=== PATIENT | male | born 1945 | race Caucasian/White ===

== ENCOUNTER 2018-01-20 10:35 | Inpatient (IN) | payer MEDICARE, MEDICAID ==
[2018-01-20] MEDS ORDERED: Sodium Chloride 0.9% 10 ML Syringe FLUSH PRN (11:59)
[2018-01-20] MEDS ORDERED: Pantoprazole 40 MG Vial IVPUSH ONE (12:05)
--- NOTE | 2018-01-20 12:10 | EDM.PDOC ---
ED HPI GENERAL MEDICAL PROBLEM - General Chief Complaint: Gastrointestinal Problem Stated Complaint: [facility] Time Seen by Provider: 01/20/18 11:49 Source of Information: Reports: Patient, EMS, Skilled Nursing Records - History of Present Illness INITIAL COMMENTS - FREE TEXT/NARRATIVE: 72-year-old male presents via [facility] for evaluation and treatment of one episode of coffee-ground emesis. Reportedly the patient is a resident of [facility] and had episodes of hematemesis Earlier This Morning. Per EMS He Did Not Have Any Emesis En Route. Patient is a poor historian and is unable to provide much history. He is currently denying any pain. Denies abdominal pain or chest pain. Alert and orientates to person, and place. - Related Data Allergies Allergy/AdvReac Type Severity Reaction Status Date / Time No Known Allergies Allergy Verified 01/20/18 10:57 Home Meds: Home Meds Folic Acid 1 mg PO BEDTIME #30 tablet 03/11/17 [Rx] Thiamine [Vitamin B-1] 100 mg PO BEDTIME #30 tablet 03/11/17 [Rx] Levothyroxine 88 mcg PO DAILY 04/26/17 [History] Acetaminophen [Tylenol] 650 mg PO Q4H PRN tablet 05/09/17 [Rx] Aspirin 81 mg PO DAILY #30 tab.chew 05/09/17 [Rx] Multivitamins [Tab-A-Emily] 1 tab PO BEDTIME tablet 05/09/17 [Rx] Nicotine [Habitrol] 21 mg TRDERM DAILY #30 patch 05/09/17 [Rx] atorvaSTATin [Lipitor] 20 mg PO BEDTIME #30 tablet 05/09/17 [Rx] metFORMIN [Glucophage] 500 mg PO BIDMEALS #60 tablet 05/09/17 [Rx] Calcium Carbonate [Tums] 500 mg PO BID 01/20/18 [History] Lisinopril [Prinivil] 20 mg PO DAILY 01/20/18 [History] Petrolatum,White [Vaseline] 453.6 gm TOP DAILY 01/20/18 [History] Sertraline [Zoloft] 50 mg PO DAILY 01/20/18 [History] risperiDONE [Risperdal] 0.5 mg PO DAILY 01/20/18 [History] risperiDONE [Risperdal] 1 mg PO DAILY 01/20/18 [History] Past Medical History HEENT History: Reports: None Cardiovascular History: Reports: Hypertension, Pacemaker Other Cardiovascular History: bradycardia Respiratory History: Reports: Other (See Below) Other Respiratory History: smoker Gastrointestinal History: Reports: GERD Genitourinary History: Reports: None Musculoskeletal History: Reports: None Neurological History: Reports: Other (See Below) (Alcohol-related dementia) Psychiatric History: Reports: None Endocrine/Metabolic History: Reports: Diabetes, Type II Hematologic History: Reports: None Oncologic (Cancer) History: Reports: None Dermatologic History: Reports: None - Infectious Disease History Infectious Disease History: Reports: None - Past Surgical History Male Surgical History: Reports: None Social & Family History - Family History Family Medical History: Noncontributory - Caffeine Use Caffeine Use: Reports: Coffee ED ROS GENERAL - Review of Systems Review Of Systems: See Below Cardiovascular: Denies: Chest Pain GI/Abdominal: Reports: Hematemesis. Denies: Abdominal Pain ED EXAM, GI/ABD - Physical Exam Exam: See Below Exam Limited By: No Limitations General Appearance: Alert, Lethargic, Thin, Cachetic Throat/Mouth: Normal Voice, No Airway Compromise, Other (dry mucus membranes) Respiratory/Chest: No Respiratory Distress, Lungs Clear, Normal Breath Sounds Cardiovascular: Normal Peripheral Pulses, Regular Rate, Rhythm, No Murmur GI/Abdominal Exam: Normal Bowel Sounds, Soft, Non-Tender Neurological: Oriented (to person and place), Slow to Respond Psychiatric: Normal Affect, Normal Mood Skin Exam: Warm, Dry, Normal Color EKG INTERPRETATION EKG Date: 01/20/18 Time: 13:50 Rhythm: NSR Rate (Beats/Min): 78 [place]: Normal P-Wave: Present QRS: Normal ST-T: Normal QT: Normal EKG Interpretation Comments: NSR at [address] segment changes. Reviewed by myself and Dr. Martines. Course - Vital Signs Last Recorded V/S: Last Vital Signs Temp 97.9 F 01/20/18 20:31 Pulse 126 H 01/20/18 20:31 Resp 24 H 01/20/18 20:31 BP 124/68 01/20/18 21:43 Pulse Ox 99 01/20/18 20:31 - Orders/Labs/Meds Orders: Active Orders 24 hr Category Date Time Status Ambulate [RC] ASDIRECTED Care 01/20/18 17:30 Inactive Bedrest Bathroom Privileges [RC] ASDIRECTED Care 01/20/18 17:30 Active Blood Glucose Check, Bedside [RC] WITHMEALSANDBED Care 01/20/18 17:30 Active Cardiac Monitoring [RC] . DIRECTED Care 01/20/18 11:59 Active Height and Weight [RC] 04 Care 01/20/18 17:30 Active May Shower [RC] ASDIRECTED Care 01/20/18 17:30 Active Oxygen Therapy [RC] PRN Care 01/20/18 17:30 Active Pulse Oximetry [RC] PRN Care 01/20/18 17:32 Active Up With Assistance [RC] ASDIRECTED Care 01/20/18 17:30 Inactive VTE/DVT Education [RC] 09,21 Care 01/20/18 17:30 Active Vital Signs [RC] Q4HR Care 01/20/18 17:30 Active Consult to Case Management [CONS] Routine Cons 01/20/18 17:30 Active Consult to Dividend Deposit Voucher Clerk [CONS] Routine Cons 01/20/18 17:30 Active OT Evaluation and Treatment [CONS] Routine Cons 01/20/18 17:30 Active PT Evaluation and Treatment [CONS] Routine Cons 01/20/18 17:30 Active Clear Liquid Diet [DIET] Diet 01/20/18 Breakfast Active Chest 1V Frontal [CR] Stat Exams 01/20/18 13:41 Taken BASIC METABOLIC PANEL,BMP [CHEM] AM Lab 01/21/18 05:11 Ordered BASIC METABOLIC PANEL,BMP [CHEM] AM Lab 01/22/18 05:11 Ordered BASIC METABOLIC PANEL,BMP [CHEM] AM Lab 01/23/18 05:11 Ordered BASIC METABOLIC PANEL,BMP [CHEM] AM Lab 01/24/18 05:11 Ordered BASIC METABOLIC PANEL,BMP [CHEM] AM Lab 01/25/18 05:11 Ordered CBC WITH AUTO DIFF [HEME] AM Lab 01/21/18 05:11 Ordered CBC WITH AUTO DIFF [HEME] AM Lab 01/22/18 05:11 Ordered CBC WITH AUTO DIFF [HEME] AM Lab 01/23/18 05:11 Ordered CBC WITH AUTO DIFF [HEME] AM Lab 01/24/18 05:11 Ordered CBC WITH AUTO DIFF [HEME] AM Lab 01/25/18 05:11 Ordered UA W/MICROSCOPIC [URIN] Stat Lab 01/20/18 14:10 Ordered Acetaminophen [Tylenol] Med 01/20/18 17:30 Active 650 mg PO Q4H PRN Acetaminophen/HYDROcodone [[place] 325-5 MG] Med 01/20/18 17:30 Active 1 tab PO Q4H PRN Bisacodyl [Dulcolax] Med 01/20/18 17:30 Active 5 mg PO DAILY PRN Docusate Sodium [Colace] Med 01/20/18 17:30 Active 100 mg PO BID PRN Docusate Sodium/Sennosides [Senna Plus] Med 01/20/18 17:30 Active 1 tab PO BID PRN HYDROmorphone [Dilaudid] Med 01/20/18 17:30 Active 0.25 mg IVPUSH Q2H PRN Magnesium Hydroxide [Milk of Magnesia] Med 01/20/18 17:30 Active 30 ml PO Q12H PRN Nicotine [Habitrol] Med 01/21/18 09:00 Active 21 mg TRDERM DAILY Pantoprazole [ProTONIX IV] Med 01/20/18 21:00 Active 40 mg IV Q12HR Polyethylene Glycol 3350 [MiraLAX] Med 01/20/18 17:30 Active 17 gm PO DAILY PRN Promethazine [Phenergan] Med 01/20/18 17:30 Active 25 mg PO Q6H PRN Promethazine [Phenergan] 6.25 mg Med 01/20/18 17:30 Active Sodium Chloride 0.9% [Normal Saline] 50 ml IV Q6H Sodium Chloride 0.9% [Normal Saline] 1,000 ml Med 01/20/18 12:15 Active IV ASDIRECTED Sodium Chloride 0.9% [Saline Flush] Med 01/20/18 11:59 Active 10 ml FLUSH ASDIRECTED PRN Temazepam [Restoril] Med 01/20/18 17:30 Active 7.5 mg PO BEDTIME PRN Peripheral IV Insertion Adult [OM.PC] Routine Oth 01/20/18 11:59 Ordered Sequential Compression Device [OM.PC] Per Unit Routine Oth 01/20/18 17:34 Ordered Resuscitation Status Routine Resus Stat 01/20/18 17:30 Ordered EKG 12 Lead [EK] Stat Ther 01/20/18 13:41 Ordered Medication Orders Acetaminophen (Tylenol) 650 mg PO Q4H PRN PRN Reason: Pain (Mild 1-3)/fever Hydrocodone Bitart/Acetaminophen ([place] 325-5 Mg) 1 tab PO Q4H PRN PRN Reason: Pain (moderate 4-6) Aspirin (Aspirin) 81 mg PO DAILY [facility] Bisacodyl (Dulcolax) 5 mg PO DAILY PRN PRN Reason: Constipation Calcium Carbonate/Glycine (Tums) 500 mg PO BID [facility] Docusate Sodium (Colace) 100 mg PO BID PRN PRN Reason: Constipation Folic Acid (Folic Acid) 1 mg PO BEDTIME [facility] Last Admin: 01/20/18 20:21 Dose: 1 mg Hydralazine HCl (Apresoline) 20 mg IVPUSH Q4H PRN PRN Reason: Hypertension Last Admin: 01/20/18 21:35 Dose: 20 mg Hydromorphone HCl (Dilaudid) 0.25 mg IVPUSH Q2H PRN PRN Reason: Pain (severe 7-10) Sodium Chloride (Normal Saline) 1,000 mls @ 125 mls/hr IV ASDIRECTED [facility] Last Admin: 01/20/18 20:19 Dose: 125 mls/hr Infusion: 01/20/18 20:12 Dose: 125 mls/hr Admin: 01/20/18 12:12 Dose: 125 mls/hr Promethazine HCl 6.25 mg/ (Sodium Chloride) 50.25 mls @ 100 mls/hr IV Q6H PRN PRN Reason: Nausea/Vomiting Levothyroxine Sodium (Synthroid) 88 mcg PO ACBREAKFAST [facility] Lisinopril (Prinivil) 20 mg PO DAILY [facility] Lorazepam (Ativan) 2 mg IVPUSH Q4H PRN PRN Reason: Seizures Magnesium Hydroxide (Milk Of Magnesia) 30 ml PO Q12H PRN PRN Reason: Constipation Magnesium Sulfate (Pharmacy To Dose - Magnesium Replacement) 1 dose .XX ASDIRECTED [facility] Metformin HCl (Glucophage) 500 mg PO BIDMEALS [facility] Metoprolol Tartrate (Lopressor) 5 mg IVPUSH Q4H PRN PRN Reason: Tachycardia Miscellaneous Information (Remove Patch) 1 ea TRDERM DAILY [facility] Multivitamins (Thera) 1 each PO BEDTIME [facility] Last Admin: 01/20/18 20:21 Dose: 1 each Nicotine (Habitrol) 21 mg TRDERM DAILY [facility] Non-Formulary Medication (Petrolatum,White [Vaseline]) 453.6 gm TOP DAILY [facility] Pantoprazole Sodium (Protonix Iv) 40 mg IV Q12HR [facility] Last Admin: 01/20/18 20:21 Dose: 40 mg Polyethylene Glycol (Miralax) 17 gm PO DAILY PRN PRN Reason: Constipation Potassium Chloride (Pharmacy To Dose - Potassium Replacement) 1 dose .XX ASDIRECTED JAMES Promethazine HCl (Phenergan) 25 mg PO Q6H PRN PRN Reason: Nausea/Vomiting Risperidone (Risperidal) 0.5 mg PO DAILY [facility] Risperidone (Risperidal) 1 mg PO BEDTIME [facility] Last Admin: 01/20/18 20:21 Dose: 1 mg Senna/Docusate Sodium (Senna Plus) 1 tab PO BID PRN PRN Reason: Constipation Sertraline HCl (Zoloft) 50 mg PO DAILY [facility] Simvastatin (Zocor) 20 mg PO BEDTIME [facility] Last Admin: 01/20/18 20:21 Dose: 20 mg Sodium Chloride (Saline Flush) 10 ml FLUSH ASDIRECTED PRN PRN Reason: Keep Vein Open Last Admin: 01/20/18 12:04 Dose: 10 ml Temazepam (Restoril) 7.5 mg PO BEDTIME PRN PRN Reason: Sleep Thiamine HCl (Vitamin B-1) 100 mg PO BEDTIME JAMES Last Admin: 01/20/18 20:21 Dose: 100 mg Labs: Laboratory Tests 01/20/18 01/20/18 01/20/18 Range/Units 12:06 12:25 12:25 WBC 8.72 (4.23-9.07) K/mm3 RBC 5.46 (4.63-6.08) M/mm3 Hgb 14.8 (13.7-17.5) gm/L Hct 44.2 (40.1-51.0) % MCV 81.0 (79.0-92.2) fl MCH 27.1 (25.7-32.2) pg MCHC 33.5 (32.2-35.5) g/dl RDW Std Deviation 38.7 (35.1-43.9) fL Plt Count 267 (163-337) K/mm3 MPV 8.9 L (9.4-12.3) fl Neutrophils % (Manual) 83 H (40-60) % Band Neutrophils % 6 (0-10) % Lymphocytes % (Manual) 7 L (20-40) % Atypical Lymphs % 0 % Monocytes % (Manual) 4 (2-10) % Eosinophils % (Manual) 0 L (0.8-7.0) % Basophils % (Manual) 0 L (0.2-1.2) Platelet Estimate Adequate Plt Morphology Comment Normal Microcytosis 1+ slight Tear Drop Cells 1+ slight RBC Morph Comment Not Reportable PT 12.2 H (9.5-12.1) SECONDS INR 1.12 APTT 35 H (24-31) SECONDS Sodium (136-145) mEq/L Potassium (3.5-5.1) mEq/L Chloride (98-107) mEq/L Carbon Dioxide (21-32) mEq/L Anion Gap (5-15) BUN (7-18) mg/dL Creatinine (0.7-1.3) mg/dL Est Cr Clr Drug Dosing mL/min Estimated GFR (MDRD) (>60) mL/min BUN/Creatinine Ratio (14-18) Glucose (80-115) mg/dL POC Glucose 167 H (80-115) mg/dL Calcium (8.5-10.1) mg/dL Total Bilirubin (0.2-1.0) mg/dL AST (15-37) U/L ALT (16-63) U/L Alkaline Phosphatase (46-116) U/L Ammonia (11-32) umol/L Troponin I (0.00-0.056) ng/mL Total Protein (6.4-8.2) g/dl Albumin (3.4-5.0) g/dl Globulin gm/dL Albumin/Globulin Ratio (1-2) Lipase (73-393) U/L Urine Color (Yellow) Urine Appearance (Clear) Urine pH (5.0-8.0) Ur Specific [place] (1.005-1.030) Urine Protein (Negative) Urine Glucose (UA) (Negative) Urine Ketones (Negative) Urine Occult Blood (Negative) Urine Nitrite (Negative) Urine Bilirubin (Negative) Urine Urobilinogen (0.2-1.0) Ur Leukocyte Esterase (Negative) Urine RBC (0-5) /hpf Urine WBC (0-5) /hpf Ur Epithelial Cells (0-5) /hpf Urine Bacteria (FEW) /hpf Urine Mucus (FEW) /hpf Ethyl Alcohol (0.00) gm% 01/20/18 01/20/18 01/20/18 Range/Units 12:25 12:25 12:25 WBC (4.23-9.07) K/mm3 RBC (4.63-6.08) M/mm3 Hgb (13.7-17.5) gm/L Hct (40.1-51.0) % MCV (79.0-92.2) fl MCH (25.7-32.2) pg MCHC (32.2-35.5) g/dl RDW Std Deviation (35.1-43.9) fL Plt Count (163-337) K/mm3 MPV (9.4-12.3) fl Neutrophils % (Manual) (40-60) % Band Neutrophils % (0-10) % Lymphocytes % (Manual) (20-40) % Atypical Lymphs % % Monocytes % (Manual) (2-10) % Eosinophils % (Manual) (0.8-7.0) % Basophils % (Manual) (0.2-1.2) Platelet Estimate Plt Morphology Comment Microcytosis Tear Drop Cells RBC Morph Comment PT (9.5-12.1) SECONDS INR APTT (24-31) SECONDS Sodium 136 (136-145) mEq/L Potassium 4.3 (3.5-5.1) mEq/L Chloride 100 (98-107) mEq/L Carbon Dioxide 25 (21-32) mEq/L Anion Gap 15.3 H (5-15) BUN 43 H (7-18) mg/dL Creatinine 1.0 (0.7-1.3) mg/dL Est Cr Clr Drug Dosing 70.12 mL/min Estimated GFR (MDRD) > 60 (>60) mL/min BUN/Creatinine Ratio 43.0 H (14-18) Glucose 157 H (80-115) mg/dL POC Glucose (80-115) mg/dL Calcium 9.8 (8.5-10.1) mg/dL Total Bilirubin 0.8 (0.2-1.0) mg/dL AST 13 L (15-37) U/L ALT 21 (16-63) U/L Alkaline Phosphatase 84 (46-116) U/L Ammonia < 10 L (11-32) umol/L Troponin I < 0.017 (0.00-0.056) ng/mL Total Protein 7.8 (6.4-8.2) g/dl Albumin 3.8 (3.4-5.0) g/dl Globulin 4.0 gm/dL Albumin/Globulin Ratio 1.0 (1-2) Lipase 164 (73-393) U/L Urine Color (Yellow) Urine Appearance (Clear) Urine pH (5.0-8.0) Ur Specific [place] (1.005-1.030) Urine Protein (Negative) Urine Glucose (UA) (Negative) Urine Ketones (Negative) Urine Occult Blood (Negative) Urine Nitrite (Negative) Urine Bilirubin (Negative) Urine Urobilinogen (0.2-1.0) Ur Leukocyte Esterase (Negative) Urine RBC (0-5) /hpf Urine WBC (0-5) /hpf Ur Epithelial Cells (0-5) /hpf Urine Bacteria (FEW) /hpf Urine Mucus (FEW) /hpf Ethyl Alcohol 0.00 (0.00) gm% // Range/Units 14:10 WBC (4.23-9.07) K/mm3 RBC (4.63-6.08) M/mm3 Hgb (13.7-17.5) gm/L Hct (40.1-51.0) % MCV (79.0-92.2) fl MCH (25.7-32.2) pg MCHC (32.2-35.5) g/dl RDW Std Deviation (35.1-43.9) fL Plt Count (163-337) K/mm3 MPV (9.4-12.3) fl Neutrophils % (Manual) (40-60) % Band Neutrophils % (0-10) % Lymphocytes % (Manual) (20-40) % Atypical Lymphs % % Monocytes % (Manual) (2-10) % Eosinophils % (Manual) (0.8-7.0) % Basophils % (Manual) (0.2-1.2) Platelet Estimate Plt Morphology Comment Microcytosis Tear Drop Cells RBC Morph Comment PT (9.5-12.1) SECONDS INR APTT (24-31) SECONDS Sodium (136-145) mEq/L Potassium (3.5-5.1) mEq/L Chloride (98-107) mEq/L Carbon Dioxide (21-32) mEq/L Anion Gap (5-15) BUN (7-18) mg/dL Creatinine (0.7-1.3) mg/dL Est Cr Clr Drug Dosing mL/min Estimated GFR (MDRD) (>60) mL/min BUN/Creatinine Ratio (14-18) Glucose (80-115) mg/dL POC Glucose (80-115) mg/dL Calcium (8.5-10.1) mg/dL Total Bilirubin (0.2-1.0) mg/dL AST (15-37) U/L ALT (16-63) U/L Alkaline Phosphatase (46-116) U/L Ammonia (11-32) umol/L Troponin I (0.00-0.056) ng/mL Total Protein (6.4-8.2) g/dl Albumin (3.4-5.0) g/dl Globulin gm/dL Albumin/Globulin Ratio (1-2) Lipase (73-393) U/L Urine Color Yellow (Yellow) Urine Appearance Clear (Clear) Urine pH 5.5 (5.0-8.0) Ur Specific [place] > or = 1.030 (1.005-1.030) Urine Protein 1+ H (Negative) Urine Glucose (UA) Negative (Negative) Urine Ketones 1+ H (Negative) Urine Occult Blood Negative (Negative) Urine Nitrite Negative (Negative) Urine Bilirubin 1+ H (Negative) Urine Urobilinogen 1.0 (0.2-1.0) Ur Leukocyte Esterase Negative (Negative) Urine RBC 0-5 (0-5) /hpf Urine WBC 0-5 (0-5) /hpf Ur Epithelial Cells 0-5 (0-5) /hpf Urine Bacteria Few (FEW) /hpf Urine Mucus Not seen (FEW) /hpf Ethyl Alcohol (0.00) gm% Meds: Medications Generic Name Dose Route Start Last Admin Trade Name Freq PRN Reason Stop Dose Admin Acetaminophen 650 mg 01/20/18 17:30 Tylenol PO Q4H PRN Pain (Mild 1-3)/fever Hydrocodone Bitart/Acetaminophen 1 tab 01/20/18 17:30 [place] 325-5 Mg PO Q4H PRN Pain (moderate 4-6) Aspirin 81 mg 01/21/18 09:00 Aspirin PO DAILY [facility] Bisacodyl 5 mg 01/20/18 17:30 Dulcolax PO DAILY PRN Constipation Calcium Carbonate/Glycine 500 mg 01/21/18 09:00 Tums PO BID [facility] Docusate Sodium 100 mg 01/20/18 17:30 Colace PO BID PRN Constipation Folic Acid 1 mg 01/20/18 21:00 01/20/18 20:21 Folic Acid PO 1 mg BEDTIME JAMES Administration Hydralazine HCl 20 mg 01/20/18 20:41 01/20/18 21:35 Apresoline IVPUSH 20 mg Q4H PRN Administration Hypertension Hydromorphone HCl 0.25 mg 01/20/18 17:30 Dilaudid IVPUSH Q2H PRN Pain (severe 7-10) Sodium Chloride 1,000 mls @ 125 mls/hr 01/20/18 12:15 01/20/18 20:19 Normal Saline IV 125 mls/hr ASDIRECTED [facility] Administration Promethazine HCl 6.25 mg/ 50.25 mls @ 100 mls/hr 01/20/18 17:30 Sodium Chloride IV Q6H PRN Nausea/Vomiting Levothyroxine Sodium 88 mcg 01/21/18 06:00 Synthroid PO ACBREAKFAST [facility] Lisinopril 20 mg 01/21/18 09:00 Prinivil PO DAILY [facility] Lorazepam 2 mg 01/20/18 20:41 Ativan IVPUSH Q4H PRN Seizures Magnesium Hydroxide 30 ml 01/20/18 17:30 Milk Of Magnesia PO Q12H PRN Constipation Magnesium Sulfate 1 dose 01/20/18 20:45 Pharmacy To Dose - Magnesium Replacement .XX ASDIRECTED [facility] Metformin HCl 500 mg 01/21/18 07:00 Glucophage PO BIDMEALS [facility] Metoprolol Tartrate 5 mg 01/20/18 20:41 Lopressor IVPUSH Q4H PRN Tachycardia Miscellaneous Information 1 ea 01/21/18 09:00 Remove Patch TRDERM DAILY [facility] Multivitamins 1 each 01/20/18 21:00 01/20/18 20:21 Thera PO 1 each BEDTIME [facility] Administration Nicotine 21 mg 01/21/18 09:00 Habitrol TRDERM DAILY [facility] Non-Formulary Medication 453.6 gm 01/21/18 09:00 Petrolatum,White [Vaseline] TOP DAILY [facility] Pantoprazole Sodium 40 mg 01/20/18 21:00 01/20/18 20:21 Protonix Iv IV 40 mg Q12HR JAMES Administration Polyethylene Glycol 17 gm 01/20/18 17:30 Miralax PO DAILY PRN Constipation Potassium Chloride 1 dose 01/20/18 20:45 Pharmacy To Dose - Potassium Replacement .XX ASDIRECTED [facility] Promethazine HCl 25 mg 01/20/18 17:30 Phenergan PO Q6H PRN Nausea/Vomiting Risperidone 0.5 mg 01/21/18 09:00 Risperidal PO DAILY [facility] Risperidone 1 mg 01/20/18 21:00 01/20/18 20:21 Risperidal PO 1 mg BEDTIME [facility] Administration Senna/Docusate Sodium 1 tab 01/20/18 17:30 Senna Plus PO BID PRN Constipation Sertraline HCl 50 mg 01/21/18 09:00 Zoloft PO DAILY [facility] Simvastatin 20 mg 01/20/18 21:00 01/20/18 20:21 Zocor PO 20 mg BEDTIME [facility] Administration Sodium Chloride 10 ml 01/20/18 11:59 01/20/18 12:04 Saline Flush FLUSH 10 ml ASDIRECTED PRN Administration Keep Vein Open Temazepam 7.5 mg 01/20/18 17:30 Restoril PO BEDTIME PRN Sleep Thiamine HCl 100 mg 01/20/18 21:00 01/20/18 20:21 Vitamin B-1 PO 100 mg BEDTIME JAMES Administration Discontinued Medications Generic Name Dose Route Start Last Admin Trade Name Freq PRN Reason Stop Dose Admin Nicotine 21 mg 01/21/18 09:00 Habitrol TRDERM DAILY [facility] Pantoprazole Sodium 40 mg 01/20/18 12:05 01/20/18 12:13 Protonix Iv IVPUSH 01/20/18 12:06 40 mg ONETIME ONE Administration Risperidone 1 mg 01/20/18 20:00 Risperidal PO DAILY [facility] - Radiology Interpretation Free Text/Narrative:: Head CT Technique: Multiple axial sections through the brain were obtained. Intravenous contrast was not utilized. Comparison: No prior head CT exam is available. Findings: Ventricles along the basal cisterns and sulci with convexities are moderately prominent. Slightly prominent subdural space is noted on the left side as compared to the right side most likely representing minimal chronic subdural effusion. 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 No other abnormal parenchymal densities are seen. No evidence of intracranial hemorrhage. No midline shift or mass effect is seen. On window settings were reviewed which shows atherosclerotic calcification within the carotid siphon. Minimal soft tissue density seen within the mastoid sinuses which is felt to represent mucosal thickening and is incidental. Impression: 1. Senescent change as noted above. No definite acute intracranial abnormality is identified. Chest xray shows a questionable area to the right lower lobe - Re-Assessments/Exams Free Text/Narrative Re-Assessment/Exam: 01/20/18 17:39 Patient is ever been seen in our ER. Review of records show he is on a Mario several times. Recent indicated that he was previously alcohol. Per nursing staff when [place] called with report, only reported hematemesis. When I reviewed the records from the long-term they state that he was having slurred speech, chest pain and abdominal pain. Records indicate that he had about 4 cups of coffee ground emesis earlier today. When I asked the patient about chest pain and abdominal pain he declined having any. However, he is a poor historian. He did not appear to have any slurred speech to myself. I did do a CT of the head to ensure he has not had a stroke and no abnormalities were found. spoke with daughter shanti, made aware of admission. Possibly EGD pending surgeon recommendation and patient's course. Patient is a full code . Daughter states her and her sister Berna would like everything done including upper endoscopy if that is indicated. Shanti states far she is aware he's never had any GI bleeds or esophageal varices. Shanti made aware of observation status admission. Patient has been in the ER proximally 6 hours down he has not had any hematemesis. I spoke with Dr. Pabon, hospialist on-call. agrees to the admission. Patient meets for observation. PA student, Hodan , came to the ER to admit the patient nursing staff informed me that he has been coughing and they did have to suction out some thick white sputum. .Chest x-ray reviewed by myself and Dr. Martines Questionable hazy infiltrate in the right lung. White blood cell count is within normal limits. I accompanied was sent to the patient's room to inform him he would be seen with us here in the hospital. He did cough while we were talking with him. Departure - Departure Time of Disposition: 17:30 Disposition: Refer to Observation Condition: Fair Clinical Impression: Cough, Coffee ground emesis, Lethargic - Discharge Information - My Orders Last 24 Hours: My Active Orders 01/20/18 11:59 Cardiac Monitoring [RC] . DIRECTED Sodium Chloride 0.9% [Saline Flush] 10 ml FLUSH ASDIRECTED PRN Peripheral IV Insertion Adult [OM.PC] Routine 01/20/18 12:15 Sodium Chloride 0.9% [Normal Saline] 1,000 ml IV ASDIRECTED 01/20/18 13:41 Chest 1V Frontal [CR] Stat EKG 12 Lead [EK] Stat 01/20/18 14:10 UA W/MICROSCOPIC [URIN] Stat - Assessment/Plan Last 24 Hours: My Active Orders 01/20/18 11:59 Cardiac Monitoring [RC] . DIRECTED Sodium Chloride 0.9% [Saline Flush] 10 ml FLUSH ASDIRECTED PRN Peripheral IV Insertion Adult [OM.PC] Routine 01/20/18 12:15 Sodium Chloride 0.9% [Normal Saline] 1,000 ml IV ASDIRECTED 01/20/18 13:41 Chest 1V Frontal [CR] Stat EKG 12 Lead [EK] Stat 01/20/18 14:10 UA W/MICROSCOPIC [URIN] Stat
[2018-01-20] MEDS: Sodium Chloride 0.9% 1,000 ML IV SCH ×2 (12:12→20:19)
--- NOTE | 2018-01-20 14:21 | CT ---
Head CT Technique: Multiple axial sections through the brain were obtained. Intravenous contrast was not utilized. Comparison: No prior head CT exam is available. Findings: Ventricles along the basal cisterns and sulci with convexities are moderately prominent. Slightly prominent subdural space is noted on the left side as compared to the right side most likely representing minimal chronic subdural effusion. 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 No other abnormal parenchymal densities are seen. No evidence of intracranial hemorrhage. No midline shift or mass effect is seen. On window settings were reviewed which shows atherosclerotic calcification within the carotid siphon. Minimal soft tissue density seen within the mastoid sinuses which is felt to represent mucosal thickening and is incidental. Impression: 1. Senescent change as noted above. No definite acute intracranial abnormality is identified. Diagnostic code #2
--- NOTE | 2018-01-20 17:29 | PCM.HP ---
<Hodan Palencia - Last Filed: 01/20/18 17:54> H&P History of Present Illness - General Date of Service: 01/20/18 Admit Problem/Dx: Hematemesis Source of Information: Old Records, Provider History Limitations: Reports: Other (Poor historian ) - History of Present Illness Initial Comments - Free Text/Narative: This is a 72 y/o male with PMHx significant for alcohol use disorder, schizophrenia, dementia, MDD, GERD, cachexia, presence of cardiac pacemaker, weakness, HTN, type 2 DM, HLD, and hypothyroisim who comes in with one episode of coffee ground hematemesis earlier this morning per staff at [facility] where he is a resident. Per EMS, patient did not have any emesis en route to ED but RN at [facility] reported to EMS that he vomited approximately 4 cups this morning. Patient is a poor historian and is unable to provide much history. He is currently denying any pain. Denies abdominal pain or chest pain. He is unable to answer if he has experienced hematemesis prior to today. jail records also indicate that patient was having slurred speech and was more lethargic as well as chest pain and abdominal pain. Patient was noted to have a wet cough with sputum production in ED. ED work-up included CBC that was unremarkable with WBC 8.72 and Hgb 14.8. CMP remarkable for anion gap 15.3, glucose 157, BUN 43, AST 13. Ammonia was <10 and troponin was <0.017. UA was significant for specific gravity >= 1.030, 1+ protein, 1+ ketones, 1+ bilirubin. No evidence of UTI. Head CT was ordered and was read as senescent changes but no acute abnormality. EKG was read as NSR with no acute changes. Chest xray read is pending but initial impression is negative. He was placed on IVF of NS at 125 ml/hr in ED and he also received protonix 40 mg IV there. ED provider reported negative FOBT. ED provider spoke to daughter and she reported that patient's psych medications were adjusted recently. He is subsequently admitted to the med/surg floor for observation and supportive care. He has history of tobacco abuse and is currently on a nicotine patch. He is a full code. PCP is Dr. Ace Suazo - Related Data Allergies/Adverse Reactions: Allergies Allergy/AdvReac Type Severity Reaction Status Date / Time No Known Allergies Allergy Verified 01/20/18 10:57 Home Medications: Home Meds Folic Acid 1 mg PO BEDTIME #30 tablet 03/11/17 [Rx] Thiamine [Vitamin B-1] 100 mg PO BEDTIME #30 tablet 03/11/17 [Rx] Levothyroxine 88 mcg PO DAILY 04/26/17 [History] Acetaminophen [Tylenol] 650 mg PO Q4H PRN tablet 05/09/17 [Rx] Aspirin 81 mg PO DAILY #30 tab.chew 05/09/17 [Rx] Multivitamins [Tab-A-Emily] 1 tab PO BEDTIME tablet 05/09/17 [Rx] Nicotine [Habitrol] 21 mg TRDERM DAILY #30 patch 05/09/17 [Rx] atorvaSTATin [Lipitor] 20 mg PO BEDTIME #30 tablet 05/09/17 [Rx] metFORMIN [Glucophage] 500 mg PO BIDMEALS #60 tablet 05/09/17 [Rx] Calcium Carbonate [Tums] 500 mg PO BID 01/20/18 [History] Lisinopril [Prinivil] 20 mg PO DAILY 01/20/18 [History] Petrolatum,White [Vaseline] 453.6 gm TOP DAILY 01/20/18 [History] Sertraline [Zoloft] 50 mg PO DAILY 01/20/18 [History] risperiDONE [Risperdal] 0.5 mg PO DAILY 01/20/18 [History] risperiDONE [Risperdal] 1 mg PO DAILY 01/20/18 [History] Past Medical History HEENT History: Reports: None Cardiovascular History: Reports: Hypertension, Pacemaker Other Cardiovascular History: bradycardia Respiratory History: Reports: Other (See Below) Other Respiratory History: smoker Gastrointestinal History: Reports: GERD Genitourinary History: Reports: None Musculoskeletal History: Reports: None Neurological History: Reports: Other (See Below) (Alcohol-related dementia) Other Neuro History: dementia Psychiatric History: Reports: None Endocrine/Metabolic History: Reports: Diabetes, Type II Hematologic History: Reports: None Oncologic (Cancer) History: Reports: None Dermatologic History: Reports: None - Infectious Disease History Infectious Disease History: Reports: None - Past Surgical History Male Surgical History: Reports: None Social & Family History - Family History Family Medical History: Noncontributory - Tobacco Use Smoking Status *Q: Former Smoker Used Tobacco, but Quit: No - Caffeine Use Caffeine Use: Reports: Coffee - Recreational Drug Use Recreational Drug Use: No H&P Review of Systems - Review of Systems: Review Of Systems: Unable To Obtain (patient is a poor historian and would not open eyes during exam) Exam - Exam Exam: See Below - Vital Signs Vital Signs: Last Vital Signs Temp 98.6 F 01/20/18 10:56 Pulse 16 L 01/20/18 10:56 Resp 16 01/20/18 10:56 BP 160/98 H 01/20/18 10:56 Pulse Ox 91 L 01/20/18 10:56 Weight: 72.121 kg - Exam Quality Assessment: Other (Exam limited with patient's refusal to open eyes and answer questions; he is able to follow commands ) General: Alert, Lethargic, Other (Thin, no acute distress ). No: Oriented HEENT: Other (Patient would not open his eyes during exam. Tearing noted to eyes b/l. Pupils appeared reactive. Tongue appears dry ) Neck: Supple. No: Lymphadenopathy, Carotid Bruit Lungs: Clear to Auscultation, Normal Respiratory Effort Cardiovascular: Regular Rate, Regular Rhythm, Other (No murmur ) GI/Abdominal Exam: Normal Bowel Sounds, Soft, Non-Tender, No Distention (thin ) (Male) Exam: Deferred Rectal (Males) Exam: Deferred Back Exam: Normal Inspection, Decreased Range of Motion Extremities: Normal Inspection, Limited Range of Motion. No: Pedal Edema, Increased Warmth Peripheral Pulses: 1+: Radial (L), Radial (R), Posterior Tibial (L), Posterior Tibial (R), Dorsalis Pedis (L), Dorsalis Pedis (R) Skin: Warm, Dry, Intact Neurological: Cranial Nerves Intact (grossly ), Strength Equal Bilateral Neuro Extensive - Mental Status: Slow Response to Commands. No: Opens Eyes to Commands Neuro Extensive - Motor, Sensory, Reflexes: CN II-XII Intact (grossly ) Psychiatric: Other (Unable to assess ) - Patient Data Lab Results Last 24 hrs: Laboratory Results - last 24 hr 01/20/18 01/20/18 01/20/18 Range/Units 12:06 12:25 12:25 WBC 8.72 (4.23-9.07) K/mm3 RBC 5.46 (4.63-6.08) M/mm3 Hgb 14.8 (13.7-17.5) gm/L Hct 44.2 (40.1-51.0) % MCV 81.0 (79.0-92.2) fl MCH 27.1 (25.7-32.2) pg MCHC 33.5 (32.2-35.5) g/dl RDW Std Deviation 38.7 (35.1-43.9) fL Plt Count 267 (163-337) K/mm3 MPV 8.9 L (9.4-12.3) fl Neutrophils % (Manual) 83 H (40-60) % Band Neutrophils % 6 (0-10) % Lymphocytes % (Manual) 7 L (20-40) % Atypical Lymphs % 0 % Monocytes % (Manual) 4 (2-10) % Eosinophils % (Manual) 0 L (0.8-7.0) % Basophils % (Manual) 0 L (0.2-1.2) Platelet Estimate Adequate Plt Morphology Comment Normal Microcytosis 1+ slight Tear Drop Cells 1+ slight RBC Morph Comment Not Reportable PT 12.2 H (9.5-12.1) SECONDS INR 1.12 APTT 35 H (24-31) SECONDS Sodium (136-145) mEq/L Potassium (3.5-5.1) mEq/L Chloride (98-107) mEq/L Carbon Dioxide (21-32) mEq/L Anion Gap (5-15) BUN (7-18) mg/dL Creatinine (0.7-1.3) mg/dL Est Cr Clr Drug Dosing mL/min Estimated GFR (MDRD) (>60) mL/min BUN/Creatinine Ratio (14-18) Glucose (80-115) mg/dL POC Glucose 167 H (80-115) mg/dL Calcium (8.5-10.1) mg/dL Total Bilirubin (0.2-1.0) mg/dL AST (15-37) U/L ALT (16-63) U/L Alkaline Phosphatase (46-116) U/L Ammonia (11-32) umol/L Troponin I (0.00-0.056) ng/mL Total Protein (6.4-8.2) g/dl Albumin (3.4-5.0) g/dl Globulin gm/dL Albumin/Globulin Ratio (1-2) Lipase (73-393) U/L Urine Color (Yellow) Urine Appearance (Clear) Urine pH (5.0-8.0) Ur Specific [place] (1.005-1.030) Urine Protein (Negative) Urine Glucose (UA) (Negative) Urine Ketones (Negative) Urine Occult Blood (Negative) Urine Nitrite (Negative) Urine Bilirubin (Negative) Urine Urobilinogen (0.2-1.0) Ur Leukocyte Esterase (Negative) Urine RBC (0-5) /hpf Urine WBC (0-5) /hpf Ur Epithelial Cells (0-5) /hpf Urine Bacteria (FEW) /hpf Urine Mucus (FEW) /hpf Ethyl Alcohol (0.00) gm% 01/20/18 01/20/18 01/20/18 Range/Units 12:25 12:25 12:25 WBC (4.23-9.07) K/mm3 RBC (4.63-6.08) M/mm3 Hgb (13.7-17.5) gm/L Hct (40.1-51.0) % MCV (79.0-92.2) fl MCH (25.7-32.2) pg MCHC (32.2-35.5) g/dl RDW Std Deviation (35.1-43.9) fL Plt Count (163-337) K/mm3 MPV (9.4-12.3) fl Neutrophils % (Manual) (40-60) % Band Neutrophils % (0-10) % Lymphocytes % (Manual) (20-40) % Atypical Lymphs % % Monocytes % (Manual) (2-10) % Eosinophils % (Manual) (0.8-7.0) % Basophils % (Manual) (0.2-1.2) Platelet Estimate Plt Morphology Comment Microcytosis Tear Drop Cells RBC Morph Comment PT (9.5-12.1) SECONDS INR APTT (24-31) SECONDS Sodium 136 (136-145) mEq/L Potassium 4.3 (3.5-5.1) mEq/L Chloride 100 (98-107) mEq/L Carbon Dioxide 25 (21-32) mEq/L Anion Gap 15.3 H (5-15) BUN 43 H (7-18) mg/dL Creatinine 1.0 (0.7-1.3) mg/dL Est Cr Clr Drug Dosing 70.12 mL/min Estimated GFR (MDRD) > 60 (>60) mL/min BUN/Creatinine Ratio 43.0 H (14-18) Glucose 157 H (80-115) mg/dL POC Glucose (80-115) mg/dL Calcium 9.8 (8.5-10.1) mg/dL Total Bilirubin 0.8 (0.2-1.0) mg/dL AST 13 L (15-37) U/L ALT 21 (16-63) U/L Alkaline Phosphatase 84 (46-116) U/L Ammonia < 10 L (11-32) umol/L Troponin I < 0.017 (0.00-0.056) ng/mL Total Protein 7.8 (6.4-8.2) g/dl Albumin 3.8 (3.4-5.0) g/dl Globulin 4.0 gm/dL Albumin/Globulin Ratio 1.0 (1-2) Lipase 164 (73-393) U/L Urine Color (Yellow) Urine Appearance (Clear) Urine pH (5.0-8.0) Ur Specific [place] (1.005-1.030) Urine Protein (Negative) Urine Glucose (UA) (Negative) Urine Ketones (Negative) Urine Occult Blood (Negative) Urine Nitrite (Negative) Urine Bilirubin (Negative) Urine Urobilinogen (0.2-1.0) Ur Leukocyte Esterase (Negative) Urine RBC (0-5) /hpf Urine WBC (0-5) /hpf Ur Epithelial Cells (0-5) /hpf Urine Bacteria (FEW) /hpf Urine Mucus (FEW) /hpf Ethyl Alcohol 0.00 (0.00) gm% /04/01 Range/Units 14:10 WBC (4.23-9.07) K/mm3 RBC (4.63-6.08) M/mm3 Hgb (13.7-17.5) gm/L Hct (40.1-51.0) % MCV (79.0-92.2) fl MCH (25.7-32.2) pg MCHC (32.2-35.5) g/dl RDW Std Deviation (35.1-43.9) fL Plt Count (163-337) K/mm3 MPV (9.4-12.3) fl Neutrophils % (Manual) (40-60) % Band Neutrophils % (0-10) % Lymphocytes % (Manual) (20-40) % Atypical Lymphs % % Monocytes % (Manual) (2-10) % Eosinophils % (Manual) (0.8-7.0) % Basophils % (Manual) (0.2-1.2) Platelet Estimate Plt Morphology Comment Microcytosis Tear Drop Cells RBC Morph Comment PT (9.5-12.1) SECONDS INR APTT (24-31) SECONDS Sodium (136-145) mEq/L Potassium (3.5-5.1) mEq/L Chloride (98-107) mEq/L Carbon Dioxide (21-32) mEq/L Anion Gap (5-15) BUN (7-18) mg/dL Creatinine (0.7-1.3) mg/dL Est Cr Clr Drug Dosing mL/min Estimated GFR (MDRD) (>60) mL/min BUN/Creatinine Ratio (14-18) Glucose (80-115) mg/dL POC Glucose (80-115) mg/dL Calcium (8.5-10.1) mg/dL Total Bilirubin (0.2-1.0) mg/dL AST (15-37) U/L ALT (16-63) U/L Alkaline Phosphatase (46-116) U/L Ammonia (11-32) umol/L Troponin I (0.00-0.056) ng/mL Total Protein (6.4-8.2) g/dl Albumin (3.4-5.0) g/dl Globulin gm/dL Albumin/Globulin Ratio (1-2) Lipase (73-393) U/L Urine Color Yellow (Yellow) Urine Appearance Clear (Clear) Urine pH 5.5 (5.0-8.0) Ur Specific [place] > or = 1.030 (1.005-1.030) Urine Protein 1+ H (Negative) Urine Glucose (UA) Negative (Negative) Urine Ketones 1+ H (Negative) Urine Occult Blood Negative (Negative) Urine Nitrite Negative (Negative) Urine Bilirubin 1+ H (Negative) Urine Urobilinogen 1.0 (0.2-1.0) Ur Leukocyte Esterase Negative (Negative) Urine RBC 0-5 (0-5) /hpf Urine WBC 0-5 (0-5) /hpf Ur Epithelial Cells 0-5 (0-5) /hpf Urine Bacteria Few (FEW) /hpf Urine Mucus Not seen (FEW) /hpf Ethyl Alcohol (0.00) gm% Result Diagrams: 01/20/18 12:25 01/20/18 12:25 Problem List Initiated/Reviewed/Updated: Yes Orders Last 24hrs: Active Orders 24 hr Category Date Time Status Blood Glucose Check, Bedside [RC] ONETIME Care 01/20/18 12:00 Active Cardiac Monitoring [RC] . DIRECTED Care 01/20/18 11:59 Active EKG Documentation Completion [RC] ASDIRECTED Care 01/20/18 13:42 Active Peripheral IV Care [RC] . DIRECTED Care 01/20/18 11:59 Active Chest 1V Frontal [CR] Stat Exams 01/20/18 13:41 Taken UA W/MICROSCOPIC [URIN] Stat Lab 01/20/18 14:10 Ordered Sodium Chloride 0.9% [Normal Saline] 1,000 ml Med 01/20/18 12:15 Active IV ASDIRECTED Sodium Chloride 0.9% [Saline Flush] Med 01/20/18 11:59 Active 10 ml FLUSH ASDIRECTED PRN Peripheral IV Insertion Adult [OM.PC] Routine Oth 01/20/18 11:59 Ordered EKG 12 Lead [EK] Stat Ther 01/20/18 13:41 Ordered Medication Orders Sodium Chloride (Normal Saline) 1,000 mls @ 125 mls/hr IV ASDIRECTED JAMES Last Admin: 01/20/18 12:12 Dose: 125 mls/hr Sodium Chloride (Saline Flush) 10 ml FLUSH ASDIRECTED PRN PRN Reason: Keep Vein Open Last Admin: 01/20/18 12:04 Dose: 10 ml Assessment/Plan Comment:: Acute: Acute hematemesis - risk factors: history of alcohol abuse and GERD - reported by [facility] to be coffee ground emesis - no further episodes with EMS or in ED - ED provider reports negative FOBT - supportive care: monitor vitals, Hgb --> if indicated, will consult General Surgery for possible EGD - BP 160/98 in ED, improved at admit; continue IVF NS 125 ml/hr and will re- assess tomorrow if IVF fluid should be continued - ordered Protonix 40 mg BID IV - clear liquid diet order Mental status changes - [facility] reported slurred speech and lethargy - Head CT in ED read as senescent changes with no acute abnormality - daughter reported to ED provider that psych medications were recently changed - monitor Type 2 Diabetes - Glucose 157 and 167 in ED - on Metformin at [facility] --> continue home meds - accuchecks with meals and bedtime Phlegm production - ED suctioned clear to yellow sputum - lungs CTA - afebrile - initial CXR impression is negative - consider RT consult if sputum production worsens Chronic: Alcohol use disorder Schizophrenia Dementia MDD GERD Cachexia Presence of cardiac pacemaker Weakness HTN Type 2 DM HLD Hypothyroisim Plan: Admitted from ED to inpatient observation status Other orders as indicated above CM/SW for discharge planning Routine AM labs Clear liquid diet Consult PT/OT DVT Prophylaxis: SCDs Ambulate as tolerated Code Status: Full code PCP: Dr. Ace Suazo <Shruthi Laws T - Last Filed: 01/20/18 19:10> H&P History of Present Illness - General Admit Problem/Dx: Admission Diagnosis/Problem Admission Diagnosis/Problem Coffee ground emesis Exam - Vital Signs Vital Signs: Last Vital Signs Temp 36.8 C 01/20/18 17:45 Pulse 71 01/20/18 17:45 Resp 19 01/20/18 17:45 BP 96/71 01/20/18 17:45 Pulse Ox 94 L 01/20/18 17:45 - Patient Data Lab Results Last 24 hrs: Laboratory Results - last 24 hr 01/20/18 01/20/18 01/20/18 Range/Units 12:06 12:25 12:25 WBC 8.72 (4.23-9.07) K/mm3 RBC 5.46 (4.63-6.08) M/mm3 Hgb 14.8 (13.7-17.5) gm/L Hct 44.2 (40.1-51.0) % MCV 81.0 (79.0-92.2) fl MCH 27.1 (25.7-32.2) pg MCHC 33.5 (32.2-35.5) g/dl RDW Std Deviation 38.7 (35.1-43.9) fL Plt Count 267 (163-337) K/mm3 MPV 8.9 L (9.4-12.3) fl Neutrophils % (Manual) 83 H (40-60) % Band Neutrophils % 6 (0-10) % Lymphocytes % (Manual) 7 L (20-40) % Atypical Lymphs % 0 % Monocytes % (Manual) 4 (2-10) % Eosinophils % (Manual) 0 L (0.8-7.0) % Basophils % (Manual) 0 L (0.2-1.2) Platelet Estimate Adequate Plt Morphology Comment Normal Microcytosis 1+ slight Tear Drop Cells 1+ slight RBC Morph Comment Not Reportable PT 12.2 H (9.5-12.1) SECONDS INR 1.12 APTT 35 H (24-31) SECONDS Sodium (136-145) mEq/L Potassium (3.5-5.1) mEq/L Chloride (98-107) mEq/L Carbon Dioxide (21-32) mEq/L Anion Gap (5-15) BUN (7-18) mg/dL Creatinine (0.7-1.3) mg/dL Est Cr Clr Drug Dosing mL/min Estimated GFR (MDRD) (>60) mL/min BUN/Creatinine Ratio (14-18) Glucose (80-115) mg/dL POC Glucose 167 H (80-115) mg/dL Calcium (8.5-10.1) mg/dL Total Bilirubin (0.2-1.0) mg/dL AST (15-37) U/L ALT (16-63) U/L Alkaline Phosphatase (46-116) U/L Ammonia (11-32) umol/L Troponin I (0.00-0.056) ng/mL Total Protein (6.4-8.2) g/dl Albumin (3.4-5.0) g/dl Globulin gm/dL Albumin/Globulin Ratio (1-2) Lipase (73-393) U/L Urine Color (Yellow) Urine Appearance (Clear) Urine pH (5.0-8.0) Ur Specific [place] (1.005-1.030) Urine Protein (Negative) Urine Glucose (UA) (Negative) Urine Ketones (Negative) Urine Occult Blood (Negative) Urine Nitrite (Negative) Urine Bilirubin (Negative) Urine Urobilinogen (0.2-1.0) Ur Leukocyte Esterase (Negative) Urine RBC (0-5) /hpf Urine WBC (0-5) /hpf Ur Epithelial Cells (0-5) /hpf Urine Bacteria (FEW) /hpf Urine Mucus (FEW) /hpf Ethyl Alcohol (0.00) gm% 01/20/18 01/20/18 01/20/18 Range/Units 12:25 12:25 12:25 WBC (4.23-9.07) K/mm3 RBC (4.63-6.08) M/mm3 Hgb (13.7-17.5) gm/L Hct (40.1-51.0) % MCV (79.0-92.2) fl MCH (25.7-32.2) pg MCHC (32.2-35.5) g/dl RDW Std Deviation (35.1-43.9) fL Plt Count (163-337) K/mm3 MPV (9.4-12.3) fl Neutrophils % (Manual) (40-60) % Band Neutrophils % (0-10) % Lymphocytes % (Manual) (20-40) % Atypical Lymphs % % Monocytes % (Manual) (2-10) % Eosinophils % (Manual) (0.8-7.0) % Basophils % (Manual) (0.2-1.2) Platelet Estimate Plt Morphology Comment Microcytosis Tear Drop Cells RBC Morph Comment PT (9.5-12.1) SECONDS INR APTT (24-31) SECONDS Sodium 136 (136-145) mEq/L Potassium 4.3 (3.5-5.1) mEq/L Chloride 100 (98-107) mEq/L Carbon Dioxide 25 (21-32) mEq/L Anion Gap 15.3 H (5-15) BUN 43 H (7-18) mg/dL Creatinine 1.0 (0.7-1.3) mg/dL Est Cr Clr Drug Dosing 70.12 mL/min Estimated GFR (MDRD) > 60 (>60) mL/min BUN/Creatinine Ratio 43.0 H (14-18) Glucose 157 H (80-115) mg/dL POC Glucose (80-115) mg/dL Calcium 9.8 (8.5-10.1) mg/dL Total Bilirubin 0.8 (0.2-1.0) mg/dL AST 13 L (15-37) U/L ALT 21 (16-63) U/L Alkaline Phosphatase 84 (46-116) U/L Ammonia < 10 L (11-32) umol/L Troponin I < 0.017 (0.00-0.056) ng/mL Total Protein 7.8 (6.4-8.2) g/dl Albumin 3.8 (3.4-5.0) g/dl Globulin 4.0 gm/dL Albumin/Globulin Ratio 1.0 (1-2) Lipase 164 (73-393) U/L Urine Color (Yellow) Urine Appearance (Clear) Urine pH (5.0-8.0) Ur Specific [place] (1.005-1.030) Urine Protein (Negative) Urine Glucose (UA) (Negative) Urine Ketones (Negative) Urine Occult Blood (Negative) Urine Nitrite (Negative) Urine Bilirubin (Negative) Urine Urobilinogen (0.2-1.0) Ur Leukocyte Esterase (Negative) Urine RBC (0-5) /hpf Urine WBC (0-5) /hpf Ur Epithelial Cells (0-5) /hpf Urine Bacteria (FEW) /hpf Urine Mucus (FEW) /hpf Ethyl Alcohol 0.00 (0.00) gm% 01/20/18 Range/Units 14:10 WBC (4.23-9.07) K/mm3 RBC (4.63-6.08) M/mm3 Hgb (13.7-17.5) gm/L Hct (40.1-51.0) % MCV (79.0-92.2) fl MCH (25.7-32.2) pg MCHC (32.2-35.5) g/dl RDW Std Deviation (35.1-43.9) fL Plt Count (163-337) K/mm3 MPV (9.4-12.3) fl Neutrophils % (Manual) (40-60) % Band Neutrophils % (0-10) % Lymphocytes % (Manual) (20-40) % Atypical Lymphs % % Monocytes % (Manual) (2-10) % Eosinophils % (Manual) (0.8-7.0) % Basophils % (Manual) (0.2-1.2) Platelet Estimate Plt Morphology Comment Microcytosis Tear Drop Cells RBC Morph Comment PT (9.5-12.1) SECONDS INR APTT (24-31) SECONDS Sodium (136-145) mEq/L Potassium (3.5-5.1) mEq/L Chloride (98-107) mEq/L Carbon Dioxide (21-32) mEq/L Anion Gap (5-15) BUN (7-18) mg/dL Creatinine (0.7-1.3) mg/dL Est Cr Clr Drug Dosing mL/min Estimated GFR (MDRD) (>60) mL/min BUN/Creatinine Ratio (14-18) Glucose (80-115) mg/dL POC Glucose (80-115) mg/dL Calcium (8.5-10.1) mg/dL Total Bilirubin (0.2-1.0) mg/dL AST (15-37) U/L ALT (16-63) U/L Alkaline Phosphatase (46-116) U/L Ammonia (11-32) umol/L Troponin I (0.00-0.056) ng/mL Total Protein (6.4-8.2) g/dl Albumin (3.4-5.0) g/dl Globulin gm/dL Albumin/Globulin Ratio (1-2) Lipase (73-393) U/L Urine Color Yellow (Yellow) Urine Appearance Clear (Clear) Urine pH 5.5 (5.0-8.0) Ur Specific [place] > or = 1.030 (1.005-1.030) Urine Protein 1+ H (Negative) Urine Glucose (UA) Negative (Negative) Urine Ketones 1+ H (Negative) Urine Occult Blood Negative (Negative) Urine Nitrite Negative (Negative) Urine Bilirubin 1+ H (Negative) Urine Urobilinogen 1.0 (0.2-1.0) Ur Leukocyte Esterase Negative (Negative) Urine RBC 0-5 (0-5) /hpf Urine WBC 0-5 (0-5) /hpf Ur Epithelial Cells 0-5 (0-5) /hpf Urine Bacteria Few (FEW) /hpf Urine Mucus Not seen (FEW) /hpf Ethyl Alcohol (0.00) gm% Result Diagrams: 01/20/18 12:25 01/20/18 12:25 Orders Last 24hrs: Active Orders 24 hr Category Date Time Status Patient Status [ADT] Routine ADT 01/20/18 17:36 Active Ambulate [RC] ASDIRECTED Care 01/20/18 17:30 Inactive Bedrest Bathroom Privileges [RC] ASDIRECTED Care 01/20/18 17:30 Active Blood Glucose Check, Bedside [RC] ONETIME Care 01/20/18 12:00 Active Blood Glucose Check, Bedside [RC] WITHMEALSANDBED Care 01/20/18 17:30 Active Cardiac Monitoring [RC] . DIRECTED Care 01/20/18 11:59 Active Height and Weight [RC] 04 Care 01/20/18 17:30 Active Insert Daivla Catheter [Insert Urinary Catheter] [OM.PC] Care 01/20/18 14:00 Ordered Stat May Shower [RC] ASDIRECTED Care 01/20/18 17:30 Active Oxygen Therapy [RC] PRN Care 01/20/18 17:30 Active Pulse Oximetry [RC] PRN Care 01/20/18 17:32 Active Up With Assistance [RC] ASDIRECTED Care 01/20/18 17:30 Inactive Urinary Catheter Assessment [RC] ASDIRECTED Care 01/20/18 14:00 Active VTE/DVT Education [RC] QSHIFT Care 01/20/18 17:30 Active Vital Signs [RC] Q4H Care 01/20/18 17:30 Active Consult to Case Management [CONS] Routine Cons 01/20/18 17:30 Active Consult to Grounds Cleaner [CONS] Routine Cons 01/20/18 17:30 Active OT Evaluation and Treatment [CONS] Routine Cons 01/20/18 17:30 Active PT Evaluation and Treatment [CONS] Routine Cons 01/20/18 17:30 Active Clear Liquid Diet [DIET] Diet 01/20/18 Breakfast Active Chest 1V Frontal [CR] Stat Exams 01/20/18 13:41 Taken BASIC METABOLIC PANEL,BMP [CHEM] AM Lab 01/21/18 05:11 Ordered BASIC METABOLIC PANEL,BMP [CHEM] AM Lab 01/22/18 05:11 Ordered BASIC METABOLIC PANEL,BMP [CHEM] AM Lab 01/23/18 05:11 Ordered BASIC METABOLIC PANEL,BMP [CHEM] AM Lab 01/24/18 05:11 Ordered BASIC METABOLIC PANEL,BMP [CHEM] AM Lab 01/25/18 05:11 Ordered CBC WITH AUTO DIFF [HEME] AM Lab 01/21/18 05:11 Ordered CBC WITH AUTO DIFF [HEME] AM Lab 01/22/18 05:11 Ordered CBC WITH AUTO DIFF [HEME] AM Lab 01/23/18 05:11 Ordered CBC WITH AUTO DIFF [HEME] AM Lab 01/24/18 05:11 Ordered CBC WITH AUTO DIFF [HEME] AM Lab 01/25/18 05:11 Ordered METH-RESIST S.AUR,MRSA BY PCR [MOLEC] Routine Lab 01/20/18 18:45 Ordered UA W/MICROSCOPIC [URIN] Stat Lab 01/20/18 14:10 Ordered Acetaminophen [Tylenol] Med 01/20/18 17:30 Active 650 mg PO Q4H PRN Acetaminophen/HYDROcodone [[place] 325-5 MG] Med 01/20/18 17:30 Active 1 tab PO Q4H PRN Aspirin Med 01/21/18 09:00 Active 81 mg PO DAILY Bisacodyl [Dulcolax] Med 01/20/18 17:30 Active 5 mg PO DAILY PRN Calcium Carbonate [Tums] Med 01/21/18 09:00 Active 500 mg PO BID Docusate Sodium [Colace] Med 01/20/18 17:30 Active 100 mg PO BID PRN Docusate Sodium/Sennosides [Senna Plus] Med 01/20/18 17:30 Active 1 tab PO BID PRN Folic Acid Med 01/20/18 21:00 Active 1 mg PO BEDTIME HYDROmorphone [Dilaudid] Med 01/20/18 17:30 Active 0.25 mg IVPUSH Q2H PRN Levothyroxine Med 01/21/18 09:00 Pending 88 mcg PO DAILY Lisinopril [Prinivil] Med 01/21/18 09:00 Active 20 mg PO DAILY Magnesium Hydroxide [Milk of Magnesia] Med 01/20/18 17:30 Active 30 ml PO Q12H PRN Multivitamins,Therapeutic [Thera] Med 01/20/18 21:00 Active 1 each PO BEDTIME Nicotine [Habitrol] Med 01/21/18 09:00 Active 21 mg TRDERM DAILY Pantoprazole [ProTONIX IV] Med 01/20/18 21:00 Active 40 mg IV Q12HR Polyethylene Glycol 3350 [MiraLAX] Med 01/20/18 17:30 Active 17 gm PO DAILY PRN Promethazine [Phenergan] Med 01/20/18 17:30 Active 25 mg PO Q6H PRN Promethazine [Phenergan] 6.25 mg Med 01/20/18 17:30 Active Sodium Chloride 0.9% [Normal Saline] 50 ml IV Q6H Remove Patch Med 01/21/18 09:00 Active 1 ea TRDERM DAILY Sertraline [Zoloft] Med 01/21/18 09:00 Active 50 mg PO DAILY Simvastatin [Zocor] Med 01/20/18 21:00 Active 20 mg PO BEDTIME Sodium Chloride 0.9% [Normal Saline] 1,000 ml Med 01/20/18 12:15 Active IV ASDIRECTED Sodium Chloride 0.9% [Saline Flush] Med 01/20/18 11:59 Active 10 ml FLUSH ASDIRECTED PRN Temazepam [Restoril] Med 01/20/18 17:30 Active 7.5 mg PO BEDTIME PRN Thiamine [Vitamin B-1] Med 01/20/18 21:00 Active 100 mg PO BEDTIME metFORMIN [Glucophage] Med 01/21/18 07:00 Active 500 mg PO BIDMEALS risperiDONE [RisperiDAL] Med 01/21/18 09:00 Active 0.5 mg PO DAILY risperiDONE [RisperiDAL] Med 01/20/18 21:00 Active 1 mg PO BEDTIME Peripheral IV Insertion Adult [OM.PC] Routine Oth 01/20/18 11:59 Ordered Sequential Compression Device [OM.PC] Per Unit Routine Oth 01/20/18 17:34 Ordered Resuscitation Status Routine Resus Stat 01/20/18 17:30 Ordered EKG 12 Lead [EK] Stat Ther 01/20/18 13:41 Ordered Medication Orders Acetaminophen (Tylenol) 650 mg PO Q4H PRN PRN Reason: Pain (Mild 1-3)/fever Hydrocodone Bitart/Acetaminophen ([place] 325-5 Mg) 1 tab PO Q4H PRN PRN Reason: Pain (moderate 4-6) Aspirin (Aspirin) 81 mg PO DAILY JAMES Bisacodyl (Dulcolax) 5 mg PO DAILY PRN PRN Reason: Constipation Calcium Carbonate/Glycine (Tums) 500 mg PO BID JAMES Docusate Sodium (Colace) 100 mg PO BID PRN PRN Reason: Constipation Folic Acid (Folic Acid) 1 mg PO BEDTIME JAMES Hydromorphone HCl (Dilaudid) 0.25 mg IVPUSH Q2H PRN PRN Reason: Pain (severe 7-10) Sodium Chloride (Normal Saline) 1,000 mls @ 125 mls/hr IV ASDIRECTED JAMES Last Admin: 01/20/18 12:12 Dose: 125 mls/hr Promethazine HCl 6.25 mg/ (Sodium Chloride) 50.25 mls @ 100 mls/hr IV Q6H PRN PRN Reason: Nausea/Vomiting Levothyroxine Sodium (Levothyroxine) 88 mcg PO DAILY JAMES Lisinopril (Prinivil) 20 mg PO DAILY JAMES Magnesium Hydroxide (Milk Of Magnesia) 30 ml PO Q12H PRN PRN Reason: Constipation Metformin HCl (Glucophage) 500 mg PO BIDMEALS [facility] Miscellaneous Information (Remove Patch) 1 ea TRDERM DAILY [facility] Multivitamins (Thera) 1 each PO BEDTIME [facility] Nicotine (Habitrol) 21 mg TRDERM DAILY [facility] Pantoprazole Sodium (Protonix Iv) 40 mg IV Q12HR JAMES Polyethylene Glycol (Miralax) 17 gm PO DAILY PRN PRN Reason: Constipation Promethazine HCl (Phenergan) 25 mg PO Q6H PRN PRN Reason: Nausea/Vomiting Risperidone (Risperidal) 0.5 mg PO DAILY [facility] Risperidone (Risperidal) 1 mg PO BEDTIME JAMES Senna/Docusate Sodium (Senna Plus) 1 tab PO BID PRN PRN Reason: Constipation Sertraline HCl (Zoloft) 50 mg PO DAILY JAMES Simvastatin (Zocor) 20 mg PO BEDTIME [facility] Sodium Chloride (Saline Flush) 10 ml FLUSH ASDIRECTED PRN PRN Reason: Keep Vein Open Last Admin: 01/20/18 12:04 Dose: 10 ml Temazepam (Restoril) 7.5 mg PO BEDTIME PRN PRN Reason: Sleep Thiamine HCl (Vitamin B-1) 100 mg PO BEDTIME JAMES Assessment/Plan Comment:: Patient seen and examined at bedside in concert with the PA student. The assessment and plans were discussed and agreed upon with me.
[2018-01-20] MEDS ORDERED: Acetaminophen 325 MG Tab PO PRN (17:30)
[2018-01-20] MEDS ORDERED: HYDROmorphone 0.5 MG/0.5 ML SYRINGE IVPUSH PRN (17:30)
[2018-01-20] MEDS ORDERED: Docusate Sodium 100 MG Cap PO PRN (17:30)
[2018-01-20] MEDS ORDERED: Polyethylene Glycol 3350 Powder 17 GM Packet PO PRN (17:30)
[2018-01-20] MEDS ORDERED: Promethazine 25 MG Tab PO PRN (17:30)
[2018-01-20] MEDS ORDERED: Bisacodyl 5 MG Tab PO PRN (17:30)
[2018-01-20] MEDS ORDERED: Magnesium Hydroxide 400 MG/5 ML Susp 30 ML Cup PO PRN (17:30)
[2018-01-20] MEDS ORDERED: Promethazine 6.25 MG in Sodium Chloride 0.9% 50 ML IV PRN (17:30)
[2018-01-20] MEDS ORDERED: Temazepam 7.5 MG Cap PO PRN (17:30)
[2018-01-20] MEDS ORDERED: Acetaminophen/HYDROcodone 325-5 MG Tab PO PRN (17:30)
[2018-01-20] MEDS ORDERED: risperiDONE 1 MG Tab PO SCH (20:00)
[2018-01-20] MEDS: Multivitamins,Therapeutic Tab PO SCH (20:21)
[2018-01-20] MEDS: Simvastatin 20 MG Tab PO SCH (20:21)
[2018-01-20] MEDS: Folic Acid 1 MG Tab PO SCH (20:21)
[2018-01-20] MEDS: Thiamine 100 MG Tab PO SCH (20:21)
[2018-01-20] MEDS: risperiDONE 1 MG Tab PO SCH (20:21)
[2018-01-20] MEDS: Pantoprazole 40 MG Vial IV SCH (20:21)
[2018-01-20] MEDS ORDERED: Metoprolol Tartrate 5 MG/5 ML SDV IVPUSH PRN (20:41)
[2018-01-20] MEDS ORDERED: LORazepam 2 MG/ML SDV IVPUSH PRN (20:41)
[2018-01-20] MEDS: hydrALAZINE 20 MG/ML SDV IVPUSH PRN (21:35)
[2018-01-21] MEDS: Levothyroxine 88 MCG Tab PO SCH (05:05)
[2018-01-21] MEDS: Sodium Chloride 0.9% 1,000 ML IV SCH ×3 (05:06→21:01)
--- NOTE | 2018-01-21 07:28 | PCM.PN ---
- General Info Date of Service: 01/21/18 Admission Dx/Problem (Free Text): Admission Diagnosis/Problem Admission Diagnosis/Problem Coffee ground emesis Subjective Update: Follow Up Functional Status: Reports: Pain Controlled, Tolerating Diet, Urinating. Denies : New Symptoms - Review of Systems General: Denies: Fever, Weakness, Fatigue, Malaise, Chills HEENT: Reports: No Symptoms Pulmonary: Denies: Shortness of Breath Cardiovascular: Denies: Chest Pain, Dyspnea on Exertion, Lightheadedness Gastrointestinal: Denies: Abdominal Pain, Decreased Appetite, Difficulty Swallowing, Nausea, Vomiting Genitourinary: Reports: No Symptoms Musculoskeletal: Reports: No Symptoms Skin: Denies: Cyanosis, Mottled, Pallor, Diaphoresis Neurological: Reports: Confusion (baseline dementia), Pre-Existing Deficit, Difficulty Walking, Gait Disturbance. Denies: Weakness Psychiatric: Denies: Depression, Anxiety, Agitation, Hallucinations Systems Review Comment:: No overnight or acute issues. He slept okay last night. He has no complaints. No reports of vomiting or hematemesis. However he has been refusing to eat and take his home pills. His Hgb this AM is stable at 12.9. His glucose is fairly controlled. - Patient Data Vitals - Most Recent: Last Vital Signs Temp 36.3 C 01/20/18 23:24 Pulse 107 H 01/20/18 23:24 Resp 22 H 01/20/18 23:24 BP 100/58 L 01/20/18 23:24 Pulse Ox 76 L 01/20/18 23:24 Weight - Most Recent: 67.387 kg Lab Results Last 24 Hours: Laboratory Results - last 24 hr 01/20/18 01/20/18 01/20/18 Range/Units 12:06 12:25 12:25 WBC 8.72 (4.23-9.07) K/mm3 RBC 5.46 (4.63-6.08) M/mm3 Hgb 14.8 (13.7-17.5) gm/L Hct 44.2 (40.1-51.0) % MCV 81.0 (79.0-92.2) fl MCH 27.1 (25.7-32.2) pg MCHC 33.5 (32.2-35.5) g/dl RDW Std Deviation 38.7 (35.1-43.9) fL Plt Count 267 (163-337) K/mm3 MPV 8.9 L (9.4-12.3) fl Neut % (Auto) (34.0-67.9) % Lymph % (Auto) (21.8-53.1) % Craig % (Auto) (5.3-12.2) % Eos % (Auto) (0.8-7.0) Baso % (Auto) (0.1-1.2) % Neut # (Auto) (1.78-5.38) K/mm3 Lymph # (Auto) (1.32-3.57) K/mm3 [place] # (Auto) (0.30-0.82) K/mm3 Eos # (Auto) (0.04-0.54) K/mm3 Baso # (Auto) (0.01-0.08) K/mm3 Neutrophils % (Manual) 83 H (40-60) % Band Neutrophils % 6 (0-10) % Lymphocytes % (Manual) 7 L (20-40) % Atypical Lymphs % 0 % Monocytes % (Manual) 4 (2-10) % Eosinophils % (Manual) 0 L (0.8-7.0) % Basophils % (Manual) 0 L (0.2-1.2) Manual Slide Review Platelet Estimate Adequate Plt Morphology Comment Normal Microcytosis 1+ slight Tear Drop Cells 1+ slight RBC Morph Comment Not Reportable PT 12.2 H (9.5-12.1) SECONDS INR 1.12 APTT 35 H (24-31) SECONDS Sodium (136-145) mEq/L Potassium (3.5-5.1) mEq/L Chloride (98-107) mEq/L Carbon Dioxide (21-32) mEq/L Anion Gap (5-15) BUN (7-18) mg/dL Creatinine (0.7-1.3) mg/dL Est Cr Clr Drug Dosing mL/min Estimated GFR (MDRD) (>60) mL/min BUN/Creatinine Ratio (14-18) Glucose (80-115) mg/dL POC Glucose 167 H (80-115) mg/dL Calcium (8.5-10.1) mg/dL Total Bilirubin (0.2-1.0) mg/dL AST (15-37) U/L ALT (16-63) U/L Alkaline Phosphatase (46-116) U/L Ammonia (11-32) umol/L Troponin I (0.00-0.056) ng/mL Total Protein (6.4-8.2) g/dl Albumin (3.4-5.0) g/dl Globulin gm/dL Albumin/Globulin Ratio (1-2) Lipase (73-393) U/L Urine Color (Yellow) Urine Appearance (Clear) Urine pH (5.0-8.0) Ur Specific [place] (1.005-1.030) Urine Protein (Negative) Urine Glucose (UA) (Negative) Urine Ketones (Negative) Urine Occult Blood (Negative) Urine Nitrite (Negative) Urine Bilirubin (Negative) Urine Urobilinogen (0.2-1.0) Ur Leukocyte Esterase (Negative) Urine RBC (0-5) /hpf Urine WBC (0-5) /hpf Ur Epithelial Cells (0-5) /hpf Urine Bacteria (FEW) /hpf Urine Mucus (FEW) /hpf Ethyl Alcohol (0.00) gm% MRSA (PCR) 01/20/18 01/20/18 01/20/18 Range/Units 12:25 12:25 12:25 WBC (4.23-9.07) K/mm3 RBC (4.63-6.08) M/mm3 Hgb (13.7-17.5) gm/L Hct (40.1-51.0) % MCV (79.0-92.2) fl MCH (25.7-32.2) pg MCHC (32.2-35.5) g/dl RDW Std Deviation (35.1-43.9) fL Plt Count (163-337) K/mm3 MPV (9.4-12.3) fl Neut % (Auto) (34.0-67.9) % Lymph % (Auto) (21.8-53.1) % Craig % (Auto) (5.3-12.2) % Eos % (Auto) (0.8-7.0) Baso % (Auto) (0.1-1.2) % Neut # (Auto) (1.78-5.38) K/mm3 Lymph # (Auto) (1.32-3.57) K/mm3 [place] # (Auto) (0.30-0.82) K/mm3 Eos # (Auto) (0.04-0.54) K/mm3 Baso # (Auto) (0.01-0.08) K/mm3 Neutrophils % (Manual) (40-60) % Band Neutrophils % (0-10) % Lymphocytes % (Manual) (20-40) % Atypical Lymphs % % Monocytes % (Manual) (2-10) % Eosinophils % (Manual) (0.8-7.0) % Basophils % (Manual) (0.2-1.2) Manual Slide Review Platelet Estimate Plt Morphology Comment Microcytosis Tear Drop Cells RBC Morph Comment PT (9.5-12.1) SECONDS INR APTT (24-31) SECONDS Sodium 136 (136-145) mEq/L Potassium 4.3 (3.5-5.1) mEq/L Chloride 100 (98-107) mEq/L Carbon Dioxide 25 (21-32) mEq/L Anion Gap 15.3 H (5-15) BUN 43 H (7-18) mg/dL Creatinine 1.0 (0.7-1.3) mg/dL Est Cr Clr Drug Dosing 70.12 mL/min Estimated GFR (MDRD) > 60 (>60) mL/min BUN/Creatinine Ratio 43.0 H (14-18) Glucose 157 H (80-115) mg/dL POC Glucose (80-115) mg/dL Calcium 9.8 (8.5-10.1) mg/dL Total Bilirubin 0.8 (0.2-1.0) mg/dL AST 13 L (15-37) U/L ALT 21 (16-63) U/L Alkaline Phosphatase 84 (46-116) U/L Ammonia < 10 L (11-32) umol/L Troponin I < 0.017 (0.00-0.056) ng/mL Total Protein 7.8 (6.4-8.2) g/dl Albumin 3.8 (3.4-5.0) g/dl Globulin 4.0 gm/dL Albumin/Globulin Ratio 1.0 (1-2) Lipase 164 (73-393) U/L Urine Color (Yellow) Urine Appearance (Clear) Urine pH (5.0-8.0) Ur Specific [place] (1.005-1.030) Urine Protein (Negative) Urine Glucose (UA) (Negative) Urine Ketones (Negative) Urine Occult Blood (Negative) Urine Nitrite (Negative) Urine Bilirubin (Negative) Urine Urobilinogen (0.2-1.0) Ur Leukocyte Esterase (Negative) Urine RBC (0-5) /hpf Urine WBC (0-5) /hpf Ur Epithelial Cells (0-5) /hpf Urine Bacteria (FEW) /hpf Urine Mucus (FEW) /hpf Ethyl Alcohol 0.00 (0.00) gm% MRSA (PCR) 01/20/18 01/20/18 01/20/18 Range/Units 14:10 18:45 23:11 WBC (4.23-9.07) K/mm3 RBC (4.63-6.08) M/mm3 Hgb (13.7-17.5) gm/L Hct (40.1-51.0) % MCV (79.0-92.2) fl MCH (25.7-32.2) pg MCHC (32.2-35.5) g/dl RDW Std Deviation (35.1-43.9) fL Plt Count (163-337) K/mm3 MPV (9.4-12.3) fl Neut % (Auto) (34.0-67.9) % Lymph % (Auto) (21.8-53.1) % Craig % (Auto) (5.3-12.2) % Eos % (Auto) (0.8-7.0) Baso % (Auto) (0.1-1.2) % Neut # (Auto) (1.78-5.38) K/mm3 Lymph # (Auto) (1.32-3.57) K/mm3 [place] # (Auto) (0.30-0.82) K/mm3 Eos # (Auto) (0.04-0.54) K/mm3 Baso # (Auto) (0.01-0.08) K/mm3 Neutrophils % (Manual) (40-60) % Band Neutrophils % (0-10) % Lymphocytes % (Manual) (20-40) % Atypical Lymphs % % Monocytes % (Manual) (2-10) % Eosinophils % (Manual) (0.8-7.0) % Basophils % (Manual) (0.2-1.2) Manual Slide Review Platelet Estimate Plt Morphology Comment Microcytosis Tear Drop Cells RBC Morph Comment PT (9.5-12.1) SECONDS INR APTT (24-31) SECONDS Sodium (136-145) mEq/L Potassium (3.5-5.1) mEq/L Chloride (98-107) mEq/L Carbon Dioxide (21-32) mEq/L Anion Gap (5-15) BUN (7-18) mg/dL Creatinine (0.7-1.3) mg/dL Est Cr Clr Drug Dosing mL/min Estimated GFR (MDRD) (>60) mL/min BUN/Creatinine Ratio (14-18) Glucose (80-115) mg/dL POC Glucose 150 H (80-115) mg/dL Calcium (8.5-10.1) mg/dL Total Bilirubin (0.2-1.0) mg/dL AST (15-37) U/L ALT (16-63) U/L Alkaline Phosphatase (46-116) U/L Ammonia (11-32) umol/L Troponin I (0.00-0.056) ng/mL Total Protein (6.4-8.2) g/dl Albumin (3.4-5.0) g/dl Globulin gm/dL Albumin/Globulin Ratio (1-2) Lipase (73-393) U/L Urine Color Yellow (Yellow) Urine Appearance Clear (Clear) Urine pH 5.5 (5.0-8.0) Ur Specific [place] > or = 1.030 (1.005-1.030) Urine Protein 1+ H (Negative) Urine Glucose (UA) Negative (Negative) Urine Ketones 1+ H (Negative) Urine Occult Blood Negative (Negative) Urine Nitrite Negative (Negative) Urine Bilirubin 1+ H (Negative) Urine Urobilinogen 1.0 (0.2-1.0) Ur Leukocyte Esterase Negative (Negative) Urine RBC 0-5 (0-5) /hpf Urine WBC 0-5 (0-5) /hpf Ur Epithelial Cells 0-5 (0-5) /hpf Urine Bacteria Few (FEW) /hpf Urine Mucus Not seen (FEW) /hpf Ethyl Alcohol (0.00) gm% MRSA (PCR) Negative 01/21/18 01/21/18 Range/Units 06:09 06:23 WBC 4.64 (4.23-9.07) K/mm3 RBC 4.69 (4.63-6.08) M/mm3 Hgb 12.9 L (13.7-17.5) gm/L Hct 38.7 L (40.1-51.0) % MCV 82.5 (79.0-92.2) fl MCH 27.5 (25.7-32.2) pg MCHC 33.3 (32.2-35.5) g/dl RDW Std Deviation 39.1 (35.1-43.9) fL Plt Count 245 (163-337) K/mm3 MPV 8.9 L (9.4-12.3) fl Neut % (Auto) 60.8 (34.0-67.9) % Lymph % (Auto) 25.6 (21.8-53.1) % [place] % (Auto) 10.8 (5.3-12.2) % Eos % (Auto) 2.2 (0.8-7.0) Baso % (Auto) 0.4 (0.1-1.2) % Neut # (Auto) 2.82 (1.78-5.38) K/mm3 Lymph # (Auto) 1.19 L (1.32-3.57) K/mm3 [place] # (Auto) 0.50 (0.30-0.82) K/mm3 Eos # (Auto) 0.10 (0.04-0.54) K/mm3 Baso # (Auto) 0.02 (0.01-0.08) K/mm3 Neutrophils % (Manual) (40-60) % Band Neutrophils % (0-10) % Lymphocytes % (Manual) (20-40) % Atypical Lymphs % % Monocytes % (Manual) (2-10) % Eosinophils % (Manual) (0.8-7.0) % Basophils % (Manual) (0.2-1.2) Manual Slide Review Not Reportable Platelet Estimate Plt Morphology Comment Microcytosis Tear Drop Cells RBC Morph Comment PT (9.5-12.1) SECONDS INR APTT (24-31) SECONDS Sodium (136-145) mEq/L Potassium (3.5-5.1) mEq/L Chloride (98-107) mEq/L Carbon Dioxide (21-32) mEq/L Anion Gap (5-15) BUN (7-18) mg/dL Creatinine (0.7-1.3) mg/dL Est Cr Clr Drug Dosing mL/min Estimated GFR (MDRD) (>60) mL/min BUN/Creatinine Ratio (14-18) Glucose (80-115) mg/dL POC Glucose 126 H (80-115) mg/dL Calcium (8.5-10.1) mg/dL Total Bilirubin (0.2-1.0) mg/dL AST (15-37) U/L ALT (16-63) U/L Alkaline Phosphatase (46-116) U/L Ammonia (11-32) umol/L Troponin I (0.00-0.056) ng/mL Total Protein (6.4-8.2) g/dl Albumin (3.4-5.0) g/dl Globulin gm/dL Albumin/Globulin Ratio (1-2) Lipase (73-393) U/L Urine Color (Yellow) Urine Appearance (Clear) Urine pH (5.0-8.0) Ur Specific [place] (1.005-1.030) Urine Protein (Negative) Urine Glucose (UA) (Negative) Urine Ketones (Negative) Urine Occult Blood (Negative) Urine Nitrite (Negative) Urine Bilirubin (Negative) Urine Urobilinogen (0.2-1.0) Ur Leukocyte Esterase (Negative) Urine RBC (0-5) /hpf Urine WBC (0-5) /hpf Ur Epithelial Cells (0-5) /hpf Urine Bacteria (FEW) /hpf Urine Mucus (FEW) /hpf Ethyl Alcohol (0.00) gm% MRSA (PCR) Med Orders - Current: Current Medications Acetaminophen (Tylenol) 650 mg PO Q4H PRN PRN Reason: Pain (Mild 1-3)/fever Hydrocodone Bitart/Acetaminophen ([place] 325-5 Mg) 1 tab PO Q4H PRN PRN Reason: Pain (moderate 4-6) Aspirin (Aspirin) 81 mg PO DAILY JAMES Bisacodyl (Dulcolax) 5 mg PO DAILY PRN PRN Reason: Constipation Calcium Carbonate/Glycine (Tums) 500 mg PO BID JAMES Docusate Sodium (Colace) 100 mg PO BID PRN PRN Reason: Constipation Folic Acid (Folic Acid) 1 mg PO BEDTIME [facility] Last Admin: 01/20/18 20:21 Dose: 1 mg Hydralazine HCl (Apresoline) 20 mg IVPUSH Q4H PRN PRN Reason: Hypertension Last Admin: 01/20/18 21:35 Dose: 20 mg Hydromorphone HCl (Dilaudid) 0.25 mg IVPUSH Q2H PRN PRN Reason: Pain (severe 7-10) Sodium Chloride (Normal Saline) 1,000 mls @ 125 mls/hr IV ASDIRECTED [facility] Last Admin: 01/21/18 05:06 Dose: 125 mls/hr Promethazine HCl 6.25 mg/ (Sodium Chloride) 50.25 mls @ 100 mls/hr IV Q6H PRN PRN Reason: Nausea/Vomiting Levothyroxine Sodium (Synthroid) 88 mcg PO ACBREAKFAST [facility] Last Admin: 01/21/18 05:05 Dose: 88 mcg Lisinopril (Prinivil) 20 mg PO DAILY [facility] Lorazepam (Ativan) 2 mg IVPUSH Q4H PRN PRN Reason: Seizures Magnesium Hydroxide (Milk Of Magnesia) 30 ml PO Q12H PRN PRN Reason: Constipation Magnesium Sulfate (Pharmacy To Dose - Magnesium Replacement) 1 dose .XX ASDIRECTED [facility] Metformin HCl (Glucophage) 500 mg PO BIDMEALS [facility] Metoprolol Tartrate (Lopressor) 5 mg IVPUSH Q4H PRN PRN Reason: Tachycardia Miscellaneous Information (Remove Patch) 1 ea TRDERM DAILY [facility] Multivitamins (Thera) 1 each PO BEDTIME [facility] Last Admin: 01/20/18 20:21 Dose: 1 each Nicotine (Habitrol) 21 mg TRDERM DAILY [facility] Non-Formulary Medication (Petrolatum,White [Vaseline]) 453.6 gm TOP DAILY [facility] Pantoprazole Sodium (Protonix Iv) 40 mg IV Q12HR [facility] Last Admin: 01/20/18 20:21 Dose: 40 mg Polyethylene Glycol (Miralax) 17 gm PO DAILY PRN PRN Reason: Constipation Potassium Chloride (Pharmacy To Dose - Potassium Replacement) 1 dose .XX ASDIRECTED [facility] Promethazine HCl (Phenergan) 25 mg PO Q6H PRN PRN Reason: Nausea/Vomiting Risperidone (Risperidal) 0.5 mg PO DAILY [facility] Risperidone (Risperidal) 1 mg PO BEDTIME [facility] Last Admin: 01/20/18 20:21 Dose: 1 mg Senna/Docusate Sodium (Senna Plus) 1 tab PO BID PRN PRN Reason: Constipation Sertraline HCl (Zoloft) 50 mg PO DAILY [facility] Simvastatin (Zocor) 20 mg PO BEDTIME [facility] Last Admin: 01/20/18 20:21 Dose: 20 mg Sodium Chloride (Saline Flush) 10 ml FLUSH ASDIRECTED PRN PRN Reason: Keep Vein Open Last Admin: 01/20/18 12:04 Dose: 10 ml Temazepam (Restoril) 7.5 mg PO BEDTIME PRN PRN Reason: Sleep Thiamine HCl (Vitamin B-1) 100 mg PO BEDTIME [facility] Last Admin: 01/20/18 20:21 Dose: 100 mg Discontinued Medications Nicotine (Habitrol) 21 mg TRDERM DAILY [facility] Pantoprazole Sodium (Protonix Iv) 40 mg IVPUSH ONETIME ONE Stop: 01/20/18 12:06 Last Admin: 01/20/18 12:13 Dose: 40 mg Risperidone (Risperidal) 1 mg PO DAILY JAMES - Exam General: Alert, No Acute Distress HEENT: Pupils Equal, Pupils Reactive, Mucous Membr. Moist/[place] Neck: Supple, Trachea Midline, No Thyromegaly Lungs: Normal Respiratory Effort, Decreased Breath Sounds, Other (Poor inspiratory and expiratory effort) Cardiovascular: Regular Rate, Regular Rhythm (Male) Exam: Deferred Back Exam: Normal Inspection, Decreased Range of Motion Extremities: Normal Inspection, Normal Range of Motion, Non-Tender, No Pedal Edema, Normal Capillary Refill, Other (noted for muscle atrophy) Peripheral Pulses: 2+: Dorsalis Pedis (L), Dorsalis Pedis (R) Skin: Warm, Dry, Intact Neurological: No New Focal Deficit Psy/Mental Status: Alert, Normal Mood. No: Normal Affect - Problem List Review Problem List Initiated/Reviewed/Updated: Yes - My Orders Last 24 Hours: My Active Orders 01/20/18 18:45 METH-RESIST S.AUR,MRSA BY PCR [MOLEC] Routine 01/20/18 20:04 Communication Order [RC] DAILY 01/20/18 20:41 LORazepam [Ativan] 2 mg IVPUSH Q4H PRN Metoprolol Tartrate [Lopressor] 5 mg IVPUSH Q4H PRN hydrALAZINE [Apresoline] 20 mg IVPUSH Q4H PRN 01/20/18 20:45 Magnesium Rep Pharmacy to Dose [Pharmacy to Dose - Magnesium Replacement] 1 dose .XX ASDIRECTED Potassium Rep Pharmacy to Dose [Pharmacy to Dose - Potassium Replacement] 1 dose .XX ASDIRECTED 01/21/18 06:09 MAGNESIUM [CHEM] Routine 01/21/18 09:00 Petrolatum,White [Vaseline] 453.6 gm TOP DAILY Remove Patch 1 ea TRDERM DAILY - Plan Plan:: A/P: Acute: S/p Acute Hematemesis - Risk factors: History of alcohol abuse, GERD, Pill Esophagitis - Reported by [facility] to be coffee ground emesis - No further episodes with EMS or in ED - ED provider reports negative FOBT - Supportive care: monitor vitals, Hgb --> if indicated, will consult General Surgery for possible EGD - BP 160/98 in ED, improved at admit; continue IVF NS 125 ml/hr and will re- assess tomorrow if IVF fluid should be continued - Ordered Protonix 40 mg BID IV - Clear liquid diet order S/p Mental Status Changes - Has underlying Dementia - Suspect 2/2 Medication Side effects (Increased Dose of Risperdal) - [place] reported slurred speech and lethargy - Head CT in ED read as senescent changes with no acute abnormality - Daughter reported to ED provider that psych medications were recently changed - He is now at baseline Type 2 Diabetes, Stable - Glucose 157 and 167 in ED - On Metformin at [place] --> continue home meds - Accu-check with meals and bedtime Phlegm Production - ED suctioned clear to yellow sputum - Lung CXR-no acute abnormal findings - Aspiration Precaution - Decongestant/Expectorant PRN and IS as directed - Afebrile w/o leukocytosis - May have oropharyngeal dysfunction - Consider ETH[employer]LB[employer] eval at the nursing if symptoms gets worse; he is able to cough and ate regular meals at this point Chronic: Hx/ Alcohol Use Disorder Schizophrenia ETOH Dementia MDD GERD Cachexia Presence of cardiac pacemaker Weakness HTN Type 2 DM HLD Hypothyroidism Plan: He is clinically stable Continue current treatment Advance diet to regular Hold Risperdal Caffeine pill 1 tab po in AM for stimulant Routine AM labs Consult PT/OT Fall and Aspiration Precaution DVT Prophylaxis: SCDs Other orders as indicated above Code Status: Full code Possible d/c in AM Updated family and 2 daughters at bedside regarding his clinical progress. SW was contacted to draw up papers for DPOA since patient has no living will or advance directive.
[2018-01-21] MEDS: metFORMIN 500 MG Tab PO SCH ×3 (08:32→16:48)
[2018-01-21] MEDS: Sertraline 50 MG Tab PO SCH ×2 (08:33→11:12)
[2018-01-21] MEDS: Nicotine 21 MG/24 Hr Patch TRDERM SCH (08:33)
[2018-01-21] MEDS: risperiDONE 0.5 MG Tab PO SCH ×2 (08:33→11:11)
[2018-01-21] MEDS: Calcium Carbonate 500 MG Tab.Chew PO SCH ×3 (08:33→21:08)
[2018-01-21] MEDS: Pantoprazole 40 MG Vial IV SCH ×2 (08:33→21:09)
[2018-01-21] MEDS: Aspirin 81 MG Tab.Chew PO SCH ×2 (08:33→11:11)
[2018-01-21] MEDS: Lisinopril 20 MG Tab PO SCH ×2 (08:37→11:11)
[2018-01-21] MEDS ORDERED: PETROLATUM WHITE TOP SCH (09:00)
[2018-01-21] MEDS ORDERED: Nicotine 21 MG/24 Hr Patch TRDERM SCH (09:00)
[2018-01-21] MEDS ORDERED: Lactulose Soln 10 GM/15 ML 30 ML UD Cup PO ONE (19:02)
[2018-01-21] MEDS ORDERED: Bisacodyl 10 MG Supp RECTAL ONE (20:00)
[2018-01-21] MEDS: Thiamine 100 MG Tab PO SCH (21:08)
[2018-01-21] MEDS: Multivitamins,Therapeutic Tab PO SCH (21:08)
[2018-01-21] MEDS: Simvastatin 20 MG Tab PO SCH (21:08)
[2018-01-21] MEDS: Folic Acid 1 MG Tab PO SCH (21:09)
[2018-01-21] MEDS ORDERED: guaiFENesin/Dextromethorphan 100-10 MG/5 ML Soln 5 ML Cup PO PRN (21:35)
[2018-01-21] MEDS ORDERED: Azithromycin 500 MG in Sodium Chloride 0.9% 250 ML IV ONE (23:57)
[2018-01-22] MEDS: Sodium Chloride 0.9% 1,000 ML IV SCH (05:05)
[2018-01-22] MEDS: Levothyroxine 88 MCG Tab PO SCH (06:02)
[2018-01-22] MEDS: metFORMIN 500 MG Tab PO SCH (06:02)
[2018-01-22] MEDS ORDERED: Caffeine 200 MG Tab PO ONE (07:00)
--- NOTE | 2018-01-22 07:48 | PCM.PN ---
- General Info Date of Service: 01/22/18 Admission Dx/Problem (Free Text): Admission Diagnosis/Problem Admission Diagnosis/Problem Coffee ground emesis Subjective Update: Follow Up Functional Status: Reports: Pain Controlled, Tolerating Diet, Urinating. Denies : Ambulating, New Symptoms - Review of Systems General: Denies: Fever, Chills HEENT: Reports: No Symptoms Pulmonary: Reports: Cough, Sputum. Denies: Shortness of Breath, Wheezing Cardiovascular: Denies: Chest Pain, Dyspnea on Exertion, Lightheadedness Gastrointestinal: Reports: Flatus, Other (No hematemesis). Denies: Abdominal Pain, Constipation, Decreased Appetite, Nausea, Vomiting Genitourinary: Reports: No Symptoms Musculoskeletal: Reports: No Symptoms Skin: Denies: Cyanosis, Mottled, Pallor, Diaphoresis, Bruising, Pruritis Neurological: Reports: Confusion (baseline dementia with disruptive behavior), Difficulty Walking, Weakness, Gait Disturbance Psychiatric: Denies: Depression, Anxiety, Agitation, Hallucinations Systems Review Comment:: No significant overnight or acute issues. He slept good and reports no complaints. He did not want to do anything this morning until 10:00. His morning labs remain unremarkable including his Hgb and glucose. He received IV Azithromycin x1 last night for treatment of presumptive acute bronchitis. So far , he is negative for mycoplasma pneumonia antigen test. - Patient Data Vitals - Most Recent: Last Vital Signs Temp 36.6 C 01/22/18 03:44 Pulse 68 01/22/18 03:44 Resp 16 01/22/18 03:44 BP 129/81 01/22/18 03:44 Pulse Ox 97 01/22/18 03:44 Weight - Most Recent: 72.711 kg I&O - Last 24 Hours: Intake & Output 01/21/18 01/22/18 01/22/18 22:59 06:59 14:59 Intake Total 2295 1847 Balance 2295 1847 Lab Results Last 24 Hours: Laboratory Results - last 24 hr 01/21/18 01/21/18 01/21/18 Range/Units 06:09 06:09 12:16 WBC (4.23-9.07) K/mm3 RBC (4.63-6.08) M/mm3 Hgb (13.7-17.5) gm/L Hct (40.1-51.0) % MCV (79.0-92.2) fl MCH (25.7-32.2) pg MCHC (32.2-35.5) g/dl RDW Std Deviation (35.1-43.9) fL Plt Count (163-337) K/mm3 MPV (9.4-12.3) fl Neut % (Auto) (34.0-67.9) % Lymph % (Auto) (21.8-53.1) % [place] % (Auto) (5.3-12.2) % Eos % (Auto) (0.8-7.0) Baso % (Auto) (0.1-1.2) % Neut # (Auto) (1.78-5.38) K/mm3 Lymph # (Auto) (1.32-3.57) K/mm3 [place] # (Auto) (0.30-0.82) K/mm3 Eos # (Auto) (0.04-0.54) K/mm3 Baso # (Auto) (0.01-0.08) K/mm3 Sodium 137 (136-145) mEq/L Potassium 3.9 (3.5-5.1) mEq/L Chloride 103 (98-107) mEq/L Carbon Dioxide 23 (21-32) mEq/L Anion Gap 14.9 (5-15) BUN 34 H (7-18) mg/dL Creatinine 0.9 (0.7-1.3) mg/dL Est Cr Clr Drug Dosing 72.79 mL/min Estimated GFR (MDRD) > 60 (>60) mL/min BUN/Creatinine Ratio 37.8 H (14-18) Glucose 121 H (80-115) mg/dL POC Glucose 104 (80-115) mg/dL Calcium 9.6 (8.5-10.1) mg/dL Magnesium 1.8 (1.8-2.4) mg/dl Mycoplasma pneumon IgM (NEGATIVE) 01/21/18 01/22/18 01/22/18 Range/Units 21:05 05:20 05:54 WBC 6.16 (4.23-9.07) K/mm3 RBC 4.43 L (4.63-6.08) M/mm3 Hgb 12.0 L (13.7-17.5) gm/L Hct 36.7 L (40.1-51.0) % MCV 82.8 (79.0-92.2) fl MCH 27.1 (25.7-32.2) pg MCHC 32.7 (32.2-35.5) g/dl RDW Std Deviation 38.9 (35.1-43.9) fL Plt Count 228 (163-337) K/mm3 MPV 9.0 L (9.4-12.3) fl Neut % (Auto) 65.9 (34.0-67.9) % Lymph % (Auto) 21.1 L (21.8-53.1) % [place] % (Auto) 9.1 (5.3-12.2) % Eos % (Auto) 3.4 (0.8-7.0) Baso % (Auto) 0.3 (0.1-1.2) % Neut # (Auto) 4.06 (1.78-5.38) K/mm3 Lymph # (Auto) 1.30 L (1.32-3.57) K/mm3 [place] # (Auto) 0.56 (0.30-0.82) K/mm3 Eos # (Auto) 0.21 (0.04-0.54) K/mm3 Baso # (Auto) 0.02 (0.01-0.08) K/mm3 Sodium (136-145) mEq/L Potassium (3.5-5.1) mEq/L Chloride (98-107) mEq/L Carbon Dioxide (21-32) mEq/L Anion Gap (5-15) BUN (7-18) mg/dL Creatinine (0.7-1.3) mg/dL Est Cr Clr Drug Dosing mL/min Estimated GFR (MDRD) (>60) mL/min BUN/Creatinine Ratio (14-18) Glucose (80-115) mg/dL POC Glucose 163 H 105 (80-115) mg/dL Calcium (8.5-10.1) mg/dL Magnesium (1.8-2.4) mg/dl Mycoplasma pneumon IgM (NEGATIVE) 01/22/18 Range/Units 05:54 WBC (4.23-9.07) K/mm3 RBC (4.63-6.08) M/mm3 Hgb (13.7-17.5) gm/L Hct (40.1-51.0) % MCV (79.0-92.2) fl MCH (25.7-32.2) pg MCHC (32.2-35.5) g/dl RDW Std Deviation (35.1-43.9) fL Plt Count (163-337) K/mm3 MPV (9.4-12.3) fl Neut % (Auto) (34.0-67.9) % Lymph % (Auto) (21.8-53.1) % [place] % (Auto) (5.3-12.2) % Eos % (Auto) (0.8-7.0) Baso % (Auto) (0.1-1.2) % Neut # (Auto) (1.78-5.38) K/mm3 Lymph # (Auto) (1.32-3.57) K/mm3 [place] # (Auto) (0.30-0.82) K/mm3 Eos # (Auto) (0.04-0.54) K/mm3 Baso # (Auto) (0.01-0.08) K/mm3 Sodium 140 (136-145) mEq/L Potassium 4.2 (3.5-5.1) mEq/L Chloride 108 H (98-107) mEq/L Carbon Dioxide 21 (21-32) mEq/L Anion Gap 15.2 H (5-15) BUN 29 H (7-18) mg/dL Creatinine 0.8 (0.7-1.3) mg/dL Est Cr Clr Drug Dosing 87.10 mL/min Estimated GFR (MDRD) > 60 (>60) mL/min BUN/Creatinine Ratio 36.3 H (14-18) Glucose 119 H (80-115) mg/dL POC Glucose (80-115) mg/dL Calcium 9.0 (8.5-10.1) mg/dL Magnesium (1.8-2.4) mg/dl Mycoplasma pneumon IgM Negative (NEGATIVE) Med Orders - Current: Current Medications Acetaminophen (Tylenol) 650 mg PO Q4H PRN PRN Reason: Pain (Mild 1-3)/fever Hydrocodone Bitart/Acetaminophen (Tobias 325-5 Mg) 1 tab PO Q4H PRN PRN Reason: Pain (moderate 4-6) Aspirin (Aspirin) 81 mg PO DAILY JAMES Last Admin: 01/21/18 11:11 Dose: Not Given Bisacodyl (Dulcolax) 5 mg PO DAILY PRN PRN Reason: Constipation Calcium Carbonate/Glycine (Tums) 500 mg PO BID PENDING SALE TO [facility] Last Admin: 01/21/18 21:08 Dose: 500 mg Docusate Sodium (Colace) 100 mg PO BID PRN PRN Reason: Constipation Folic Acid (Folic Acid) 1 mg PO BEDTIME PENDING SALE TO [facility] Last Admin: 01/21/18 21:09 Dose: 1 mg Guaifenesin/Phenylephrine HCl (Robitussin Dm) 5 ml PO Q4H PRN PRN Reason: Cough Hydralazine HCl (Apresoline) 20 mg IVPUSH Q4H PRN PRN Reason: Hypertension Last Admin: 01/20/18 21:35 Dose: 20 mg Hydromorphone HCl (Dilaudid) 0.25 mg IVPUSH Q2H PRN PRN Reason: Pain (severe 7-10) Sodium Chloride (Normal Saline) 1,000 mls @ 125 mls/hr IV ASDIRECTED PENDING SALE TO [facility] Last Admin: 01/22/18 05:05 Dose: 125 mls/hr Promethazine HCl 6.25 mg/ (Sodium Chloride) 50.25 mls @ 100 mls/hr IV Q6H PRN PRN Reason: Nausea/Vomiting Levothyroxine Sodium (Synthroid) 88 mcg PO ACBREAKFAST PENDING SALE TO [facility] Last Admin: 01/22/18 06:02 Dose: 88 mcg Lisinopril (Prinivil) 20 mg PO DAILY PENDING SALE TO [facility] Last Admin: 01/21/18 11:11 Dose: Not Given Lorazepam (Ativan) 2 mg IVPUSH Q4H PRN PRN Reason: Seizures Magnesium Hydroxide (Milk Of Magnesia) 30 ml PO Q12H PRN PRN Reason: Constipation Magnesium Sulfate (Pharmacy To Dose - Magnesium Replacement) 1 dose .XX ASDIRECTED PENDING SALE TO [facility] Metformin HCl (Glucophage) 500 mg PO BIDMEALS PENDING SALE TO [facility] Last Admin: 01/22/18 06:02 Dose: 500 mg Metoprolol Tartrate (Lopressor) 5 mg IVPUSH Q4H PRN PRN Reason: Tachycardia Miscellaneous Information (Remove Patch) 1 ea TRDERM DAILY PENDING SALE TO [facility] Last Admin: 01/21/18 08:33 Dose: 1 ea Multivitamins (Thera) 1 each PO BEDTIME PENDING SALE TO [facility] Last Admin: 01/21/18 21:08 Dose: 1 each Nicotine (Habitrol) 21 mg TRDERM DAILY PENDING SALE TO [facility] Last Admin: 01/21/18 08:33 Dose: 21 mg Pantoprazole Sodium (Protonix Iv) 40 mg IV Q12HR PENDING SALE TO [facility] Last Admin: 01/21/18 21:09 Dose: 40 mg Polyethylene Glycol (Miralax) 17 gm PO DAILY PRN PRN Reason: Constipation Potassium Chloride (Pharmacy To Dose - Potassium Replacement) 1 dose .XX ASDIRECTED PENDING SALE TO [facility] Promethazine HCl (Phenergan) 25 mg PO Q6H PRN PRN Reason: Nausea/Vomiting Risperidone (Risperidal) 0.5 mg PO DAILY PENDING SALE TO [facility] Last Admin: 01/21/18 11:11 Dose: Not Given Risperidone (Risperidal) 1 mg PO BEDTIME PENDING SALE TO [facility] Last Admin: 01/20/18 20:21 Dose: 1 mg Senna/Docusate Sodium (Senna Plus) 1 tab PO BID PRN PRN Reason: Constipation Sertraline HCl (Zoloft) 50 mg PO DAILY PENDING SALE TO [facility] Last Admin: 01/21/18 11:12 Dose: Not Given Simvastatin (Zocor) 20 mg PO BEDTIME PENDING SALE TO [facility] Last Admin: 01/21/18 21:08 Dose: 20 mg Sodium Chloride (Saline Flush) 10 ml FLUSH ASDIRECTED PRN PRN Reason: Keep Vein Open Last Admin: 01/20/18 12:04 Dose: 10 ml Temazepam (Restoril) 7.5 mg PO BEDTIME PRN PRN Reason: Sleep Thiamine HCl (Vitamin B-1) 100 mg PO BEDTIME PENDING SALE TO [facility] Last Admin: 01/21/18 21:08 Dose: 100 mg Discontinued Medications Bisacodyl (Dulcolax) 10 mg RECTAL ONETIME ONE Stop: 01/21/18 20:01 Last Admin: 01/21/18 19:58 Dose: Not Given Caffeine (Caffeine) 200 mg PO ONETIME ONE Stop: 01/22/18 07:01 Last Admin: 01/22/18 06:01 Dose: 200 mg Azithromycin 500 mg/ Sodium (Chloride) 250 mls @ 250 mls/hr IV ONETIME ONE Stop: 01/22/18 00:56 Last Admin: 01/22/18 00:21 Dose: 250 mls/hr Lactulose (Cephulac) 20 gm PO ONETIME ONE Stop: 01/21/18 19:03 Last Admin: 01/21/18 19:58 Dose: Not Given Nicotine (Habitrol) 21 mg TRDERM DAILY PENDING SALE TO [facility] Non-Formulary Medication (Petrolatum,White [Vaseline]) 453.6 gm TOP DAILY PENDING SALE TO [facility] Pantoprazole Sodium (Protonix Iv) 40 mg IVPUSH ONETIME ONE Stop: 01/20/18 12:06 Last Admin: 01/20/18 12:13 Dose: 40 mg Risperidone (Risperidal) 1 mg PO DAILY JAMES - Exam General: No Acute Distress, Sedated, Other (He is less alert today than yesterday) HEENT: Other (breaths with open mouth). No: Mucous Membr. Moist/[place] Neck: Supple, Trachea Midline Lungs: Normal Respiratory Effort, Decreased Breath Sounds Cardiovascular: Regular Rate, Regular Rhythm GI/Abdominal Exam: Normal Bowel Sounds, Soft, Non-Tender, No Organomegaly, No Distention, No Abnormal Bruit (Male) Exam: Deferred Back Exam: Normal Inspection, Decreased Range of Motion Extremities: Normal Inspection, Normal Range of Motion, Non-Tender, No Pedal Edema, Normal Capillary Refill, Other (muscle atrophy/wasting syndrome) Peripheral Pulses: 2+: Posterior Tibial (R), Dorsalis Pedis (R) Skin: Warm, Dry, Intact Neurological: No New Focal Deficit Psy/Mental Status: Normal Affect, Normal Mood - Problem List Review Problem List Initiated/Reviewed/Updated: Yes - My Orders Last 24 Hours: My Active Orders 01/21/18 09:00 Remove Patch 1 ea TRDERM DAILY 01/21/18 21:35 IS (RT) [RT Incentive Spirometry] [RC] ASDIRECTED Dextromethorphan/guaiFENesin [Robitussin DM] 5 ml PO Q4H PRN 01/21/18 21:36 Precautions [COMM] Routine 01/21/18 Dinner Regular Diet [DIET] 01/22/18 00:46 CULTURE SPUTUM + SMEAR [RM] Routine 01/22/18 04:31 RESPIRATORY PANEL BY PCR [MREF] Routine 01/22/18 07:00 Glucose [Blood Glucose Check, Bedside] [RC] DAILY 01/22/18 08:00 Chest 1V Frontal [CR] Routine 01/22/18 12:00 Modafinil [Provigil] 100 mg PO DAILY - Plan Plan:: A/P: Acute: Hospital Acquired Aspiration Pneumonia/Chemical Pneumonitis - Risk Factors: GERD and AMS - Had wet cough; suctioned in ED with clear to yellow sputum - Initial CXR-no acute abnormal findings; Follow up CXR shows shows right basilar opacification (new) - Received one dose of IV 500 mg Azithromycin last night - He was on PPI but now on H2B for GERD - Mycoplasm pneumonia negative; Strep pneumonia Ag and Viral Respiratory Panel -pending - Decongestant/Expectorant PRN and IS as directed - IV Zosyn 4.5 grams Q8H for pharmacy to dose plus Probiotic 1 tab po BID - Afebrile w/o leukocytosis - Aspiration Precaution - May have oropharyngeal dysfunction; He now needs WATER VALVE MECHANIC eval to assess his swallowing (tomorrow) Probable Oropharyngeal Dysfunction - He drools and his adult bip is wet - NPO for now except medications, ice chips and sips of water - Start D5W-0.9% NS at 50cc/hr for short term sustenance until WATER VALVE MECHANIC eval in AM - WATER VALVE MECHANIC eval in AM; no services available today S/p Acute Hematemesis - Risk factors: History of alcohol abuse, GERD, Pill Esophagitis - Reported by [facility] to be coffee ground emesis - No further episodes with EMS or in ED - ED provider reports negative FOBT - Supportive care: monitor vitals, Hgb --> if indicated, will consult General Surgery for possible EGD - BP 160/98 in ED, improved at admit; continue IVF NS 125 ml/hr and will re- assess tomorrow if IVF fluid should be continued - Ordered Protonix 40 mg BID IV--> now on H2B - Clear liquid diet order S/p Mental Status Changes - Has underlying Dementia - Suspect 2/2 Medication Side effects (Increased Dose of Risperdal) - [place] reported slurred speech and lethargy - Head CT in ED read as senescent changes with no acute abnormality - Daughter reported to ED provider that psych medications were recently changed - He is now at baseline Type 2 Diabetes, Stable - Glucose 157 and 167 in ED - D/c Metformin for now - Accu-check Q6H with Low level ISS Chronic: Hx/ Alcohol Use Disorder Schizophrenia ETOH Dementia MDD GERD Cachexia Presence of cardiac pacemaker Weakness HTN Type 2 DM HLD Hypothyroidism Plan: He is otherwise clinically stable Will change to inpatient status if he meets MCG criteria Continue current treatment Hold off on feeding him at this point; Start D5W-0.9% NS at 50cc/hr for sustenance until WATER VALVE MECHANIC eval tomorrow Routine AM labs Continue Stimulant Dietary consult for muscle wasting/atrophy Fall and Aspiration Precaution DVT Prophylaxis: SCDs Encourage to use IS as directed Consult PT/OT for deconditioning Other orders as indicated above Code Status: Full code Updated daughter (Berna-Person to Notify) about the recent finding on his follow up chest x-ray this morning. Informed her about the treatment and additional procedures/test we have to run to adequately treat and manage him. However with this new finding, we are going to cancel his discharge orders as initially planned yesterday.
[2018-01-22] MEDS ORDERED: Famotidine 20 MG Tab PO SCH (09:00)
[2018-01-22] MEDS: Nicotine 21 MG/24 Hr Patch TRDERM SCH (10:01)
[2018-01-22] MEDS: Calcium Carbonate 500 MG Tab.Chew PO SCH ×2 (10:02→20:38)
[2018-01-22] MEDS: Aspirin 81 MG Tab.Chew PO SCH (10:02)
[2018-01-22] MEDS: Sertraline 50 MG Tab PO SCH (10:02)
[2018-01-22] MEDS: Lisinopril 20 MG Tab PO SCH (10:05)
[2018-01-22] MEDS ORDERED: Modafinil 200 MG Tab PO STA (11:00)
[2018-01-22] MEDS ORDERED: Famotidine 20 MG/2 ML SDV IVPUSH ONE (11:43)
[2018-01-22] MEDS ORDERED: 50% Dextrose in Water 50 ML Syringe IVPUSH PRN (11:48)
[2018-01-22] MEDS ORDERED: Insulin Aspart 100 Units/ML 3 ML Pen SUBCUT PRN (11:48)
[2018-01-22] MEDS ORDERED: Piperacillin/Tazobactam 4.5 GM in Sodium Chloride 0.9% 100 ML IV ONE (12:00)
[2018-01-22] MEDS ORDERED: Modafinil 200 MG Tab PO SCH (12:00)
[2018-01-22] MEDS: Dextrose 5%-0.9% NaCl 1,000 ML IV SCH (12:07)
[2018-01-22] MEDS: Insulin Aspart 100 Units/ML 3 ML Pen SUBCUT SCH (17:21)
[2018-01-22] MEDS: hydrALAZINE 20 MG/ML SDV IVPUSH PRN (17:51)
[2018-01-22] MEDS: Multivitamins,Therapeutic Tab PO SCH (20:37)
[2018-01-22] MEDS: Saccharomyces Boulardii (Probiotic) 250 MG Cap PO SCH (20:37)
[2018-01-22] MEDS: Piperacillin/Tazobactam 4.5 GM in Sodium Chloride 0.9% 100 ML IV SCH (20:37)
[2018-01-22] MEDS: Folic Acid 1 MG Tab PO SCH (20:37)
[2018-01-22] MEDS: Thiamine 100 MG Tab PO SCH (20:38)
[2018-01-22] MEDS: Famotidine 20 MG/2 ML SDV IVPUSH SCH (20:38)
[2018-01-22] MEDS: Simvastatin 20 MG Tab PO SCH (20:38)
[2018-01-23] MEDS: Insulin Aspart 100 Units/ML 3 ML Pen SUBCUT SCH ×4 (00:15→18:14)
[2018-01-23] MEDS: Piperacillin/Tazobactam 4.5 GM in Sodium Chloride 0.9% 100 ML IV SCH ×3 (04:30→20:55)
[2018-01-23] MEDS: hydrALAZINE 20 MG/ML SDV IVPUSH PRN (04:30)
[2018-01-23] MEDS: Levothyroxine 88 MCG Tab PO SCH (06:10)
[2018-01-23] MEDS: Modafinil 200 MG Tab PO SCH ×2 (06:10→08:13)
[2018-01-23] MEDS: Dextrose 5%-0.9% NaCl 1,000 ML IV SCH (08:07)
[2018-01-23] MEDS: Calcium Carbonate 500 MG Tab.Chew PO SCH ×2 (08:11→21:04)
[2018-01-23] MEDS: Nicotine 21 MG/24 Hr Patch TRDERM SCH (08:11)
[2018-01-23] MEDS: Saccharomyces Boulardii (Probiotic) 250 MG Cap PO SCH ×2 (08:11→21:03)
[2018-01-23] MEDS: Sertraline 50 MG Tab PO SCH (08:11)
[2018-01-23] MEDS: Aspirin 81 MG Tab.Chew PO SCH (08:12)
[2018-01-23] MEDS: Lisinopril 20 MG Tab PO SCH (08:13)
--- NOTE | 2018-01-23 08:45 | CR ---
Chest: Portable view of the chest was obtained. Comparison: No prior chest x-ray. Slight atelectasis or scarring is seen within both lung bases. Lungs show no acute parenchymal densities. Heart size is normal. Tortuous thoracic aorta is seen. Pacemaker is noted. Scoliosis is noted within the spine. Bony structures are osteopenic. Impression: 1. Mild bibasilar atelectasis or scarring. Other incidental findings. 2. Nothing acute is seen on portable chest x-ray. Diagnostic code #2
[2018-01-23] MEDS ORDERED: Potassium Chloride 20 MEQ Tab.ER PO ONE (10:00)
--- NOTE | 2018-01-23 11:13 | PCM.PN ---
- General Info Date of Service: 01/23/18 Admission Dx/Problem (Free Text): Admission Diagnosis/Problem Admission Diagnosis/Problem Coffee ground emesis Subjective Update: In to see Dg. Remains afebrile. He reports that he is feeling well and has no complaints today. He is currently NPO but reports his appetite has been good. He endorses some weight loss recently and states his UBW is 190#. He is unsure when he last weighed this amount. He states he is occasionally coughing up white phlegm but denies any dyspnea or chest pain. Denies any GI/ complaints. He reports he has not experienced any further hematemesis since the day he went to the ED. He did report that he was in [place], [place] and the president was Nesha but he is much more alert and interactive. Functional Status: Reports: Pain Controlled, Ambulating, Urinating, Other (NPO ) - Review of Systems General: Reports: No Symptoms. Denies: Fever, Weakness HEENT: Reports: No Symptoms Pulmonary: Reports: Cough (occasional ), Sputum (occasional, white colored ). Denies: Shortness of Breath, Hemoptysis, Wheezing Cardiovascular: Reports: No Symptoms. Denies: Chest Pain, Palpitations, Edema Gastrointestinal: Reports: No Symptoms. Denies: Abdominal Pain, Constipation, Diarrhea, Nausea, Vomiting Genitourinary: Reports: No Symptoms. Denies: Dysuria, Frequency Musculoskeletal: Reports: No Symptoms. Denies: Arm Pain, Back Pain Skin: Reports: No Symptoms. Denies: Cyanosis Neurological: Reports: No Symptoms. Denies: Confusion, Dizziness, Headache Psychiatric: Reports: No Symptoms. Denies: Confusion, Depression, Anxiety, Hallucinations - Patient Data Vitals - Most Recent: Last Vital Signs Temp 97.3 F 01/23/18 08:02 Pulse 115 H 01/23/18 08:02 Resp 20 01/23/18 08:02 BP 113/71 01/23/18 08:13 Pulse Ox 97 01/23/18 08:02 Weight - Most Recent: 161 lb 1.6 oz I&O - Last 24 Hours: Intake & Output 01/22/18 01/23/18 01/23/18 22:59 06:59 14:59 Intake Total 1400 737 Balance 1400 737 Lab Results Last 24 Hours: Laboratory Results - last 24 hr 01/22/18 01/22/1801/23/18 Range/Units 11:58 16:53 00:14 WBC (4.23-9.07) K/mm3 RBC (4.63-6.08) M/mm3 Hgb (13.7-17.5) gm/L Hct (40.1-51.0) % MCV (79.0-92.2) fl MCH (25.7-32.2) pg MCHC (32.2-35.5) g/dl RDW Std Deviation (35.1-43.9) fL Plt Count (163-337) K/mm3 MPV (9.4-12.3) fl Neut % (Auto) (34.0-67.9) % Lymph % (Auto) (21.8-53.1) % [place] % (Auto) (5.3-12.2) % Eos % (Auto) (0.8-7.0) Baso % (Auto) (0.1-1.2) % Neut # (Auto) (1.78-5.38) K/mm3 Lymph # (Auto) (1.32-3.57) K/mm3 [place] # (Auto) (0.30-0.82) K/mm3 Eos # (Auto) (0.04-0.54) K/mm3 Baso # (Auto) (0.01-0.08) K/mm3 Sodium (136-145) mEq/L Potassium (3.5-5.1) mEq/L Chloride (98-107) mEq/L Carbon Dioxide (21-32) mEq/L Anion Gap (5-15) BUN (7-18) mg/dL Creatinine (0.7-1.3) mg/dL Est Cr Clr Drug Dosing mL/min Estimated GFR (MDRD) (>60) mL/min BUN/Creatinine Ratio (14-18) Glucose (83-115) mg/dL POC Glucose 97 105 132 H (83-110) mg/dL Calcium (8.5-10.1) mg/dL 01/23/18 01/23/18 Range/Units 06:15 06:15 WBC 5.35 (4.23-9.07) K/mm3 RBC 4.80 (4.63-6.08) M/mm3 Hgb 13.2 L (13.7-17.5) gm/L Hct 38.8 L (40.1-51.0) % MCV 80.8 (79.0-92.2) fl MCH 27.5 (25.7-32.2) pg MCHC 34.0 (32.2-35.5) g/dl RDW Std Deviation 37.8 (35.1-43.9) fL Plt Count 251 (163-337) K/mm3 MPV 9.0 L (9.4-12.3) fl Neut % (Auto) 65.2 (34.0-67.9) % Lymph % (Auto) 22.6 (21.8-53.1) % [place] % (Auto) 8.8 (5.3-12.2) % Eos % (Auto) 2.8 (0.8-7.0) Baso % (Auto) 0.4 (0.1-1.2) % Neut # (Auto) 3.49 (1.78-5.38) K/mm3 Lymph # (Auto) 1.21 L (1.32-3.57) K/mm3 [place] # (Auto) 0.47 (0.30-0.82) K/mm3 Eos # (Auto) 0.15 (0.04-0.54) K/mm3 Baso # (Auto) 0.02 (0.01-0.08) K/mm3 Sodium 134 L (136-145) mEq/L Potassium 3.4 L (3.5-5.1) mEq/L Chloride 102 (98-107) mEq/L Carbon Dioxide 19 L (21-32) mEq/L Anion Gap 16.4 H (5-15) BUN 13 (7-18) mg/dL Creatinine 0.8 (0.7-1.3) mg/dL Est Cr Clr Drug Dosing 87.54 mL/min Estimated GFR (MDRD) > 60 (>60) mL/min BUN/Creatinine Ratio 16.3 (14-18) Glucose 142 H (83-115) mg/dL POC Glucose (83-110) mg/dL Calcium 8.6 (8.5-10.1) mg/dL Med Orders - Current: Current Medications Acetaminophen (Tylenol) 650 mg PO Q4H PRN PRN Reason: Pain (Mild 1-3)/fever Hydrocodone Bitart/Acetaminophen (Omar 325-5 Mg) 1 tab PO Q4H PRN PRN Reason: Pain (moderate 4-6) Aspirin (Aspirin) 81 mg PO DAILY [facility] Last Admin: 01/23/18 08:12 Dose: 81 mg Bisacodyl (Dulcolax) 5 mg PO DAILY PRN PRN Reason: Constipation Calcium Carbonate/Glycine (Tums) 500 mg PO BID [facility] Last Admin: 01/23/18 08:11 Dose: 500 mg Dextrose/Water (Dextrose 50% In Water) 50 ml IVPUSH ASDIRECTED PRN PRN Reason: Hypoglycemia Docusate Sodium (Colace) 100 mg PO BID PRN PRN Reason: Constipation Famotidine (Pepcid) 20 mg IVPUSH Q24H [facility] Last Admin: 01/22/18 20:38 Dose: 20 mg Folic Acid (Folic Acid) 1 mg PO BEDTIME [facility] Last Admin: 01/22/18 20:37 Dose: 1 mg Guaifenesin/Phenylephrine HCl (Robitussin Dm) 5 ml PO Q4H PRN PRN Reason: Cough Hydralazine HCl (Apresoline) 20 mg IVPUSH Q4H PRN PRN Reason: Hypertension Last Admin: 01/23/18 04:30 Dose: 20 mg Hydromorphone HCl (Dilaudid) 0.25 mg IVPUSH Q2H PRN PRN Reason: Pain (severe 7-10) Promethazine HCl 6.25 mg/ (Sodium Chloride) 50.25 mls @ 100 mls/hr IV Q6H PRN PRN Reason: Nausea/Vomiting Piperacillin Sod/Tazobactam (Sod 4.5 gm/ Sodium Chloride) 100 mls @ 25 mls/hr IV Q8H [facility] Last Admin: 01/23/18 04:30 Dose: 25 mls/hr Dextrose/Sodium Chloride (Dextrose 5%-Normal Saline) 1,000 mls @ 50 mls/hr IV ASDIRECTED [facility] Last Admin: 01/23/18 08:07 Dose: 50 mls/hr Insulin Aspart (Novolog) 0 unit SUBCUT Q6HR [facility]; Protocol Last Admin: 01/23/18 06:21 Dose: Not Given Levothyroxine Sodium (Synthroid) 88 mcg PO ACBREAKFAST [facility] Last Admin: 01/23/18 06:10 Dose: 88 mcg Lisinopril (Prinivil) 20 mg PO DAILY [facility] Last Admin: 01/23/18 08:13 Dose: 20 mg Lorazepam (Ativan) 2 mg IVPUSH Q4H PRN PRN Reason: Seizures Magnesium Hydroxide (Milk Of Magnesia) 30 ml PO Q12H PRN PRN Reason: Constipation Magnesium Sulfate (Pharmacy To Dose - Magnesium Replacement) 1 dose .XX ASDIRECTED [facility] Metformin HCl (Glucophage) 500 mg PO BIDMEALS [facility] Metoprolol Tartrate (Lopressor) 5 mg IVPUSH Q4H PRN PRN Reason: Tachycardia Miscellaneous Information (Remove Patch) 1 ea TRDERM DAILY [facility] Last Admin: 01/23/18 08:11 Dose: 1 ea Multivitamins (Thera) 1 each PO BEDTIME [facility] Last Admin: 01/22/18 20:37 Dose: 1 each Nicotine (Habitrol) 21 mg TRDERM DAILY [facility] Last Admin: 01/23/18 08:11 Dose: 21 mg Polyethylene Glycol (Miralax) 17 gm PO DAILY PRN PRN Reason: Constipation Potassium Chloride (Pharmacy To Dose - Potassium Replacement) 1 dose .XX ASDIRECTED [facility] Promethazine HCl (Phenergan) 25 mg PO Q6H PRN PRN Reason: Nausea/Vomiting Risperidone (Risperidal) 0.5 mg PO DAILY [facility] Last Admin: 01/21/18 11:11 Dose: Not Given Risperidone (Risperidal) 1 mg PO BEDTIME [facility] Last Admin: 01/20/18 20:21 Dose: 1 mg Saccharomyces Boulardii (Florastor) 250 mg PO BID [facility] Last Admin: 01/23/18 08:11 Dose: 250 mg Senna/Docusate Sodium (Senna Plus) 1 tab PO BID PRN PRN Reason: Constipation Sertraline HCl (Zoloft) 50 mg PO DAILY [facility] Last Admin: 01/23/18 08:11 Dose: 50 mg Simvastatin (Zocor) 20 mg PO BEDTIME [facility] Last Admin: 01/22/18 20:38 Dose: 20 mg Sodium Chloride (Saline Flush) 10 ml FLUSH ASDIRECTED PRN PRN Reason: Keep Vein Open Last Admin: 01/20/18 12:04 Dose: 10 ml Thiamine HCl (Vitamin B-1) 100 mg PO BEDTIME [facility] Last Admin: 01/22/18 20:38 Dose: 100 mg Discontinued Medications Bisacodyl (Dulcolax) 10 mg RECTAL ONETIME ONE Stop: 01/21/18 20:01 Last Admin: 01/21/18 19:58 Dose: Not Given Caffeine (Caffeine) 200 mg PO ONETIME ONE Stop: 01/22/18 07:01 Last Admin: 01/22/18 06:01 Dose: 200 mg Famotidine (Pepcid) 20 mg PO BID [facility] Last Admin: 01/22/18 10:02 Dose: 20 mg Famotidine (Pepcid) 20 mg IVPUSH ONETIME ONE Stop: 01/22/18 11:44 Last Admin: 01/22/18 11:59 Dose: 20 mg Sodium Chloride (Normal Saline) 1,000 mls @ 125 mls/hr IV ASDIRECTED [facility] Last Admin: 01/22/18 05:05 Dose: 125 mls/hr Azithromycin 500 mg/ Sodium (Chloride) 250 mls @ 250 mls/hr IV ONETIME ONE Stop: 01/22/18 00:56 Last Admin: 01/22/18 00:21 Dose: 250 mls/hr Piperacillin Sod/Tazobactam (Sod 4.5 gm/ Sodium Chloride) 100 mls @ 200 mls/hr IV ONETIME ONE Stop: 01/22/18 12:29 Last Admin: 01/22/18 12:00 Dose: 200 mls/hr Insulin Aspart (Novolog) 0 unit SUBCUT Q6H PRN; Protocol PRN Reason: Hyperglycemia Lactulose (Cephulac) 20 gm PO ONETIME ONE Stop: 01/21/18 19:03 Last Admin: 01/21/18 19:58 Dose: Not Given Metformin HCl (Glucophage) 500 mg PO BIDMEALS [facility] Last Admin: 01/22/18 06:02 Dose: 500 mg Modafinil (Provigil) 100 mg PO DAILY [facility] Modafinil (Provigil) 100 mg PO NOW STA Stop: 01/22/18 11:01 Last Admin: 01/22/18 11:34 Dose: 100 mg Modafinil (Provigil) 200 mg PO DAILY [facility] Stop: 01/23/18 09:01 Last Admin: 01/23/18 08:13 Dose: 200 mg Nicotine (Habitrol) 21 mg TRDERM DAILY [facility] Non-Formulary Medication (Petrolatum,White [Vaseline]) 453.6 gm TOP DAILY [facility] Pantoprazole Sodium (Protonix Iv) 40 mg IVPUSH ONETIME ONE Stop: 01/20/18 12:06 Last Admin: 01/20/18 12:13 Dose: 40 mg Pantoprazole Sodium (Protonix Iv) 40 mg IV Q12HR [facility] Last Admin: 01/21/18 21:09 Dose: 40 mg Potassium Chloride (Klor-Con M20) 40 meq PO ONETIME ONE Stop: 01/23/18 10:01 Last Admin: 01/23/18 09:43 Dose: 40 meq Risperidone (Risperidal) 1 mg PO DAILY [facility] Temazepam (Restoril) 7.5 mg PO BEDTIME PRN PRN Reason: Sleep - Exam Quality Assessment: DVT Prophylaxis (SCDs ) General: Alert, Cooperative, No Acute Distress, Other (Oriented to time and person; stated he was in [place], [place] and the president was Shah[place]; appears thin ) HEENT: Pupils Equal, Pupils Reactive, EOMI, Mucous Membr. Moist/[place], Other ( Mild b/l eye mattering ) Neck: Supple. No: Lymphadenopathy Lungs: Normal Respiratory Effort, Rhonchi (right lower lobe ). No: Crackles, Rales, Wheezing Cardiovascular: Regular Rate, Regular Rhythm, No Murmurs GI/Abdominal Exam: Normal Bowel Sounds, Soft, Non-Tender, No Distention (Male) Exam: Deferred Back Exam: Normal Inspection, Full Range of Motion, Other (Movements slow ) Extremities: Normal Inspection, Normal Range of Motion, Non-Tender, No Pedal Edema, Other (Mild resting tremor b/l extremities ) Peripheral Pulses: 1+: Posterior Tibial (L), Posterior Tibial (R), Dorsalis Pedis (L), Dorsalis Pedis (R), 2+: Radial (L), Radial (R) Skin: Warm, Dry, Intact Neurological: No New Focal Deficit, Strength Equal Bilateral, Cranial Nerves Intact (grossly ) Psy/Mental Status: Alert, Normal Affect, Normal Mood. No: Anxious, Depressed - Problem List Review Problem List Initiated/Reviewed/Updated: Yes - My Orders Last 24 Hours: My Active Orders 01/24/18 05:11 BASIC METABOLIC PANEL,BMP [CHEM] AM CBC WITH AUTO DIFF [HEME] AM 01/24/18 17:00 metFORMIN [Glucophage] 500 mg PO BIDMEALS 01/25/18 05:11 BASIC METABOLIC PANEL,BMP [CHEM] AM CBC WITH AUTO DIFF [HEME] AM - Plan Plan:: A/P: Acute: Healthcare Acquired Aspiration Pneumonia/Chemical Pneumonitis - Risk Factors: GERD and AMS - Suspect this is more of a chemical pneumonitis with aspiration, will cover for appropriate pathogens - Had wet cough; suctioned in ED with clear to yellow sputum - Initial CXR-no acute abnormal findings; Follow up CXR shows shows right basilar opacification (new) - Received one dose of IV 500 mg Azithromycin last night - He was on PPI but now on H2B for GERD - Mycoplasm pneumonia negative; Strep pneumonia Ag and Viral Respiratory Panel are pending - Decongestant/Expectorant PRN and IS as directed - IV Zosyn 4.5 grams Q8H for pharmacy to dose plus Probiotic 1 tab po BID - Afebrile w/o leukocytosis - Aspiration Precautions - May have oropharyngeal dysfunction; He now needs FACILITY MAINTENANCE WORKER eval to assess his swallowing Probable Oropharyngeal Dysfunction - He drools and his adult bib is wet - NPO for now except medications, ice chips and sips of water - Start D5W-0.9% NS at 50cc/hr for short term sustenance until FACILITY MAINTENANCE WORKER eval - FACILITY MAINTENANCE WORKER eval today pending availability S/p Acute Hematemesis - Risk factors: History of alcohol abuse, GERD, Pill Esophagitis - Reported by Panfilo [place] to be coffee ground emesis - No further episodes with EMS, in ED, or during admit thus far - ED provider reports negative FOBT - Supportive care: monitor vitals, Hgb --> if indicated, will consult General Surgery for possible EGD - BP 160/98 in ED, improved at admit - Ordered Protonix 40 mg BID IV--> now on H2B S/p Mental Status Changes - Has underlying Dementia - Suspect 2/2 Medication Side effects (Increased Dose of Risperdal) --> Daughter reported to ED provider that psych medications were recently changed - Panfilo reported slurred speech and lethargy --> - Head CT in ED read as senescent changes with no acute abnormality - Risperdal currently held - Stimulant ordered - He is now at baseline Type 2 Diabetes, Stable - Glucose 157 and 167 in ED - D/c Metformin for now - Accu-check Q6H with Low level ISS Hypokalemia - likely 2/2 poor intake and hemodilution with IVF - replete per protocol Cachexia - patient reported UBW 190# (although he is unable to report when he last weighed this amount); current weight is 161# - RD consult Chronic: Hx Alcohol Use Disorder Schizophrenia ETOH Dementia MDD GERD Cachexia Presence of cardiac pacemaker Weakness HTN Type 2 DM HLD Hypothyroidism Plan: He is otherwise clinically stable Will change to inpatient status if he meets MCG criteria Continue current treatment NPO diet until FACILITY MAINTENANCE WORKER eval; continue D5W-0.9% NS at 50cc/hr for sustenance until FACILITY MAINTENANCE WORKER eval Routine AM labs Continue to hold Risperdal as he has had no behaviors Continue stimulant Dietary consult for muscle wasting/atrophy Fall and Aspiration Precaution DVT Prophylaxis: SCDs Encourage to use IS as directed PT/OT for deconditioning Other orders as indicated above Code Status: Full code
--- NOTE | 2018-01-23 11:58 | CR ---
Chest: Frontal view of the chest was obtained. Comparison: Prior chest x-ray of 01/20/18. Increasing density within the right lung base is seen. Lungs otherwise are clear. Heart size appears within normal limits. Tortuous thoracic aorta is seen. Pacemaker is noted. Bony structures are grossly intact. Impression: 1. Increasing density within right lung base and prior chest x-ray. Findings could represent worsening atelectasis, change from aspiration or pneumonia. Diagnostic code #3 Agree with preliminary report issued by [facility] ([facility] preliminary report dictated on 01/22/18, 11:54 AM Central Time)
[2018-01-23] MEDS: metFORMIN 500 MG Tab PO SCH (18:19)
[2018-01-23] MEDS: Thiamine 100 MG Tab PO SCH (21:01)
[2018-01-23] MEDS: Folic Acid 1 MG Tab PO SCH (21:01)
[2018-01-23] MEDS: Multivitamins,Therapeutic Tab PO SCH (21:02)
[2018-01-23] MEDS: Simvastatin 20 MG Tab PO SCH (21:03)
[2018-01-23] MEDS: Famotidine 20 MG/2 ML SDV IVPUSH SCH (21:04)
[2018-01-23] MEDS: risperiDONE 1 MG Tab PO SCH (22:28)
[2018-01-23] MEDS ORDERED: LORazepam 2 MG/ML SDV IVPUSH ONE (23:44)
[2018-01-24] MEDS: Insulin Aspart 100 Units/ML 3 ML Pen SUBCUT SCH ×6 (00:54→21:34)
[2018-01-24] MEDS: Piperacillin/Tazobactam 4.5 GM in Sodium Chloride 0.9% 100 ML IV SCH (04:57)
[2018-01-24] MEDS: Levothyroxine 88 MCG Tab PO SCH ×2 (06:37→06:42)
[2018-01-24] MEDS: metFORMIN 500 MG Tab PO SCH ×3 (06:38→17:33)
[2018-01-24] MEDS ORDERED: Haloperidol Lactate 5 MG/ML SDV IM PRN (08:15)
[2018-01-24] MEDS: Nicotine 21 MG/24 Hr Patch TRDERM SCH (09:41)
[2018-01-24] MEDS: Calcium Carbonate 500 MG Tab.Chew PO SCH ×2 (09:52→19:59)
[2018-01-24] MEDS: Saccharomyces Boulardii (Probiotic) 250 MG Cap PO SCH ×2 (09:52→20:00)
[2018-01-24] MEDS: Lisinopril 20 MG Tab PO SCH (09:52)
[2018-01-24] MEDS: Sertraline 50 MG Tab PO SCH (09:52)
[2018-01-24] MEDS: Aspirin 81 MG Tab.Chew PO SCH (09:52)
--- NOTE | 2018-01-24 10:52 | CR ---
Chest: Frontal view of the chest was obtained. Comparison: Prior chest x-ray of 01/22/18 and 01/20/18. Heart size appears within normal limits. Tortuous thoracic aorta is seen. Lungs are clear without acute parenchymal densities. Pacemaker is noted. Bony structures are grossly intact. Impression: 1. Nothing acute is appreciated on frontal chest x-ray. Diagnostic code #2
--- NOTE | 2018-01-24 11:20 | PCM.PN ---
<Shruthi Laws T - Last Filed: 01/24/18 22:40> - Patient Data Vitals - Most Recent: Last Vital Signs Temp 36.9 C 01/24/18 11:13 Pulse 60 01/24/18 11:13 Resp 17 01/24/18 11:13 BP 161/106 H 01/24/18 12:57 Pulse Ox 99 01/24/18 11:13 I&O - Last 24 Hours: Intake & Output 01/24/18 01/24/18 01/24/18 06:59 14:59 22:59 Intake Total 460 150 Balance 460 150 Imaging Impressions - Last 24 Hours: Repeat CXR shows clear lungs without acute parenchymal densities. Lab Results Last 24 Hours: Laboratory Results - last 24 hr 01/23/18 01/23/18 01/23/18 Range/Units 06:14 11:22 18:08 WBC (4.23-9.07) K/mm3 RBC (4.63-6.08) M/mm3 Hgb (13.7-17.5) gm/L Hct (40.1-51.0) % MCV (79.0-92.2) fl MCH (25.7-32.2) pg MCHC (32.2-35.5) g/dl RDW Std Deviation (35.1-43.9) fL Plt Count (163-337) K/mm3 MPV (9.4-12.3) fl Neut % (Auto) (34.0-67.9) % Lymph % (Auto) (21.8-53.1) % [place] % (Auto) (5.3-12.2) % Eos % (Auto) (0.8-7.0) Baso % (Auto) (0.1-1.2) % Neut # (Auto) (1.78-5.38) K/mm3 Lymph # (Auto) (1.32-3.57) K/mm3 [place] # (Auto) (0.30-0.82) K/mm3 Eos # (Auto) (0.04-0.54) K/mm3 Baso # (Auto) (0.01-0.08) K/mm3 Sodium (136-145) mEq/L Potassium (3.5-5.1) mEq/L Chloride (98-107) mEq/L Carbon Dioxide (21-32) mEq/L Anion Gap (5-15) BUN (7-18) mg/dL Creatinine (0.7-1.3) mg/dL Est Cr Clr Drug Dosing mL/min Estimated GFR (MDRD) (>60) mL/min BUN/Creatinine Ratio (14-18) Glucose (83-115) mg/dL POC Glucose 131 H 151 H 140 H (83-110) mg/dL Calcium (8.5-10.1) mg/dL C-Reactive Protein (<1.0) mg/dL 01/24/18 01/24/18 01/24/18 Range/Units 00:46 06:09 06:09 WBC 5.76 (4.23-9.07) K/mm3 RBC 5.03 (4.63-6.08) M/mm3 Hgb 13.6 L (13.7-17.5) gm/L Hct 40.9 (40.1-51.0) % MCV 81.3 (79.0-92.2) fl MCH 27.0 (25.7-32.2) pg MCHC 33.3 (32.2-35.5) g/dl RDW Std Deviation 38.8 (35.1-43.9) fL Plt Count 314 (163-337) K/mm3 MPV 9.4 (9.4-12.3) fl Neut % (Auto) 68.5 H (34.0-67.9) % Lymph % (Auto) 20.3 L (21.8-53.1) % [place] % (Auto) 9.2 (5.3-12.2) % Eos % (Auto) 1.4 (0.8-7.0) Baso % (Auto) 0.3 (0.1-1.2) % Neut # (Auto) 3.94 (1.78-5.38) K/mm3 Lymph # (Auto) 1.17 L (1.32-3.57) K/mm3 [place] # (Auto) 0.53 (0.30-0.82) K/mm3 Eos # (Auto) 0.08 (0.04-0.54) K/mm3 Baso # (Auto) 0.02 (0.01-0.08) K/mm3 Sodium 138 (136-145) mEq/L Potassium 3.9 (3.5-5.1) mEq/L Chloride 103 (98-107) mEq/L Carbon Dioxide 23 (21-32) mEq/L Anion Gap 15.9 H (5-15) BUN 13 (7-18) mg/dL Creatinine 1.1 (0.7-1.3) mg/dL Est Cr Clr Drug Dosing 61.09 mL/min Estimated GFR (MDRD) > 60 (>60) mL/min BUN/Creatinine Ratio 11.8 L (14-18) Glucose 163 H (83-115) mg/dL POC Glucose 159 H (83-110) mg/dL Calcium 10.3 H (8.5-10.1) mg/dL C-Reactive Protein 1.9 H* (<1.0) mg/dL 01/24/18 01/24/18 01/24/18 Range/Units 06:36 12:25 17:28 WBC (4.23-9.07) K/mm3 RBC (4.63-6.08) M/mm3 Hgb (13.7-17.5) gm/L Hct (40.1-51.0) % MCV (79.0-92.2) fl MCH (25.7-32.2) pg MCHC (32.2-35.5) g/dl RDW Std Deviation (35.1-43.9) fL Plt Count (163-337) K/mm3 MPV (9.4-12.3) fl Neut % (Auto) (34.0-67.9) % Lymph % (Auto) (21.8-53.1) % [place] % (Auto) (5.3-12.2) % Eos % (Auto) (0.8-7.0) Baso % (Auto) (0.1-1.2) % Neut # (Auto) (1.78-5.38) K/mm3 Lymph # (Auto) (1.32-3.57) K/mm3 [place] # (Auto) (0.30-0.82) K/mm3 Eos # (Auto) (0.04-0.54) K/mm3 Baso # (Auto) (0.01-0.08) K/mm3 Sodium (136-145) mEq/L Potassium (3.5-5.1) mEq/L Chloride (98-107) mEq/L Carbon Dioxide (21-32) mEq/L Anion Gap (5-15) BUN (7-18) mg/dL Creatinine (0.7-1.3) mg/dL Est Cr Clr Drug Dosing mL/min Estimated GFR (MDRD) (>60) mL/min BUN/Creatinine Ratio (14-18) Glucose (83-115) mg/dL POC Glucose 133 H 111 H 181 H (83-110) mg/dL Calcium (8.5-10.1) mg/dL C-Reactive Protein (<1.0) mg/dL Kirill Results Last 24 Hours: Microbiology 01/20/18 14:10 Streptococcus pneumoniae Antigen (M - Final Urine 01/22/18 04:31 Respiratory Virus Panel (PCR) - Final Nasopharyngeal Swab Med Orders - Current: Current Medications Acetaminophen (Tylenol) 650 mg PO Q4H PRN PRN Reason: Pain (Mild 1-3)/fever Hydrocodone Bitart/Acetaminophen ([place] 325-5 Mg) 1 tab PO Q4H PRN PRN Reason: Pain (moderate 4-6) Aspirin (Aspirin) 81 mg PO DAILY [facility] Last Admin: 01/24/18 09:52 Dose: Not Given Bisacodyl (Dulcolax) 5 mg PO DAILY PRN PRN Reason: Constipation Calcium Carbonate/Glycine (Tums) 500 mg PO BID [facility] Last Admin: 01/24/18 09:52 Dose: Not Given Clindamycin HCl (Cleocin) 150 mg PO Q8H [facility] Last Admin: 01/24/18 12:56 Dose: 150 mg Dextrose/Water (Dextrose 50% In Water) 50 ml IVPUSH ASDIRECTED PRN PRN Reason: Hypoglycemia Docusate Sodium (Colace) 100 mg PO BID PRN PRN Reason: Constipation Famotidine (Pepcid) 20 mg IVPUSH Q24H [facility] Last Admin: 01/23/18 21:04 Dose: 20 mg Folic Acid (Folic Acid) 1 mg PO BEDTIME [facility] Last Admin: 01/23/18 21:01 Dose: 1 mg Guaifenesin/Phenylephrine HCl (Robitussin Dm) 5 ml PO Q4H PRN PRN Reason: Cough Haloperidol Lactate (Haldol) 2.5 mg IM Q8H PRN PRN Reason: Agitation/Restlessness Last Admin: 01/24/18 08:25 Dose: 2.5 mg Hydralazine HCl (Apresoline) 20 mg IVPUSH Q4H PRN PRN Reason: Hypertension Last Admin: 01/24/18 13:05 Dose: 20 mg Hydromorphone HCl (Dilaudid) 0.25 mg IVPUSH Q2H PRN PRN Reason: Pain (severe 7-10) Promethazine HCl 6.25 mg/ (Sodium Chloride) 50.25 mls @ 100 mls/hr IV Q6H PRN PRN Reason: Nausea/Vomiting Insulin Aspart (Novolog) 0 unit SUBCUT QIDACANDBED [facility]; Protocol Last Admin: 01/24/18 12:48 Dose: Not Given Levothyroxine Sodium (Synthroid) 88 mcg PO ACBREAKFAST [facility] Last Admin: 01/24/18 06:42 Dose: Not Given Lisinopril (Prinivil) 20 mg PO DAILY [facility] Last Admin: 01/24/18 09:52 Dose: Not Given Lorazepam (Ativan) 2 mg IVPUSH Q4H PRN PRN Reason: Seizures Lorazepam (Ativan) 0.25 mg IVPUSH Q4H PRN PRN Reason: Anxiety Last Admin: 01/24/18 15:57 Dose: 0.25 mg Magnesium Hydroxide (Milk Of Magnesia) 30 ml PO Q12H PRN PRN Reason: Constipation Magnesium Sulfate (Pharmacy To Dose - Magnesium Replacement) 1 dose .XX ASDIRECTED [facility] Metformin HCl (Glucophage) 500 mg PO BIDMEALS [facility] Last Admin: 01/24/18 06:42 Dose: Not Given Metoprolol Tartrate (Lopressor) 5 mg IVPUSH Q4H PRN PRN Reason: Tachycardia Miscellaneous Information (Remove Patch) 1 ea TRDERM DAILY [facility] Last Admin: 01/24/18 09:41 Dose: 1 ea Multivitamins (Thera) 1 each PO BEDTIME [facility] Last Admin: 01/23/18 21:02 Dose: 1 each Nicotine (Habitrol) 21 mg TRDERM DAILY [facility] Last Admin: 01/24/18 09:41 Dose: 21 mg Polyethylene Glycol (Miralax) 17 gm PO DAILY PRN PRN Reason: Constipation Potassium Chloride (Pharmacy To Dose - Potassium Replacement) 1 dose .XX ASDIRECTED [facility] Promethazine HCl (Phenergan) 25 mg PO Q6H PRN PRN Reason: Nausea/Vomiting Risperidone (Risperidal) 0.5 mg PO DAILY [facility] Last Admin: 01/21/18 11:11 Dose: Not Given Risperidone (Risperidal) 1 mg PO BEDTIME [facility] Last Admin: 01/23/18 22:28 Dose: 1 mg Saccharomyces Boulardii (Florastor) 250 mg PO BID [facility] Last Admin: 01/24/18 09:52 Dose: Not Given Senna/Docusate Sodium (Senna Plus) 1 tab PO BID PRN PRN Reason: Constipation Sertraline HCl (Zoloft) 50 mg PO DAILY [facility] Last Admin: 01/24/18 09:52 Dose: Not Given Simvastatin (Zocor) 20 mg PO BEDTIME [facility] Last Admin: 01/23/18 21:03 Dose: 20 mg Sodium Chloride (Saline Flush) 10 ml FLUSH ASDIRECTED PRN PRN Reason: Keep Vein Open Last Admin: 01/20/18 12:04 Dose: 10 ml Thiamine HCl (Vitamin B-1) 100 mg PO BEDTIME [facility] Last Admin: 01/23/18 21:01 Dose: 100 mg Discontinued Medications Bisacodyl (Dulcolax) 10 mg RECTAL ONETIME ONE Stop: 01/21/18 20:01 Last Admin: 01/21/18 19:58 Dose: Not Given Caffeine (Caffeine) 200 mg PO ONETIME ONE Stop: 01/22/18 07:01 Last Admin: 01/22/18 06:01 Dose: 200 mg Famotidine (Pepcid) 20 mg PO BID [facility] Last Admin: 01/22/18 10:02 Dose: 20 mg Famotidine (Pepcid) 20 mg IVPUSH ONETIME ONE Stop: 01/22/18 11:44 Last Admin: 01/22/18 11:59 Dose: 20 mg Sodium Chloride (Normal Saline) 1,000 mls @ 125 mls/hr IV ASDIRECTED [facility] Last Admin: 01/22/18 05:05 Dose: 125 mls/hr Azithromycin 500 mg/ Sodium (Chloride) 250 mls @ 250 mls/hr IV ONETIME ONE Stop: 01/22/18 00:56 Last Admin: 01/22/18 00:21 Dose: 250 mls/hr Piperacillin Sod/Tazobactam (Sod 4.5 gm/ Sodium Chloride) 100 mls @ 25 mls/hr IV Q8H [facility] Last Admin: 01/24/18 04:57 Dose: 25 mls/hr Piperacillin Sod/Tazobactam (Sod 4.5 gm/ Sodium Chloride) 100 mls @ 200 mls/hr IV ONETIME ONE Stop: 01/22/18 12:29 Last Admin: 01/22/18 12:00 Dose: 200 mls/hr Dextrose/Sodium Chloride (Dextrose 5%-Normal Saline) 1,000 mls @ 50 mls/hr IV ASDIRECTED [facility] Last Admin: 01/23/18 08:07 Dose: 50 mls/hr Insulin Aspart (Novolog) 0 unit SUBCUT Q6H PRN; Protocol PRN Reason: Hyperglycemia Insulin Aspart (Novolog) 0 unit SUBCUT Q6HR [facility]; Protocol Last Admin: 01/24/18 00:54 Dose: 3 units Lactulose (Cephulac) 20 gm PO ONETIME ONE Stop: 01/21/18 19:03 Last Admin: 01/21/18 19:58 Dose: Not Given Lorazepam (Ativan) 0.5 mg IVPUSH BEDTIME ONE Stop: 01/23/18 23:45 Last Admin: 01/24/18 00:03 Dose: 0.5 mg Metformin HCl (Glucophage) 500 mg PO BIDMEALS [facility] Last Admin: 01/22/18 06:02 Dose: 500 mg Metformin HCl (Glucophage) 500 mg PO BIDMEALS [facility] Modafinil (Provigil) 100 mg PO DAILY [facility] Modafinil (Provigil) 100 mg PO NOW STA Stop: 01/22/18 11:01 Last Admin: 01/22/18 11:34 Dose: 100 mg Modafinil (Provigil) 200 mg PO DAILY [facility] Stop: 01/23/18 09:01 Last Admin: 01/23/18 08:13 Dose: 200 mg Nicotine (Habitrol) 21 mg TRDERM DAILY [facility] Non-Formulary Medication (Petrolatum,White [Vaseline]) 453.6 gm TOP DAILY [facility] Pantoprazole Sodium (Protonix Iv) 40 mg IVPUSH ONETIME ONE Stop: 01/20/18 12:06 Last Admin: 01/20/18 12:13 Dose: 40 mg Pantoprazole Sodium (Protonix Iv) 40 mg IV Q12HR JAMES Last Admin: 01/21/18 21:09 Dose: 40 mg Potassium Chloride (Klor-Con M20) 40 meq PO ONETIME ONE Stop: 01/23/18 10:01 Last Admin: 01/23/18 09:43 Dose: 40 meq Risperidone (Risperidal) 1 mg PO DAILY JAMES Risperidone (Risperidal) 1 mg PO BEDTIME JAMES Last Admin: 01/20/18 20:21 Dose: 1 mg Temazepam (Restoril) 7.5 mg PO BEDTIME PRN PRN Reason: Sleep - Exam Peripheral Pulses: 0: Popliteal (R) Skin: Warm, Dry, Intact - Problem List Review Problem List Initiated/Reviewed/Updated: Yes - My Orders Last 24 Hours: My Active Orders 01/23/18 17:41 Out of Bed [RC] BID 01/23/18 17:58 metFORMIN [Glucophage] 500 mg PO BIDMEALS 01/23/18 [place] [place] [employer] Diet [DIET] 01/24/18 07:00 Accu Check [Blood Glucose Check, Bedside] [RC] QIDACANDBED Insulin Aspart [NovoLOG] See Protocol SUBCUT QIDACANDBED 01/24/18 08:15 Haloperidol Lactate [Haldol] 2.5 mg IM Q8H PRN 01/24/18 11:00 Clindamycin HCl [Cleocin] 150 mg PO Q8H 01/24/18 15:44 LORazepam [Ativan] 0.25 mg IVPUSH Q4H PRN 01/24/18 17:15 Consult to Physician [CONS] Routine 01/24/18 17:18 Notify Provider Consults [RC] ASDIRECTED 01/25/18 05:11 CRP [C-REACTIVE PROTEIN] [CHEM] AM 01/26/18 05:11 CRP [C-REACTIVE PROTEIN] [CHEM] AM 01/27/18 05:11 CRP [C-REACTIVE PROTEIN] [CHEM] AM - Plan Plan:: Patient was seen and examined at bedside in concert with the PA student. The assessment and plans were discussed and agreed upon with me. His repeat x-ray shows clear lungs w/o acute parenchymal densities. Patient should be ready for discharge in AM. Unfortunately, per [facility] will not take him back and they want him to go to [facility]. SW will work on other options for placement. It is possible he may have to stay here > 96 hrs. <Hodan Palencia - Last Filed: 01/25/18 08:02> - General Info Date of Service: 01/24/18 Admission Dx/Problem (Free Text): Admission Diagnosis/Problem Admission Diagnosis/Problem Coffee ground emesis Subjective Update: In to see Dg. He is currently laying comfortably in bed. He did not participate in conversation therefore ROS and physical exam was limited. Nursing reports he was combative yesterday evening and received Ativan and haldol. Nursing also reports that patient had episodes of elevated BP. - Review of Systems General: Reports: Other (Unable to assess with patient's current status ) - Patient Data Vitals - Most Recent: Last Vital Signs Temp 97.3 F 01/24/18 09:15 Pulse 75 01/24/18 09:15 Resp 20 01/24/18 09:15 BP 123/88 01/24/18 09:15 Pulse Ox 98 01/24/18 09:15 Weight - Most Recent: 154 lb 9.6 oz I&O - Last 24 Hours: Intake & Output 01/23/18 01/24/18 01/24/18 22:59 06:59 14:59 Intake Total 1060 460 Balance 1060 460 Lab Results Last 24 Hours: Laboratory Results - last 24 hr 01/23/18 01/23/18 01/23/18 Range/Units 06:14 11:22 18:08 WBC (4.23-9.07) K/mm3 RBC (4.63-6.08) M/mm3 Hgb (13.7-17.5) gm/L Hct (40.1-51.0) % MCV (79.0-92.2) fl MCH (25.7-32.2) pg MCHC (32.2-35.5) g/dl RDW Std Deviation (35.1-43.9) fL Plt Count (163-337) K/mm3 MPV (9.4-12.3) fl Neut % (Auto) (34.0-67.9) % Lymph % (Auto) (21.8-53.1) % [place] % (Auto) (5.3-12.2) % Eos % (Auto) (0.8-7.0) Baso % (Auto) (0.1-1.2) % Neut # (Auto) (1.78-5.38) K/mm3 Lymph # (Auto) (1.32-3.57) K/mm3 [place] # (Auto) (0.30-0.82) K/mm3 Eos # (Auto) (0.04-0.54) K/mm3 Baso # (Auto) (0.01-0.08) K/mm3 Sodium (136-145) mEq/L Potassium (3.5-5.1) mEq/L Chloride (98-107) mEq/L Carbon Dioxide (21-32) mEq/L Anion Gap (5-15) BUN (7-18) mg/dL Creatinine (0.7-1.3) mg/dL Est Cr Clr Drug Dosing mL/min Estimated GFR (MDRD) (>60) mL/min BUN/Creatinine Ratio (14-18) Glucose (83-115) mg/dL POC Glucose 131 H 151 H 140 H (83-110) mg/dL Calcium (8.5-10.1) mg/dL C-Reactive Protein (<1.0) mg/dL 01/24/18 01/24/18 01/24/18 Range/Units 00:46 06:09 06:09 WBC 5.76 (4.23-9.07) K/mm3 RBC 5.03 (4.63-6.08) M/mm3 Hgb 13.6 L (13.7-17.5) gm/L Hct 40.9 (40.1-51.0) % MCV 81.3 (79.0-92.2) fl MCH 27.0 (25.7-32.2) pg MCHC 33.3 (32.2-35.5) g/dl RDW Std Deviation 38.8 (35.1-43.9) fL Plt Count 314 (163-337) K/mm3 MPV 9.4 (9.4-12.3) fl Neut % (Auto) 68.5 H (34.0-67.9) % Lymph % (Auto) 20.3 L (21.8-53.1) % [place] % (Auto) 9.2 (5.3-12.2) % Eos % (Auto) 1.4 (0.8-7.0) Baso % (Auto) 0.3 (0.1-1.2) % Neut # (Auto) 3.94 (1.78-5.38) K/mm3 Lymph # (Auto) 1.17 L (1.32-3.57) K/mm3 [place] # (Auto) 0.53 (0.30-0.82) K/mm3 Eos # (Auto) 0.08 (0.04-0.54) K/mm3 Baso # (Auto) 0.02 (0.01-0.08) K/mm3 Sodium 138 (136-145) mEq/L Potassium 3.9 (3.5-5.1) mEq/L Chloride 103 (98-107) mEq/L Carbon Dioxide 23 (21-32) mEq/L Anion Gap 15.9 H (5-15) BUN 13 (7-18) mg/dL Creatinine 1.1 (0.7-1.3) mg/dL Est Cr Clr Drug Dosing 61.09 mL/min Estimated GFR (MDRD) > 60 (>60) mL/min BUN/Creatinine Ratio 11.8 L (14-18) Glucose 163 H (83-115) mg/dL POC Glucose 159 H (83-110) mg/dL Calcium 10.3 H (8.5-10.1) mg/dL C-Reactive Protein 1.9 H* (<1.0) mg/dL 01/24/18 Range/Units 06:36 WBC (4.23-9.07) K/mm3 RBC (4.63-6.08) M/mm3 Hgb (13.7-17.5) gm/L Hct (40.1-51.0) % MCV (79.0-92.2) fl MCH (25.7-32.2) pg MCHC (32.2-35.5) g/dl RDW Std Deviation (35.1-43.9) fL Plt Count (163-337) K/mm3 MPV (9.4-12.3) fl Neut % (Auto) (34.0-67.9) % Lymph % (Auto) (21.8-53.1) % [place] % (Auto) (5.3-12.2) % Eos % (Auto) (0.8-7.0) Baso % (Auto) (0.1-1.2) % Neut # (Auto) (1.78-5.38) K/mm3 Lymph # (Auto) (1.32-3.57) K/mm3 [place] # (Auto) (0.30-0.82) K/mm3 Eos # (Auto) (0.04-0.54) K/mm3 Baso # (Auto) (0.01-0.08) K/mm3 Sodium (136-145) mEq/L Potassium (3.5-5.1) mEq/L Chloride (98-107) mEq/L Carbon Dioxide (21-32) mEq/L Anion Gap (5-15) BUN (7-18) mg/dL Creatinine (0.7-1.3) mg/dL Est Cr Clr Drug Dosing mL/min Estimated GFR (MDRD) (>60) mL/min BUN/Creatinine Ratio (14-18) Glucose (83-115) mg/dL POC Glucose 133 H (83-110) mg/dL Calcium (8.5-10.1) mg/dL C-Reactive Protein (<1.0) mg/dL Kirill Results Last 24 Hours: Microbiology 01/20/18 14:10 Streptococcus pneumoniae Antigen (M - Final Urine 01/22/18 04:31 Respiratory Virus Panel (PCR) - Final Nasopharyngeal Swab Med Orders - Current: Current Medications Acetaminophen (Tylenol) 650 mg PO Q4H PRN PRN Reason: Pain (Mild 1-3)/fever Hydrocodone Bitart/Acetaminophen ([place] 325-5 Mg) 1 tab PO Q4H PRN PRN Reason: Pain (moderate 4-6) Aspirin (Aspirin) 81 mg PO DAILY [facility] Last Admin: 01/24/18 09:52 Dose: Not Given Bisacodyl (Dulcolax) 5 mg PO DAILY PRN PRN Reason: Constipation Calcium Carbonate/Glycine (Tums) 500 mg PO BID [facility] Last Admin: 01/24/18 09:52 Dose: Not Given Clindamycin HCl (Cleocin) 150 mg PO Q8H [facility] Dextrose/Water (Dextrose 50% In Water) 50 ml IVPUSH ASDIRECTED PRN PRN Reason: Hypoglycemia Docusate Sodium (Colace) 100 mg PO BID PRN PRN Reason: Constipation Famotidine (Pepcid) 20 mg IVPUSH Q24H [facility] Last Admin: 01/23/18 21:04 Dose: 20 mg Folic Acid (Folic Acid) 1 mg PO BEDTIME [facility] Last Admin: 01/23/18 21:01 Dose: 1 mg Guaifenesin/Phenylephrine HCl (Robitussin Dm) 5 ml PO Q4H PRN PRN Reason: Cough Haloperidol Lactate (Haldol) 2.5 mg IM Q8H PRN PRN Reason: Agitation/Restlessness Last Admin: 01/24/18 08:25 Dose: 2.5 mg Hydralazine HCl (Apresoline) 20 mg IVPUSH Q4H PRN PRN Reason: Hypertension Last Admin: 01/23/18 04:30 Dose: 20 mg Hydromorphone HCl (Dilaudid) 0.25 mg IVPUSH Q2H PRN PRN Reason: Pain (severe 7-10) Promethazine HCl 6.25 mg/ (Sodium Chloride) 50.25 mls @ 100 mls/hr IV Q6H PRN PRN Reason: Nausea/Vomiting Insulin Aspart (Novolog) 0 unit SUBCUT QIDACANDBED [facility]; Protocol Last Admin: 01/24/18 06:42 Dose: Not Given Levothyroxine Sodium (Synthroid) 88 mcg PO ACBREAKFAST [facility] Last Admin: 01/24/18 06:42 Dose: Not Given Lisinopril (Prinivil) 20 mg PO DAILY [facility] Last Admin: 01/24/18 09:52 Dose: Not Given Lorazepam (Ativan) 2 mg IVPUSH Q4H PRN PRN Reason: Seizures Magnesium Hydroxide (Milk Of Magnesia) 30 ml PO Q12H PRN PRN Reason: Constipation Magnesium Sulfate (Pharmacy To Dose - Magnesium Replacement) 1 dose .XX ASDIRECTED [facility] Metformin HCl (Glucophage) 500 mg PO BIDMEALS [facility] Last Admin: 01/24/18 06:42 Dose: Not Given Metoprolol Tartrate (Lopressor) 5 mg IVPUSH Q4H PRN PRN Reason: Tachycardia Miscellaneous Information (Remove Patch) 1 ea TRDERM DAILY [facility] Last Admin: 01/24/18 09:41 Dose: 1 ea Multivitamins (Thera) 1 each PO BEDTIME [facility] Last Admin: 01/23/18 21:02 Dose: 1 each Nicotine (Habitrol) 21 mg TRDERM DAILY [facility] Last Admin: 01/24/18 09:41 Dose: 21 mg Polyethylene Glycol (Miralax) 17 gm PO DAILY PRN PRN Reason: Constipation Potassium Chloride (Pharmacy To Dose - Potassium Replacement) 1 dose .XX ASDIRECTED [facility] Promethazine HCl (Phenergan) 25 mg PO Q6H PRN PRN Reason: Nausea/Vomiting Risperidone (Risperidal) 0.5 mg PO DAILY [facility] Last Admin: 01/21/18 11:11 Dose: Not Given Risperidone (Risperidal) 1 mg PO BEDTIME [facility] Last Admin: 01/23/18 22:28 Dose: 1 mg Saccharomyces Boulardii (Florastor) 250 mg PO BID [facility] Last Admin: 01/24/18 09:52 Dose: Not Given Senna/Docusate Sodium (Senna Plus) 1 tab PO BID PRN PRN Reason: Constipation Sertraline HCl (Zoloft) 50 mg PO DAILY [facility] Last Admin: 01/24/18 09:52 Dose: Not Given Simvastatin (Zocor) 20 mg PO BEDTIME [facility] Last Admin: 01/23/18 21:03 Dose: 20 mg Sodium Chloride (Saline Flush) 10 ml FLUSH ASDIRECTED PRN PRN Reason: Keep Vein Open Last Admin: 01/20/18 12:04 Dose: 10 ml Thiamine HCl (Vitamin B-1) 100 mg PO BEDTIME [facility] Last Admin: 01/23/18 21:01 Dose: 100 mg Discontinued Medications Bisacodyl (Dulcolax) 10 mg RECTAL ONETIME ONE Stop: 01/21/18 20:01 Last Admin: 01/21/18 19:58 Dose: Not Given Caffeine (Caffeine) 200 mg PO ONETIME ONE Stop: 01/22/18 07:01 Last Admin: 01/22/18 06:01 Dose: 200 mg Famotidine (Pepcid) 20 mg PO BID [facility] Last Admin: 01/22/18 10:02 Dose: 20 mg Famotidine (Pepcid) 20 mg IVPUSH ONETIME ONE Stop: 01/22/18 11:44 Last Admin: 01/22/18 11:59 Dose: 20 mg Sodium Chloride (Normal Saline) 1,000 mls @ 125 mls/hr IV ASDIRECTED [facility] Last Admin: 01/22/18 05:05 Dose: 125 mls/hr Azithromycin 500 mg/ Sodium (Chloride) 250 mls @ 250 mls/hr IV ONETIME ONE Stop: 01/22/18 00:56 Last Admin: 01/22/18 00:21 Dose: 250 mls/hr Piperacillin Sod/Tazobactam (Sod 4.5 gm/ Sodium Chloride) 100 mls @ 25 mls/hr IV Q8H JAMES Last Admin: 01/24/18 04:57 Dose: 25 mls/hr Piperacillin Sod/Tazobactam (Sod 4.5 gm/ Sodium Chloride) 100 mls @ 200 mls/hr IV ONETIME ONE Stop: 01/22/18 12:29 Last Admin: 01/22/18 12:00 Dose: 200 mls/hr Dextrose/Sodium Chloride (Dextrose 5%-Normal Saline) 1,000 mls @ 50 mls/hr IV ASDIRECTED [facility] Last Admin: 01/23/18 08:07 Dose: 50 mls/hr Insulin Aspart (Novolog) 0 unit SUBCUT Q6H PRN; Protocol PRN Reason: Hyperglycemia Insulin Aspart (Novolog) 0 unit SUBCUT Q6HR [facility]; Protocol Last Admin: 01/24/18 00:54 Dose: 3 units Lactulose (Cephulac) 20 gm PO ONETIME ONE Stop: 01/21/18 19:03 Last Admin: 01/21/18 19:58 Dose: Not Given Lorazepam (Ativan) 0.5 mg IVPUSH BEDTIME ONE Stop: 01/23/18 23:45 Last Admin: 01/24/18 00:03 Dose: 0.5 mg Metformin HCl (Glucophage) 500 mg PO BIDMEALS [facility] Last Admin: 01/22/18 06:02 Dose: 500 mg Metformin HCl (Glucophage) 500 mg PO BIDMEALS [facility] Modafinil (Provigil) 100 mg PO DAILY [facility] Modafinil (Provigil) 100 mg PO NOW STA Stop: 01/22/18 11:01 Last Admin: 01/22/18 11:34 Dose: 100 mg Modafinil (Provigil) 200 mg PO DAILY [facility] Stop: 01/23/18 09:01 Last Admin: 01/23/18 08:13 Dose: 200 mg Nicotine (Habitrol) 21 mg TRDERM DAILY [facility] Non-Formulary Medication (Petrolatum,White [Vaseline]) 453.6 gm TOP DAILY JAMES Pantoprazole Sodium (Protonix Iv) 40 mg IVPUSH ONETIME ONE Stop: 01/20/18 12:06 Last Admin: 01/20/18 12:13 Dose: 40 mg Pantoprazole Sodium (Protonix Iv) 40 mg IV Q12HR JAMES Last Admin: 01/21/18 21:09 Dose: 40 mg Potassium Chloride (Klor-Con M20) 40 meq PO ONETIME ONE Stop: 01/23/18 10:01 Last Admin: 01/23/18 09:43 Dose: 40 meq Risperidone (Risperidal) 1 mg PO DAILY J[facility] Risperidone (Risperidal) 1 mg PO BEDTIME JAMES Last Admin: 01/20/18 20:21 Dose: 1 mg Temazepam (Restoril) 7.5 mg PO BEDTIME PRN PRN Reason: Sleep - Exam General: No Acute Distress, Sedated, Other (Physical exam limited given patient' s current state ). No: Alert, Oriented, Cooperative Neck: Supple. No: Lymphadenopathy Lungs: Clear to Auscultation, Normal Respiratory Effort. No: Crackles, Rales, Rhonchi Cardiovascular: Regular Rate, Regular Rhythm, No Murmurs GI/Abdominal Exam: Normal Bowel Sounds, Soft, Non-Tender, No Distention (Male) Exam: Deferred Back Exam: Normal Inspection Extremities: Normal Inspection Peripheral Pulses: 1+: Posterior Tibial (L), Posterior Tibial (R), Dorsalis Pedis (L), Dorsalis Pedis (R) Skin: Warm, Dry, Intact Psy/Mental Status: No: Alert - Problem List Review Problem List Initiated/Reviewed/Updated: Yes - My Orders Last 24 Hours: My Active Orders 01/23/18 22:00 risperiDONE [RisperiDAL] 1 mg PO BEDTIME 01/25/18 05:11 BASIC METABOLIC PANEL,BMP [CHEM] AM CBC WITH AUTO DIFF [HEME] AM - Plan Plan:: A/P: Acute: Healthcare Acquired Aspiration Pneumonia/Chemical Pneumonitis - Risk Factors: GERD and AMS - Suspect this is more of a chemical pneumonitis with aspiration, will cover for appropriate pathogens - Had wet cough; suctioned in ED with clear to yellow sputum - Initial CXR-no acute abnormal findings; Follow up CXR shows shows right basilar opacification (new) with CXR today read as nothing acute appreciated on front chest xray - Received one dose of IV 500 mg Azithromycin during admission - He was on PPI but now on H2B for GERD - Mycoplasm pneumonia and viral panel negative; Strep pneumonia Ag pending - Decongestant/Expectorant PRN and IS as directed - IV Zosyn 4.5 grams Q8H for pharmacy to dose plus Probiotic 1 tab po BID -- > will change to clindamycin 150 mg po q 8 hr - Afebrile w/o leukocytosis - Aspiration Precautions - May have oropharyngeal dysfunction; He now needs [facility] [employer] eval to assess his swallowing Probable Oropharyngeal Dysfunction - He drools and his adult bib is wet - [facility] eval yesterday and their recommendations are: NDD4 diet (regular) and nectar thick liquids. S/p Acute Hematemesis - Risk factors: History of alcohol abuse, GERD, Pill Esophagitis - Reported by Panfilo NM to be coffee ground emesis - No further episodes with EMS, in ED, or during admit thus far - ED provider reports negative FOBT - Supportive care: monitor vitals, Hgb --> if indicated, will consult General Surgery for possible EGD - BP 160/98 in ED, improved at admit - Ordered Protonix 40 mg BID IV--> now on H2B S/p Mental Status Changes - Has underlying Dementia - Suspect 2/2 Medication Side effects (Increased Dose of Risperdal) --> Daughter reported to ED provider that psych medications were recently changed - Panfilo reported slurred speech and lethargy --> - Head CT in ED read as senescent changes with no acute abnormality - Risperdal was held but has been re-ordered with behaviors last night - also received Haldol and Ativan - Stimulant discontinued Type 2 Diabetes, Stable - 24 hour range 131-163 - Metformin 500 mg BID resumed - Accu-check Q6H with Low level ISS Cachexia - patient reported UBW 190# (although he is unable to report when he last weighed this amount); current weight is 161# - RD consult Resolved: Hypokalemia - was 3.4 01/23/18, improved to 3.9 01/24/18 - likely 2/2 poor intake and hemodilution with IVF - replete per protocol Chronic: Hx Alcohol Use Disorder Schizophrenia ETOH Dementia MDD GERD Cachexia Presence of cardiac pacemaker Weakness HTN Type 2 DM HLD Hypothyroidism Plan: He is otherwise clinically stable Will change to inpatient status if he meets MCG criteria Continue current treatment [facility] eval yesterday and their recommendations are: NDD4 diet (regular) and nectar thick liquids; will order diabetic diet component as well Routine AM labs Risperdal re-started with behaviors Continue stimulant Dietary consult for muscle wasting/atrophy Fall and Aspiration Precaution DVT Prophylaxis: SCDs Encourage to use IS as directed PT/OT for deconditioning Other orders as indicated above Code Status: Full code
[2018-01-24] MEDS: Clindamycin HCl 150 MG Cap PO SCH ×2 (12:56→18:25)
[2018-01-24] MEDS: hydrALAZINE 20 MG/ML SDV IVPUSH PRN (13:05)
[2018-01-24] MEDS ORDERED: LORazepam 2 MG/ML SDV IVPUSH PRN (15:44)
[2018-01-24] MEDS ORDERED: metFORMIN 500 MG Tab PO SCH (17:00)
[2018-01-24] MEDS: Thiamine 100 MG Tab PO SCH (20:00)
[2018-01-24] MEDS: risperiDONE 1 MG Tab PO SCH ×2 (20:00→20:31)
[2018-01-24] MEDS: Multivitamins,Therapeutic Tab PO SCH (20:00)
[2018-01-24] MEDS: Simvastatin 20 MG Tab PO SCH (20:00)
[2018-01-24] MEDS: Folic Acid 1 MG Tab PO SCH (20:00)
[2018-01-24] MEDS: Famotidine 20 MG/2 ML SDV IVPUSH SCH (20:00)
[2018-01-25] MEDS: Clindamycin HCl 150 MG Cap PO SCH ×3 (02:30→18:02)
[2018-01-25] MEDS: Levothyroxine 88 MCG Tab PO SCH (06:11)
[2018-01-25] MEDS: Insulin Aspart 100 Units/ML 3 ML Pen SUBCUT SCH ×4 (06:12→21:10)
[2018-01-25] MEDS: Nicotine 21 MG/24 Hr Patch TRDERM SCH (10:12)
[2018-01-25] MEDS: Lisinopril 20 MG Tab PO SCH (10:12)
[2018-01-25] MEDS: Calcium Carbonate 500 MG Tab.Chew PO SCH ×2 (10:12→21:09)
[2018-01-25] MEDS: Aspirin 81 MG Tab.Chew PO SCH (10:12)
[2018-01-25] MEDS: Saccharomyces Boulardii (Probiotic) 250 MG Cap PO SCH ×2 (10:12→21:05)
[2018-01-25] MEDS: metFORMIN 500 MG Tab PO SCH ×2 (10:13→18:18)
[2018-01-25] MEDS: Sertraline 50 MG Tab PO SCH (10:13)
[2018-01-25] MEDS: risperiDONE 0.5 MG Tab PO SCH (10:13)
--- NOTE | 2018-01-25 13:38 | PCM.PN ---
<Hodan Palencia - Last Filed: 01/25/18 16:53> - General Info Date of Service: 01/25/18 Admission Dx/Problem (Free Text): Admission Diagnosis/Problem Admission Diagnosis/Problem Coffee ground emesis Subjective Update: In to see Dg. He is currently laying comfortably in bed. He did not participate in conversation therefore ROS and physical exam was limited. Nursing reports that patient has been slightly agitated but much improved from 2 days ago. Functional Status: Reports: Other (Unable to perform ROS as patient would not answer questions ) - Patient Data Vitals - Most Recent: Last Vital Signs Temp 98.1 F 01/25/18 10:10 Pulse 49 L 01/25/18 10:10 Resp 14 01/25/18 10:10 BP 104/67 01/25/18 10:12 Pulse Ox 97 01/25/18 10:10 Weight - Most Recent: 70.125 kg I&O - Last 24 Hours: Intake & Output 01/24/18 01/25/18 01/25/18 22:59 06:59 14:59 Intake Total 150 300 Balance 150 300 Lab Results Last 24 Hours: Laboratory Results - last 24 hr 01/24/18 01/24/18 01/25/18 Range/Units 17:28 21:33 06:10 WBC 5.47 (4.23-9.07) K/mm3 RBC 4.38 L (4.63-6.08) M/mm3 Hgb 12.1 L (13.7-17.5) gm/L Hct 35.9 L (40.1-51.0) % MCV 82.0 (79.0-92.2) fl MCH 27.6 (25.7-32.2) pg MCHC 33.7 (32.2-35.5) g/dl RDW Std Deviation 38.8 (35.1-43.9) fL Plt Count 287 (163-337) K/mm3 MPV 8.9 L (9.4-12.3) fl Neut % (Auto) 58.1 (34.0-67.9) % Lymph % (Auto) 28.5 (21.8-53.1) % Worth % (Auto) 9.0 (5.3-12.2) % Eos % (Auto) 3.5 (0.8-7.0) Baso % (Auto) 0.5 (0.1-1.2) % Neut # (Auto) 3.18 (1.78-5.38) K/mm3 Lymph # (Auto) 1.56 (1.32-3.57) K/mm3 Worth # (Auto) 0.49 (0.30-0.82) K/mm3 Eos # (Auto) 0.19 (0.04-0.54) K/mm3 Baso # (Auto) 0.03 (0.01-0.08) K/mm3 Sodium (136-145) mEq/L Potassium (3.5-5.1) mEq/L Chloride (98-107) mEq/L Carbon Dioxide (21-32) mEq/L Anion Gap (5-15) BUN (7-18) mg/dL Creatinine (0.7-1.3) mg/dL Est Cr Clr Drug Dosing mL/min Estimated GFR (MDRD) (>60) mL/min BUN/Creatinine Ratio (14-18) Glucose (83-115) mg/dL POC Glucose 181 H 157 H (83-110) mg/dL Calcium (8.5-10.1) mg/dL C-Reactive Protein (<1.0) mg/dL 01/25/18 01/25/18 01/25/18 Range/Units 06:10 06:10 11:06 WBC (4.23-9.07) K/mm3 RBC (4.63-6.08) M/mm3 Hgb (13.7-17.5) gm/L Hct (40.1-51.0) % MCV (79.0-92.2) fl MCH (25.7-32.2) pg MCHC (32.2-35.5) g/dl RDW Std Deviation (35.1-43.9) fL Plt Count (163-337) K/mm3 MPV (9.4-12.3) fl Neut % (Auto) (34.0-67.9) % Lymph % (Auto) (21.8-53.1) % Worth % (Auto) (5.3-12.2) % Eos % (Auto) (0.8-7.0) Baso % (Auto) (0.1-1.2) % Neut # (Auto) (1.78-5.38) K/mm3 Lymph # (Auto) (1.32-3.57) K/mm3 Worth # (Auto) (0.30-0.82) K/mm3 Eos # (Auto) (0.04-0.54) K/mm3 Baso # (Auto) (0.01-0.08) K/mm3 Sodium 135 L (136-145) mEq/L Potassium 3.7 (3.5-5.1) mEq/L Chloride 103 (98-107) mEq/L Carbon Dioxide 22 (21-32) mEq/L Anion Gap 13.7 (5-15) BUN 15 (7-18) mg/dL Creatinine 0.9 (0.7-1.3) mg/dL Est Cr Clr Drug Dosing 74.67 mL/min Estimated GFR (MDRD) > 60 (>60) mL/min BUN/Creatinine Ratio 16.7 (14-18) Glucose 113 (83-115) mg/dL POC Glucose 98 123 H (83-110) mg/dL Calcium 10.0 (8.5-10.1) mg/dL C-Reactive Protein 0.9 (<1.0) mg/dL Kirill Results Last 24 Hours: Microbiology 01/20/18 14:10 Streptococcus pneumoniae Antigen (M - Final Urine Med Orders - Current: Current Medications Acetaminophen (Tylenol) 650 mg PO Q4H PRN PRN Reason: Pain (Mild 1-3)/fever Hydrocodone Bitart/Acetaminophen (Wyckoff 325-5 Mg) 1 tab PO Q4H PRN PRN Reason: Pain (moderate 4-6) Aspirin (Aspirin) 81 mg PO DAILY [facility] Last Admin: 01/25/18 10:12 Dose: 81 mg Bisacodyl (Dulcolax) 5 mg PO DAILY PRN PRN Reason: Constipation Last Admin: 01/25/18 02:30 Dose: 5 mg Calcium Carbonate/Glycine (Tums) 500 mg PO BID [facility] Last Admin: 01/25/18 10:12 Dose: 500 mg Clindamycin HCl (Cleocin) 150 mg PO Q8H [facility] Last Admin: 01/25/18 12:26 Dose: 150 mg Dextrose/Water (Dextrose 50% In Water) 50 ml IVPUSH ASDIRECTED PRN PRN Reason: Hypoglycemia Docusate Sodium (Colace) 100 mg PO BID PRN PRN Reason: Constipation Famotidine (Pepcid) 20 mg IVPUSH Q24H [facility] Last Admin: 01/24/18 20:00 Dose: 20 mg Folic Acid (Folic Acid) 1 mg PO BEDTIME [facility] Last Admin: 01/24/18 20:00 Dose: 1 mg Guaifenesin/Phenylephrine HCl (Robitussin Dm) 5 ml PO Q4H PRN PRN Reason: Cough Haloperidol Lactate (Haldol) 2.5 mg IM Q8H PRN PRN Reason: Agitation/Restlessness Last Admin: 01/24/18 08:25 Dose: 2.5 mg Hydralazine HCl (Apresoline) 20 mg IVPUSH Q4H PRN PRN Reason: Hypertension Last Admin: 01/24/18 13:05 Dose: 20 mg Hydromorphone HCl (Dilaudid) 0.25 mg IVPUSH Q2H PRN PRN Reason: Pain (severe 7-10) Promethazine HCl 6.25 mg/ (Sodium Chloride) 50.25 mls @ 100 mls/hr IV Q6H PRN PRN Reason: Nausea/Vomiting Insulin Aspart (Novolog) 0 unit SUBCUT QIDACANDBED [facility]; Protocol Last Admin: 01/25/18 12:19 Dose: Not Given Levothyroxine Sodium (Synthroid) 88 mcg PO ACBREAKFAST [facility] Last Admin: 01/25/18 06:11 Dose: 88 mcg Lisinopril (Prinivil) 20 mg PO DAILY [facility] Last Admin: 01/25/18 10:12 Dose: 20 mg Lorazepam (Ativan) 2 mg IVPUSH Q4H PRN PRN Reason: Seizures Lorazepam (Ativan) 0.25 mg IVPUSH Q4H PRN PRN Reason: Anxiety Last Admin: 01/24/18 15:57 Dose: 0.25 mg Magnesium Hydroxide (Milk Of Magnesia) 30 ml PO Q12H PRN PRN Reason: Constipation Magnesium Sulfate (Pharmacy To Dose - Magnesium Replacement) 1 dose .XX ASDIRECTED [facility] Metformin HCl (Glucophage) 500 mg PO BIDMEALS [facility] Last Admin: 01/25/18 10:13 Dose: 500 mg Metoprolol Tartrate (Lopressor) 5 mg IVPUSH Q4H PRN PRN Reason: Tachycardia Miscellaneous Information (Remove Patch) 1 ea MARGARET DAILY [facility] Last Admin: 01/25/18 10:13 Dose: 1 ea Multivitamins (Thera) 1 each PO BEDTIME [facility] Last Admin: 01/24/18 20:00 Dose: 1 each Nicotine (Habitrol) 21 mg TRDERM DAILY [facility] Last Admin: 01/25/18 10:12 Dose: 21 mg Polyethylene Glycol (Miralax) 17 gm PO DAILY PRN PRN Reason: Constipation Potassium Chloride (Pharmacy To Dose - Potassium Replacement) 1 dose .XX ASDIRECTED [facility] Promethazine HCl (Phenergan) 25 mg PO Q6H PRN PRN Reason: Nausea/Vomiting Risperidone (Risperidal) 0.5 mg PO DAILY [facility] Last Admin: 01/25/18 10:13 Dose: 0.5 mg Risperidone (Risperidal) 1 mg PO BEDTIME [facility] Last Admin: 01/24/18 20:00 Dose: 1 mg Saccharomyces Boulardii (Florastor) 250 mg PO BID [facility] Last Admin: 01/25/18 10:12 Dose: 250 mg Senna/Docusate Sodium (Senna Plus) 1 tab PO BID PRN PRN Reason: Constipation Sertraline HCl (Zoloft) 50 mg PO DAILY [facility] Last Admin: 01/25/18 10:13 Dose: 50 mg Simvastatin (Zocor) 20 mg PO BEDTIME [facility] Last Admin: 01/24/18 20:00 Dose: 20 mg Sodium Chloride (Saline Flush) 10 ml FLUSH ASDIRECTED PRN PRN Reason: Keep Vein Open Last Admin: 01/20/18 12:04 Dose: 10 ml Thiamine HCl (Vitamin B-1) 100 mg PO BEDTIME [facility] Last Admin: 01/24/18 20:00 Dose: 100 mg Discontinued Medications Bisacodyl (Dulcolax) 10 mg RECTAL ONETIME ONE Stop: 01/21/18 20:01 Last Admin: 01/21/18 19:58 Dose: Not Given Caffeine (Caffeine) 200 mg PO ONETIME ONE Stop: 01/22/18 07:01 Last Admin: 01/22/18 06:01 Dose: 200 mg Famotidine (Pepcid) 20 mg PO BID [facility] Last Admin: 01/22/18 10:02 Dose: 20 mg Famotidine (Pepcid) 20 mg IVPUSH ONETIME ONE Stop: 01/22/18 11:44 Last Admin: 01/22/18 11:59 Dose: 20 mg Sodium Chloride (Normal Saline) 1,000 mls @ 125 mls/hr IV ASDIRECTED [facility] Last Admin: 01/22/18 05:05 Dose: 125 mls/hr Azithromycin 500 mg/ Sodium (Chloride) 250 mls @ 250 mls/hr IV ONETIME ONE Stop: 01/22/18 00:56 Last Admin: 01/22/18 00:21 Dose: 250 mls/hr Piperacillin Sod/Tazobactam (Sod 4.5 gm/ Sodium Chloride) 100 mls @ 25 mls/hr IV Q8H [facility] Last Admin: 01/24/18 04:57 Dose: 25 mls/hr Piperacillin Sod/Tazobactam (Sod 4.5 gm/ Sodium Chloride) 100 mls @ 200 mls/hr IV ONETIME ONE Stop: 01/22/18 12:29 Last Admin: 01/22/18 12:00 Dose: 200 mls/hr Dextrose/Sodium Chloride (Dextrose 5%-Normal Saline) 1,000 mls @ 50 mls/hr IV ASDIRECTED [facility] Last Admin: 01/23/18 08:07 Dose: 50 mls/hr Insulin Aspart (Novolog) 0 unit SUBCUT Q6H PRN; Protocol PRN Reason: Hyperglycemia Insulin Aspart (Novolog) 0 unit SUBCUT Q6HR [facility]; Protocol Last Admin: 01/24/18 20:31 Dose: Not Given Lactulose (Cephulac) 20 gm PO ONETIME ONE Stop: 01/21/18 19:03 Last Admin: 01/21/18 19:58 Dose: Not Given Lorazepam (Ativan) 0.5 mg IVPUSH BEDTIME ONE Stop: 01/23/18 23:45 Last Admin: 01/24/18 00:03 Dose: 0.5 mg Metformin HCl (Glucophage) 500 mg PO BIDMEALS [facility] Last Admin: 01/22/18 06:02 Dose: 500 mg Metformin HCl (Glucophage) 500 mg PO BIDMEALS [facility] Modafinil (Provigil) 100 mg PO DAILY [facility] Modafinil (Provigil) 100 mg PO NOW STA Stop: 01/22/18 11:01 Last Admin: 01/22/18 11:34 Dose: 100 mg Modafinil (Provigil) 200 mg PO DAILY [facility] Stop: 01/23/18 09:01 Last Admin: 01/23/18 08:13 Dose: 200 mg Nicotine (Habitrol) 21 mg TRDERM DAILY [facility] Non-Formulary Medication (Petrolatum,White [Vaseline]) 453.6 gm TOP DAILY [facility] Pantoprazole Sodium (Protonix Iv) 40 mg IVPUSH ONETIME ONE Stop: 01/20/18 12:06 Last Admin: 01/20/18 12:13 Dose: 40 mg Pantoprazole Sodium (Protonix Iv) 40 mg IV Q12HR [facility] Last Admin: 01/21/18 21:09 Dose: 40 mg Potassium Chloride (Klor-Con M20) 40 meq PO ONETIME ONE Stop: 01/23/18 10:01 Last Admin: 01/23/18 09:43 Dose: 40 meq Risperidone (Risperidal) 1 mg PO DAILY [facility] Risperidone (Risperidal) 1 mg PO BEDTIME [facility] Last Admin: 01/24/18 20:31 Dose: Not Given Temazepam (Restoril) 7.5 mg PO BEDTIME PRN PRN Reason: Sleep - Exam General: No Acute Distress, Sedated, Other (Physical exam limited with patient' s current medical state ) Neck: Supple. No: Lymphadenopathy Lungs: Clear to Auscultation, Normal Respiratory Effort Cardiovascular: Regular Rate, Regular Rhythm, No Murmurs GI/Abdominal Exam: Normal Bowel Sounds, Soft, Non-Tender, No Distention (Male) Exam: Deferred Back Exam: Normal Inspection Extremities: Normal Inspection, No Pedal Edema, Normal Capillary Refill Peripheral Pulses: 1+: Radial (L), Radial (R), Posterior Tibial (L), Posterior Tibial (R), Dorsalis Pedis (L), Dorsalis Pedis (R) Skin: Warm, Dry, Intact Psy/Mental Status: No: Alert - Problem List Review Problem List Initiated/Reviewed/Updated: Yes - Plan Plan:: A/P: Acute: Healthcare Acquired Aspiration Pneumonia/Chemical Pneumonitis - Risk Factors: GERD and AMS - Suspect this is more of a chemical pneumonitis with aspiration, will cover for appropriate pathogens - Had wet cough; suctioned in ED with clear to yellow sputum - Initial CXR-no acute abnormal findings; Follow up CXR shows shows right basilar opacification (new) with CXR today read as nothing acute appreciated on front chest xray - Received one dose of IV 500 mg Azithromycin during admission - He was on PPI but now on H2B for GERD - Mycoplasm pneumonia and viral panel negative; Strep pneumonia Ag pending - Decongestant/Expectorant PRN and IS as directed - IV Zosyn 4.5 grams Q8H for pharmacy to dose plus Probiotic 1 tab po BID -- > changed to clindamycin 150 mg po q 8 hr on 01/24/18 - Afebrile w/o leukocytosis - Aspiration Precautions - May have oropharyngeal dysfunction --> WASHING MACHINE REPAIRER is seeing patient Probable Oropharyngeal Dysfunction - He drools and his adult bib is wet - WASHING MACHINE REPAIRER initial eval with recommendation of NDD4 diet (regular) and nectar thick liquids; diet was upgraded yesterday to thin liquids S/p Mental Status Changes - Has underlying Dementia - Suspect 2/2 Medication Side effects (Increased Dose of Risperdal) --> Daughter reported to ED provider that psych medications were recently changed - Panfilo reported slurred speech and lethargy --> - Head CT in ED read as senescent changes with no acute abnormality - Risperdal was held but has been re-ordered with behaviors last night - Also received Haldol and Ativan - Stimulant discontinued - Consult to Dr. Whiteside Type 2 Diabetes, Stable - 24 hour range 131-163 - Metformin 500 mg BID resumed - Accu-check Q6H with Low level ISS Cachexia - patient reported UBW 190# (although he is unable to report when he last weighed this amount); current weight is 161# - RD consult Acute decline in Hgb - 12.1 today 13.6 yesterday; lowest value during admission is 12.0 - will order FOBT x 1 - Monitor Resolved: Hypokalemia - was 3.4 01/23/18, improved to 3.9 on 01/24/18 - likely 2/2 poor intake and hemodilution with IVF - replete per protocol S/p Acute Hematemesis - Risk factors: History of alcohol abuse, GERD, Pill Esophagitis - Reported by Panfilo [place] to be coffee ground emesis - No further episodes with EMS, in ED, or during admit thus far - ED provider reports negative FOBT - Supportive care: monitor vitals, Hgb --> if indicated, will consult General Surgery for possible EGD - BP 160/98 in ED, improved at admit - Ordered Protonix 40 mg BID IV--> now on H2B Chronic: Hx Alcohol Use Disorder Schizophrenia ETOH Dementia MDD GERD Cachexia Presence of cardiac pacemaker Weakness HTN Type 2 DM HLD Hypothyroidism Plan: He is otherwise clinically stable Will change to inpatient status if he meets MCG criteria Continue current treatment Continue WASHING MACHINE REPAIRER eval/tx Routine AM labs Risperdal re-started with behaviors Continue stimulant Dietary consult for muscle wasting/atrophy Fall and Aspiration Precautions DVT Prophylaxis: SCDs Encourage to use IS as directed PT/OT for deconditioning Other orders as indicated above Code Status: Full code <[email or web address] M - Last Filed: 01/26/18 15:51> - Patient Data Vitals - Most Recent: Last Vital Signs Temp 36.5 C 01/26/18 09:08 Pulse 78 01/26/18 09:08 Resp 16 01/26/18 09:08 BP 92/63 01/26/18 09:08 Pulse Ox 98 01/26/18 09:08 I&O - Last 24 Hours: Intake & Output 01/26/18 01/26/18 01/26/18 06:59 14:59 22:59 Intake Total 400 120 Output Total 1 Balance 399 120 Lab Results Last 24 Hours: Laboratory Results - last 24 hr 01/25/18 01/25/18 01/26/18 Range/Units 17:57 21:08 06:13 WBC 5.45 (4.23-9.07) K/mm3 RBC 4.58 L (4.63-6.08) M/mm3 Hgb 12.4 L (13.7-17.5) gm/L Hct 37.8 L (40.1-51.0) % MCV 82.5 (79.0-92.2) fl MCH 27.1 (25.7-32.2) pg MCHC 32.8 (32.2-35.5) g/dl RDW Std Deviation 39.8 (35.1-43.9) fL Plt Count 299 (163-337) K/mm3 MPV 9.1 L (9.4-12.3) fl Neut % (Auto) 62.8 (34.0-67.9) % Lymph % (Auto) 26.1 (21.8-53.1) % Worth % (Auto) 6.4 (5.3-12.2) % Eos % (Auto) 3.7 (0.8-7.0) Baso % (Auto) 0.6 (0.1-1.2) % Neut # (Auto) 3.43 (1.78-5.38) K/mm3 Lymph # (Auto) 1.42 (1.32-3.57) K/mm3 Worth # (Auto) 0.35 (0.30-0.82) K/mm3 Eos # (Auto) 0.20 (0.04-0.54) K/mm3 Baso # (Auto) 0.03 (0.01-0.08) K/mm3 Sodium (136-145) mEq/L Potassium (3.5-5.1) mEq/L Chloride (98-107) mEq/L Carbon Dioxide (21-32) mEq/L Anion Gap (5-15) BUN (7-18) mg/dL Creatinine (0.7-1.3) mg/dL Est Cr Clr Drug Dosing mL/min Estimated GFR (MDRD) (>60) mL/min BUN/Creatinine Ratio (14-18) Glucose (83-115) mg/dL POC Glucose 211 H 108 (83-110) mg/dL Calcium (8.5-10.1) mg/dL C-Reactive Protein (<1.0) mg/dL 01/26/1818 01/26/18 Range/Units 06:15 06:15 06:18 WBC (4.23-9.07) K/mm3 RBC (4.63-6.08) M/mm3 Hgb (13.7-17.5) gm/L Hct (40.1-51.0) % MCV (79.0-92.2) fl MCH (25.7-32.2) pg MCHC (32.2-35.5) g/dl RDW Std Deviation (35.1-43.9) fL Plt Count (163-337) K/mm3 MPV (9.4-12.3) fl Neut % (Auto) (34.0-67.9) % Lymph % (Auto) (21.8-53.1) % Worth % (Auto) (5.3-12.2) % Eos % (Auto) (0.8-7.0) Baso % (Auto) (0.1-1.2) % Neut # (Auto) (1.78-5.38) K/mm3 Lymph # (Auto) (1.32-3.57) K/mm3 Worth # (Auto) (0.30-0.82) K/mm3 Eos # (Auto) (0.04-0.54) K/mm3 Baso # (Auto) (0.01-0.08) K/mm3 Sodium 137 (136-145) mEq/L Potassium 3.9 (3.5-5.1) mEq/L Chloride 105 (98-107) mEq/L Carbon Dioxide 22 (21-32) mEq/L Anion Gap 13.9 (5-15) BUN 19 H (7-18) mg/dL Creatinine 1.0 (0.7-1.3) mg/dL Est Cr Clr Drug Dosing 68.86 mL/min Estimated GFR (MDRD) > 60 (>60) mL/min BUN/Creatinine Ratio 19.0 H (14-18) Glucose 108 (83-115) mg/dL POC Glucose 95 (83-110) mg/dL Calcium 9.4 (8.5-10.1) mg/dL C-Reactive Protein 0.3 (<1.0) mg/dL 01/26/18 Range/Units 11:42 WBC (4.23-9.07) K/mm3 RBC (4.63-6.08) M/mm3 Hgb (13.7-17.5) gm/L Hct (40.1-51.0) % MCV (79.0-92.2) fl MCH (25.7-32.2) pg MCHC (32.2-35.5) g/dl RDW Std Deviation (35.1-43.9) fL Plt Count (163-337) K/mm3 MPV (9.4-12.3) fl Neut % (Auto) (34.0-67.9) % Lymph % (Auto) (21.8-53.1) % Worth % (Auto) (5.3-12.2) % Eos % (Auto) (0.8-7.0) Baso % (Auto) (0.1-1.2) % Neut # (Auto) (1.78-5.38) K/mm3 Lymph # (Auto) (1.32-3.57) K/mm3 Worth # (Auto) (0.30-0.82) K/mm3 Eos # (Auto) (0.04-0.54) K/mm3 Baso # (Auto) (0.01-0.08) K/mm3 Sodium (136-145) mEq/L Potassium (3.5-5.1) mEq/L Chloride (98-107) mEq/L Carbon Dioxide (21-32) mEq/L Anion Gap (5-15) BUN (7-18) mg/dL Creatinine (0.7-1.3) mg/dL Est Cr Clr Drug Dosing mL/min Estimated GFR (MDRD) (>60) mL/min BUN/Creatinine Ratio (14-18) Glucose (83-115) mg/dL POC Glucose 208 H (83-110) mg/dL Calcium (8.5-10.1) mg/dL C-Reactive Protein (<1.0) mg/dL Kirill Results Last 24 Hours: Microbiology 01/25/18 18:09 Stool Occult Blood (KIRILL) - Final Stool / Feces Med Orders - Current: Current Medications Acetaminophen (Tylenol) 650 mg PO Q4H PRN PRN Reason: Pain (Mild 1-3)/fever Hydrocodone Bitart/Acetaminophen (Wyckoff 325-5 Mg) 1 tab PO Q4H PRN PRN Reason: Pain (moderate 4-6) Aspirin (Aspirin) 81 mg PO DAILY [facility] Last Admin: 01/26/18 09:08 Dose: 81 mg Bisacodyl (Dulcolax) 5 mg PO DAILY PRN PRN Reason: Constipation Last Admin: 01/25/18 02:30 Dose: 5 mg Calcium Carbonate/Glycine (Tums) 500 mg PO BID [facility] Last Admin: 01/26/18 09:07 Dose: 500 mg Clindamycin HCl (Cleocin) 150 mg PO Q8H [facility] Last Admin: 01/26/18 11:42 Dose: 150 mg Dextrose/Water (Dextrose 50% In Water) 50 ml IVPUSH ASDIRECTED PRN PRN Reason: Hypoglycemia Docusate Sodium (Colace) 100 mg PO BID PRN PRN Reason: Constipation Famotidine (Pepcid) 20 mg IVPUSH Q24H [facility] Last Admin: 01/25/18 21:05 Dose: 20 mg Folic Acid (Folic Acid) 1 mg PO BEDTIME [facility] Last Admin: 01/25/18 21:06 Dose: 1 mg Guaifenesin/Phenylephrine HCl (Robitussin Dm) 5 ml PO Q4H PRN PRN Reason: Cough Haloperidol Lactate (Haldol) 2.5 mg IM Q8H PRN PRN Reason: Agitation/Restlessness Last Admin: 01/24/18 08:25 Dose: 2.5 mg Hydralazine HCl (Apresoline) 20 mg IVPUSH Q4H PRN PRN Reason: hypertension Hydromorphone HCl (Dilaudid) 0.25 mg IVPUSH Q2H PRN PRN Reason: Pain (severe 7-10) Promethazine HCl 6.25 mg/ (Sodium Chloride) 50.25 mls @ 100 mls/hr IV Q6H PRN PRN Reason: Nausea/Vomiting Insulin Aspart (Novolog) 0 unit SUBCUT QIDACANDBED [facility]; Protocol Last Admin: 01/26/18 11:42 Dose: 2 unit Levothyroxine Sodium (Synthroid) 88 mcg PO ACBREAKFAST [facility] Last Admin: 01/26/18 06:39 Dose: 88 mcg Lisinopril (Prinivil) 20 mg PO DAILY [facility] Last Admin: 01/26/18 09:08 Dose: Not Given Lorazepam (Ativan) 2 mg IVPUSH Q4H PRN PRN Reason: Seizures Lorazepam (Ativan) 0.25 mg IVPUSH Q4H PRN PRN Reason: Anxiety Last Admin: 01/24/18 15:57 Dose: 0.25 mg Magnesium Hydroxide (Milk Of Magnesia) 30 ml PO Q12H PRN PRN Reason: Constipation Metformin HCl (Glucophage) 500 mg PO BIDMEALS [facility] Last Admin: 01/26/18 06:39 Dose: 500 mg Metoprolol Tartrate (Lopressor) 5 mg IVPUSH Q4H PRN PRN Reason: Tachycardia Miscellaneous Information (Remove Patch) 1 ea TRDERM DAILY [facility] Last Admin: 01/26/18 09:08 Dose: 1 ea Multivitamins (Thera) 1 each PO BEDTIME [facility] Last Admin: 01/25/18 21:09 Dose: 1 each Nicotine (Habitrol) 21 mg TRDERM DAILY [facility] Last Admin: 01/26/18 09:07 Dose: 21 mg Polyethylene Glycol (Miralax) 17 gm PO DAILY PRN PRN Reason: Constipation Promethazine HCl (Phenergan) 25 mg PO Q6H PRN PRN Reason: Nausea/Vomiting Risperidone (Risperidal) 1 mg PO BEDTIME [facility] Last Admin: 01/25/18 21:07 Dose: 1 mg Saccharomyces Boulardii (Florastor) 250 mg PO BID [facility] Last Admin: 01/26/18 09:08 Dose: 250 mg Senna/Docusate Sodium (Senna Plus) 1 tab PO BID PRN PRN Reason: Constipation Sertraline HCl (Zoloft) 50 mg PO BEDTIME [facility] Simvastatin (Zocor) 20 mg PO BEDTIME [facility] Last Admin: 01/25/18 21:10 Dose: 20 mg Sodium Chloride (Saline Flush) 10 ml FLUSH ASDIRECTED PRN PRN Reason: Keep Vein Open Last Admin: 01/20/18 12:04 Dose: 10 ml Thiamine HCl (Vitamin B-1) 100 mg PO BEDTIME [facility] Last Admin: 01/25/18 21:08 Dose: 100 mg Discontinued Medications Bisacodyl (Dulcolax) 10 mg RECTAL ONETIME ONE Stop: 01/21/18 20:01 Last Admin: 01/21/18 19:58 Dose: Not Given Caffeine (Caffeine) 200 mg PO ONETIME ONE Stop: 01/22/18 07:01 Last Admin: 01/22/18 06:01 Dose: 200 mg Famotidine (Pepcid) 20 mg PO BID [facility] Last Admin: 01/22/18 10:02 Dose: 20 mg Famotidine (Pepcid) 20 mg IVPUSH ONETIME ONE Stop: 01/22/18 11:44 Last Admin: 01/22/18 11:59 Dose: 20 mg Hydralazine HCl (Apresoline) 20 mg IVPUSH Q4H PRN PRN Reason: Hypertension Last Admin: 01/26/18 03:30 Dose: 20 mg Sodium Chloride (Normal Saline) 1,000 mls @ 125 mls/hr IV ASDIRECTED [facility] Last Admin: 01/22/18 05:05 Dose: 125 mls/hr Azithromycin 500 mg/ Sodium (Chloride) 250 mls @ 250 mls/hr IV ONETIME ONE Stop: 01/22/18 00:56 Last Admin: 01/22/18 00:21 Dose: 250 mls/hr Piperacillin Sod/Tazobactam (Sod 4.5 gm/ Sodium Chloride) 100 mls @ 25 mls/hr IV Q8H [facility] Last Admin: 01/24/18 04:57 Dose: 25 mls/hr Piperacillin Sod/Tazobactam (Sod 4.5 gm/ Sodium Chloride) 100 mls @ 200 mls/hr IV ONETIME ONE Stop: 01/22/18 12:29 Last Admin: 01/22/18 12:00 Dose: 200 mls/hr Dextrose/Sodium Chloride (Dextrose 5%-Normal Saline) 1,000 mls @ 50 mls/hr IV ASDIRECTED [facility] Last Admin: 01/23/18 08:07 Dose: 50 mls/hr Insulin Aspart (Novolog) 0 unit SUBCUT Q6H PRN; Protocol PRN Reason: Hyperglycemia Insulin Aspart (Novolog) 0 unit SUBCUT Q6HR JAMES; Protocol Last Admin: 01/24/18 20:31 Dose: Not Given Lactulose (Cephulac) 20 gm PO ONETIME ONE Stop: 01/21/18 19:03 Last Admin: 01/21/18 19:58 Dose: Not Given Lorazepam (Ativan) 0.5 mg IVPUSH BEDTIME ONE Stop: 01/23/18 23:45 Last Admin: 01/24/18 00:03 Dose: 0.5 mg Magnesium Sulfate (Pharmacy To Dose - Magnesium Replacement) 1 dose .XX ASDIRECTED [facility] Metformin HCl (Glucophage) 500 mg PO BIDMEALS [facility] Last Admin: 01/22/18 06:02 Dose: 500 mg Metformin HCl (Glucophage) 500 mg PO BIDMEALS [facility] Modafinil (Provigil) 100 mg PO DAILY [facility] Modafinil (Provigil) 100 mg PO NOW STA Stop: 01/22/18 11:01 Last Admin: 01/22/18 11:34 Dose: 100 mg Modafinil (Provigil) 200 mg PO DAILY JAMES Stop: 01/23/18 09:01 Last Admin: 01/23/18 08:13 Dose: 200 mg Nicotine (Habitrol) 21 mg TRDERM DAILY [facility] Non-Formulary Medication (Petrolatum,White [Vaseline]) 453.6 gm TOP DAILY [facility] Pantoprazole Sodium (Protonix Iv) 40 mg IVPUSH ONETIME ONE Stop: 01/20/18 12:06 Last Admin: 01/20/18 12:13 Dose: 40 mg Pantoprazole Sodium (Protonix Iv) 40 mg IV Q12HR [facility] Last Admin: 01/21/18 21:09 Dose: 40 mg Potassium Chloride (Pharmacy To Dose - Potassium Replacement) 1 dose .XX ASDIRECTED [facility] Potassium Chloride (Klor-Con M20) 40 meq PO ONETIME ONE Stop: 01/23/18 10:01 Last Admin: 01/23/18 09:43 Dose: 40 meq Risperidone (Risperidal) 0.5 mg PO DAILY [facility] Last Admin: 01/26/18 09:08 Dose: 0.5 mg Risperidone (Risperidal) 1 mg PO DAILY [facility] Risperidone (Risperidal) 1 mg PO BEDTIME [facility] Last Admin: 01/24/18 20:31 Dose: Not Given Sertraline HCl (Zoloft) 50 mg PO DAILY [facility] Last Admin: 01/26/18 09:08 Dose: 50 mg Temazepam (Restoril) 7.5 mg PO BEDTIME PRN PRN Reason: Sleep - Plan Plan:: Dr Whiteside consult on 01/26/18 likely; minimal need for sitter today, will only use as needed.
[2018-01-25] MEDS: Famotidine 20 MG/2 ML SDV IVPUSH SCH (21:05)
[2018-01-25] MEDS: Folic Acid 1 MG Tab PO SCH (21:06)
[2018-01-25] MEDS: risperiDONE 1 MG Tab PO SCH (21:07)
[2018-01-25] MEDS: Thiamine 100 MG Tab PO SCH (21:08)
[2018-01-25] MEDS: Multivitamins,Therapeutic Tab PO SCH (21:09)
[2018-01-25] MEDS: Simvastatin 20 MG Tab PO SCH (21:10)
[2018-01-26] MEDS: Clindamycin HCl 150 MG Cap PO SCH ×3 (03:30→18:10)
[2018-01-26] MEDS: hydrALAZINE 20 MG/ML SDV IVPUSH PRN (03:30)
[2018-01-26] MEDS: Levothyroxine 88 MCG Tab PO SCH (06:39)
[2018-01-26] MEDS: metFORMIN 500 MG Tab PO SCH ×2 (06:39→18:11)
[2018-01-26] MEDS: Insulin Aspart 100 Units/ML 3 ML Pen SUBCUT SCH ×4 (06:40→21:06)
[2018-01-26] MEDS: Nicotine 21 MG/24 Hr Patch TRDERM SCH (09:07)
[2018-01-26] MEDS: Calcium Carbonate 500 MG Tab.Chew PO SCH ×2 (09:07→20:55)
[2018-01-26] MEDS: Saccharomyces Boulardii (Probiotic) 250 MG Cap PO SCH ×2 (09:08→20:54)
[2018-01-26] MEDS: Sertraline 50 MG Tab PO SCH (09:08)
[2018-01-26] MEDS: Aspirin 81 MG Tab.Chew PO SCH (09:08)
[2018-01-26] MEDS: Lisinopril 20 MG Tab PO SCH (09:08)
[2018-01-26] MEDS: risperiDONE 0.5 MG Tab PO SCH (09:08)
[2018-01-26] MEDS ORDERED: hydrALAZINE 20 MG/ML SDV IVPUSH PRN (11:09)
--- NOTE | 2018-01-26 11:09 | PCM.PN ---
<Hodan Palencia - Last Filed: 01/26/18 12:20> - General Info Date of Service: 01/26/18 Admission Dx/Problem (Free Text): Admission Diagnosis/Problem Admission Diagnosis/Problem Coffee ground emesis Subjective Update: In to see Dg. He is currently laying comfortably in bed. He is more alert but is still slow to answer questions or perform questions asked of him. He denies pain, dyspnea, or GI/ issues. Intakes has varied with alertness. Functional Status: Reports: Pain Controlled, Tolerating Diet, Ambulating (with assistance ), Urinating - Review of Systems General: Reports: No Symptoms, Other. Denies: Fever, Fatigue HEENT: Reports: No Symptoms. Denies: Sinus Congestion, Sore Throat Pulmonary: Reports: No Symptoms. Denies: Shortness of Breath, Cough Cardiovascular: Reports: No Symptoms. Denies: Chest Pain, Palpitations, Edema Gastrointestinal: Reports: No Symptoms. Denies: Abdominal Pain, Constipation, Diarrhea, Nausea, Vomiting Genitourinary: Reports: No Symptoms. Denies: Dysuria, Frequency Musculoskeletal: Reports: No Symptoms Skin: Reports: No Symptoms Neurological: Reports: No Symptoms. Denies: Confusion, Dizziness, Headache Psychiatric: Reports: No Symptoms. Denies: Confusion, Depression - Patient Data Vitals - Most Recent: Last Vital Signs Temp 97.7 F 01/26/18 09:08 Pulse 78 01/26/18 09:08 Resp 16 01/26/18 09:08 BP 92/63 01/26/18 09:08 Pulse Ox 98 01/26/18 09:08 Weight - Most Recent: 71.849 kg I&O - Last 24 Hours: Intake & Output 01/25/18 01/26/18 01/26/18 22:59 06:59 14:59 Intake Total 340 400 Output Total 1 Balance 340 399 Lab Results Last 24 Hours: Laboratory Results - last 24 hr 01/25/18 01/25/18 01/25/18 Range/Units 11:06 17:57 21:08 WBC (4.23-9.07) K/mm3 RBC (4.63-6.08) M/mm3 Hgb (13.7-17.5) gm/L Hct (40.1-51.0) % MCV (79.0-92.2) fl MCH (25.7-32.2) pg MCHC (32.2-35.5) g/dl RDW Std Deviation (35.1-43.9) fL Plt Count (163-337) K/mm3 MPV (9.4-12.3) fl Neut % (Auto) (34.0-67.9) % Lymph % (Auto) (21.8-53.1) % [place] % (Auto) (5.3-12.2) % Eos % (Auto) (0.8-7.0) Baso % (Auto) (0.1-1.2) % Neut # (Auto) (1.78-5.38) K/mm3 Lymph # (Auto) (1.32-3.57) K/mm3 [place] # (Auto) (0.30-0.82) K/mm3 Eos # (Auto) (0.04-0.54) K/mm3 Baso # (Auto) (0.01-0.08) K/mm3 Sodium (136-145) mEq/L Potassium (3.5-5.1) mEq/L Chloride (98-107) mEq/L Carbon Dioxide (21-32) mEq/L Anion Gap (5-15) BUN (7-18) mg/dL Creatinine (0.7-1.3) mg/dL Est Cr Clr Drug Dosing mL/min Estimated GFR (MDRD) (>60) mL/min BUN/Creatinine Ratio (14-18) Glucose (83-115) mg/dL POC Glucose 123 H 211 H 108 (83-110) mg/dL Calcium (8.5-10.1) mg/dL C-Reactive Protein (<1.0) mg/dL 01/26/18 01/26/18 01/26/18 Range/Units 06:13 06:15 06:15 WBC 5.45 (4.23-9.07) K/mm3 RBC 4.58 L (4.63-6.08) M/mm3 Hgb 12.4 L (13.7-17.5) gm/L Hct 37.8 L (40.1-51.0) % MCV 82.5 (79.0-92.2) fl MCH 27.1 (25.7-32.2) pg MCHC 32.8 (32.2-35.5) g/dl RDW Std Deviation 39.8 (35.1-43.9) fL Plt Count 299 (163-337) K/mm3 MPV 9.1 L (9.4-12.3) fl Neut % (Auto) 62.8 (34.0-67.9) % Lymph % (Auto) 26.1 (21.8-53.1) % [place] % (Auto) 6.4 (5.3-12.2) % Eos % (Auto) 3.7 (0.8-7.0) Baso % (Auto) 0.6 (0.1-1.2) % Neut # (Auto) 3.43 (1.78-5.38) K/mm3 Lymph # (Auto) 1.42 (1.32-3.57) K/mm3 [place] # (Auto) 0.35 (0.30-0.82) K/mm3 Eos # (Auto) 0.20 (0.04-0.54) K/mm3 Baso # (Auto) 0.03 (0.01-0.08) K/mm3 Sodium 137 (136-145) mEq/L Potassium 3.9 (3.5-5.1) mEq/L Chloride 105 (98-107) mEq/L Carbon Dioxide 22 (21-32) mEq/L Anion Gap 13.9 (5-15) BUN 19 H (7-18) mg/dL Creatinine 1.0 (0.7-1.3) mg/dL Est Cr Clr Drug Dosing 68.86 mL/min Estimated GFR (MDRD) > 60 (>60) mL/min BUN/Creatinine Ratio 19.0 H (14-18) Glucose 108 (83-115) mg/dL POC Glucose (83-110) mg/dL Calcium 9.4 (8.5-10.1) mg/dL C-Reactive Protein 0.3 (<1.0) mg/dL 18 Range/Units 06:18 WBC (4.23-9.07) K/mm3 RBC (4.63-6.08) M/mm3 Hgb (13.7-17.5) gm/L Hct (40.1-51.0) % MCV (79.0-92.2) fl MCH (25.7-32.2) pg MCHC (32.2-35.5) g/dl RDW Std Deviation (35.1-43.9) fL Plt Count (163-337) K/mm3 MPV (9.4-12.3) fl Neut % (Auto) (34.0-67.9) % Lymph % (Auto) (21.8-53.1) % [place] % (Auto) (5.3-12.2) % Eos % (Auto) (0.8-7.0) Baso % (Auto) (0.1-1.2) % Neut # (Auto) (1.78-5.38) K/mm3 Lymph # (Auto) (1.32-3.57) K/mm3 [place] # (Auto) (0.30-0.82) K/mm3 Eos # (Auto) (0.04-0.54) K/mm3 Baso # (Auto) (0.01-0.08) K/mm3 Sodium (136-145) mEq/L Potassium (3.5-5.1) mEq/L Chloride (98-107) mEq/L Carbon Dioxide (21-32) mEq/L Anion Gap (5-15) BUN (7-18) mg/dL Creatinine (0.7-1.3) mg/dL Est Cr Clr Drug Dosing mL/min Estimated GFR (MDRD) (>60) mL/min BUN/Creatinine Ratio (14-18) Glucose (83-115) mg/dL POC Glucose 95 (83-110) mg/dL Calcium (8.5-10.1) mg/dL C-Reactive Protein (<1.0) mg/dL Kirill Results Last 24 Hours: Microbiology 01/25/18 18:09 Stool Occult Blood (KIRILL) - Final Stool / Feces Med Orders - Current: Current Medications Acetaminophen (Tylenol) 650 mg PO Q4H PRN PRN Reason: Pain (Mild 1-3)/fever Hydrocodone Bitart/Acetaminophen (Bowden 325-5 Mg) 1 tab PO Q4H PRN PRN Reason: Pain (moderate 4-6) Aspirin (Aspirin) 81 mg PO DAILY JAMES Last Admin: 01/26/18 09:08 Dose: 81 mg Bisacodyl (Dulcolax) 5 mg PO DAILY PRN PRN Reason: Constipation Last Admin: 01/25/18 02:30 Dose: 5 mg Calcium Carbonate/Glycine (Tums) 500 mg PO BID [facility] Last Admin: 01/26/18 09:07 Dose: 500 mg Clindamycin HCl (Cleocin) 150 mg PO Q8H [facility] Last Admin: 01/26/18 03:30 Dose: 150 mg Dextrose/Water (Dextrose 50% In Water) 50 ml IVPUSH ASDIRECTED PRN PRN Reason: Hypoglycemia Docusate Sodium (Colace) 100 mg PO BID PRN PRN Reason: Constipation Famotidine (Pepcid) 20 mg IVPUSH Q24H [facility] Last Admin: 01/25/18 21:05 Dose: 20 mg Folic Acid (Folic Acid) 1 mg PO BEDTIME [facility] Last Admin: 01/25/18 21:06 Dose: 1 mg Guaifenesin/Phenylephrine HCl (Robitussin Dm) 5 ml PO Q4H PRN PRN Reason: Cough Haloperidol Lactate (Haldol) 2.5 mg IM Q8H PRN PRN Reason: Agitation/Restlessness Last Admin: 01/24/18 08:25 Dose: 2.5 mg Hydralazine HCl (Apresoline) 20 mg IVPUSH Q4H PRN PRN Reason: Hypertension Last Admin: 01/26/18 03:30 Dose: 20 mg Hydromorphone HCl (Dilaudid) 0.25 mg IVPUSH Q2H PRN PRN Reason: Pain (severe 7-10) Promethazine HCl 6.25 mg/ (Sodium Chloride) 50.25 mls @ 100 mls/hr IV Q6H PRN PRN Reason: Nausea/Vomiting Insulin Aspart (Novolog) 0 unit SUBCUT QIDACANDBED [facility]; Protocol Last Admin: 01/26/18 06:40 Dose: Not Given Levothyroxine Sodium (Synthroid) 88 mcg PO ACBREAKFAST [facility] Last Admin: 01/26/18 06:39 Dose: 88 mcg Lisinopril (Prinivil) 20 mg PO DAILY [facility] Last Admin: 01/26/18 09:08 Dose: Not Given Lorazepam (Ativan) 2 mg IVPUSH Q4H PRN PRN Reason: Seizures Lorazepam (Ativan) 0.25 mg IVPUSH Q4H PRN PRN Reason: Anxiety Last Admin: 01/24/18 15:57 Dose: 0.25 mg Magnesium Hydroxide (Milk Of Magnesia) 30 ml PO Q12H PRN PRN Reason: Constipation Metformin HCl (Glucophage) 500 mg PO BIDMEALS [facility] Last Admin: 01/26/18 06:39 Dose: 500 mg Metoprolol Tartrate (Lopressor) 5 mg IVPUSH Q4H PRN PRN Reason: Tachycardia Miscellaneous Information (Remove Patch) 1 ea TRDERM DAILY [facility] Last Admin: 01/26/18 09:08 Dose: 1 ea Multivitamins (Thera) 1 each PO BEDTIME [facility] Last Admin: 01/25/18 21:09 Dose: 1 each Nicotine (Habitrol) 21 mg TRDERM DAILY [facility] Last Admin: 01/26/18 09:07 Dose: 21 mg Polyethylene Glycol (Miralax) 17 gm PO DAILY PRN PRN Reason: Constipation Promethazine HCl (Phenergan) 25 mg PO Q6H PRN PRN Reason: Nausea/Vomiting Risperidone (Risperidal) 0.5 mg PO DAILY [facility] Last Admin: 01/26/18 09:08 Dose: 0.5 mg Risperidone (Risperidal) 1 mg PO BEDTIME [facility] Last Admin: 01/25/18 21:07 Dose: 1 mg Saccharomyces Boulardii (Florastor) 250 mg PO BID [facility] Last Admin: 01/26/18 09:08 Dose: 250 mg Senna/Docusate Sodium (Senna Plus) 1 tab PO BID PRN PRN Reason: Constipation Sertraline HCl (Zoloft) 50 mg PO DAILY [facility] Last Admin: 01/26/18 09:08 Dose: 50 mg Simvastatin (Zocor) 20 mg PO BEDTIME [facility] Last Admin: 01/25/18 21:10 Dose: 20 mg Sodium Chloride (Saline Flush) 10 ml FLUSH ASDIRECTED PRN PRN Reason: Keep Vein Open Last Admin: 01/20/18 12:04 Dose: 10 ml Thiamine HCl (Vitamin B-1) 100 mg PO BEDTIME [facility] Last Admin: 01/25/18 21:08 Dose: 100 mg Discontinued Medications Bisacodyl (Dulcolax) 10 mg RECTAL ONETIME ONE Stop: 01/21/18 20:01 Last Admin: 01/21/18 19:58 Dose: Not Given Caffeine (Caffeine) 200 mg PO ONETIME ONE Stop: 01/22/18 07:01 Last Admin: 01/22/18 06:01 Dose: 200 mg Famotidine (Pepcid) 20 mg PO BID [facility] Last Admin: 01/22/18 10:02 Dose: 20 mg Famotidine (Pepcid) 20 mg IVPUSH ONETIME ONE Stop: 01/22/18 11:44 Last Admin: 01/22/18 11:59 Dose: 20 mg Sodium Chloride (Normal Saline) 1,000 mls @ 125 mls/hr IV ASDIRECTED [facility] Last Admin: 01/22/18 05:05 Dose: 125 mls/hr Azithromycin 500 mg/ Sodium (Chloride) 250 mls @ 250 mls/hr IV ONETIME ONE Stop: 01/22/18 00:56 Last Admin: 01/22/18 00:21 Dose: 250 mls/hr Piperacillin Sod/Tazobactam (Sod 4.5 gm/ Sodium Chloride) 100 mls @ 25 mls/hr IV Q8H [facility] Last Admin: 01/24/18 04:57 Dose: 25 mls/hr Piperacillin Sod/Tazobactam (Sod 4.5 gm/ Sodium Chloride) 100 mls @ 200 mls/hr IV ONETIME ONE Stop: 01/22/18 12:29 Last Admin: 01/22/18 12:00 Dose: 200 mls/hr Dextrose/Sodium Chloride (Dextrose 5%-Normal Saline) 1,000 mls @ 50 mls/hr IV ASDIRECTED [facility] Last Admin: 01/23/18 08:07 Dose: 50 mls/hr Insulin Aspart (Novolog) 0 unit SUBCUT Q6H PRN; Protocol PRN Reason: Hyperglycemia Insulin Aspart (Novolog) 0 unit SUBCUT Q6HR [facility]; Protocol Last Admin: 01/24/18 20:31 Dose: Not Given Lactulose (Cephulac) 20 gm PO ONETIME ONE Stop: 01/21/18 19:03 Last Admin: 01/21/18 19:58 Dose: Not Given Lorazepam (Ativan) 0.5 mg IVPUSH BEDTIME ONE Stop: 01/23/18 23:45 Last Admin: 01/24/18 00:03 Dose: 0.5 mg Magnesium Sulfate (Pharmacy To Dose - Magnesium Replacement) 1 dose .XX ASDIRECTED [facility] Metformin HCl (Glucophage) 500 mg PO BIDMEALS [facility] Last Admin: 01/22/18 06:02 Dose: 500 mg Metformin HCl (Glucophage) 500 mg PO BIDMEALS [facility] Modafinil (Provigil) 100 mg PO DAILY [facility] Modafinil (Provigil) 100 mg PO NOW STA Stop: 01/22/18 11:01 Last Admin: 01/22/18 11:34 Dose: 100 mg Modafinil (Provigil) 200 mg PO DAILY JAMES Stop: 01/23/18 09:01 Last Admin: 01/23/18 08:13 Dose: 200 mg Nicotine (Habitrol) 21 mg TRDERM DAILY [facility] Non-Formulary Medication (Petrolatum,White [Vaseline]) 453.6 gm TOP DAILY [facility] Pantoprazole Sodium (Protonix Iv) 40 mg IVPUSH ONETIME ONE Stop: 01/20/18 12:06 Last Admin: 01/20/18 12:13 Dose: 40 mg Pantoprazole Sodium (Protonix Iv) 40 mg IV Q12HR [facility] Last Admin: 01/21/18 21:09 Dose: 40 mg Potassium Chloride (Pharmacy To Dose - Potassium Replacement) 1 dose .XX ASDIRECTED [facility] Potassium Chloride (Klor-Con M20) 40 meq PO ONETIME ONE Stop: 01/23/18 10:01 Last Admin: 01/23/18 09:43 Dose: 40 meq Risperidone (Risperidal) 1 mg PO DAILY [facility] Risperidone (Risperidal) 1 mg PO BEDTIME [facility] Last Admin: 01/24/18 20:31 Dose: Not Given Temazepam (Restoril) 7.5 mg PO BEDTIME PRN PRN Reason: Sleep - Exam Quality Assessment: DVT Prophylaxis General: No Acute Distress, Sedated (improved but still present ), Other ( Patient will not open his eyes and will not answer orientation questions. ) HEENT: Mucous Membr. Moist/[place] Neck: Supple. No: Lymphadenopathy Lungs: Clear to Auscultation, Normal Respiratory Effort Cardiovascular: Regular Rate, Regular Rhythm, No Murmurs GI/Abdominal Exam: Normal Bowel Sounds, Soft, Non-Tender, No Distention (Male) Exam: Deferred Back Exam: Normal Inspection, Decreased Range of Motion Extremities: Normal Inspection, Non-Tender, No Pedal Edema, Limited Range of Motion Peripheral Pulses: 1+: Posterior Tibial (L), Posterior Tibial (R), Dorsalis Pedis (L), Dorsalis Pedis (R), 2+: Radial (L), Radial (R) Skin: Warm, Dry, Intact Neurological: No New Focal Deficit, Strength Equal Bilateral, Cranial Nerves Intact (grossly ) Psy/Mental Status: Other (Unable to assess as patient will not open his eyes and will only answer yes/no questions. ) - Problem List Review Problem List Initiated/Reviewed/Updated: Yes - My Orders Last 24 Hours: My Active Orders 01/26/18 10:53 Consult to Grain Grader [CONS] Routine 01/27/18 05:11 BASIC METABOLIC PANEL,BMP [CHEM] AM CBC WITH AUTO DIFF [HEME] AM 01/28/18 05:11 BASIC METABOLIC PANEL,BMP [CHEM] AM CBC WITH AUTO DIFF [HEME] AM 01/29/18 05:11 BASIC METABOLIC PANEL,BMP [CHEM] AM CBC WITH AUTO DIFF [HEME] AM 01/30/18 05:11 BASIC METABOLIC PANEL,BMP [CHEM] AM CBC WITH AUTO DIFF [HEME] AM 01/31/18 05:11 BASIC METABOLIC PANEL,BMP [CHEM] AM CBC WITH AUTO DIFF [HEME] AM - Plan Plan:: A/P: Acute: Healthcare Acquired Aspiration Pneumonia/Chemical Pneumonitis - Risk Factors: GERD and AMS - Suspect this is more of a chemical pneumonitis with aspiration, will cover for appropriate pathogens - Had wet cough; suctioned in ED with clear to yellow sputum - Initial CXR-no acute abnormal findings; Follow up CXR shows shows right basilar opacification (new) with CXR today read as nothing acute appreciated on front chest xray - Received one dose of IV 500 mg Azithromycin during admission - Received Zosyn IV 4.5 grams Q8H for pharmacy to dose plus Probiotic 1 tab po BID --> changed to clindamycin 150 mg po q 8 hr on 01/24/18 - He was on PPI but now on H2B for GERD - Mycoplasma pneumonia and viral panel negative; Strep pneumonia Ag pending - Decongestant/Expectorant PRN and IS as directed - Afebrile w/o leukocytosis - Aspiration Precautions - May have oropharyngeal dysfunction --> [facility] is seeing patient Probable Oropharyngeal Dysfunction - He drools and his adult bib is wet - [facility] initial eval with recommendation of NDD4 diet (regular) and nectar thick liquids; diet was upgraded to thin liquids S/p Mental Status Changes - Has underlying Dementia - Suspect 2/2 Medication Side effects (Increased Dose of Risperdal) --> Daughter reported to ED provider that psych medications were recently changed - Panfilo reported slurred speech and lethargy --> - Head CT in ED read as senescent changes with no acute abnormality - Risperdal was held but has been re-ordered with behaviors last night --> he is more alert but remains mildly sedated, will continue to monitor and adjust dosage if warranted, awaiting input from Dr. Whiteside - Stimulant discontinued - Consult to Dr. Whiteside Type 2 Diabetes, Stable - Metformin 500 mg BID resumed - Accu-check Q6H with Low level ISS Cachexia - patient reported UBW 190# (although he is unable to report when he last weighed this amount); current weight is 158# - RD consult - Will begin kcal count Hypotensive episodes - BP 86/68 this morning - Will adjust hydralazine order to be given if BP >160/90 Resolved: Hypokalemia - was 3.4 01/23/18, improved to 3.9 on 01/24/18 - likely 2/2 poor intake and hemodilution with IVF - replete per protocol S/p Acute Hematemesis - Risk factors: History of alcohol abuse, GERD, Pill Esophagitis - Reported by [facility] to be coffee ground emesis - No further episodes with EMS, in ED, or during admit thus far - ED provider reports negative FOBT - Supportive care: monitor vitals, Hgb --> if indicated, will consult General Surgery for possible EGD - BP 160/98 in ED, improved at admit - Ordered Protonix 40 mg BID IV--> now on H2B Acute decline in Hgb - 12.4 today 12.1 yesterday; lowest value during admission is 12.0 and highest 13.6 - FOBT x 1 negative - Monitor Chronic: Hx Alcohol Use Disorder Schizophrenia ETOH Dementia MDD GERD Cachexia Presence of cardiac pacemaker Weakness HTN Type 2 DM HLD Hypothyroidism Plan: He is otherwise clinically stable Will change to inpatient status if he meets MCG criteria Continue current treatment Continue [facility] eval/tx Routine AM labs Risperdal re-started with behaviors Consult Dr. Whiteside Dietary consult for muscle wasting/atrophy and kcal count Fall and Aspiration Precautions DVT Prophylaxis: SCDs Encourage to use IS as directed PT/OT for deconditioning Other orders as indicated above Code Status: Full code <Tatiana Lynch - Last Filed: 01/26/18 15:54> - Patient Data Vitals - Most Recent: Last Vital Signs Temp 36.5 C 01/26/18 09:08 Pulse 78 01/26/18 09:08 Resp 16 01/26/18 09:08 BP 92/63 01/26/18 09:08 Pulse Ox 98 01/26/18 09:08 I&O - Last 24 Hours: Intake & Output 01/26/18 01/26/18 01/26/18 06:59 14:59 22:59 Intake Total 400 120 Output Total 1 Balance 399 120 Lab Results Last 24 Hours: Laboratory Results - last 24 hr 01/25/18 01/25/18 01/26/18 Range/Units 17:57 21:08 06:13 WBC 5.45 (4.23-9.07) K/mm3 RBC 4.58 L (4.63-6.08) M/mm3 Hgb 12.4 L (13.7-17.5) gm/L Hct 37.8 L (40.1-51.0) % MCV 82.5 (79.0-92.2) fl MCH 27.1 (25.7-32.2) pg MCHC 32.8 (32.2-35.5) g/dl RDW Std Deviation 39.8 (35.1-43.9) fL Plt Count 299 (163-337) K/mm3 MPV 9.1 L (9.4-12.3) fl Neut % (Auto) 62.8 (34.0-67.9) % Lymph % (Auto) 26.1 (21.8-53.1) % [place] % (Auto) 6.4 (5.3-12.2) % Eos % (Auto) 3.7 (0.8-7.0) Baso % (Auto) 0.6 (0.1-1.2) % Neut # (Auto) 3.43 (1.78-5.38) K/mm3 Lymph # (Auto) 1.42 (1.32-3.57) K/mm3 [place] # (Auto) 0.35 (0.30-0.82) K/mm3 Eos # (Auto) 0.20 (0.04-0.54) K/mm3 Baso # (Auto) 0.03 (0.01-0.08) K/mm3 Sodium (136-145) mEq/L Potassium (3.5-5.1) mEq/L Chloride (98-107) mEq/L Carbon Dioxide (21-32) mEq/L Anion Gap (5-15) BUN (7-18) mg/dL Creatinine (0.7-1.3) mg/dL Est Cr Clr Drug Dosing mL/min Estimated GFR (MDRD) (>60) mL/min BUN/Creatinine Ratio (14-18) Glucose (83-115) mg/dL POC Glucose 211 H 108 (83-110) mg/dL Calcium (8.5-10.1) mg/dL C-Reactive Protein (<1.0) mg/dL 01/26/18 01/26/18 01/26/18 Range/Units 06:15 06:15 06:18 WBC (4.23-9.07) K/mm3 RBC (4.63-6.08) M/mm3 Hgb (13.7-17.5) gm/L Hct (40.1-51.0) % MCV (79.0-92.2) fl MCH (25.7-32.2) pg MCHC (32.2-35.5) g/dl RDW Std Deviation (35.1-43.9) fL Plt Count (163-337) K/mm3 MPV (9.4-12.3) fl Neut % (Auto) (34.0-67.9) % Lymph % (Auto) (21.8-53.1) % [place] % (Auto) (5.3-12.2) % Eos % (Auto) (0.8-7.0) Baso % (Auto) (0.1-1.2) % Neut # (Auto) (1.78-5.38) K/mm3 Lymph # (Auto) (1.32-3.57) K/mm3 [place] # (Auto) (0.30-0.82) K/mm3 Eos # (Auto) (0.04-0.54) K/mm3 Baso # (Auto) (0.01-0.08) K/mm3 Sodium 137 (136-145) mEq/L Potassium 3.9 (3.5-5.1) mEq/L Chloride 105 (98-107) mEq/L Carbon Dioxide 22 (21-32) mEq/L Anion Gap 13.9 (5-15) BUN 19 H (7-18) mg/dL Creatinine 1.0 (0.7-1.3) mg/dL Est Cr Clr Drug Dosing 68.86 mL/min Estimated GFR (MDRD) > 60 (>60) mL/min BUN/Creatinine Ratio 19.0 H (14-18) Glucose 108 (83-115) mg/dL POC Glucose 95 (83-110) mg/dL Calcium 9.4 (8.5-10.1) mg/dL C-Reactive Protein 0.3 (<1.0) mg/dL 01/26/18 Range/Units 11:42 WBC (4.23-9.07) K/mm3 RBC (4.63-6.08) M/mm3 Hgb (13.7-17.5) gm/L Hct (40.1-51.0) % MCV (79.0-92.2) fl MCH (25.7-32.2) pg MCHC (32.2-35.5) g/dl RDW Std Deviation (35.1-43.9) fL Plt Count (163-337) K/mm3 MPV (9.4-12.3) fl Neut % (Auto) (34.0-67.9) % Lymph % (Auto) (21.8-53.1) % [place] % (Auto) (5.3-12.2) % Eos % (Auto) (0.8-7.0) Baso % (Auto) (0.1-1.2) % Neut # (Auto) (1.78-5.38) K/mm3 Lymph # (Auto) (1.32-3.57) K/mm3 [place] # (Auto) (0.30-0.82) K/mm3 Eos # (Auto) (0.04-0.54) K/mm3 Baso # (Auto) (0.01-0.08) K/mm3 Sodium (136-145) mEq/L Potassium (3.5-5.1) mEq/L Chloride (98-107) mEq/L Carbon Dioxide (21-32) mEq/L Anion Gap (5-15) BUN (7-18) mg/dL Creatinine (0.7-1.3) mg/dL Est Cr Clr Drug Dosing mL/min Estimated GFR (MDRD) (>60) mL/min BUN/Creatinine Ratio (14-18) Glucose (83-115) mg/dL POC Glucose 208 H (83-110) mg/dL Calcium (8.5-10.1) mg/dL C-Reactive Protein (<1.0) mg/dL Kirill Results Last 24 Hours: Microbiology 01/25/18 18:09 Stool Occult Blood (KIRILL) - Final Stool / Feces Med Orders - Current: Current Medications Acetaminophen (Tylenol) 650 mg PO Q4H PRN PRN Reason: Pain (Mild 1-3)/fever Hydrocodone Bitart/Acetaminophen (Bowden 325-5 Mg) 1 tab PO Q4H PRN PRN Reason: Pain (moderate 4-6) Aspirin (Aspirin) 81 mg PO DAILY [facility] Last Admin: 01/26/18 09:08 Dose: 81 mg Bisacodyl (Dulcolax) 5 mg PO DAILY PRN PRN Reason: Constipation Last Admin: 01/25/18 02:30 Dose: 5 mg Calcium Carbonate/Glycine (Tums) 500 mg PO BID [facility] Last Admin: 01/26/18 09:07 Dose: 500 mg Clindamycin HCl (Cleocin) 150 mg PO Q8H [facility] Last Admin: 01/26/18 11:42 Dose: 150 mg Dextrose/Water (Dextrose 50% In Water) 50 ml IVPUSH ASDIRECTED PRN PRN Reason: Hypoglycemia Docusate Sodium (Colace) 100 mg PO BID PRN PRN Reason: Constipation Famotidine (Pepcid) 20 mg IVPUSH Q24H [facility] Last Admin: 01/25/18 21:05 Dose: 20 mg Folic Acid (Folic Acid) 1 mg PO BEDTIME [facility] Last Admin: 01/25/18 21:06 Dose: 1 mg Guaifenesin/Phenylephrine HCl (Robitussin Dm) 5 ml PO Q4H PRN PRN Reason: Cough Haloperidol Lactate (Haldol) 2.5 mg IM Q8H PRN PRN Reason: Agitation/Restlessness Last Admin: 01/24/18 08:25 Dose: 2.5 mg Hydralazine HCl (Apresoline) 20 mg IVPUSH Q4H PRN PRN Reason: hypertension Hydromorphone HCl (Dilaudid) 0.25 mg IVPUSH Q2H PRN PRN Reason: Pain (severe 7-10) Promethazine HCl 6.25 mg/ (Sodium Chloride) 50.25 mls @ 100 mls/hr IV Q6H PRN PRN Reason: Nausea/Vomiting Insulin Aspart (Novolog) 0 unit SUBCUT QIDACANDBED [facility]; Protocol Last Admin: 01/26/18 11:42 Dose: 2 unit Levothyroxine Sodium (Synthroid) 88 mcg PO ACBREAKFAST [facility] Last Admin: 01/26/18 06:39 Dose: 88 mcg Lisinopril (Prinivil) 20 mg PO DAILY [facility] Last Admin: 01/26/18 09:08 Dose: Not Given Lorazepam (Ativan) 2 mg IVPUSH Q4H PRN PRN Reason: Seizures Lorazepam (Ativan) 0.25 mg IVPUSH Q4H PRN PRN Reason: Anxiety Last Admin: 01/24/18 15:57 Dose: 0.25 mg Magnesium Hydroxide (Milk Of Magnesia) 30 ml PO Q12H PRN PRN Reason: Constipation Metformin HCl (Glucophage) 500 mg PO BIDMEALS [facility] Last Admin: 01/26/18 06:39 Dose: 500 mg Metoprolol Tartrate (Lopressor) 5 mg IVPUSH Q4H PRN PRN Reason: Tachycardia Miscellaneous Information (Remove Patch) 1 ea TRDERM DAILY [facility] Last Admin: 01/26/18 09:08 Dose: 1 ea Multivitamins (Thera) 1 each PO BEDTIME [facility] Last Admin: 01/25/18 21:09 Dose: 1 each Nicotine (Habitrol) 21 mg TRDERM DAILY [facility] Last Admin: 01/26/18 09:07 Dose: 21 mg Polyethylene Glycol (Miralax) 17 gm PO DAILY PRN PRN Reason: Constipation Promethazine HCl (Phenergan) 25 mg PO Q6H PRN PRN Reason: Nausea/Vomiting Risperidone (Risperidal) 1 mg PO BEDTIME [facility] Last Admin: 01/25/18 21:07 Dose: 1 mg Saccharomyces Boulardii (Florastor) 250 mg PO BID [facility] Last Admin: 01/26/18 09:08 Dose: 250 mg Senna/Docusate Sodium (Senna Plus) 1 tab PO BID PRN PRN Reason: Constipation Sertraline HCl (Zoloft) 50 mg PO BEDTIME JAMES Simvastatin (Zocor) 20 mg PO BEDTIME [facility] Last Admin: 01/25/18 21:10 Dose: 20 mg Sodium Chloride (Saline Flush) 10 ml FLUSH ASDIRECTED PRN PRN Reason: Keep Vein Open Last Admin: 01/20/18 12:04 Dose: 10 ml Thiamine HCl (Vitamin B-1) 100 mg PO BEDTIME [facility] Last Admin: 01/25/18 21:08 Dose: 100 mg Discontinued Medications Bisacodyl (Dulcolax) 10 mg RECTAL ONETIME ONE Stop: 01/21/18 20:01 Last Admin: 01/21/18 19:58 Dose: Not Given Caffeine (Caffeine) 200 mg PO ONETIME ONE Stop: 01/22/18 07:01 Last Admin: 01/22/18 06:01 Dose: 200 mg Famotidine (Pepcid) 20 mg PO BID [facility] Last Admin: 01/22/18 10:02 Dose: 20 mg Famotidine (Pepcid) 20 mg IVPUSH ONETIME ONE Stop: 01/22/18 11:44 Last Admin: 01/22/18 11:59 Dose: 20 mg Hydralazine HCl (Apresoline) 20 mg IVPUSH Q4H PRN PRN Reason: Hypertension Last Admin: 01/26/18 03:30 Dose: 20 mg Sodium Chloride (Normal Saline) 1,000 mls @ 125 mls/hr IV ASDIRECTED [facility] Last Admin: 01/22/18 05:05 Dose: 125 mls/hr Azithromycin 500 mg/ Sodium (Chloride) 250 mls @ 250 mls/hr IV ONETIME ONE Stop: 01/22/18 00:56 Last Admin: 01/22/18 00:21 Dose: 250 mls/hr Piperacillin Sod/Tazobactam (Sod 4.5 gm/ Sodium Chloride) 100 mls @ 25 mls/hr IV Q8H [facility] Last Admin: 01/24/18 04:57 Dose: 25 mls/hr Piperacillin Sod/Tazobactam (Sod 4.5 gm/ Sodium Chloride) 100 mls @ 200 mls/hr IV ONETIME ONE Stop: 01/22/18 12:29 Last Admin: 01/22/18 12:00 Dose: 200 mls/hr Dextrose/Sodium Chloride (Dextrose 5%-Normal Saline) 1,000 mls @ 50 mls/hr IV ASDIRECTED [facility] Last Admin: 01/23/18 08:07 Dose: 50 mls/hr Insulin Aspart (Novolog) 0 unit SUBCUT Q6H PRN; Protocol PRN Reason: Hyperglycemia Insulin Aspart (Novolog) 0 unit SUBCUT Q6HR JAMES; Protocol Last Admin: 01/24/18 20:31 Dose: Not Given Lactulose (Cephulac) 20 gm PO ONETIME ONE Stop: 01/21/18 19:03 Last Admin: 01/21/18 19:58 Dose: Not Given Lorazepam (Ativan) 0.5 mg IVPUSH BEDTIME ONE Stop: 01/23/18 23:45 Last Admin: 01/24/18 00:03 Dose: 0.5 mg Magnesium Sulfate (Pharmacy To Dose - Magnesium Replacement) 1 dose .XX ASDIRECTED [facility] Metformin HCl (Glucophage) 500 mg PO BIDMEALS [facility] Last Admin: 01/22/18 06:02 Dose: 500 mg Metformin HCl (Glucophage) 500 mg PO BIDMEALS [facility] Modafinil (Provigil) 100 mg PO DAILY [facility] Modafinil (Provigil) 100 mg PO NOW STA Stop: 01/22/18 11:01 Last Admin: 01/22/18 11:34 Dose: 100 mg Modafinil (Provigil) 200 mg PO DAILY JAMES Stop: 01/23/18 09:01 Last Admin: 01/23/18 08:13 Dose: 200 mg Nicotine (Habitrol) 21 mg TRDERM DAILY [facility] Non-Formulary Medication (Petrolatum,White [Vaseline]) 453.6 gm TOP DAILY [facility] Pantoprazole Sodium (Protonix Iv) 40 mg IVPUSH ONETIME ONE Stop: 01/20/18 12:06 Last Admin: 01/20/18 12:13 Dose: 40 mg Pantoprazole Sodium (Protonix Iv) 40 mg IV Q12HR [facility] Last Admin: 01/21/18 21:09 Dose: 40 mg Potassium Chloride (Pharmacy To Dose - Potassium Replacement) 1 dose .XX ASDIRECTED [facility] Potassium Chloride (Klor-Con M20) 40 meq PO ONETIME ONE Stop: 01/23/18 10:01 Last Admin: 01/23/18 09:43 Dose: 40 meq Risperidone (Risperidal) 0.5 mg PO DAILY JAMES Last Admin: 01/26/18 09:08 Dose: 0.5 mg Risperidone (Risperidal) 1 mg PO DAILY JAMES Risperidone (Risperidal) 1 mg PO BEDTIME JAMES Last Admin: 01/24/18 20:31 Dose: Not Given Sertraline HCl (Zoloft) 50 mg PO DAILY JAMES Last Admin: 01/26/18 09:08 Dose: 50 mg Temazepam (Restoril) 7.5 mg PO BEDTIME PRN PRN Reason: Sleep - Plan Plan:: Greatly improved, there was no display of combative aggressive behavior; sitter was not required >18 hours across day and night shifts. Dr Whiteside will see patient today, anticipating adjustment of [employer]IENT SERVICES SPECIALIST agents particularly anti- psychotics.
--- NOTE | 2018-01-26 20:36 | CONS ---
CONSULTING PHYSICIAN: Bairon Whiteside MD DATE OF CONSULTATION: 01/26/2018 This is a 60-minute inpatient clinical event. IDENTIFICATION: The patient is a 73-year-old male who was admitted to the Inpatient Med/Surg Unit [facility] on 01/22/2018. He is seen for psychiatric evaluation. CHIEF COMPLAINT: "I am okay." HISTORY OF PRESENT ILLNESS: The patient is a 73-year-old male who is admitted to the Inpatient Med/Surg Unit at [facility] in [place], [place] on 01/22/2018 secondary to possible aspiration pneumonia. The patient had been residing at an assisted living facility in [place], [place]. The patient has a history of dementia and schizophrenia. Staff has been becoming more concerned that the patient had been more irritable since admission, also more resistant to care. This is consistent with the reports that the staff had received from the [facility] in [place]. When the patient came in, he was supposed to be taking Risperdal, but this medication was not given to him for the 1st few days of his inpatient stay, and his condition deteriorated psychiatrically. He became more irritable, again more resistant to care, he was not sleeping, he was displaying mood swings and being more aggressive on the unit. Risperdal was reinstituted at the doses that were being given at the [facility], 0.5 q.a.m. and 1 mg at bedtime, and the staff became concerned that the patient went from one mood state where he is very aggressive to another mood state where he was overly sedated and according to one staff "slept for like 2 days straight." The medical treatment team is now facing placement issues with this patient as the assisted living facility is refusing to take the patient back at the moment. They are requesting review of the medications after talking with the patient. On interview, the patient is stating "I am okay" and appearing quite sedated. He needs to be aroused to answer questions. He is alert and oriented x1. He has no complaints, but does state he feels more tired than normal when asked if he is sleeping more during the day. MEDICATIONS: At time of presentation, 1. Zoloft 50 mg q.a.m. 2. Risperdal 0.5 mg b.i.d., 0.5 mg q.a.m. and 1 mg at bedtime. 3. Ativan 0.25 mg p.r.n. 4. Haldol p.r.n. It should be noted the staff is reporting that the patient has not received any Ativan or Haldol over the past 48 hours, but he is still displaying quite a bit of somnolence during the day. ALLERGIES: No known drug allergies. PAST MEDICAL HISTORY: Significant for aspiration pneumonia. REVIEW OF SYSTEMS: Aside from pulmonary and neurologic, all other major organ systems are negative for acute difficulties or complications. FAMILY PSYCHIATRIC AND CD HISTORY: Unknown. PAST PSYCHIATRIC AND CD HISTORY: Staff reports the patient's primary outpatient psychiatrist is Dr. Miguel out of [place], [place]. PAST PSYCHIATRIC DIAGNOSIS: Includes schizophrenia and alcohol-induced dementia. SOCIAL HISTORY: The patient has been most recently residing in an assisted living facility, [facility], in [place], [place], but he is apparently from [place], [place] prior to being placed in the assisted living facility. MENTAL STATUS EXAM: The patient is a 73-year-old, sleepy-appearing white male in no apparent distress. Speech is of increased latency of response and shortened duration of utterance. There are no abnormal motor movements or tics observed. Gait and station are not observed. This station is seated in a chair for the entirety of the interview. The patient is cognitively oriented x1 to person, but not to place or day. He also knows his date of . There is no behavioral or stated evidence of acute suicidal or homicidal ideation or acute psychotic, delusional, or paranoid symptoms. Thought processes are very slow. Judgment and insight appear impaired secondary to his dementia. There are no manic symptoms or loose associations evident. VITALS: 92/63, 78, 16, 97.7 degrees. IMPRESSION: [place] I: 1. Schizophrenia, F20. 2. Dementia, not otherwise specified, F03.90. [place] II: None. [place] III: Aspiration pneumonia. [place] IV: Severe. [place] V: 50. PLAN: 1. Recommend decreasing the patient's Risperdal from 0.5 mg q.a.m. and 1 mg at bedtime to 1 mg at bedtime to see if this will help minimize daytime sedation, yet provide coverage for the patient's psychotic symptoms and behaviors on the unit. 2. We would recommend continuing Zoloft at 50 mg daily, but change dosing time from a.m. to at bedtime to see if this also helps minimize daytime sedation. 3. Other medications as currently dosed and prescribed by the patient's primary inpatient medical treatment team. 4. Will continue to follow up with the patient on an as needed basis while he remains on the Med-Surg unit going forward. 5. Will follow up with the patient sooner if any complications in the interim. 6. Do recommend the patient be transferred back to the assisted living facility if possible as he does not appear to be a behavior issue at this point in time because of his sedation, but also think it likely that if he is kept on 1 mg of Risperdal in the evening, and Zoloft also moved to the evening for dosing, that this would help with the behaviors that were of concern for the patient previously. 7. Crisis plan is in place. GARLAND /[id number] LOREN
[2018-01-26] MEDS: Simvastatin 20 MG Tab PO SCH (20:53)
[2018-01-26] MEDS: Multivitamins,Therapeutic Tab PO SCH (20:53)
[2018-01-26] MEDS: Folic Acid 1 MG Tab PO SCH (20:55)
[2018-01-26] MEDS: Thiamine 100 MG Tab PO SCH (20:55)
[2018-01-26] MEDS: risperiDONE 1 MG Tab PO SCH (20:56)
[2018-01-26] MEDS: Famotidine 20 MG/2 ML SDV IVPUSH SCH (20:57)
[2018-01-27] MEDS: Clindamycin HCl 150 MG Cap PO SCH ×3 (03:00→18:34)
[2018-01-27] MEDS: metFORMIN 500 MG Tab PO SCH ×2 (06:05→17:03)
[2018-01-27] MEDS: Levothyroxine 88 MCG Tab PO SCH (06:05)
[2018-01-27] MEDS: Lisinopril 20 MG Tab PO SCH (09:03)
[2018-01-27] MEDS: Insulin Aspart 100 Units/ML 3 ML Pen SUBCUT SCH ×4 (09:03→21:12)
[2018-01-27] MEDS: Calcium Carbonate 500 MG Tab.Chew PO SCH ×2 (09:03→21:03)
[2018-01-27] MEDS: Saccharomyces Boulardii (Probiotic) 250 MG Cap PO SCH ×2 (09:04→21:03)
[2018-01-27] MEDS: Aspirin 81 MG Tab.Chew PO SCH (09:04)
[2018-01-27] MEDS: Nicotine 21 MG/24 Hr Patch TRDERM SCH (09:04)
--- NOTE | 2018-01-27 09:05 | PCM.PN ---
- General Info Date of Service: 01/27/18 Admission Dx/Problem (Free Text): Admission Diagnosis/Problem Admission Diagnosis/Problem Coffee ground emesis Subjective Update: In to see Dg. He is currently laying comfortably in bed. His alertness has improved greatly. He states he feels more awake today. Denies any chest pain, dyspnea, GI/ issues, and any anxiety or depression. He states he is hungry. Nursing reports that they feel he is more awake today as well. Functional Status: Reports: Pain Controlled, Tolerating Diet, Ambulating (with assistance ), Urinating - Review of Systems General: Reports: No Symptoms, Other. Denies: Fever, Weakness HEENT: Reports: No Symptoms. Denies: Sinus Congestion, Sore Throat Pulmonary: Reports: No Symptoms. Denies: Shortness of Breath, Cough Cardiovascular: Reports: No Symptoms. Denies: Chest Pain, Palpitations, Edema Gastrointestinal: Reports: No Symptoms. Denies: Abdominal Pain, Constipation, Diarrhea, Nausea, Vomiting Genitourinary: Reports: No Symptoms. Denies: Dysuria, Frequency Musculoskeletal: Reports: No Symptoms. Denies: Joint Pain Skin: Reports: No Symptoms. Denies: Cyanosis, Pallor Neurological: Reports: No Symptoms. Denies: Dizziness, Headache Psychiatric: Reports: No Symptoms. Denies: Depression, Anxiety - Patient Data Vitals - Most Recent: Last Vital Signs Temp 97.5 F 01/27/18 07:33 Pulse 64 01/27/18 07:33 Resp 16 01/27/18 07:33 BP 147/77 H 01/27/18 07:33 Pulse Ox 93 L 01/27/18 07:33 Weight - Most Recent: 156 lb 9.6 oz I&O - Last 24 Hours: Intake & Output 01/26/18 01/27/18 01/27/18 22:59 06:59 14:59 Intake Total 220 480 Balance 220 480 Lab Results Last 24 Hours: Laboratory Results - last 24 hr 01/26/18 01/26/18 01/26/18 Range/Units 11:42 16:12 20:50 WBC (4.23-9.07) K/mm3 RBC (4.63-6.08) M/mm3 Hgb (13.7-17.5) gm/L Hct (40.1-51.0) % MCV (79.0-92.2) fl MCH (25.7-32.2) pg MCHC (32.2-35.5) g/dl RDW Std Deviation (35.1-43.9) fL Plt Count (163-337) K/mm3 MPV (9.4-12.3) fl Neut % (Auto) (34.0-67.9) % Lymph % (Auto) (21.8-53.1) % [place] % (Auto) (5.3-12.2) % Eos % (Auto) (0.8-7.0) Baso % (Auto) (0.1-1.2) % Neut # (Auto) (1.78-5.38) K/mm3 Lymph # (Auto) (1.32-3.57) K/mm3 [place] # (Auto) (0.30-0.82) K/mm3 Eos # (Auto) (0.04-0.54) K/mm3 Baso # (Auto) (0.01-0.08) K/mm3 Sodium (136-145) mEq/L Potassium (3.5-5.1) mEq/L Chloride (98-107) mEq/L Carbon Dioxide (21-32) mEq/L Anion Gap (5-15) BUN (7-18) mg/dL Creatinine (0.7-1.3) mg/dL Est Cr Clr Drug Dosing mL/min Estimated GFR (MDRD) (>60) mL/min BUN/Creatinine Ratio (14-18) Glucose (83-115) mg/dL POC Glucose 208 H 206 H 218 H (83-110) mg/dL Calcium (8.5-10.1) mg/dL C-Reactive Protein (<1.0) mg/dL 01/27/18 01/27/18 01/27/18 Range/Units 06:07 06:40 06:40 WBC 6.18 (4.23-9.07) K/mm3 RBC 4.70 (4.63-6.08) M/mm3 Hgb 12.8 L (13.7-17.5) gm/L Hct 39.2 L (40.1-51.0) % MCV 83.4 (79.0-92.2) fl MCH 27.2 (25.7-32.2) pg MCHC 32.7 (32.2-35.5) g/dl RDW Std Deviation 40.4 (35.1-43.9) fL Plt Count 301 (163-337) K/mm3 MPV 8.9 L (9.4-12.3) fl Neut % (Auto) 62.7 (34.0-67.9) % Lymph % (Auto) 25.7 (21.8-53.1) % [place] % (Auto) 7.4 (5.3-12.2) % Eos % (Auto) 3.2 (0.8-7.0) Baso % (Auto) 0.5 (0.1-1.2) % Neut # (Auto) 3.87 (1.78-5.38) K/mm3 Lymph # (Auto) 1.59 (1.32-3.57) K/mm3 [place] # (Auto) 0.46 (0.30-0.82) K/mm3 Eos # (Auto) 0.20 (0.04-0.54) K/mm3 Baso # (Auto) 0.03 (0.01-0.08) K/mm3 Sodium 137 (136-145) mEq/L Potassium 4.2 (3.5-5.1) mEq/L Chloride 102 (98-107) mEq/L Carbon Dioxide 26 (21-32) mEq/L Anion Gap 13.2 (5-15) BUN 20 H (7-18) mg/dL Creatinine 1.0 (0.7-1.3) mg/dL Est Cr Clr Drug Dosing 68.07 mL/min Estimated GFR (MDRD) > 60 (>60) mL/min BUN/Creatinine Ratio 20.0 H (14-18) Glucose 117 H (83-115) mg/dL POC Glucose 154 H (83-110) mg/dL Calcium 10.0 (8.5-10.1) mg/dL C-Reactive Protein < 0.2 (<1.0) mg/dL Med Orders - Current: Current Medications Acetaminophen (Tylenol) 650 mg PO Q4H PRN PRN Reason: Pain (Mild 1-3)/fever Hydrocodone Bitart/Acetaminophen (Maynard 325-5 Mg) 1 tab PO Q4H PRN PRN Reason: Pain (moderate 4-6) Aspirin (Aspirin) 81 mg PO DAILY [facility] Last Admin: 01/26/18 09:08 Dose: 81 mg Bisacodyl (Dulcolax) 5 mg PO DAILY PRN PRN Reason: Constipation Last Admin: 01/25/18 02:30 Dose: 5 mg Calcium Carbonate/Glycine (Tums) 500 mg PO BID [facility] Last Admin: 01/26/18 20:55 Dose: 500 mg Clindamycin HCl (Cleocin) 150 mg PO Q8H [facility] Last Admin: 01/27/18 03:00 Dose: 150 mg Dextrose/Water (Dextrose 50% In Water) 50 ml IVPUSH ASDIRECTED PRN PRN Reason: Hypoglycemia Docusate Sodium (Colace) 100 mg PO BID PRN PRN Reason: Constipation Famotidine (Pepcid) 20 mg IVPUSH Q24H [facility] Last Admin: 01/26/18 20:57 Dose: 20 mg Folic Acid (Folic Acid) 1 mg PO BEDTIME [facility] Last Admin: 01/26/18 20:55 Dose: 1 mg Guaifenesin/Phenylephrine HCl (Robitussin Dm) 5 ml PO Q4H PRN PRN Reason: Cough Haloperidol Lactate (Haldol) 2.5 mg IM Q8H PRN PRN Reason: Agitation/Restlessness Last Admin: 01/24/18 08:25 Dose: 2.5 mg Hydralazine HCl (Apresoline) 20 mg IVPUSH Q4H PRN PRN Reason: hypertension Hydromorphone HCl (Dilaudid) 0.25 mg IVPUSH Q2H PRN PRN Reason: Pain (severe 7-10) Promethazine HCl 6.25 mg/ (Sodium Chloride) 50.25 mls @ 100 mls/hr IV Q6H PRN PRN Reason: Nausea/Vomiting Insulin Aspart (Novolog) 0 unit SUBCUT QIDACANDBED [facility]; Protocol Last Admin: 01/26/18 21:06 Dose: 2 unit Levothyroxine Sodium (Synthroid) 88 mcg PO ACBREAKFAST [facility] Last Admin: 01/27/18 06:05 Dose: 88 mcg Lisinopril (Prinivil) 20 mg PO DAILY [facility] Last Admin: 01/26/18 09:08 Dose: Not Given Lorazepam (Ativan) 2 mg IVPUSH Q4H PRN PRN Reason: Seizures Lorazepam (Ativan) 0.25 mg IVPUSH Q4H PRN PRN Reason: Anxiety Last Admin: 01/24/18 15:57 Dose: 0.25 mg Magnesium Hydroxide (Milk Of Magnesia) 30 ml PO Q12H PRN PRN Reason: Constipation Metformin HCl (Glucophage) 500 mg PO BIDMEALS [facility] Last Admin: 01/27/18 06:05 Dose: 500 mg Metoprolol Tartrate (Lopressor) 5 mg IVPUSH Q4H PRN PRN Reason: Tachycardia Miscellaneous Information (Remove Patch) 1 ea TRDERM DAILY [facility] Last Admin: 01/26/18 09:08 Dose: 1 ea Multivitamins (Thera) 1 each PO BEDTIME [facility] Last Admin: 01/26/18 20:53 Dose: 1 each Nicotine (Habitrol) 21 mg TRDERM DAILY [facility] Last Admin: 01/26/18 09:07 Dose: 21 mg Polyethylene Glycol (Miralax) 17 gm PO DAILY PRN PRN Reason: Constipation Promethazine HCl (Phenergan) 25 mg PO Q6H PRN PRN Reason: Nausea/Vomiting Risperidone (Risperidal) 1 mg PO BEDTIME [facility] Last Admin: 01/26/18 20:56 Dose: 1 mg Saccharomyces Boulardii (Florastor) 250 mg PO BID [facility] Last Admin: 01/26/18 20:54 Dose: 250 mg Senna/Docusate Sodium (Senna Plus) 1 tab PO BID PRN PRN Reason: Constipation Sertraline HCl (Zoloft) 50 mg PO BEDTIME [facility] Simvastatin (Zocor) 20 mg PO BEDTIME [facility] Last Admin: 01/26/18 20:53 Dose: 20 mg Sodium Chloride (Saline Flush) 10 ml FLUSH ASDIRECTED PRN PRN Reason: Keep Vein Open Last Admin: 01/20/18 12:04 Dose: 10 ml Thiamine HCl (Vitamin B-1) 100 mg PO BEDTIME [facility] Last Admin: 01/26/18 20:55 Dose: 100 mg Discontinued Medications Bisacodyl (Dulcolax) 10 mg RECTAL ONETIME ONE Stop: 01/21/18 20:01 Last Admin: 01/21/18 19:58 Dose: Not Given Caffeine (Caffeine) 200 mg PO ONETIME ONE Stop: 01/22/18 07:01 Last Admin: 01/22/18 06:01 Dose: 200 mg Famotidine (Pepcid) 20 mg PO BID [facility] Last Admin: 01/22/18 10:02 Dose: 20 mg Famotidine (Pepcid) 20 mg IVPUSH ONETIME ONE Stop: 01/22/18 11:44 Last Admin: 01/22/18 11:59 Dose: 20 mg Hydralazine HCl (Apresoline) 20 mg IVPUSH Q4H PRN PRN Reason: Hypertension Last Admin: 01/26/18 03:30 Dose: 20 mg Sodium Chloride (Normal Saline) 1,000 mls @ 125 mls/hr IV ASDIRECTED [facility] Last Admin: 01/22/18 05:05 Dose: 125 mls/hr Azithromycin 500 mg/ Sodium (Chloride) 250 mls @ 250 mls/hr IV ONETIME ONE Stop: 01/22/18 00:56 Last Admin: 01/22/18 00:21 Dose: 250 mls/hr Piperacillin Sod/Tazobactam (Sod 4.5 gm/ Sodium Chloride) 100 mls @ 25 mls/hr IV Q8H [facility] Last Admin: 01/24/18 04:57 Dose: 25 mls/hr Piperacillin Sod/Tazobactam (Sod 4.5 gm/ Sodium Chloride) 100 mls @ 200 mls/hr IV ONETIME ONE Stop: 01/22/18 12:29 Last Admin: 01/22/18 12:00 Dose: 200 mls/hr Dextrose/Sodium Chloride (Dextrose 5%-Normal Saline) 1,000 mls [facility] Admin: 01/23/18 08:07 Dose: 50 mls/hr Insulin Aspart (Novolog) 0 unit SUBCUT Q6H PRN; Protocol PRN Reason: Hyperglycemia Insulin Aspart (Novolog) 0 unit SUBCUT Q6HR [facility]; Protocol Last Admin: 01/24/18 20:31 Dose: Not Given Lactulose (Cephulac) 20 gm PO ONETIME ONE Stop: 01/21/18 19:03 Last Admin: 01/21/18 19:58 Dose: Not Given Lorazepam (Ativan) 0.5 mg IVPUSH BEDTIME ONE Stop: 01/23/18 23:45 Last Admin: 01/24/18 00:03 Dose: 0.5 mg Magnesium Sulfate (Pharmacy To Dose - Magnesium Replacement) 1 dose .XX ASDIRECTED [facility] Metformin HCl (Glucophage) 500 mg PO BIDMEALS [facility] Last Admin: 01/22/18 06:02 Dose: 500 mg Metformin HCl (Glucophage) 500 mg PO BIDMEALS [facility] Modafinil (Provigil) 100 mg PO DAILY [facility] Modafinil (Provigil) 100 mg PO NOW STA Stop: 01/22/18 11:01 Last Admin: 01/22/18 11:34 Dose: 100 mg Modafinil (Provigil) 200 mg PO DAILY [facility] Stop: 01/23/18 09:01 Last Admin: 01/23/18 08:13 Dose: 200 mg Nicotine (Habitrol) 21 mg TRDERM DAILY [facility] Non-Formulary Medication (Petrolatum,White [Vaseline]) 453.6 gm TOP DAILY [facility] Pantoprazole Sodium (Protonix Iv) 40 mg IVPUSH ONETIME ONE Stop: 01/20/18 12:06 Last Admin: 01/20/18 12:13 Dose: 40 mg Pantoprazole Sodium (Protonix Iv) 40 mg IV Q12HR [facility] Last Admin: 01/21/18 21:09 Dose: 40 mg Potassium Chloride (Pharmacy To Dose - Potassium Replacement) 1 dose .XX ASDIRECTED [facility] Potassium Chloride (Klor-Con M20) 40 meq PO ONETIME ONE Stop: 01/23/18 10:01 Last Admin: 01/23/18 09:43 Dose: 40 meq Risperidone (Risperidal) 0.5 mg PO DAILY [facility] Last Admin: 01/26/18 09:08 Dose: 0.5 mg Risperidone (Risperidal) 1 mg PO DAILY [facility] Risperidone (Risperidal) 1 mg PO BEDTIME [facility] Last Admin: 01/24/18 20:31 Dose: Not Given Sertraline HCl (Zoloft) 50 mg PO DAILY [facility] Last Admin: 01/26/18 09:08 Dose: 50 mg Temazepam (Restoril) 7.5 mg PO BEDTIME PRN PRN Reason: Sleep - Exam Quality Assessment: No: Supplemental Oxygen General: Alert, Oriented, Cooperative, No Acute Distress HEENT: Pupils Equal, Pupils Reactive, EOMI, Mucous Membr. Moist/[place] Neck: Supple. No: Lymphadenopathy Lungs: Clear to Auscultation, Normal Respiratory Effort Cardiovascular: Regular Rate, Regular Rhythm, No Murmurs GI/Abdominal Exam: Normal Bowel Sounds, Soft, Non-Tender, No Distention (Male) Exam: Deferred Back Exam: Normal Inspection, Decreased Range of Motion Extremities: Normal Inspection, Non-Tender, No Pedal Edema, Limited Range of Motion, Other (Mild tremor b/l extremities ) Peripheral Pulses: 1+: Posterior Tibial (L), Posterior Tibial (R), Dorsalis Pedis (L), Dorsalis Pedis (R), 2+: Radial (L), Radial (R) Skin: Warm, Dry, Intact Neurological: No New Focal Deficit, Strength Equal Bilateral, Cranial Nerves Intact (grossly) Psy/Mental Status: Alert, Normal Affect, Normal Mood - Problem List Review Problem List Initiated/Reviewed/Updated: Yes - My Orders Last 24 Hours: My Active Orders 01/26/18 10:53 Consult to [employer] [employer] [CONS] Routine 01/28/18 05:11 BASIC METABOLIC PANEL,BMP [CHEM] AM CBC WITH AUTO DIFF [HEME] AM 01/29/18 05:11 BASIC METABOLIC PANEL,BMP [CHEM] AM CBC WITH AUTO DIFF [HEME] AM 01/30/18 05:11 BASIC METABOLIC PANEL,BMP [CHEM] AM CBC WITH AUTO DIFF [HEME] AM 01/31/18 05:11 BASIC METABOLIC PANEL,BMP [CHEM] AM CBC WITH AUTO DIFF [HEME] AM - Plan Plan:: A/P: Acute: Healthcare Acquired Aspiration Pneumonia/Chemical Pneumonitis - Risk Factors: GERD and AMS - Suspect this is more of a chemical pneumonitis with aspiration, will cover for appropriate pathogens - Had wet cough; suctioned in ED with clear to yellow sputum - Initial CXR-no acute abnormal findings; Follow up CXR shows shows right basilar opacification (new) with last CXR read as nothing acute appreciated on front chest xray - Received one dose of IV 500 mg Azithromycin during admission - Received Zosyn IV 4.5 grams Q8H for pharmacy to dose plus Probiotic 1 tab po BID --> changed to clindamycin 150 mg po q 8 hr on 01/24/18 and will continue until 02/01/18 - He was on PPI but now on H2B for GERD - Mycoplasma pneumonia, viral panel, and strep pneumonia Ag negative - Decongestant/Expectorant PRN and IS as directed - Afebrile w/o leukocytosis - Aspiration Precautions - May have oropharyngeal dysfunction --> STILL OPERATOR HELPER is seeing patient Probable Oropharyngeal Dysfunction - He drools and his adult bib is wet - ST[employer] OPERATOR HELPER initial eval with recommendation of NDD4 diet (regular) and nectar thick liquids; diet was upgraded to thin liquids S/p Mental Status Changes - Has underlying Dementia - Suspect 2/2 Medication Side effects (Increased Dose of Risperdal) --> Daughter reported to ED provider that psych medications were recently changed - Panfilo reported slurred speech and lethargy --> - Head CT in ED read as senescent changes with no acute abnormality - Dr. Whiteside recommended discontinuing Risperdal 0.5 mg, continuing 1 mg Risperdal q Hs, and changing sertraline to HS - Stimulant discontinued Type 2 Diabetes, Stable - Metformin 500 mg BID resumed - Accu-check Q6H with Low level ISS Cachexia - patient reported UBW 190# (although he is unable to report when he last weighed this amount); current weight is 158# - RD consult - Will begin kcal count: 01/26/18 for two meals plus pudding and applesauce that are assumably from a med pass or patient request: 1064 calories and 42 grams of protein - He is receiving Glucerna 4oz TID with meals Hypotensive episodes, improved - BP 86/68 yesterday morning - Will adjust hydralazine order to be given if BP >160/90 Resolved: Hypokalemia - was 3.4 01/23/18, improved to 3.9 on 01/24/18 - likely 2/2 poor intake and hemodilution with IVF - replete per protocol S/p Acute Hematemesis - Risk factors: History of alcohol abuse, GERD, Pill Esophagitis - Reported by Panfilo AL to be coffee ground emesis - No further episodes with EMS, in ED, or during admit thus far - ED provider reports negative FOBT - Supportive care: monitor vitals, Hgb --> if indicated, will consult General Surgery for possible EGD - BP 160/98 in ED, improved at admit - Ordered Protonix 40 mg BID IV--> now on H2B Acute decline in Hgb - 12.4 today 12.1 yesterday; lowest value during admission is 12.0 and highest 13.6 - FOBT x 1 negative - Monitor Chronic: Hx Alcohol Use Disorder Schizophrenia ETOH Dementia MDD GERD Cachexia Presence of cardiac pacemaker Weakness HTN Type 2 DM HLD Hypothyroidism Plan: He is otherwise clinically stable Continue current treatment Continue [employer] OPERATOR HELPER eval/tx Routine AM labs Risperdal re-started with behaviors Appreciate Dr. Whiteside's consultation and recommendations Dietary consult for muscle wasting/atrophy and kcal count Fall and Aspiration Precautions DVT Prophylaxis: SCDs Encourage to use IS as directed PT/OT for deconditioning Other orders as indicated above Code Status: Full code
[2018-01-27] MEDS: Multivitamins,Therapeutic Tab PO SCH (21:04)
[2018-01-27] MEDS: Thiamine 100 MG Tab PO SCH (21:05)
[2018-01-27] MEDS: Sertraline 50 MG Tab PO SCH (21:06)
[2018-01-27] MEDS: Folic Acid 1 MG Tab PO SCH (21:06)
[2018-01-27] MEDS: Simvastatin 20 MG Tab PO SCH (21:07)
[2018-01-27] MEDS: risperiDONE 1 MG Tab PO SCH (21:07)
[2018-01-27] MEDS: Famotidine 20 MG/2 ML SDV IVPUSH SCH (21:12)
[2018-01-28] MEDS: Clindamycin HCl 150 MG Cap PO SCH ×3 (03:48→18:04)
[2018-01-28] MEDS: Insulin Aspart 100 Units/ML 3 ML Pen SUBCUT SCH ×4 (06:22→21:16)
[2018-01-28] MEDS: Levothyroxine 88 MCG Tab PO SCH (06:22)
[2018-01-28] MEDS: Calcium Carbonate 500 MG Tab.Chew PO SCH ×2 (08:19→21:01)
[2018-01-28] MEDS: Lisinopril 20 MG Tab PO SCH (08:19)
[2018-01-28] MEDS: Nicotine 21 MG/24 Hr Patch TRDERM SCH (08:19)
[2018-01-28] MEDS: metFORMIN 500 MG Tab PO SCH ×2 (08:19→18:04)
[2018-01-28] MEDS: Aspirin 81 MG Tab.Chew PO SCH (08:19)
[2018-01-28] MEDS: Saccharomyces Boulardii (Probiotic) 250 MG Cap PO SCH ×2 (08:25→21:01)
--- NOTE | 2018-01-28 11:54 | PCM.PN ---
- General Info Date of Service: 01/28/18 Subjective Update: Improved, less aggressive affect after adjustments of meds by psychiatric strategic planning consultant, Dr Whiteside Functional Status: Reports: Pain Controlled, Tolerating Diet, Ambulating, Urinating - Review of Systems General: Reports: No Symptoms HEENT: Reports: No Symptoms Pulmonary: Reports: No Symptoms Cardiovascular: Reports: No Symptoms Gastrointestinal: Reports: No Symptoms Genitourinary: Reports: No Symptoms Musculoskeletal: Reports: No Symptoms Skin: Reports: No Symptoms Neurological: Reports: No Symptoms Psychiatric: Reports: No Symptoms - Patient Data Vitals - Most Recent: Last Vital Signs Temp 36.4 C 01/28/18 03:51 Pulse 57 L 01/28/18 03:51 Resp 16 01/28/18 03:51 BP 176/89 H 01/28/18 08:19 Pulse Ox 94 L 01/28/18 03:51 Weight - Most Recent: 71.078 kg I&O - Last 24 Hours: Intake & Output 01/27/18 01/28/18 01/28/18 22:59 06:59 14:59 Intake Total 900 100 Balance 900 100 Lab Results Last 24 Hours: Laboratory Results - last 24 hr 01/27/18 01/27/18 01/28/18 Range/Units 16:34 21:01 06:16 WBC (4.23-9.07) K/mm3 RBC (4.63-6.08) M/mm3 Hgb (13.7-17.5) gm/L Hct (40.1-51.0) % MCV (79.0-92.2) fl MCH (25.7-32.2) pg MCHC (32.2-35.5) g/dl RDW Std Deviation (35.1-43.9) fL Plt Count (163-337) K/mm3 MPV (9.4-12.3) fl Neut % (Auto) (34.0-67.9) % Lymph % (Auto) (21.8-53.1) % Anderson % (Auto) (5.3-12.2) % Eos % (Auto) (0.8-7.0) Baso % (Auto) (0.1-1.2) % Neut # (Auto) (1.78-5.38) K/mm3 Lymph # (Auto) (1.32-3.57) K/mm3 Anderson # (Auto) (0.30-0.82) K/mm3 Eos # (Auto) (0.04-0.54) K/mm3 Baso # (Auto) (0.01-0.08) K/mm3 Sodium (136-145) mEq/L Potassium (3.5-5.1) mEq/L Chloride (98-107) mEq/L Carbon Dioxide (21-32) mEq/L Anion Gap (5-15) BUN (7-18) mg/dL Creatinine (0.7-1.3) mg/dL Est Cr Clr Drug Dosing mL/min Estimated GFR (MDRD) (>60) mL/min BUN/Creatinine Ratio (14-18) Glucose (83-115) mg/dL POC Glucose 189 H 148 H 101 (83-110) mg/dL Calcium (8.5-10.1) mg/dL 01/28/18 01/28/18 01/28/18 Range/Units 06:27 06:27 11:02 WBC 5.97 (4.23-9.07) K/mm3 RBC 4.36 L (4.63-6.08) M/mm3 Hgb 12.0 L (13.7-17.5) gm/L Hct 36.3 L (40.1-51.0) % MCV 83.3 (79.0-92.2) fl MCH 27.5 (25.7-32.2) pg MCHC 33.1 (32.2-35.5) g/dl RDW Std Deviation 39.6 (35.1-43.9) fL Plt Count 313 (163-337) K/mm3 MPV 9.3 L (9.4-12.3) fl Neut % (Auto) 64.4 (34.0-67.9) % Lymph % (Auto) 22.8 (21.8-53.1) % Anderson % (Auto) 8.0 (5.3-12.2) % Eos % (Auto) 4.0 (0.8-7.0) Baso % (Auto) 0.5 (0.1-1.2) % Neut # (Auto) 3.84 (1.78-5.38) K/mm3 Lymph # (Auto) 1.36 (1.32-3.57) K/mm3 Anderson # (Auto) 0.48 (0.30-0.82) K/mm3 Eos # (Auto) 0.24 (0.04-0.54) K/mm3 Baso # (Auto) 0.03 (0.01-0.08) K/mm3 Sodium 137 (136-145) mEq/L Potassium 4.2 (3.5-5.1) mEq/L Chloride 104 (98-107) mEq/L Carbon Dioxide 25 (21-32) mEq/L Anion Gap 12.2 (5-15) BUN 20 H (7-18) mg/dL Creatinine 1.0 (0.7-1.3) mg/dL Est Cr Clr Drug Dosing 68.12 mL/min Estimated GFR (MDRD) > 60 (>60) mL/min BUN/Creatinine Ratio 20.0 H (14-18) Glucose 108 (83-115) mg/dL POC Glucose 191 H (83-110) mg/dL Calcium 9.8 (8.5-10.1) mg/dL Med Orders - Current: Current Medications Acetaminophen (Tylenol) 650 mg PO Q4H PRN PRN Reason: Pain (Mild 1-3)/fever Hydrocodone Bitart/Acetaminophen ([place] 325-5 Mg) 1 tab PO Q4H PRN PRN Reason: Pain (moderate 4-6) Aspirin (Aspirin) 81 mg PO DAILY [facility] Last Admin: 01/28/18 08:19 Dose: 81 mg Bisacodyl (Dulcolax) 5 mg PO DAILY PRN PRN Reason: Constipation Last Admin: 01/25/18 02:30 Dose: 5 mg Calcium Carbonate/Glycine (Tums) 500 mg PO BID [facility] Last Admin: 01/28/18 08:19 Dose: 500 mg Clindamycin HCl (Cleocin) 150 mg PO Q8H [facility] Last Admin: 01/28/18 03:48 Dose: 150 mg Dextrose/Water (Dextrose 50% In Water) 50 ml IVPUSH ASDIRECTED PRN PRN Reason: Hypoglycemia Docusate Sodium (Colace) 100 mg PO BID PRN PRN Reason: Constipation Famotidine (Pepcid) 20 mg IVPUSH Q24H [facility] Last Admin: 01/27/18 21:12 Dose: 20 mg Folic Acid (Folic Acid) 1 mg PO BEDTIME [facility] Last Admin: 01/27/18 21:06 Dose: 1 mg Guaifenesin/Phenylephrine HCl (Robitussin Dm) 5 ml PO Q4H PRN PRN Reason: Cough Haloperidol Lactate (Haldol) 2.5 mg IM Q8H PRN PRN Reason: Agitation/Restlessness Last Admin: 01/24/18 08:25 Dose: 2.5 mg Hydralazine HCl (Apresoline) 20 mg IVPUSH Q4H PRN PRN Reason: hypertension Hydromorphone HCl (Dilaudid) 0.25 mg IVPUSH Q2H PRN PRN Reason: Pain (severe 7-10) Promethazine HCl 6.25 mg/ (Sodium Chloride) 50.25 mls @ 100 mls/hr IV Q6H PRN PRN Reason: Nausea/Vomiting Insulin Aspart (Novolog) 0 unit SUBCUT QIDACANDBED [facility]; Protocol Last Admin: 01/28/18 06:22 Dose: Not Given Levothyroxine Sodium (Synthroid) 88 mcg PO ACBREAKFAST [facility] Last Admin: 01/28/18 06:22 Dose: 88 mcg Lisinopril (Prinivil) 20 mg PO DAILY [facility] Last Admin: 01/28/18 08:19 Dose: 20 mg Lorazepam (Ativan) 2 mg IVPUSH Q4H PRN PRN Reason: Seizures Lorazepam (Ativan) 0.25 mg IVPUSH Q4H PRN PRN Reason: Anxiety Last Admin: 01/24/18 15:57 Dose: 0.25 mg Magnesium Hydroxide (Milk Of Magnesia) 30 ml PO Q12H PRN PRN Reason: Constipation Metformin HCl (Glucophage) 500 mg PO BIDMEALS [facility] Last Admin: 01/28/18 08:19 Dose: 500 mg Metoprolol Tartrate (Lopressor) 5 mg IVPUSH Q4H PRN PRN Reason: Tachycardia Miscellaneous Information (Remove Patch) 1 ea TRDERM DAILY [facility] Last Admin: 01/28/18 08:25 Dose: 1 ea Multivitamins (Thera) 1 each PO BEDTIME [facility] Last Admin: 01/27/18 21:04 Dose: 1 each Nicotine (Habitrol) 21 mg TRDERM DAILY [facility] Last Admin: 01/28/18 08:19 Dose: 21 mg Polyethylene Glycol (Miralax) 17 gm PO DAILY PRN PRN Reason: Constipation Promethazine HCl (Phenergan) 25 mg PO Q6H PRN PRN Reason: Nausea/Vomiting Risperidone (Risperidal) 1 mg PO BEDTIME [facility] Last Admin: 01/27/18 21:07 Dose: 1 mg Saccharomyces Boulardii (Florastor) 250 mg PO BID [facility] Last Admin: 01/28/18 08:25 Dose: 250 mg Senna/Docusate Sodium (Senna Plus) 1 tab PO BID PRN PRN Reason: Constipation Sertraline HCl (Zoloft) 50 mg PO BEDTIME [facility] Last Admin: 01/27/18 21:06 Dose: 50 mg Simvastatin (Zocor) 20 mg PO BEDTIME [facility] Last Admin: 01/27/18 21:07 Dose: 20 mg Sodium Chloride (Saline Flush) 10 ml FLUSH ASDIRECTED PRN PRN Reason: Keep Vein Open Last Admin: 01/20/18 12:04 Dose: 10 ml Thiamine HCl (Vitamin B-1) 100 mg PO BEDTIME [facility] Last Admin: 01/27/18 21:05 Dose: 100 mg Discontinued Medications Bisacodyl (Dulcolax) 10 mg RECTAL ONETIME ONE Stop: 01/21/18 20:01 Last Admin: 01/21/18 19:58 Dose: Not Given Caffeine (Caffeine) 200 mg PO ONETIME ONE Stop: 01/22/18 07:01 Last Admin: 01/22/18 06:01 Dose: 200 mg Famotidine (Pepcid) 20 mg PO BID [facility] Last Admin: 01/22/18 10:02 Dose: 20 mg Famotidine (Pepcid) 20 mg IVPUSH ONETIME ONE Stop: 01/22/18 11:44 Last Admin: 01/22/18 11:59 Dose: 20 mg Hydralazine HCl (Apresoline) 20 mg IVPUSH Q4H PRN PRN Reason: Hypertension Last Admin: 01/26/18 03:30 Dose: 20 mg Sodium Chloride (Normal Saline) 1,000 mls @ 125 mls/hr IV ASDIRECTED [facility] Last Admin: 01/22/18 05:05 Dose: 125 mls/hr Azithromycin 500 mg/ Sodium (Chloride) 250 mls @ 250 mls/hr IV ONETIME ONE Stop: 01/22/18 00:56 Last Admin: 01/22/18 00:21 Dose: 250 mls/hr Piperacillin Sod/Tazobactam (Sod 4.5 gm/ Sodium Chloride) 100 mls @ 25 mls/hr IV Q8H [facility] Last Admin: 01/24/18 04:57 Dose: 25 mls/hr Piperacillin Sod/Tazobactam (Sod 4.5 gm/ Sodium Chloride) 100 mls @ 200 mls/hr IV ONETIME ONE Stop: 01/22/18 12:29 Last Admin: 01/22/18 12:00 Dose: 200 mls/hr Dextrose/Sodium Chloride (Dextrose 5%-Normal Saline) 1,000 mls @ 50 mls/hr IV ASDIRECTED [facility] Last Admin: 01/23/18 08:07 Dose: 50 mls/hr Insulin Aspart (Novolog) 0 unit SUBCUT Q6H PRN; Protocol PRN Reason: Hyperglycemia Insulin Aspart (Novolog) 0 unit SUBCUT Q6HR [facility]; Protocol Last Admin: 01/24/18 20:31 Dose: Not Given Lactulose (Cephulac) 20 gm PO ONETIME ONE Stop: 01/21/18 19:03 Last Admin: 01/21/18 19:58 Dose: Not Given Lorazepam (Ativan) 0.5 mg IVPUSH BEDTIME ONE Stop: 01/23/18 23:45 Last Admin: 01/24/18 00:03 Dose: 0.5 mg Magnesium Sulfate (Pharmacy To Dose - Magnesium Replacement) 1 dose .XX ASDIRECTED [facility] Metformin HCl (Glucophage) 500 mg PO BIDMEALS [facility] Last Admin: 01/22/18 06:02 Dose: 500 mg Metformin HCl (Glucophage) 500 mg PO BIDMEALS [facility] Modafinil (Provigil) 100 mg PO DAILY [facility] Modafinil (Provigil) 100 mg PO NOW STA Stop: 01/22/18 11:01 Last Admin: 01/22/18 11:34 Dose: 100 mg Modafinil (Provigil) 200 mg PO DAILY [facility] Stop: 01/23/18 09:01 Last Admin: 01/23/18 08:13 Dose: 200 mg Nicotine (Habitrol) 21 mg TRDERM DAILY [facility] Non-Formulary Medication (Petrolatum,White [Vaseline]) 453.6 gm TOP DAILY [facility] Pantoprazole Sodium (Protonix Iv) 40 mg IVPUSH ONETIME ONE Stop: 01/20/18 12:06 Last Admin: 01/20/18 12:13 Dose: 40 mg Pantoprazole Sodium (Protonix Iv) 40 mg IV Q12HR [facility] Last Admin: 01/21/18 21:09 Dose: 40 mg Potassium Chloride (Pharmacy To Dose - Potassium Replacement) 1 dose .XX ASDIRECTED [facility] Potassium Chloride (Klor-Con M20) 40 meq PO ONETIME ONE Stop: 01/23/18 10:01 Last Admin: 01/23/18 09:43 Dose: 40 meq Risperidone (Risperidal) 0.5 mg PO DAILY [facility] Last Admin: 01/26/18 09:08 Dose: 0.5 mg Risperidone (Risperidal) 1 mg PO DAILY [facility] Risperidone (Risperidal) 1 mg PO BEDTIME [facility] Last Admin: 01/24/18 20:31 Dose: Not Given Sertraline HCl (Zoloft) 50 mg PO DAILY [facility] Last Admin: 01/26/18 09:08 Dose: 50 mg Temazepam (Restoril) 7.5 mg PO BEDTIME PRN PRN Reason: Sleep - Exam Quality Assessment: DVT Prophylaxis General: Alert, Oriented, Cooperative, No Acute Distress HEENT: Pupils Equal, Pupils Reactive, EOMI Neck: Supple, Trachea Midline, No JVD Lungs: Normal Respiratory Effort Cardiovascular: Regular Rate, Regular Rhythm GI/Abdominal Exam: Normal Bowel Sounds, Soft, Non-Tender, No Organomegaly, No Distention (Male) Exam: Deferred Back Exam: Normal Inspection Extremities: Normal Inspection, Normal Range of Motion, Non-Tender, Normal Capillary Refill Skin: Warm Neurological: No New Focal Deficit Psy/Mental Status: Alert, Normal Affect, Normal Mood - Problem List Review Problem List Initiated/Reviewed/Updated: Yes - Plan Plan:: A/P: Acute: Healthcare Acquired Aspiration Pneumonia/Chemical Pneumonitis - Risk Factors: GERD and AMS - Suspect this is more of a chemical pneumonitis with aspiration, will cover for appropriate pathogens - Had wet cough; suctioned in ED with clear to yellow sputum - Initial CXR-no acute abnormal findings; Follow up CXR shows shows right basilar opacification (new) with last CXR read as nothing acute appreciated on front chest xray - Received one dose of IV 500 mg Azithromycin during admission - Received Zosyn IV 4.5 grams Q8H for pharmacy to dose plus Probiotic 1 tab po BID --> changed to clindamycin 150 mg po q 8 hr on 01/24/18 and will continue until 02/01/18 - He was on PPI but now on H2B for GERD - Mycoplasma pneumonia, viral panel, and strep pneumonia Ag negative - Decongestant/Expectorant PRN and IS as directed - Afebrile w/o leukocytosis - Aspiration Precautions - May have oropharyngeal dysfunction --> [employer]EL[employer] is seeing patient Probable Oropharyngeal Dysfunction - He drools and his adult bib is wet - [employer] initial eval with recommendation of NDD4 diet (regular) and nectar thick liquids; diet was upgraded to thin liquids S/p Mental Status Changes - Has underlying Dementia - Suspect 2/2 Medication Side effects (Increased Dose of Risperdal) --> Daughter reported to ED provider that psych medications were recently changed - Panfilo reported slurred speech and lethargy --> - Head CT in ED read as senescent changes with no acute abnormality - Dr. Whiteside recommended: Discontinuing Risperdal 0.5 mg; continuing 1 mg Risperdal q Hs; changing sertraline to HS - Stimulant was discontinued Type 2 Diabetes, Stable - Metformin 500 mg BID resumed - Accu-check Q6H with Low level ISS Cachexia - patient reported UBW 190# (although he is unable to report when he last weighed this amount); current weight is 158# - RD consult - Will begin kcal count: 01/26/18 for two meals plus pudding and applesauce that are assumably from a med pass or patient request: 1064 calories and 42 grams of protein - He is receiving Glucerna 4oz TID with meals Hypotensive episodes, improved - BP 86/68 yesterday morning - Will adjust hydralazine order to be given if BP >160/90 Resolved: Hypokalemia - was 3.4 01/23/18, improved to 3.9 on 01/24/18 - likely 2/2 poor intake and hemodilution with IVF - replete per protocol S/p Acute Hematemesis - Risk factors: History of alcohol abuse, GERD, Pill Esophagitis - Reported by Panfil[facility] to be coffee ground emesis - No further episodes with EMS, in ED, or during admit thus far - ED provider reports negative FOBT - Supportive care: monitor vitals, Hgb --> if indicated, will consult General Surgery for possible EGD - BP 160/98 in ED, improved at admit - Ordered Protonix 40 mg BID IV--> now on H2B Acute decline in Hgb - 12.4 today 12.1 yesterday; lowest value during admission is 12.0 and highest 13.6 - FOBT x 1 negative - Monitor Chronic: Hx Alcohol Use Disorder Schizophrenia ETOH Dementia MDD GERD Cachexia Presence of cardiac pacemaker Weakness HTN Type 2 DM HLD Hypothyroidism Plan: He is otherwise clinically stable Continue current treatment, greatly improved Continue [employer] eval/tx Routine AM labs Risperdal re-started with behaviors Appreciate Dr. Whiteside's consultation and recommendations Dietary consult for muscle wasting/atrophy and kcal count Fall and Aspiration Precautions DVT Prophylaxis: SCDs Encourage to use IS as directed PT/OT for deconditioning Other orders as indicated above Code Status: Full code LOS>96 hours for recent adjustment of psychiatric meds, and placement; previous residence has refused to take him back.
[2018-01-28] MEDS: risperiDONE 1 MG Tab PO SCH (21:01)
[2018-01-28] MEDS: Simvastatin 20 MG Tab PO SCH (21:01)
[2018-01-28] MEDS: Multivitamins,Therapeutic Tab PO SCH (21:02)
[2018-01-28] MEDS: Thiamine 100 MG Tab PO SCH (21:02)
[2018-01-28] MEDS: Folic Acid 1 MG Tab PO SCH (21:02)
[2018-01-28] MEDS: Sertraline 50 MG Tab PO SCH (21:03)
[2018-01-28] MEDS: Famotidine 20 MG/2 ML SDV IVPUSH SCH (21:09)
[2018-01-29] MEDS: Clindamycin HCl 150 MG Cap PO SCH ×4 (03:58→18:00)
[2018-01-29] MEDS: Insulin Aspart 100 Units/ML 3 ML Pen SUBCUT SCH ×4 (06:08→21:05)
[2018-01-29] MEDS: Levothyroxine 88 MCG Tab PO SCH (06:08)
[2018-01-29] MEDS: metFORMIN 500 MG Tab PO SCH ×2 (08:29→17:57)
[2018-01-29] MEDS: Saccharomyces Boulardii (Probiotic) 250 MG Cap PO SCH ×2 (08:29→21:04)
[2018-01-29] MEDS: Aspirin 81 MG Tab.Chew PO SCH (08:30)
[2018-01-29] MEDS: Lisinopril 20 MG Tab PO SCH (08:31)
[2018-01-29] MEDS: Nicotine 21 MG/24 Hr Patch TRDERM SCH (08:33)
[2018-01-29] MEDS: Calcium Carbonate 500 MG Tab.Chew PO SCH ×2 (08:33→21:05)
--- NOTE | 2018-01-29 11:53 | PCM.PN ---
- General Info Date of Service: 01/29/18 Subjective Update: Markedly improved after med changes made, no complaints Functional Status: Reports: Pain Controlled, Tolerating Diet, Ambulating, Urinating - Review of Systems General: Reports: No Symptoms HEENT: Reports: No Symptoms Pulmonary: Reports: No Symptoms Cardiovascular: Reports: No Symptoms Gastrointestinal: Reports: No Symptoms Genitourinary: Reports: No Symptoms Musculoskeletal: Reports: No Symptoms Skin: Reports: No Symptoms Neurological: Reports: No Symptoms Psychiatric: Reports: No Symptoms - Patient Data Vitals - Most Recent: Last Vital Signs Temp 36.8 C 01/29/18 08:16 Pulse 64 01/29/18 08:16 Resp 18 01/29/18 08:16 BP 157/101 H 01/29/18 08:31 Pulse Ox 96 01/29/18 08:16 Weight - Most Recent: 71.486 kg I&O - Last 24 Hours: Intake & Output 01/28/18 01/29/18 01/29/18 22:59 06:59 14:59 Intake Total 780 150 Balance 780 150 Lab Results Last 24 Hours: Laboratory Results - last 24 hr 01/28/18 01/28/18 01/29/18 Range/Units 17:34 20:27 05:52 WBC (4.23-9.07) K/mm3 RBC (4.63-6.08) M/mm3 Hgb (13.7-17.5) gm/L Hct (40.1-51.0) % MCV (79.0-92.2) fl MCH (25.7-32.2) pg MCHC (32.2-35.5) g/dl RDW Std Deviation (35.1-43.9) fL Plt Count (163-337) K/mm3 MPV (9.4-12.3) fl Neut % (Auto) (34.0-67.9) % Lymph % (Auto) (21.8-53.1) % [place] % (Auto) (5.3-12.2) % Eos % (Auto) (0.8-7.0) Baso % (Auto) (0.1-1.2) % Neut # (Auto) (1.78-5.38) K/mm3 Lymph # (Auto) (1.32-3.57) K/mm3 [place] # (Auto) (0.30-0.82) K/mm3 Eos # (Auto) (0.04-0.54) K/mm3 Baso # (Auto) (0.01-0.08) K/mm3 Sodium (136-145) mEq/L Potassium (3.5-5.1) mEq/L Chloride (98-107) mEq/L Carbon Dioxide (21-32) mEq/L Anion Gap (5-15) BUN (7-18) mg/dL Creatinine (0.7-1.3) mg/dL Est Cr Clr Drug Dosing mL/min Estimated GFR (MDRD) (>60) mL/min BUN/Creatinine Ratio (14-18) Glucose (83-115) mg/dL POC Glucose 150 H 124 H 120 H (83-110) mg/dL Calcium (8.5-10.1) mg/dL 01/29/18 01/29/18 Range/Units 06:40 06:40 WBC 6.81 (4.23-9.07) K/mm3 RBC 4.21 L (4.63-6.08) M/mm3 Hgb 11.4 L (13.7-17.5) gm/L Hct 35.2 L (40.1-51.0) % MCV 83.6 (79.0-92.2) fl MCH 27.1 (25.7-32.2) pg MCHC 32.4 (32.2-35.5) g/dl RDW Std Deviation 39.8 (35.1-43.9) fL Plt Count 305 (163-337) K/mm3 MPV 8.7 L (9.4-12.3) fl Neut % (Auto) 68.4 H (34.0-67.9) % Lymph % (Auto) 20.1 L (21.8-53.1) % [place] % (Auto) 8.2 (5.3-12.2) % Eos % (Auto) 2.6 (0.8-7.0) Baso % (Auto) 0.4 (0.1-1.2) % Neut # (Auto) 4.65 (1.78-5.38) K/mm3 Lymph # (Auto) 1.37 (1.32-3.57) K/mm3 [place] # (Auto) 0.56 (0.30-0.82) K/mm3 Eos # (Auto) 0.18 (0.04-0.54) K/mm3 Baso # (Auto) 0.03 (0.01-0.08) K/mm3 Sodium 135 L (136-145) mEq/L Potassium 4.2 (3.5-5.1) mEq/L Chloride 103 (98-107) mEq/L Carbon Dioxide 23 (21-32) mEq/L Anion Gap 13.2 (5-15) BUN 24 H (7-18) mg/dL Creatinine 1.0 (0.7-1.3) mg/dL Est Cr Clr Drug Dosing 68.51 mL/min Estimated GFR (MDRD) > 60 (>60) mL/min BUN/Creatinine Ratio 24.0 H (14-18) Glucose 106 (83-115) mg/dL POC Glucose (83-110) mg/dL Calcium 9.4 (8.5-10.1) mg/dL Med Orders - Current: Current Medications Acetaminophen (Tylenol) 650 mg PO Q4H PRN PRN Reason: Pain (Mild 1-3)/fever Hydrocodone Bitart/Acetaminophen ([place] 325-5 Mg) 1 tab PO Q4H PRN PRN Reason: Pain (moderate 4-6) Aspirin (Aspirin) 81 mg PO DAILY [facility] Last Admin: 01/29/18 08:30 Dose: 81 mg Bisacodyl (Dulcolax) 5 mg PO DAILY PRN PRN Reason: Constipation Last Admin: 01/25/18 02:30 Dose: 5 mg Calcium Carbonate/Glycine (Tums) 500 mg PO BID [facility] Last Admin: 01/29/18 08:33 Dose: 500 mg Clindamycin HCl (Cleocin) 150 mg PO Q8H [facility] Last Admin: 01/29/18 04:02 Dose: Not Given Dextrose/Water (Dextrose 50% In Water) 50 ml IVPUSH ASDIRECTED PRN PRN Reason: Hypoglycemia Docusate Sodium (Colace) 100 mg PO BID PRN PRN Reason: Constipation Famotidine (Pepcid) 20 mg IVPUSH Q24H [facility] Last Admin: 01/28/18 21:09 Dose: 20 mg Folic Acid (Folic Acid) 1 mg PO BEDTIME [facility] Last Admin: 01/28/18 21:02 Dose: 1 mg Guaifenesin/Phenylephrine HCl (Robitussin Dm) 5 ml PO Q4H PRN PRN Reason: Cough Haloperidol Lactate (Haldol) 2.5 mg IM Q8H PRN PRN Reason: Agitation/Restlessness Last Admin: 01/24/18 08:25 Dose: 2.5 mg Hydralazine HCl (Apresoline) 20 mg IVPUSH Q4H PRN PRN Reason: hypertension Hydromorphone HCl (Dilaudid) 0.25 mg IVPUSH Q2H PRN PRN Reason: Pain (severe 7-10) Promethazine HCl 6.25 mg/ (Sodium Chloride) 50.25 mls @ 100 mls/hr IV Q6H PRN PRN Reason: Nausea/Vomiting Insulin Aspart (Novolog) 0 unit SUBCUT QIDACANDBED [facility]; Protocol Last Admin: 01/29/18 06:08 Dose: Not Given Levothyroxine Sodium (Synthroid) 88 mcg PO ACBREAKFAST [facility] Last Admin: 01/29/18 06:08 Dose: Not Given Lisinopril (Prinivil) 20 mg PO DAILY [facility] Last Admin: 01/29/18 08:31 Dose: 20 mg Lorazepam (Ativan) 2 mg IVPUSH Q4H PRN PRN Reason: Seizures Lorazepam (Ativan) 0.25 mg IVPUSH Q4H PRN PRN Reason: Anxiety Last Admin: 01/24/18 15:57 Dose: 0.25 mg Magnesium Hydroxide (Milk Of Magnesia) 30 ml PO Q12H PRN PRN Reason: Constipation Metformin HCl (Glucophage) 500 mg PO BIDMEALS [facility] Last Admin: 01/29/18 08:29 Dose: 500 mg Metoprolol Tartrate (Lopressor) 5 mg IVPUSH Q4H PRN PRN Reason: Tachycardia Miscellaneous Information (Remove Patch) 1 ea TRDERM DAILY [facility] Last Admin: 01/29/18 08:37 Dose: 1 ea Multivitamins (Thera) 1 each PO BEDTIME [facility] Last Admin: 01/28/18 21:02 Dose: 1 each Nicotine (Habitrol) 21 mg TRDERM DAILY [facility] Last Admin: 01/29/18 08:33 Dose: 21 mg Polyethylene Glycol (Miralax) 17 gm PO DAILY PRN PRN Reason: Constipation Promethazine HCl (Phenergan) 25 mg PO Q6H PRN PRN Reason: Nausea/Vomiting Risperidone (Risperidal) 1 mg PO BEDTIME [facility] Last Admin: 01/28/18 21:01 Dose: 1 mg Saccharomyces Boulardii (Florastor) 250 mg PO BID [facility] Last Admin: 01/29/18 08:29 Dose: 250 mg Senna/Docusate Sodium (Senna Plus) 1 tab PO BID PRN PRN Reason: Constipation Sertraline HCl (Zoloft) 50 mg PO BEDTIME [facility] Last Admin: 01/28/18 21:03 Dose: 50 mg Simvastatin (Zocor) 20 mg PO BEDTIME [facility] Last Admin: 01/28/18 21:01 Dose: 20 mg Sodium Chloride (Saline Flush) 10 ml FLUSH ASDIRECTED PRN PRN Reason: Keep Vein Open Last Admin: 01/20/18 12:04 Dose: 10 ml Thiamine HCl (Vitamin B-1) 100 mg PO BEDTIME [facility] Last Admin: 01/28/18 21:02 Dose: 100 mg Discontinued Medications Bisacodyl (Dulcolax) 10 mg RECTAL ONETIME ONE Stop: 01/21/18 20:01 Last Admin: 01/21/18 19:58 Dose: Not Given Caffeine (Caffeine) 200 mg PO ONETIME ONE Stop: 01/22/18 07:01 Last Admin: 01/22/18 06:01 Dose: 200 mg Famotidine (Pepcid) 20 mg PO BID [facility] Last Admin: 01/22/18 10:02 Dose: 20 mg Famotidine (Pepcid) 20 mg IVPUSH ONETIME ONE Stop: 01/22/18 11:44 Last Admin: 01/22/18 11:59 Dose: 20 mg Hydralazine HCl (Apresoline) 20 mg IVPUSH Q4H PRN PRN Reason: Hypertension Last Admin: 01/26/18 03:30 Dose: 20 mg Sodium Chloride (Normal Saline) 1,000 mls @ 125 mls/hr IV ASDIRECTED [facility] Last Admin: 01/22/18 05:05 Dose: 125 mls/hr Azithromycin 500 mg/ Sodium (Chloride) 250 mls @ 250 mls/hr IV ONETIME ONE Stop: 01/22/18 00:56 Last Admin: 01/22/18 00:21 Dose: 250 mls/hr Piperacillin Sod/Tazobactam (Sod 4.5 gm/ Sodium Chloride) 100 mls @ 25 mls/hr IV Q8H [facility] Last Admin: 01/24/18 04:57 Dose: 25 mls/hr Piperacillin Sod/Tazobactam (Sod 4.5 gm/ Sodium Chloride) 100 mls @ 200 mls/hr IV ONETIME ONE Stop: 01/22/18 12:29 Last Admin: 01/22/18 12:00 Dose: 200 mls/hr Dextrose/Sodium Chloride (Dextrose 5%-Normal Saline) 1,000 mls @ 50 mls/hr IV ASDIRECTED [facility] Last Admin: 01/23/18 08:07 Dose: 50 mls/hr Insulin Aspart (Novolog) 0 unit SUBCUT Q6H PRN; Protocol PRN Reason: Hyperglycemia Insulin Aspart (Novolog) 0 unit SUBCUT Q6HR [facility]; Protocol Last Admin: 01/24/18 20:31 Dose: Not Given Lactulose (Cephulac) 20 gm PO ONETIME ONE Stop: 01/21/18 19:03 Last Admin: 01/21/18 19:58 Dose: Not Given Lorazepam (Ativan) 0.5 mg IVPUSH BEDTIME ONE Stop: 01/23/18 23:45 Last Admin: 01/24/18 00:03 Dose: 0.5 mg Magnesium Sulfate (Pharmacy To Dose - Magnesium Replacement) 1 dose .XX ASDIRECTED [facility] Metformin HCl (Glucophage) 500 mg PO BIDMEALS [facility] Last Admin: 01/22/18 06:02 Dose: 500 mg Metformin HCl (Glucophage) 500 mg PO BIDMEALS [facility] Modafinil (Provigil) 100 mg PO DAILY [facility] Modafinil (Provigil) 100 mg PO NOW STA Stop: 01/22/18 11:01 Last Admin: 01/22/18 11:34 Dose: 100 mg Modafinil (Provigil) 200 mg PO DAILY [facility] Stop: 01/23/18 09:01 Last Admin: 01/23/18 08:13 Dose: 200 mg Nicotine (Habitrol) 21 mg TRDERM DAILY [facility] Non-Formulary Medication (Petrolatum,White [Vaseline]) 453.6 gm TOP DAILY [facility] Pantoprazole Sodium (Protonix Iv) 40 mg IVPUSH ONETIME ONE Stop: 01/20/18 12:06 Last Admin: 01/20/18 12:13 Dose: 40 mg Pantoprazole Sodium (Protonix Iv) 40 mg IV Q12HR [facility] Last Admin: 01/21/18 21:09 Dose: 40 mg Potassium Chloride (Pharmacy To Dose - Potassium Replacement) 1 dose .XX ASDIRECTED [facility] Potassium Chloride (Klor-Con M20) 40 meq PO ONETIME ONE Stop: 01/23/18 10:01 Last Admin: 01/23/18 09:43 Dose: 40 meq Risperidone (Risperidal) 0.5 mg PO DAILY [facility] Last Admin: 01/26/18 09:08 Dose: 0.5 mg Risperidone (Risperidal) 1 mg PO DAILY [facility] Risperidone (Risperidal) 1 mg PO BEDTIME [facility] Last Admin: 01/24/18 20:31 Dose: Not Given Sertraline HCl (Zoloft) 50 mg PO DAILY [facility] Last Admin: 01/26/18 09:08 Dose: 50 mg Temazepam (Restoril) 7.5 mg PO BEDTIME PRN PRN Reason: Sleep - Exam Quality Assessment: DVT Prophylaxis General: Alert, Oriented, Cooperative, No Acute Distress HEENT: Pupils Equal, Pupils Reactive, EOMI Neck: Trachea Midline, No JVD Lungs: Clear to Auscultation, Normal Respiratory Effort Cardiovascular: Regular Rate, Regular Rhythm GI/Abdominal Exam: Normal Bowel Sounds, Soft, Non-Tender, No Organomegaly, No Distention (Male) Exam: Deferred Back Exam: Normal Inspection Extremities: Normal Inspection, Non-Tender, No Pedal Edema, Normal Capillary Refill Skin: Warm, Dry, Intact Wound/Incisions: Healing Well Neurological: No New Focal Deficit, Normal Gait, Normal Speech Psy/Mental Status: Alert, Normal Affect, Normal Mood - Problem List Review Problem List Initiated/Reviewed/Updated: Yes - Plan Plan:: A/P: Acute: Healthcare Acquired Aspiration Pneumonia/Chemical Pneumonitis - Risk Factors: GERD and AMS - Suspect this is more of a chemical pneumonitis with aspiration, will cover for appropriate pathogens - Had wet cough; suctioned in ED with clear to yellow sputum - Initial CXR-no acute abnormal findings; Follow up CXR shows shows right basilar opacification (new) with last CXR read as nothing acute appreciated on front chest xray - Received one dose of IV 500 mg Azithromycin during admission - Received Zosyn IV 4.5 grams Q8H for pharmacy to dose plus Probiotic 1 tab po BID --> changed to clindamycin 150 mg po q 8 hr on 01/24/18 and will continue until 02/01/18 - He was on PPI but now on H2B for GERD - Mycoplasma pneumonia, viral panel, and strep pneumonia Ag negative - Decongestant/Expectorant PRN and IS as directed - Afebrile w/o leukocytosis - Aspiration Precautions - May have oropharyngeal dysfunction --> [facility] is seeing patient Probable Oropharyngeal Dysfunction - He drools and his adult bib is wet - [facility] initial eval with recommendation of NDD4 diet (regular) and nectar thick liquids; diet was upgraded to thin liquids S/p Mental Status Changes - Has underlying Dementia - Suspect 2/2 Medication Side effects (Increased Dose of Risperdal) --> Daughter reported to ED provider that psych medications were recently changed - Panfilo reported slurred speech and lethargy --> - Head CT in ED read as senescent changes with no acute abnormality - Dr. Whiteside recommended: Discontinuing Risperdal 0.5 mg; continuing 1 mg Risperdal q Hs; changing sertraline to HS - Stimulant was discontinued Type 2 Diabetes, Stable - Metformin 500 mg BID resumed - Accu-check Q6H with Low level ISS Cachexia - patient reported UBW 190# (although he is unable to report when he last weighed this amount); current weight is 158# - RD consult - Will begin kcal count: 01/26/18 for two meals plus pudding and applesauce that are assumably from a med pass or patient request: 1064 calories and 42 grams of protein - He is receiving Glucerna 4oz TID with meals Hypotensive episodes, improved - BP 86/68 yesterday morning - Will adjust hydralazine order to be given if BP >160/90 Resolved: Hypokalemia - was 3.4 01/23/18, improved to 3.9 on 01/24/18 - likely 2/2 poor intake and hemodilution with IVF - replete per protocol S/p Acute Hematemesis - Risk factors: History of alcohol abuse, GERD, Pill Esophagitis - Reported by Panfilo [place] to be coffee ground emesis - No further episodes with EMS, in ED, or during admit thus far - ED provider reports negative FOBT - Supportive care: monitor vitals, Hgb --> if indicated, will consult General Surgery for possible EGD - BP 160/98 in ED, improved at admit - Ordered Protonix 40 mg BID IV--> now on H2B Acute decline in Hgb - 12.4 today 12.1 yesterday; lowest value during admission is 12.0 and highest 13.6 - FOBT x 1 negative - Monitor Chronic: Hx Alcohol Use Disorder Schizophrenia ETOH Dementia MDD GERD Cachexia Presence of cardiac pacemaker Weakness HTN Type 2 DM HLD Hypothyroidism Plan: He is otherwise clinically stable Continue current treatment, greatly improved Continue [facility] eval/tx Routine AM labs Risperdal re-started with behaviors Appreciate Dr. Whiteside's consultation and recommendations Dietary consult for muscle wasting/atrophy and kcal count Fall and Aspiration Precautions DVT Prophylaxis: SCDs Encourage to use IS as directed PT/OT for deconditioning Other orders as indicated above Code Status: Full code LOS>96 hours for recent adjustment of psychiatric meds, and placement; previous residence has refused to take him back.
[2018-01-29] MEDS: Famotidine 20 MG/2 ML SDV IVPUSH SCH (21:04)
[2018-01-29] MEDS: Sertraline 50 MG Tab PO SCH (21:05)
[2018-01-29] MEDS: risperiDONE 1 MG Tab PO SCH (21:05)
[2018-01-29] MEDS: Folic Acid 1 MG Tab PO SCH (21:05)
[2018-01-29] MEDS: Multivitamins,Therapeutic Tab PO SCH (21:05)
[2018-01-29] MEDS: Simvastatin 20 MG Tab PO SCH (21:05)
[2018-01-29] MEDS: Thiamine 100 MG Tab PO SCH (21:05)
[2018-01-30] MEDS: Clindamycin HCl 150 MG Cap PO SCH ×3 (04:17→17:59)
[2018-01-30] MEDS: metFORMIN 500 MG Tab PO SCH ×2 (06:12→17:59)
[2018-01-30] MEDS: Levothyroxine 88 MCG Tab PO SCH (06:12)
[2018-01-30] MEDS: Lisinopril 20 MG Tab PO SCH (09:36)
[2018-01-30] MEDS: Aspirin 81 MG Tab.Chew PO SCH (09:37)
[2018-01-30] MEDS: Calcium Carbonate 500 MG Tab.Chew PO SCH ×2 (09:37→21:10)
[2018-01-30] MEDS: Saccharomyces Boulardii (Probiotic) 250 MG Cap PO SCH ×2 (09:43→21:10)
[2018-01-30] MEDS: Insulin Aspart 100 Units/ML 3 ML Pen SUBCUT SCH ×4 (09:43→21:20)
[2018-01-30] MEDS: Nicotine 21 MG/24 Hr Patch TRDERM SCH (09:46)
--- NOTE | 2018-01-30 10:56 | PCM.PN ---
- General Info Date of Service: 01/30/18 Admission Dx/Problem (Free Text): Admission Diagnosis/Problem Admission Diagnosis/Problem Coffee ground emesis Subjective Update: In to see Dg. He is eating breakfast. He appears comfortable. He has no complaints today. Denies chest pain, dyspnea, GI, or complaints. He appears more alert and interactive and has marked improvement following med changes. Functional Status: Reports: Pain Controlled, Tolerating Diet, Ambulating (with assistance ), Urinating - Review of Systems General: Reports: No Symptoms. Denies: Fever, Weakness, Fatigue HEENT: Reports: No Symptoms. Denies: Sinus Congestion, Sore Throat Pulmonary: Reports: No Symptoms. Denies: Shortness of Breath, Cough, Wheezing Cardiovascular: Reports: No Symptoms. Denies: Chest Pain, Palpitations, Edema Gastrointestinal: Reports: No Symptoms. Denies: Abdominal Pain, Constipation, Diarrhea, Nausea, Vomiting Genitourinary: Reports: No Symptoms. Denies: Dysuria, Frequency Musculoskeletal: Reports: No Symptoms. Denies: Joint Pain Skin: Reports: No Symptoms. Denies: Cyanosis, Pallor Neurological: Reports: No Symptoms. Denies: Confusion, Dizziness, Headache Psychiatric: Reports: No Symptoms. Denies: Confusion, Depression, Anxiety - Patient Data Vitals - Most Recent: Last Vital Signs Temp 97.3 F 01/30/18 02:03 Pulse 59 L 01/30/18 02:03 Resp 14 01/30/18 02:03 BP 141/98 H 01/30/18 09:36 Pulse Ox 94 L 01/30/18 02:03 Weight - Most Recent: 160 lb 1.6 oz I&O - Last 24 Hours: Intake & Output 01/29/18 01/30/18 01/30/18 22:59 06:59 14:59 Intake Total 840 600 120 Balance 840 600 120 Lab Results Last 24 Hours: Laboratory Results - last 24 hr 01/29/18 01/29/18 01/29/18 Range/Units 12:10 17:29 20:39 WBC (4.23-9.07) K/mm3 RBC (4.63-6.08) M/mm3 Hgb (13.7-17.5) gm/L Hct (40.1-51.0) % MCV (79.0-92.2) fl MCH (25.7-32.2) pg MCHC (32.2-35.5) g/dl RDW Std Deviation (35.1-43.9) fL Plt Count (163-337) K/mm3 MPV (9.4-12.3) fl Neut % (Auto) (34.0-67.9) % Lymph % (Auto) (21.8-53.1) % [place] % (Auto) (5.3-12.2) % Eos % (Auto) (0.8-7.0) Baso % (Auto) (0.1-1.2) % Neut # (Auto) (1.78-5.38) K/mm3 Lymph # (Auto) (1.32-3.57) K/mm3 [place] # (Auto) (0.30-0.82) K/mm3 Eos # (Auto) (0.04-0.54) K/mm3 Baso # (Auto) (0.01-0.08) K/mm3 Sodium (136-145) mEq/L Potassium (3.5-5.1) mEq/L Chloride (98-107) mEq/L Carbon Dioxide (21-32) mEq/L Anion Gap (5-15) BUN (7-18) mg/dL Creatinine (0.7-1.3) mg/dL Est Cr Clr Drug Dosing mL/min Estimated GFR (MDRD) (>60) mL/min BUN/Creatinine Ratio (14-18) Glucose (83-115) mg/dL POC Glucose 138 H 222 H 149 H (83-110) mg/dL Calcium (8.5-10.1) mg/dL 01/30/18 01/30/18 01/30/18 Range/Units 05:50 05:50 06:07 WBC 5.02 (4.23-9.07) K/mm3 RBC 4.14 L (4.63-6.08) M/mm3 Hgb 11.4 L (13.7-17.5) gm/L Hct 34.8 L (40.1-51.0) % MCV 84.1 (79.0-92.2) fl MCH 27.5 (25.7-32.2) pg MCHC 32.8 (32.2-35.5) g/dl RDW Std Deviation 40.0 (35.1-43.9) fL Plt Count 301 (163-337) K/mm3 MPV 9.0 L (9.4-12.3) fl Neut % (Auto) 54.1 (34.0-67.9) % Lymph % (Auto) 33.1 (21.8-53.1) % [place] % (Auto) 7.6 (5.3-12.2) % Eos % (Auto) 4.4 (0.8-7.0) Baso % (Auto) 0.6 (0.1-1.2) % Neut # (Auto) 2.72 (1.78-5.38) K/mm3 Lymph # (Auto) 1.66 (1.32-3.57) K/mm3 [place] # (Auto) 0.38 (0.30-0.82) K/mm3 Eos # (Auto) 0.22 (0.04-0.54) K/mm3 Baso # (Auto) 0.03 (0.01-0.08) K/mm3 Sodium 134 L (136-145) mEq/L Potassium 4.1 (3.5-5.1) mEq/L Chloride 102 (98-107) mEq/L Carbon Dioxide 25 (21-32) mEq/L Anion Gap 11.1 (5-15) BUN 27 H (7-18) mg/dL Creatinine 1.0 (0.7-1.3) mg/dL Est Cr Clr Drug Dosing 69.59 mL/min Estimated GFR (MDRD) > 60 (>60) mL/min BUN/Creatinine Ratio 27.0 H (14-18) Glucose 106 (83-115) mg/dL POC Glucose 160 H (83-110) mg/dL Calcium 9.5 (8.5-10.1) mg/dL /18/18 Range/Units 10:28 WBC (4.23-9.07) K/mm3 RBC (4.63-6.08) M/mm3 Hgb (13.7-17.5) gm/L Hct (40.1-51.0) % MCV (79.0-92.2) fl MCH (25.7-32.2) pg MCHC (32.2-35.5) g/dl RDW Std Deviation (35.1-43.9) fL Plt Count (163-337) K/mm3 MPV (9.4-12.3) fl Neut % (Auto) (34.0-67.9) % Lymph % (Auto) (21.8-53.1) % [place] % (Auto) (5.3-12.2) % Eos % (Auto) (0.8-7.0) Baso % (Auto) (0.1-1.2) % Neut # (Auto) (1.78-5.38) K/mm3 Lymph # (Auto) (1.32-3.57) K/mm3 [place] # (Auto) (0.30-0.82) K/mm3 Eos # (Auto) (0.04-0.54) K/mm3 Baso # (Auto) (0.01-0.08) K/mm3 Sodium (136-145) mEq/L Potassium (3.5-5.1) mEq/L Chloride (98-107) mEq/L Carbon Dioxide (21-32) mEq/L Anion Gap (5-15) BUN (7-18) mg/dL Creatinine (0.7-1.3) mg/dL Est Cr Clr Drug Dosing mL/min Estimated GFR (MDRD) (>60) mL/min BUN/Creatinine Ratio (14-18) Glucose (83-115) mg/dL POC Glucose 170 H (83-110) mg/dL Calcium (8.5-10.1) mg/dL Med Orders - Current: Current Medications Acetaminophen (Tylenol) 650 mg PO Q4H PRN PRN Reason: Pain (Mild 1-3)/fever Hydrocodone Bitart/Acetaminophen ([place] 325-5 Mg) 1 tab PO Q4H PRN PRN Reason: Pain (moderate 4-6) Aspirin (Aspirin) 81 mg PO DAILY [facility] Last Admin: 01/30/18 09:37 Dose: 81 mg Bisacodyl (Dulcolax) 5 mg PO DAILY PRN PRN Reason: Constipation Last Admin: 01/25/18 02:30 Dose: 5 mg Calcium Carbonate/Glycine (Tums) 500 mg PO BID [facility] Last Admin: 01/30/18 09:37 Dose: 500 mg Clindamycin HCl (Cleocin) 150 mg PO Q8H [facility] Last Admin: 01/30/18 10:00 Dose: 150 mg Dextrose/Water (Dextrose 50% In Water) 50 ml IVPUSH ASDIRECTED PRN PRN Reason: Hypoglycemia Docusate Sodium (Colace) 100 mg PO BID PRN PRN Reason: Constipation Famotidine (Pepcid) 20 mg PO Q24H [facility] Folic Acid (Folic Acid) 1 mg PO BEDTIME [facility] Last Admin: 01/29/18 21:05 Dose: 1 mg Guaifenesin/Phenylephrine HCl (Robitussin Dm) 5 ml PO Q4H PRN PRN Reason: Cough Haloperidol Lactate (Haldol) 2.5 mg IM Q8H PRN PRN Reason: Agitation/Restlessness Last Admin: 01/24/18 08:25 Dose: 2.5 mg Hydralazine HCl (Apresoline) 20 mg IVPUSH Q4H PRN PRN Reason: hypertension Hydromorphone HCl (Dilaudid) 0.25 mg IVPUSH Q2H PRN PRN Reason: Pain (severe 7-10) Promethazine HCl 6.25 mg/ (Sodium Chloride) 50.25 mls @ 100 mls/hr IV Q6H PRN PRN Reason: Nausea/Vomiting Insulin Aspart (Novolog) 0 unit SUBCUT QIDACANDBED [facility]; Protocol Last Admin: 01/30/18 09:43 Dose: 1 unit Levothyroxine Sodium (Synthroid) 88 mcg PO ACBREAKFAST [facility] Last Admin: 01/30/18 06:12 Dose: 88 mcg Lisinopril (Prinivil) 20 mg PO DAILY [facility] Last Admin: 01/30/18 09:36 Dose: 20 mg Lorazepam (Ativan) 2 mg IVPUSH Q4H PRN PRN Reason: Seizures Lorazepam (Ativan) 0.25 mg IVPUSH Q4H PRN PRN Reason: Anxiety Last Admin: 01/24/18 15:57 Dose: 0.25 mg Magnesium Hydroxide (Milk Of Magnesia) 30 ml PO Q12H PRN PRN Reason: Constipation Metformin HCl (Glucophage) 500 mg PO BIDMEALS [facility] Last Admin: 01/30/18 06:12 Dose: 500 mg Metoprolol Tartrate (Lopressor) 5 mg IVPUSH Q4H PRN PRN Reason: Tachycardia Miscellaneous Information (Remove Patch) 1 ea TRDERM DAILY [facility] Last Admin: 01/30/18 09:48 Dose: 1 ea Multivitamins (Thera) 1 each PO BEDTIME [facility] Last Admin: 01/29/18 21:05 Dose: 1 each Nicotine (Habitrol) 21 mg TRDERM DAILY [facility] Last Admin: 01/30/18 09:46 Dose: 21 mg Polyethylene Glycol (Miralax) 17 gm PO DAILY PRN PRN Reason: Constipation Promethazine HCl (Phenergan) 25 mg PO Q6H PRN PRN Reason: Nausea/Vomiting Risperidone (Risperidal) 1 mg PO BEDTIME [facility] Last Admin: 01/29/18 21:05 Dose: 1 mg Saccharomyces Boulardii (Florastor) 250 mg PO BID [facility] Last Admin: 01/30/18 09:43 Dose: 250 mg Senna/Docusate Sodium (Senna Plus) 1 tab PO BID PRN PRN Reason: Constipation Sertraline HCl (Zoloft) 50 mg PO BEDTIME [facility] Last Admin: 01/29/18 21:05 Dose: 50 mg Simvastatin (Zocor) 20 mg PO BEDTIME [facility] Last Admin: 01/29/18 21:05 Dose: 20 mg Sodium Chloride (Saline Flush) 10 ml FLUSH ASDIRECTED PRN PRN Reason: Keep Vein Open Last Admin: 01/20/18 12:04 Dose: 10 ml Thiamine HCl (Vitamin B-1) 100 mg PO BEDTIME [facility] Last Admin: 01/29/18 21:05 Dose: 100 mg Discontinued Medications Bisacodyl (Dulcolax) 10 mg RECTAL ONETIME ONE Stop: 01/21/18 20:01 Last Admin: 01/21/18 19:58 Dose: Not Given Caffeine (Caffeine) 200 mg PO ONETIME ONE Stop: 01/22/18 07:01 Last Admin: 01/22/18 06:01 Dose: 200 mg Famotidine (Pepcid) 20 mg PO BID [facility] Last Admin: 01/22/18 10:02 Dose: 20 mg Famotidine (Pepcid) 20 mg IVPUSH Q24H [facility] Last Admin: 01/29/18 21:04 Dose: 20 mg Famotidine (Pepcid) 20 mg IVPUSH ONETIME ONE Stop: 01/22/18 11:44 Last Admin: 01/22/18 11:59 Dose: 20 mg Hydralazine HCl (Apresoline) 20 mg IVPUSH Q4H PRN PRN Reason: Hypertension Last Admin: 01/26/18 03:30 Dose: 20 mg Sodium Chloride (Normal Saline) 1,000 mls @ 125 mls/hr IV ASDIRECTED [facility] Last Admin: 01/22/18 05:05 Dose: 125 mls/hr Azithromycin 500 mg/ Sodium (Chloride) 250 mls @ 250 mls/hr IV ONETIME ONE Stop: 01/22/18 00:56 Last Admin: 01/22/18 00:21 Dose: 250 mls/hr Piperacillin Sod/Tazobactam (Sod 4.5 gm/ Sodium Chloride) 100 mls @ 25 mls/hr IV Q8H [facility] Last Admin: 01/24/18 04:57 Dose: 25 mls/hr Piperacillin Sod/Tazobactam (Sod 4.5 gm/ Sodium Chloride) 100 mls @ 200 mls/hr IV ONETIME ONE Stop: 01/22/18 12:29 Last Admin: 01/22/18 12:00 Dose: 200 mls/hr Dextrose/Sodium Chloride (Dextrose 5%-Normal Saline) 1,000 mls @ 50 mls/hr IV ASDIRECTED [facility] Last Admin: 01/23/18 08:07 Dose: 50 mls/hr Insulin Aspart (Novolog) 0 unit SUBCUT Q6H PRN; Protocol PRN Reason: Hyperglycemia Insulin Aspart (Novolog) 0 unit SUBCUT Q6HR [facility]; Protocol Last Admin: 01/24/18 20:31 Dose: Not Given Lactulose (Cephulac) 20 gm PO ONETIME ONE Stop: 01/21/18 19:03 Last Admin: 01/21/18 19:58 Dose: Not Given Lorazepam (Ativan) 0.5 mg IVPUSH BEDTIME ONE Stop: 01/23/18 23:45 Last Admin: 01/24/18 00:03 Dose: 0.5 mg Magnesium Sulfate (Pharmacy To Dose - Magnesium Replacement) 1 dose .XX ASDIRECTED [facility] Metformin HCl (Glucophage) 500 mg PO BIDMEALS [facility] Last Admin: 01/22/18 06:02 Dose: 500 mg Metformin HCl (Glucophage) 500 mg PO BIDMEALS [facility] Modafinil (Provigil) 100 mg PO DAILY [facility] Modafinil (Provigil) 100 mg PO NOW STA Stop: 01/22/18 11:01 Last Admin: 01/22/18 11:34 Dose: 100 mg Modafinil (Provigil) 200 mg PO DAILY [facility] Stop: 01/23/18 09:01 Last Admin: 01/23/18 08:13 Dose: 200 mg Nicotine (Habitrol) 21 mg TRDERM DAILY [facility] Non-Formulary Medication (Petrolatum,White [Vaseline]) 453.6 gm TOP DAILY [facility] Pantoprazole Sodium (Protonix Iv) 40 mg IVPUSH ONETIME ONE Stop: 01/20/18 12:06 Last Admin: 01/20/18 12:13 Dose: 40 mg Pantoprazole Sodium (Protonix Iv) 40 mg IV Q12HR [facility] Last Admin: 01/21/18 21:09 Dose: 40 mg Potassium Chloride (Pharmacy To Dose - Potassium Replacement) 1 dose .XX ASDIRECTED [facility] Potassium Chloride (Klor-Con M20) 40 meq PO ONETIME ONE Stop: 01/23/18 10:01 Last Admin: 01/23/18 09:43 Dose: 40 meq Risperidone (Risperidal) 0.5 mg PO DAILY [facility] Last Admin: 01/26/18 09:08 Dose: 0.5 mg Risperidone (Risperidal) 1 mg PO DAILY [facility] Risperidone (Risperidal) 1 mg PO BEDTIME [facility] Last Admin: 01/24/18 20:31 Dose: Not Given Sertraline HCl (Zoloft) 50 mg PO DAILY [facility] Last Admin: 01/26/18 09:08 Dose: 50 mg Temazepam (Restoril) 7.5 mg PO BEDTIME PRN PRN Reason: Sleep - Exam Quality Assessment: DVT Prophylaxis. No: Supplemental Oxygen General: Alert, Oriented, Cooperative, No Acute Distress HEENT: Pupils Equal, Pupils Reactive, EOMI, Mucous Membr. Moist/[place] Neck: Supple. No: Lymphadenopathy Lungs: Clear to Auscultation, Normal Respiratory Effort Cardiovascular: Regular Rate, Regular Rhythm, No Murmurs GI/Abdominal Exam: Normal Bowel Sounds, Soft, Non-Tender, No Distention (Male) Exam: Deferred Back Exam: Normal Inspection, Decreased Range of Motion Extremities: Normal Inspection, Non-Tender, No Pedal Edema, Limited Range of Motion, Other (mild tremor noted b/l extremities ) Peripheral Pulses: 1+: Posterior Tibial (L), Posterior Tibial (R), Dorsalis Pedis (L), Dorsalis Pedis (R), 2+: Radial (L), Radial (R) Skin: Warm, Dry, Intact Neurological: No New Focal Deficit, Strength Equal Bilateral Psy/Mental Status: Alert, Normal Affect, Normal Mood. No: Anxious, Depressed - Problem List Review Problem List Initiated/Reviewed/Updated: Yes - My Orders Last 24 Hours: My Active Orders 01/31/18 05:11 BASIC METABOLIC PANEL,BMP [CHEM] AM CBC WITH AUTO DIFF [HEME] AM - Plan Plan:: A/P: Acute: Healthcare Acquired Aspiration Pneumonia/Chemical Pneumonitis - Risk Factors: GERD and AMS - Suspect this is more of a chemical pneumonitis with aspiration, will cover for appropriate pathogens - Had wet cough; suctioned in ED with clear to yellow sputum - Initial CXR-no acute abnormal findings; Follow up CXR shows shows right basilar opacification (new) with last CXR read as nothing acute appreciated on front chest xray - Received one dose of IV 500 mg Azithromycin during admission - Received Zosyn IV 4.5 grams Q8H for pharmacy to dose plus Probiotic 1 tab po BID --> changed to clindamycin 150 mg po q 8 hr on 01/24/18 and will continue until 02/01/18 - He was on PPI but now on H2B for GERD - Mycoplasma pneumonia, viral panel, and strep pneumonia Ag negative - Decongestant/Expectorant PRN and IS as directed - Afebrile w/o leukocytosis - Aspiration Precautions - May have oropharyngeal dysfunction --> DIRECTOR HEART is seeing patient Probable Oropharyngeal Dysfunction - He drools and his adult bib is wet - DIRECTOR HEART initial eval with recommendation of NDD4 diet (regular) and nectar thick liquids; diet was upgraded to thin liquids; no straws S/p Mental Status Changes, improved - Has underlying Dementia - Suspect 2/2 Medication Side effects (Increased Dose of Risperdal) --> Daughter reported to ED provider that psych medications were recently changed - Panfilo reported slurred speech and lethargy --> - Head CT in ED read as senescent changes with no acute abnormality - Dr. Whiteside recommended: Discontinuing Risperdal 0.5 mg; continuing 1 mg Risperdal q Hs; changing sertraline to HS - Stimulant was discontinued Type 2 Diabetes, Stable - Metformin 500 mg BID resumed - Accu-check Q6H with Low level ISS Cachexia - patient reported UBW 190# (although he is unable to report when he last weighed this amount); current weight is 158# - RD consult - Will begin kcal count: 01/27/18: 1814 calories, 82 grams of protein; 01/28/18 : 1174 calories, 78 grams of protein; 01/29/18: 655 calories, 36 grams of protein - He is receiving Glucerna 4oz TID with meals Resolved: Hypokalemia - was 3.4 01/23/18, improved to 3.9 on 01/24/18 - likely 2/2 poor intake and hemodilution with IVF - replete per protocol S/p Acute Hematemesis - Risk factors: History of alcohol abuse, GERD, Pill Esophagitis - Reported by [facility] to be coffee ground emesis - No further episodes with EMS, in ED, or during admit thus far - ED provider reports negative FOBT - Supportive care: monitor vitals, Hgb --> if indicated, will consult General Surgery for possible EGD - BP 160/98 in ED, improved at admit - Ordered Protonix 40 mg BID IV--> now on H2B Acute decline in Hgb - 12.4 today 12.1 yesterday; lowest value during admission is 12.0 and highest 13.6 - FOBT x 1 negative - Monitor Hypotensive episodes, improved - BP 86/68 yesterday morning - Will adjust hydralazine order to be given if BP >160/90 Chronic: Hx Alcohol Use Disorder Schizophrenia ETOH Dementia MDD GERD Cachexia Presence of cardiac pacemaker Weakness HTN Type 2 DM HLD Hypothyroidism Plan: He is otherwise clinically stable Continue current treatment, greatly improved Continue DIRECTOR HEART eval/tx Routine AM labs Risperdal re-started with behaviors Appreciate Dr. Whiteside's consultation and recommendations Fall and Aspiration Precautions DVT Prophylaxis: SCDs Encourage to use IS as directed PT/OT for deconditioning Other orders as indicated above Code Status: Full code LOS>96 hours for recent adjustment of psychiatric meds, and placement; previous residence has refused to take him back.
[2018-01-30] MEDS: risperiDONE 1 MG Tab PO SCH (21:10)
[2018-01-30] MEDS: Folic Acid 1 MG Tab PO SCH (21:10)
[2018-01-30] MEDS: Multivitamins,Therapeutic Tab PO SCH (21:10)
[2018-01-30] MEDS: Sertraline 50 MG Tab PO SCH (21:10)
[2018-01-30] MEDS: Thiamine 100 MG Tab PO SCH (21:10)
[2018-01-30] MEDS: Simvastatin 20 MG Tab PO SCH (21:10)
[2018-01-30] MEDS: Famotidine 20 MG Tab PO SCH (21:10)
[2018-01-31] MEDS: Clindamycin HCl 150 MG Cap PO SCH ×3 (03:55→18:04)
[2018-01-31] MEDS: Levothyroxine 88 MCG Tab PO SCH (06:40)
[2018-01-31] MEDS: metFORMIN 500 MG Tab PO SCH ×2 (06:40→18:03)
[2018-01-31] MEDS: Insulin Aspart 100 Units/ML 3 ML Pen SUBCUT SCH ×4 (08:50→21:38)
[2018-01-31] MEDS: Nicotine 21 MG/24 Hr Patch TRDERM SCH (08:50)
[2018-01-31] MEDS: Aspirin 81 MG Tab.Chew PO SCH (08:51)
[2018-01-31] MEDS: Calcium Carbonate 500 MG Tab.Chew PO SCH ×2 (08:51→21:31)
[2018-01-31] MEDS: Saccharomyces Boulardii (Probiotic) 250 MG Cap PO SCH ×2 (08:51→21:29)
[2018-01-31] MEDS: Lisinopril 20 MG Tab PO SCH (08:51)
--- NOTE | 2018-01-31 09:28 | PCM.PN ---
- General Info Date of Service: 01/31/18 Admission Dx/Problem (Free Text): Admission Diagnosis/Problem Admission Diagnosis/Problem Coffee ground emesis Subjective Update: In to see Dg. He is eating breakfast with PT/OT. He appears comfortable. He did not willingly open his eyes during interview today and was less talkative, but he continues to be more alert and interactive and has had marked improvement following medication changes. Functional Status: Reports: Pain Controlled, Tolerating Diet, Ambulating (with assistance ), Urinating - Review of Systems General: Reports: No Symptoms. Denies: Fever, Weakness HEENT: Reports: No Symptoms. Denies: Sinus Congestion, Sore Throat Pulmonary: Reports: No Symptoms. Denies: Shortness of Breath, Cough Cardiovascular: Reports: No Symptoms. Denies: Chest Pain, Palpitations, Edema Gastrointestinal: Reports: No Symptoms. Denies: Abdominal Pain, Constipation, Diarrhea, Difficulty Swallowing, Nausea, Vomiting Genitourinary: Reports: No Symptoms. Denies: Dysuria, Frequency, Burning Musculoskeletal: Reports: No Symptoms. Denies: Joint Pain Skin: Reports: No Symptoms Neurological: Reports: No Symptoms. Denies: Confusion, Dizziness, Headache Psychiatric: Reports: No Symptoms. Denies: Confusion, Depression, Anxiety - Patient Data Vitals - Most Recent: Last Vital Signs Temp 97.9 F 01/31/18 07:11 Pulse 60 01/31/18 07:11 Resp 16 01/31/18 07:11 BP 112/75 01/31/18 08:51 Pulse Ox 95 01/31/18 07:11 Weight - Most Recent: 168 lb 6.4 oz I&O - Last 24 Hours: Intake & Output 01/30/18 01/31/18 01/31/18 22:59 06:59 14:59 Intake Total 600 Balance 600 Lab Results Last 24 Hours: Laboratory Results - last 24 hr 01/30/18 01/30/18 01/30/18 Range/Units 10:28 14:43 16:40 WBC (4.23-9.07) K/mm3 RBC (4.63-6.08) M/mm3 Hgb (13.7-17.5) gm/L Hct (40.1-51.0) % MCV (79.0-92.2) fl MCH (25.7-32.2) pg MCHC (32.2-35.5) g/dl RDW Std Deviation (35.1-43.9) fL Plt Count (163-337) K/mm3 MPV (9.4-12.3) fl Neut % (Auto) (34.0-67.9) % Lymph % (Auto) (21.8-53.1) % Sterling % (Auto) (5.3-12.2) % Eos % (Auto) (0.8-7.0) Baso % (Auto) (0.1-1.2) % Neut # (Auto) (1.78-5.38) K/mm3 Lymph # (Auto) (1.32-3.57) K/mm3 Sterling # (Auto) (0.30-0.82) K/mm3 Eos # (Auto) (0.04-0.54) K/mm3 Baso # (Auto) (0.01-0.08) K/mm3 Sodium (136-145) mEq/L Potassium (3.5-5.1) mEq/L Chloride (98-107) mEq/L Carbon Dioxide (21-32) mEq/L Anion Gap (5-15) BUN (7-18) mg/dL Creatinine (0.7-1.3) mg/dL Est Cr Clr Drug Dosing mL/min Estimated GFR (MDRD) (>60) mL/min BUN/Creatinine Ratio (14-18) Glucose (83-115) mg/dL POC Glucose 170 H 133 H 113 H (83-110) mg/dL Calcium (8.5-10.1) mg/dL 01/30/18 01/31/18 01/31/18 Range/Units 20:43 05:52 05:52 WBC 5.52 (4.23-9.07) K/mm3 RBC 4.40 L (4.63-6.08) M/mm3 Hgb 11.8 L (13.7-17.5) gm/L Hct 36.9 L (40.1-51.0) % MCV 83.9 (79.0-92.2) fl MCH 26.8 (25.7-32.2) pg MCHC 32.0 L (32.2-35.5) g/dl RDW Std Deviation 40.4 (35.1-43.9) fL Plt Count 313 (163-337) K/mm3 MPV 9.0 L (9.4-12.3) fl Neut % (Auto) 61.8 (34.0-67.9) % Lymph % (Auto) 26.1 (21.8-53.1) % Sterling % (Auto) 7.6 (5.3-12.2) % Eos % (Auto) 3.4 (0.8-7.0) Baso % (Auto) 0.7 (0.1-1.2) % Neut # (Auto) 3.41 (1.78-5.38) K/mm3 Lymph # (Auto) 1.44 (1.32-3.57) K/mm3 Sterling # (Auto) 0.42 (0.30-0.82) K/mm3 Eos # (Auto) 0.19 (0.04-0.54) K/mm3 Baso # (Auto) 0.04 (0.01-0.08) K/mm3 Sodium 138 (136-145) mEq/L Potassium 4.3 (3.5-5.1) mEq/L Chloride 104 (98-107) mEq/L Carbon Dioxide 24 (21-32) mEq/L Anion Gap 14.3 (5-15) BUN 30 H (7-18) mg/dL Creatinine 1.0 (0.7-1.3) mg/dL Est Cr Clr Drug Dosing 73.20 mL/min Estimated GFR (MDRD) > 60 (>60) mL/min BUN/Creatinine Ratio 30.0 H (14-18) Glucose 91 (83-115) mg/dL POC Glucose 268 H (83-110) mg/dL Calcium 9.3 (8.5-10.1) mg/dL 01/31/18 Range/Units 06:05 WBC (4.23-9.07) K/mm3 RBC (4.63-6.08) M/mm3 Hgb (13.7-17.5) gm/L Hct (40.1-51.0) % MCV (79.0-92.2) fl MCH (25.7-32.2) pg MCHC (32.2-35.5) g/dl RDW Std Deviation (35.1-43.9) fL Plt Count (163-337) K/mm3 MPV (9.4-12.3) fl Neut % (Auto) (34.0-67.9) % Lymph % (Auto) (21.8-53.1) % Sterling % (Auto) (5.3-12.2) % Eos % (Auto) (0.8-7.0) Baso % (Auto) (0.1-1.2) % Neut # (Auto) (1.78-5.38) K/mm3 Lymph # (Auto) (1.32-3.57) K/mm3 Sterling # (Auto) (0.30-0.82) K/mm3 Eos # (Auto) (0.04-0.54) K/mm3 Baso # (Auto) (0.01-0.08) K/mm3 Sodium (136-145) mEq/L Potassium (3.5-5.1) mEq/L Chloride (98-107) mEq/L Carbon Dioxide (21-32) mEq/L Anion Gap (5-15) BUN (7-18) mg/dL Creatinine (0.7-1.3) mg/dL Est Cr Clr Drug Dosing mL/min Estimated GFR (MDRD) (>60) mL/min BUN/Creatinine Ratio (14-18) Glucose (83-115) mg/dL POC Glucose 112 H (83-110) mg/dL Calcium (8.5-10.1) mg/dL Med Orders - Current: Current Medications Acetaminophen (Tylenol) 650 mg PO Q4H PRN PRN Reason: Pain (Mild 1-3)/fever Hydrocodone Bitart/Acetaminophen ([place] 325-5 Mg) 1 tab PO Q4H PRN PRN Reason: Pain (moderate 4-6) Aspirin (Aspirin) 81 mg PO DAILY [facility] Last Admin: 01/31/18 08:51 Dose: 81 mg Bisacodyl (Dulcolax) 5 mg PO DAILY PRN PRN Reason: Constipation Last Admin: 01/25/18 02:30 Dose: 5 mg Calcium Carbonate/Glycine (Tums) 500 mg PO BID [facility] Last Admin: 01/31/18 08:51 Dose: 500 mg Clindamycin HCl (Cleocin) 150 mg PO Q8H [facility] Last Admin: 01/31/18 03:55 Dose: 150 mg Dextrose/Water (Dextrose 50% In Water) 50 ml IVPUSH ASDIRECTED PRN PRN Reason: Hypoglycemia Docusate Sodium (Colace) 100 mg PO BID PRN PRN Reason: Constipation Famotidine (Pepcid) 20 mg PO Q24H [facility] Last Admin: 01/30/18 21:10 Dose: 20 mg Folic Acid (Folic Acid) 1 mg PO BEDTIME [facility] Last Admin: 01/30/18 21:10 Dose: 1 mg Guaifenesin/Phenylephrine HCl (Robitussin Dm) 5 ml PO Q4H PRN PRN Reason: Cough Haloperidol Lactate (Haldol) 2.5 mg IM Q8H PRN PRN Reason: Agitation/Restlessness Last Admin: 01/24/18 08:25 Dose: 2.5 mg Hydralazine HCl (Apresoline) 20 mg IVPUSH Q4H PRN PRN Reason: hypertension Hydromorphone HCl (Dilaudid) 0.25 mg IVPUSH Q2H PRN PRN Reason: Pain (severe 7-10) Promethazine HCl 6.25 mg/ (Sodium Chloride) 50.25 mls @ 100 mls/hr IV Q6H PRN PRN Reason: Nausea/Vomiting Insulin Aspart (Novolog) 0 unit SUBCUT QIDACANDBED [facility]; Protocol Last Admin: 01/31/18 08:50 Dose: Not Given Levothyroxine Sodium (Synthroid) 88 mcg PO ACBREAKFAST [facility] Last Admin: 01/31/18 06:40 Dose: 88 mcg Lisinopril (Prinivil) 20 mg PO DAILY [facility] Last Admin: 01/31/18 08:51 Dose: 20 mg Lorazepam (Ativan) 2 mg IVPUSH Q4H PRN PRN Reason: Seizures Lorazepam (Ativan) 0.25 mg IVPUSH Q4H PRN PRN Reason: Anxiety Last Admin: 01/24/18 15:57 Dose: 0.25 mg Magnesium Hydroxide (Milk Of Magnesia) 30 ml PO Q12H PRN PRN Reason: Constipation Metformin HCl (Glucophage) 500 mg PO BIDMEALS [facility] Last Admin: 01/31/18 06:40 Dose: 500 mg Metoprolol Tartrate (Lopressor) 5 mg IVPUSH Q4H PRN PRN Reason: Tachycardia Miscellaneous Information (Remove Patch) 1 ea TRDERM DAILY [facility] Last Admin: 01/31/18 08:51 Dose: 1 ea Multivitamins (Thera) 1 each PO BEDTIME [facility] Last Admin: 01/30/18 21:10 Dose: 1 each Nicotine (Habitrol) 21 mg TRDERM DAILY [facility] Last Admin: 01/31/18 08:50 Dose: 21 mg Polyethylene Glycol (Miralax) 17 gm PO DAILY PRN PRN Reason: Constipation Promethazine HCl (Phenergan) 25 mg PO Q6H PRN PRN Reason: Nausea/Vomiting Risperidone (Risperidal) 1 mg PO BEDTIME [facility] Last Admin: 01/30/18 21:10 Dose: 1 mg Saccharomyces Boulardii (Florastor) 250 mg PO BID [facility] Last Admin: 01/31/18 08:51 Dose: 250 mg Senna/Docusate Sodium (Senna Plus) 1 tab PO BID PRN PRN Reason: Constipation Sertraline HCl (Zoloft) 50 mg PO BEDTIME [facility] Last Admin: 01/30/18 21:10 Dose: 50 mg Simvastatin (Zocor) 20 mg PO BEDTIME [facility] Last Admin: 01/30/18 21:10 Dose: 20 mg Sodium Chloride (Saline Flush) 10 ml FLUSH ASDIRECTED PRN PRN Reason: Keep Vein Open Last Admin: 01/20/18 12:04 Dose: 10 ml Thiamine HCl (Vitamin B-1) 100 mg PO BEDTIME [facility] Last Admin: 01/30/18 21:10 Dose: 100 mg Discontinued Medications Bisacodyl (Dulcolax) 10 mg RECTAL ONETIME ONE Stop: 01/21/18 20:01 Last Admin: 01/21/18 19:58 Dose: Not Given Caffeine (Caffeine) 200 mg PO ONETIME ONE Stop: 01/22/18 07:01 Last Admin: 01/22/18 06:01 Dose: 200 mg Famotidine (Pepcid) 20 mg PO BID [facility] Last Admin: 01/22/18 10:02 Dose: 20 mg Famotidine (Pepcid) 20 mg IVPUSH Q24H [facility] Last Admin: 01/29/18 21:04 Dose: 20 mg Famotidine (Pepcid) 20 mg IVPUSH ONETIME ONE Stop: 01/22/18 11:44 Last Admin: 01/22/18 11:59 Dose: 20 mg Hydralazine HCl (Apresoline) 20 mg IVPUSH Q4H PRN PRN Reason: Hypertension Last Admin: 01/26/18 03:30 Dose: 20 mg Sodium Chloride (Normal Saline) 1,000 mls @ 125 mls/hr IV ASDIRECTED JAMES Last Admin: 01/22/18 05:05 Dose: 125 mls/hr Azithromycin 500 mg/ Sodium (Chloride) 250 mls @ 250 mls/hr IV ONETIME ONE Stop: 01/22/18 00:56 Last Admin: 01/22/18 00:21 Dose: 250 mls/hr Piperacillin Sod/Tazobactam (Sod 4.5 gm/ Sodium Chloride) 100 mls @ 25 mls/hr IV Q8H [facility] Last Admin: 01/24/18 04:57 Dose: 25 mls/hr Piperacillin Sod/Tazobactam (Sod 4.5 gm/ Sodium Chloride) 100 mls @ 200 mls/hr IV ONETIME ONE Stop: 01/22/18 12:29 Last Admin: 01/22/18 12:00 Dose: 200 mls/hr Dextrose/Sodium Chloride (Dextrose 5%-Normal Saline) 1,000 mls @ 50 mls/hr IV ASDIRECTED [facility] Last Admin: 01/23/18 08:07 Dose: 50 mls/hr Insulin Aspart (Novolog) 0 unit SUBCUT Q6H PRN; Protocol PRN Reason: Hyperglycemia Insulin Aspart (Novolog) 0 unit SUBCUT Q6HR [facility]AMES; Protocol Last Admin: 01/24/18 20:31 Dose: Not Given Lactulose (Cephulac) 20 gm PO ONETIME ONE Stop: 01/21/18 19:03 Last Admin: 01/21/18 19:58 Dose: Not Given Lorazepam (Ativan) 0.5 mg IVPUSH BEDTIME ONE Stop: 01/23/18 23:45 Last Admin: 01/24/18 00:03 Dose: 0.5 mg Magnesium Sulfate (Pharmacy To Dose - Magnesium Replacement) 1 dose .XX ASDIRECTED [facility] Metformin HCl (Glucophage) 500 mg PO BIDMEALS [facility] Last Admin: 01/22/18 06:02 Dose: 500 mg Metformin HCl (Glucophage) 500 mg PO BIDMEALS [facility] Modafinil (Provigil) 100 mg PO DAILY [facility]AMES Modafinil (Provigil) 100 mg PO NOW STA Stop: 01/22/18 11:01 Last Admin: 01/22/18 11:34 Dose: 100 mg Modafinil (Provigil) 200 mg PO DAILY [facility] Stop: 01/23/18 09:01 Last Admin: 01/23/18 08:13 Dose: 200 mg Nicotine (Habitrol) 21 mg TRDERM DAILY [facility] Non-Formulary Medication (Petrolatum,White [Vaseline]) 453.6 gm TOP DAILY [facility] Pantoprazole Sodium (Protonix Iv) 40 mg IVPUSH ONETIME ONE Stop: 01/20/18 12:06 Last Admin: 01/20/18 12:13 Dose: 40 mg Pantoprazole Sodium (Protonix Iv) 40 mg IV Q12HR [facility] Last Admin: 01/21/18 21:09 Dose: 40 mg Potassium Chloride (Pharmacy To Dose - Potassium Replacement) 1 dose .XX ASDIRECTED [facility] Potassium Chloride (Klor-Con M20) 40 meq PO ONETIME ONE Stop: 01/23/18 10:01 Last Admin: 01/23/18 09:43 Dose: 40 meq Risperidone (Risperidal) 0.5 mg PO DAILY [facility] Last Admin: 01/26/18 09:08 Dose: 0.5 mg Risperidone (Risperidal) 1 mg PO DAILY [facility] Risperidone (Risperidal) 1 mg PO BEDTIME [facility] Last Admin: 01/24/18 20:31 Dose: Not Given Sertraline HCl (Zoloft) 50 mg PO DAILY [facility] Last Admin: 01/26/18 09:08 Dose: 50 mg Temazepam (Restoril) 7.5 mg PO BEDTIME PRN PRN Reason: Sleep - Exam Quality Assessment: No: Supplemental Oxygen General: Alert, Oriented, No Acute Distress, Other (He did not want to open his eyes but would follow other commands ) HEENT: Pupils Equal, Pupils Reactive, EOMI, Mucous Membr. Moist/[employer] Neck: Supple. No: Lymphadenopathy Lungs: Clear to Auscultation, Normal Respiratory Effort. No: Crackles, Rales Cardiovascular: Regular Rate, Regular Rhythm, No Murmurs GI/Abdominal Exam: Normal Bowel Sounds, Soft, Non-Tender, No Distention (Male) Exam: Deferred Back Exam: Normal Inspection, Decreased Range of Motion Extremities: Normal Inspection, Normal Range of Motion, Non-Tender, No Pedal Edema, Normal Capillary Refill Peripheral Pulses: 1+: Posterior Tibial (L), Posterior Tibial (R), Dorsalis Pedis (L), Dorsalis Pedis (R), 2+: Radial (L), Radial (R) Skin: Warm, Dry, Intact Neurological: No New Focal Deficit, Strength Equal Bilateral, Cranial Nerves Intact (grossly ) Psy/Mental Status: Alert, Normal Affect, Normal Mood - Problem List Review Problem List Initiated/Reviewed/Updated: Yes - Plan Plan:: A/P: Acute: Healthcare Acquired Aspiration Pneumonia/Chemical Pneumonitis - Risk Factors: GERD and AMS - Suspect this is more of a chemical pneumonitis with aspiration, will cover for appropriate pathogens - Had wet cough; suctioned in ED with clear to yellow sputum - Initial CXR-no acute abnormal findings; Follow up CXR shows shows right basilar opacification (new) with last CXR read as nothing acute appreciated on front chest xray - Received one dose of IV 500 mg Azithromycin during admission - Received Zosyn IV 4.5 grams Q8H for pharmacy to dose plus Probiotic 1 tab po BID --> changed to clindamycin 150 mg po q 8 hr on 01/24/18 and will continue until 02/01/18 - He was on PPI but now on H2B for GERD - Mycoplasma pneumonia, viral panel, and strep pneumonia Ag negative - Decongestant/Expectorant PRN and IS as directed - Afebrile w/o leukocytosis - Aspiration Precautions - May have oropharyngeal dysfunction --> TRANSMISSION DESIGN ENGINEER is seeing patient Probable Oropharyngeal Dysfunction - He drools and his adult bib is wet - TRANSMISSION DESIGN ENGINEER initial eval with recommendation of NDD4 diet (regular) and nectar thick liquids; diet was upgraded to thin liquids and no straws S/p Mental Status Changes, improved - Has underlying Dementia - Suspect 2/2 Medication Side effects (Increased Dose of Risperdal) --> Daughter reported to ED provider that psych medications were recently changed - Panfilo reported slurred speech and lethargy --> - Head CT in ED read as senescent changes with no acute abnormality - Dr. Whiteside recommended: Discontinuing Risperdal 0.5 mg; continuing 1 mg Risperdal q Hs; changing sertraline to HS - Stimulant was discontinued Type 2 Diabetes, Stable - Metformin 500 mg BID resumed - Accu-check Q6H with Low level ISS Cachexia - patient reported UBW 190# (although he is unable to report when he last weighed this amount); weight has ranged from 148-168# during admission with most weights between 155-160# - RD consult - Will begin kcal count: 01/27/18: 1814 calories, 82 grams of protein; 01/28/18 : 1174 calories, 78 grams of protein; 01/29/18: 655 calories, 36 grams of protein - He is receiving Glucerna 4oz TID with meals --> intakes have improved - BUN has increased to 30 with normal Cr and eGFR --> likely secondary to improved intakes but will monitor Resolved: Hypokalemia - was 3.4 01/23/18, improved to 3.9 on 01/24/18 - likely 2/2 poor intake and hemodilution with IVF - replete per protocol S/p Acute Hematemesis - Risk factors: History of alcohol abuse, GERD, Pill Esophagitis - Reported by [facility] to be coffee ground emesis - No further episodes with EMS, in ED, or during admit thus far - ED provider reports negative FOBT - Supportive care: monitor vitals, Hgb --> if indicated, will consult General Surgery for possible EGD - BP 160/98 in ED, improved at admit - Ordered Protonix 40 mg BID IV--> now on H2B Acute decline in Hgb - 12.4 today 12.1 yesterday; lowest value during admission is 12.0 and highest 13.6 - FOBT x 1 negative - Monitor Hypotensive episodes, improved - BP 86/68 yesterday morning - Will adjust hydralazine order to be given if BP >160/90 Chronic: Hx Alcohol Use Disorder Schizophrenia ETOH Dementia MDD GERD Cachexia Presence of cardiac pacemaker Weakness HTN Type 2 DM HLD Hypothyroidism Plan: He is otherwise clinically stable Continue current treatment, greatly improved CM/SW working on placement Continue TRANSMISSION DESIGN ENGINEER eval/tx Routine AM labs Risperdal re-started with behaviors Appreciate Dr. Whiteside's consultation and recommendations Fall and Aspiration Precautions DVT Prophylaxis: SCDs Encourage to use IS as directed PT/OT for deconditioning Other orders as indicated above Code Status: Full code LOS>96 hours for recent adjustment of psychiatric meds, and placement; previous residence has refused to take him back.
[2018-01-31] MEDS: Folic Acid 1 MG Tab PO SCH (21:30)
[2018-01-31] MEDS: Famotidine 20 MG Tab PO SCH (21:30)
[2018-01-31] MEDS: risperiDONE 1 MG Tab PO SCH (21:31)
[2018-01-31] MEDS: Thiamine 100 MG Tab PO SCH (21:31)
[2018-01-31] MEDS: Sertraline 50 MG Tab PO SCH (21:31)
[2018-01-31] MEDS: Multivitamins,Therapeutic Tab PO SCH (21:31)
[2018-01-31] MEDS: Simvastatin 20 MG Tab PO SCH (21:31)
[2018-02-01] MEDS: Clindamycin HCl 150 MG Cap PO SCH ×2 (03:18→11:39)
[2018-02-01] MEDS: metFORMIN 500 MG Tab PO SCH ×2 (06:27→16:47)
[2018-02-01] MEDS: Levothyroxine 88 MCG Tab PO SCH (06:27)
[2018-02-01] MEDS: Nicotine 21 MG/24 Hr Patch TRDERM SCH (09:18)
[2018-02-01] MEDS: Saccharomyces Boulardii (Probiotic) 250 MG Cap PO SCH ×2 (09:19→21:51)
[2018-02-01] MEDS: Aspirin 81 MG Tab.Chew PO SCH (09:19)
[2018-02-01] MEDS: Insulin Aspart 100 Units/ML 3 ML Pen SUBCUT SCH ×4 (09:19→21:51)
[2018-02-01] MEDS: Lisinopril 20 MG Tab PO SCH (09:19)
[2018-02-01] MEDS: Calcium Carbonate 500 MG Tab.Chew PO SCH ×2 (09:19→21:51)
--- NOTE | 2018-02-01 11:41 | PCM.PN ---
- General Info Date of Service: 02/01/18 Admission Dx/Problem (Free Text): Admission Diagnosis/Problem Admission Diagnosis/Problem Coffee ground emesis Subjective Update: In to see Dg. He is resting comfortably in bed. He did not willingly open his eyes during interview but did follow other commands. He denies any complaints. He continues to be more alert and interactive and has had marked improvement following medication changes. There are no concerns from nursing. Functional Status: Reports: Pain Controlled, Tolerating Diet, Ambulating, Urinating - Review of Systems General: Reports: No Symptoms. Denies: Fever, Weakness HEENT: Reports: No Symptoms. Denies: Sinus Congestion, Sore Throat Pulmonary: Reports: No Symptoms. Denies: Shortness of Breath, Cough Cardiovascular: Reports: No Symptoms. Denies: Chest Pain, Edema Gastrointestinal: Reports: No Symptoms. Denies: Abdominal Pain, Constipation, Diarrhea, Nausea, Vomiting Genitourinary: Reports: No Symptoms. Denies: Dysuria, Frequency Musculoskeletal: Reports: No Symptoms. Denies: Joint Pain Skin: Reports: No Symptoms Neurological: Reports: No Symptoms. Denies: Confusion, Dizziness Psychiatric: Reports: No Symptoms. Denies: Confusion, Depression, Anxiety - Patient Data Vitals - Most Recent: Last Vital Signs Temp 97.7 F 02/01/18 03:22 Pulse 59 L 02/01/18 03:22 Resp 16 02/01/18 03:22 BP 114/74 02/01/18 09:19 Pulse Ox 96 02/01/18 03:22 Weight - Most Recent: 157 lb 14.4 oz I&O - Last 24 Hours: Intake & Output 01/31/18 02/01/18 02/01/18 22:59 06:59 14:59 Intake Total 1040 350 120 Balance 1040 350 120 Lab Results Last 24 Hours: Laboratory Results - last 24 hr 01/31/18 01/31/18 01/31/18 Range/Units 13:25 16:13 21:36 WBC (4.23-9.07) K/mm3 RBC (4.63-6.08) M/mm3 Hgb (13.7-17.5) gm/L Hct (40.1-51.0) % MCV (79.0-92.2) fl MCH (25.7-32.2) pg MCHC (32.2-35.5) g/dl RDW Std Deviation (35.1-43.9) fL Plt Count (163-337) K/mm3 MPV (9.4-12.3) fl Neut % (Auto) (34.0-67.9) % Lymph % (Auto) (21.8-53.1) % [place] % (Auto) (5.3-12.2) % Eos % (Auto) (0.8-7.0) Baso % (Auto) (0.1-1.2) % Neut # (Auto) (1.78-5.38) K/mm3 Lymph # (Auto) (1.32-3.57) K/mm3 [place] # (Auto) (0.30-0.82) K/mm3 Eos # (Auto) (0.04-0.54) K/mm3 Baso # (Auto) (0.01-0.08) K/mm3 Sodium (136-145) mEq/L Potassium (3.5-5.1) mEq/L Chloride (98-107) mEq/L Carbon Dioxide (21-32) mEq/L Anion Gap (5-15) BUN (7-18) mg/dL Creatinine (0.7-1.3) mg/dL Est Cr Clr Drug Dosing mL/min Estimated GFR (MDRD) (>60) mL/min BUN/Creatinine Ratio (14-18) Glucose (83-115) mg/dL POC Glucose 115 H 263 H 264 H (83-110) mg/dL Calcium (8.5-10.1) mg/dL 02/01/18 02/01/18 02/01/18 Range/Units 06:26 08:45 08:45 WBC 6.00 (4.23-9.07) K/mm3 RBC 4.46 L (4.63-6.08) M/mm3 Hgb 12.1 L (13.7-17.5) gm/L Hct 37.4 L (40.1-51.0) % MCV 83.9 (79.0-92.2) fl MCH 27.1 (25.7-32.2) pg MCHC 32.4 (32.2-35.5) g/dl RDW Std Deviation 40.9 (35.1-43.9) fL Plt Count 309 (163-337) K/mm3 MPV 8.4 L (9.4-12.3) fl Neut % (Auto) 65.0 (34.0-67.9) % Lymph % (Auto) 23.3 (21.8-53.1) % [place] % (Auto) 8.0 (5.3-12.2) % Eos % (Auto) 3.0 (0.8-7.0) Baso % (Auto) 0.5 (0.1-1.2) % Neut # (Auto) 3.90 (1.78-5.38) K/mm3 Lymph # (Auto) 1.40 (1.32-3.57) K/mm3 [place] # (Auto) 0.48 (0.30-0.82) K/mm3 Eos # (Auto) 0.18 (0.04-0.54) K/mm3 Baso # (Auto) 0.03 (0.01-0.08) K/mm3 Sodium 136 (136-145) mEq/L Potassium 4.4 (3.5-5.1) mEq/L Chloride 103 (98-107) mEq/L Carbon Dioxide 24 (21-32) mEq/L Anion Gap 13.4 (5-15) BUN 31 H (7-18) mg/dL Creatinine 1.0 (0.7-1.3) mg/dL Est Cr Clr Drug Dosing 68.64 mL/min Estimated GFR (MDRD) > 60 (>60) mL/min BUN/Creatinine Ratio 31.0 H (14-18) Glucose 111 (83-115) mg/dL POC Glucose 244 H (83-110) mg/dL Calcium 9.5 (8.5-10.1) mg/dL Med Orders - Current: Current Medications Acetaminophen (Tylenol) 650 mg PO Q4H PRN PRN Reason: Pain (Mild 1-3)/fever Hydrocodone Bitart/Acetaminophen ([place] 325-5 Mg) 1 tab PO Q4H PRN PRN Reason: Pain (moderate 4-6) Aspirin (Aspirin) 81 mg PO DAILY JAMES Last Admin: 02/01/18 09:19 Dose: 81 mg Bisacodyl (Dulcolax) 5 mg PO DAILY PRN PRN Reason: Constipation Last Admin: 06/13/18 02:30 Dose: 5 mg Calcium Carbonate/Glycine (Tums) 500 mg PO BID [facility] Last Admin: 02/01/18 09:19 Dose: 500 mg Dextrose/Water (Dextrose 50% In Water) 50 ml IVPUSH ASDIRECTED PRN PRN Reason: Hypoglycemia Docusate Sodium (Colace) 100 mg PO BID PRN PRN Reason: Constipation Famotidine (Pepcid) 20 mg PO Q24H [facility] Last Admin: 01/31/18 21:30 Dose: 20 mg Folic Acid (Folic Acid) 1 mg PO BEDTIME [facility] Last Admin: 01/31/18 21:30 Dose: 1 mg Guaifenesin/Phenylephrine HCl (Robitussin Dm) 5 ml PO Q4H PRN PRN Reason: Cough Haloperidol Lactate (Haldol) 2.5 mg IM Q8H PRN PRN Reason: Agitation/Restlessness Last Admin: 01/24/18 08:25 Dose: 2.5 mg Hydralazine HCl (Apresoline) 20 mg IVPUSH Q4H PRN PRN Reason: hypertension Hydromorphone HCl (Dilaudid) 0.25 mg IVPUSH Q2H PRN PRN Reason: Pain (severe 7-10) Promethazine HCl 6.25 mg/ (Sodium Chloride) 50.25 mls @ 100 mls/hr IV Q6H PRN PRN Reason: Nausea/Vomiting Insulin Aspart (Novolog) 0 unit SUBCUT QIDACANDBED [facility]; Protocol Last Admin: 02/01/18 09:19 Dose: 2 unit Levothyroxine Sodium (Synthroid) 88 mcg PO ACBREAKFAST [facility] Last Admin: 02/01/18 06:27 Dose: 88 mcg Lisinopril (Prinivil) 20 mg PO DAILY [facility] Last Admin: 02/01/18 09:19 Dose: 20 mg Lorazepam (Ativan) 2 mg IVPUSH Q4H PRN PRN Reason: Seizures Lorazepam (Ativan) 0.25 mg IVPUSH Q4H PRN PRN Reason: Anxiety Last Admin: 01/24/18 15:57 Dose: 0.25 mg Magnesium Hydroxide (Milk Of Magnesia) 30 ml PO Q12H PRN PRN Reason: Constipation [facility]) [facility] Last Admin: 02/01/18 06:27 Dose: 500 mg Metoprolol Tartrate (Lopressor) 5 mg IVPUSH Q4H PRN PRN Reason: Tachycardia Miscellaneous Information (Remove Patch) 1 ea TRDERM DAILY [facility] Last Admin: 02/01/18 09:20 Dose: 1 ea Multivitamins (Thera) 1 each PO BEDTIME [facility] Last Admin: 01/31/18 21:31 Dose: 1 each Nicotine (Habitrol) 21 mg TRDERM DAILY [facility] Last Admin: 02/01/18 09:18 Dose: 21 mg Polyethylene Glycol (Miralax) 17 gm PO DAILY PRN PRN Reason: Constipation Promethazine HCl (Phenergan) 25 mg PO Q6H PRN PRN Reason: Nausea/Vomiting Risperidone (Risperidal) 1 mg PO BEDTIME [facility] Last Admin: 01/31/18 21:31 Dose: 1 mg Saccharomyces Boulardii (Florastor) 250 mg PO BID [facility] Last Admin: 02/01/18 09:19 Dose: 250 mg Senna/Docusate Sodium (Senna Plus) 1 tab PO BID PRN PRN Reason: Constipation Sertraline HCl (Zoloft) 50 mg PO BEDTIME [facility] Last Admin: 01/31/18 21:31 Dose: 50 mg Simvastatin (Zocor) 20 mg PO BEDTIME [facility] Last Admin: 01/31/18 21:31 Dose: 20 mg Sodium Chloride (Saline Flush) 10 ml FLUSH ASDIRECTED PRN PRN Reason: Keep Vein Open Last Admin: 01/20/18 12:04 Dose: 10 ml Thiamine HCl (Vitamin B-1) 100 mg PO BEDTIME [facility] Last Admin: 01/31/18 21:31 Dose: 100 mg Discontinued Medications Bisacodyl (Dulcolax) 10 mg RECTAL ONETIME ONE Stop: 01/21/18 20:01 Last Admin: 01/21/18 19:58 Dose: Not Given Caffeine (Caffeine) 200 mg PO ONETIME ONE Stop: 01/22/18 07:01 Last Admin: 01/22/18 06:01 Dose: 200 mg Clindamycin HCl (Cleocin) 150 mg PO Q8H [facility] Stop: 02/01/18 11:01 Last Admin: 02/01/18 03:18 Dose: 150 mg Famotidine (Pepcid) 20 mg PO BID [facility] Last Admin: 01/22/18 10:02 Dose: 20 mg Famotidine (Pepcid) 20 mg IVPUSH Q24H [facility] Last Admin: 01/29/18 21:04 Dose: 20 mg Famotidine (Pepcid) 20 mg IVPUSH ONETIME ONE Stop: 01/22/18 11:44 Last Admin: 01/22/18 11:59 Dose: 20 mg Hydralazine HCl (Apresoline) 20 mg IVPUSH Q4H PRN PRN Reason: Hypertension Last Admin: 01/26/18 03:30 Dose: 20 mg Sodium Chloride (Normal Saline) 1,000 mls @ 125 mls/hr IV ASDIRECTED [facility] Last Admin: 01/22/18 05:05 Dose: 125 mls/hr Azithromycin 500 mg/ Sodium (Chloride) 250 mls @ 250 mls/hr IV ONETIME ONE Stop: 01/22/18 00:56 Last Admin: 01/22/18 00:21 Dose: 250 mls/hr Piperacillin Sod/Tazobactam (Sod 4.5 gm/ Sodium Chloride) 100 mls @ 25 mls/hr IV Q8H [facility] Last Admin: 01/24/18 04:57 Dose: 25 mls/hr Piperacillin Sod/Tazobactam (Sod 4.5 gm/ Sodium Chloride) 100 mls @ 200 mls/hr IV ONETIME ONE Stop: 01/22/18 12:29 Last Admin: 01/22/18 12:00 Dose: 200 mls/hr Dextrose/Sodium Chloride (Dextrose 5%-Normal Saline) 1,000 mls @ 50 mls/hr IV ASDIRECTED [facility] Last Admin: 01/23/18 08:07 Dose: 50 mls/hr Insulin Aspart (Novolog) 0 unit SUBCUT Q6H PRN; Protocol PRN Reason: Hyperglycemia Insulin Aspart (Novolog) 0 unit SUBCUT Q6HR [facility]; Protocol Last Admin: 01/24/18 20:31 Dose: Not Given Lactulose (Cephulac) 20 gm PO ONETIME ONE Stop: 01/21/18 19:03 Last Admin: 01/21/18 19:58 Dose: Not Given Lorazepam (Ativan) 0.5 mg IVPUSH BEDTIME ONE Stop: 01/23/18 23:45 Last Admin: 01/24/18 00:03 Dose: 0.5 mg Magnesium Sulfate (Pharmacy To Dose - Magnesium Replacement) 1 dose .XX ASDIRECTED [facility] Metformin HCl (Glucophage) 500 mg PO BIDMEALS [facility] Last Admin: 01/22/18 06:02 Dose: 500 mg Metformin HCl (Glucophage) 500 mg PO BIDMEALS [facility] Modafinil (Provigil) 100 mg PO DAILY [facility] Modafinil (Provigil) 100 mg PO NOW STA Stop: 01/22/18 11:01 Last Admin: 01/22/18 11:34 Dose: 100 mg Modafinil (Provigil) 200 mg PO DAILY [facility] Stop: 01/23/18 09:01 Last Admin: 01/23/18 08:13 Dose: 200 mg Nicotine (Habitrol) 21 mg TRDERM DAILY [facility] Non-Formulary Medication (Petrolatum,White [Vaseline]) 453.6 gm TOP DAILY [facility] Pantoprazole Sodium (Protonix Iv) 40 mg IVPUSH ONETIME ONE Stop: 01/20/18 12:06 Last Admin: 01/20/18 12:13 Dose: 40 mg Pantoprazole Sodium (Protonix Iv) 40 mg IV Q12HR [facility] Last Admin: 01/21/18 21:09 Dose: 40 mg Potassium Chloride (Pharmacy To Dose - Potassium Replacement) 1 dose .XX ASDIRECTED [facility] Potassium Chloride (Klor-Con M20) 40 meq PO ONETIME ONE Stop: 01/23/18 10:01 Last Admin: 01/23/18 09:43 Dose: 40 meq Risperidone (Risperidal) 0.5 mg PO DAILY [facility] Last Admin: 01/26/18 09:08 Dose: 0.5 mg Risperidone (Risperidal) 1 mg PO DAILY [facility] Risperidone (Risperidal) 1 mg PO BEDTIME [facility] Last Admin: 01/24/18 20:31 Dose: Not Given Sertraline HCl (Zoloft) 50 mg PO DAILY [facility] Last Admin: 01/26/18 09:08 Dose: 50 mg Temazepam (Restoril) 7.5 mg PO BEDTIME PRN PRN Reason: Sleep - Exam Quality Assessment: DVT Prophylaxis. No: Supplemental Oxygen General: Alert, Oriented, Cooperative (with all commands except opening his eyes ), No Acute Distress HEENT: Pupils Equal, Pupils Reactive, EOMI, Mucous Membr. Moist/[place] Neck: Supple. No: Thyromegaly Lungs: Clear to Auscultation, Normal Respiratory Effort Cardiovascular: Regular Rate, Regular Rhythm, No Murmurs GI/Abdominal Exam: Normal Bowel Sounds, Soft, Non-Tender, No Distention (Male) Exam: Deferred Back Exam: Normal Inspection Extremities: Normal Inspection, Non-Tender, No Pedal Edema, Normal Capillary Refill, Limited Range of Motion Peripheral Pulses: 1+: Posterior Tibial (L), Posterior Tibial (R), Dorsalis Pedis (L), Dorsalis Pedis (R), 2+: Radial (L), Radial (R) Skin: Warm, Dry, Intact Neurological: No New Focal Deficit, Strength Equal Bilateral, Cranial Nerves Intact (grossly ) Psy/Mental Status: Alert, Normal Affect, Normal Mood - Problem List Review Problem List Initiated/Reviewed/Updated: Yes - My Orders Last 24 Hours: My Active Orders 02/02/18 05:11 BASIC METABOLIC PANEL,BMP [CHEM] AM CBC WITH AUTO DIFF [HEME] AM 02/03/18 05:11 CBC WITH AUTO DIFF [HEME] AM 02/04/18 05:11 CBC WITH AUTO DIFF [HEME] AM 02/05/18 05:11 CBC WITH AUTO DIFF [HEME] AM 02/06/18 05:11 CBC WITH AUTO DIFF [HEME] AM - Plan Plan:: A/P: Acute: Healthcare Acquired Aspiration Pneumonia/Chemical Pneumonitis - Risk Factors: GERD and AMS - Suspect this is more of a chemical pneumonitis with aspiration, will cover for appropriate pathogens - Had wet cough; suctioned in ED with clear to yellow sputum - Initial CXR-no acute abnormal findings; Follow up CXR shows shows right basilar opacification (new) with last CXR read as nothing acute appreciated on front chest xray - Received one dose of IV 500 mg Azithromycin during admission - Received Zosyn IV 4.5 grams Q8H for pharmacy to dose plus Probiotic 1 tab po BID --> changed to clindamycin 150 mg po q 8 hr on 01/24/18 and will continue until 02/01/18 - He was on PPI but now on H2B for GERD - Mycoplasma pneumonia, viral panel, and strep pneumonia Ag negative - Decongestant/Expectorant PRN and IS as directed - Afebrile w/o leukocytosis - Aspiration Precautions - May have oropharyngeal dysfunction --> INFORMATION RESOURCE CONSULTANT is seeing patient Probable Oropharyngeal Dysfunction - He drools and his adult bib is wet - INFORMATION RESOURCE CONSULTANT initial eval with recommendation of NDD4 diet (regular) and nectar thick liquids; diet was upgraded to thin liquids and no straws S/p Mental Status Changes, improved - Has underlying Dementia - Suspect 2/2 Medication Side effects (Increased Dose of Risperdal) --> Daughter reported to ED provider that psych medications were recently changed - Panfilo reported slurred speech and lethargy --> - Head CT in ED read as senescent changes with no acute abnormality - Dr. Whiteside recommended: Discontinuing Risperdal 0.5 mg; continuing 1 mg Risperdal q Hs; changing sertraline to HS - Stimulant was discontinued Type 2 Diabetes, Stable - Metformin 500 mg BID resumed - Accu-check Q6H with Low level ISS Cachexia - patient reported UBW 190# (although he is unable to report when he last weighed this amount); weight has ranged from 148-168# during admission with most weights between 155-160# - RD consult - Will begin kcal count: 01/27/18: 1814 calories, 82 grams of protein; 01/28/18 : 1174 calories, 78 grams of protein; 01/29/18: 655 calories, 36 grams of protein - He is receiving Glucerna 4oz TID with meals --> intakes have improved - BUN has increased to 30 with normal Cr and eGFR --> likely secondary to improved intakes but will monitor Resolved: Hypokalemia - was 3.4 01/23/18, improved to 3.9 on 01/24/18 - likely 2/2 poor intake and hemodilution with IVF - replete per protocol S/p Acute Hematemesis - Risk factors: History of alcohol abuse, GERD, Pill Esophagitis - Reported by Panfilo ME to be coffee ground emesis - No further episodes with EMS, in ED, or during admit thus far - ED provider reports negative FOBT - Supportive care: monitor vitals, Hgb --> if indicated, will consult General Surgery for possible EGD - BP 160/98 in ED, improved at admit - Ordered Protonix 40 mg BID IV--> now on H2B Acute decline in Hgb - 12.4 today 12.1 yesterday; lowest value during admission is 12.0 and highest 13.6 - FOBT x 1 negative - Monitor Hypotensive episodes, improved - BP 86/68 yesterday morning - Will adjust hydralazine order to be given if BP >160/90 Chronic: Hx Alcohol Use Disorder Schizophrenia ETOH Dementia MDD GERD Cachexia Presence of cardiac pacemaker Weakness HTN Type 2 DM HLD Hypothyroidism Plan: He is otherwise clinically stable Continue current treatment, greatly improved CM/SW working on placement Continue INFORMATION RESOURCE CONSULTANT eval/tx Routine AM labs Risperdal re-started with behaviors Appreciate Dr. Whiteside's consultation and recommendations Fall and Aspiration Precautions DVT Prophylaxis: SCDs Encourage to use IS as directed PT/OT for deconditioning Other orders as indicated above Code Status: Full code LOS>96 hours for recent adjustment of psychiatric meds, and placement; previous residence has refused to take him back.
[2018-02-01] MEDS: risperiDONE 1 MG Tab PO SCH (21:51)
[2018-02-01] MEDS: Multivitamins,Therapeutic Tab PO SCH (21:51)
[2018-02-01] MEDS: Thiamine 100 MG Tab PO SCH (21:51)
[2018-02-01] MEDS: Simvastatin 20 MG Tab PO SCH (21:51)
[2018-02-01] MEDS: Sertraline 50 MG Tab PO SCH (21:51)
[2018-02-01] MEDS: Folic Acid 1 MG Tab PO SCH (21:51)
[2018-02-01] MEDS: Famotidine 20 MG Tab PO SCH (21:51)
[2018-02-02] MEDS: metFORMIN 500 MG Tab PO SCH ×2 (06:47→17:54)
[2018-02-02] MEDS: Levothyroxine 88 MCG Tab PO SCH (06:47)
[2018-02-02] MEDS: Insulin Aspart 100 Units/ML 3 ML Pen SUBCUT SCH ×4 (07:01→21:07)
[2018-02-02] MEDS: Saccharomyces Boulardii (Probiotic) 250 MG Cap PO SCH ×2 (09:29→20:59)
[2018-02-02] MEDS: Aspirin 81 MG Tab.Chew PO SCH (09:29)
[2018-02-02] MEDS: Lisinopril 20 MG Tab PO SCH (09:29)
[2018-02-02] MEDS: Calcium Carbonate 500 MG Tab.Chew PO SCH ×2 (09:29→21:00)
[2018-02-02] MEDS: Nicotine 21 MG/24 Hr Patch TRDERM SCH (09:30)
--- NOTE | 2018-02-02 09:47 | PCM.PN ---
- General Info Date of Service: 02/02/18 Admission Dx/Problem (Free Text): Admission Diagnosis/Problem Admission Diagnosis/Problem Coffee ground emesis Subjective Update: In to see Dg. He is resting comfortably in bed. He again did not willingly open his eyes during interview but did follow other commands. He denies any complaints. There are no concerns from nursing. Functional Status: Reports: Pain Controlled, Tolerating Diet, Ambulating, Urinating - Review of Systems General: Reports: No Symptoms. Denies: Fever, Weakness HEENT: Reports: No Symptoms. Denies: Sinus Congestion, Sore Throat Pulmonary: Reports: No Symptoms. Denies: Shortness of Breath, Cough Cardiovascular: Reports: No Symptoms. Denies: Chest Pain, Edema Gastrointestinal: Reports: No Symptoms. Denies: Abdominal Pain, Constipation, Diarrhea, Nausea, Vomiting Genitourinary: Reports: No Symptoms. Denies: Dysuria, Frequency Musculoskeletal: Reports: No Symptoms Skin: Reports: No Symptoms Neurological: Reports: No Symptoms. Denies: Confusion, Dizziness, Headache Psychiatric: Reports: No Symptoms. Denies: Confusion, Depression - Patient Data Vitals - Most Recent: Last Vital Signs Temp 98.1 F 02/02/18 07:23 Pulse 61 02/02/18 07:23 Resp 20 02/02/18 07:23 BP 119/68 02/02/18 09:29 Pulse Ox 98 02/02/18 07:23 Weight - Most Recent: 152 lb 12.8 oz I&O - Last 24 Hours: Intake & Output 02/01/18 02/02/18 02/02/18 22:59 06:59 14:59 Intake Total 200 800 Output Total 100 Balance 100 800 Lab Results Last 24 Hours: Laboratory Results - last 24 hr 02/01/18 02/01/18 02/01/18 Range/Units 11:42 16:45 20:48 WBC (4.23-9.07) K/mm3 RBC (4.63-6.08) M/mm3 Hgb (13.7-17.5) gm/L Hct (40.1-51.0) % MCV (79.0-92.2) fl MCH (25.7-32.2) pg MCHC (32.2-35.5) g/dl RDW Std Deviation (35.1-43.9) fL Plt Count (163-337) K/mm3 MPV (9.4-12.3) fl Neut % (Auto) (34.0-67.9) % Lymph % (Auto) (21.8-53.1) % [place] % (Auto) (5.3-12.2) % Eos % (Auto) (0.8-7.0) Baso % (Auto) (0.1-1.2) % Neut # (Auto) (1.78-5.38) K/mm3 Lymph # (Auto) (1.32-3.57) K/mm3 [place] # (Auto) (0.30-0.82) K/mm3 Eos # (Auto) (0.04-0.54) K/mm3 Baso # (Auto) (0.01-0.08) K/mm3 Sodium (136-145) mEq/L Potassium (3.5-5.1) mEq/L Chloride (98-107) mEq/L Carbon Dioxide (21-32) mEq/L Anion Gap (5-15) BUN (7-18) mg/dL Creatinine (0.7-1.3) mg/dL Est Cr Clr Drug Dosing mL/min Estimated GFR (MDRD) (>60) mL/min BUN/Creatinine Ratio (14-18) Glucose (83-115) mg/dL POC Glucose 115 H 282 H 131 H (83-110) mg/dL Calcium (8.5-10.1) mg/dL 02/02/18 02/02/18 02/02/18 Range/Units 05:42 05:42 06:12 WBC 6.64 (4.23-9.07) K/mm3 RBC 4.23 L (4.63-6.08) M/mm3 Hgb 11.5 L (13.7-17.5) gm/L Hct 35.7 L (40.1-51.0) % MCV 84.4 (79.0-92.2) fl MCH 27.2 (25.7-32.2) pg MCHC 32.2 (32.2-35.5) g/dl RDW Std Deviation 40.7 (35.1-43.9) fL Plt Count 316 (163-337) K/mm3 MPV 8.9 L (9.4-12.3) fl Neut % (Auto) 66.6 (34.0-67.9) % Lymph % (Auto) 21.2 L (21.8-53.1) % [place] % (Auto) 8.0 (5.3-12.2) % Eos % (Auto) 3.3 (0.8-7.0) Baso % (Auto) 0.6 (0.1-1.2) % Neut # (Auto) 4.42 (1.78-5.38) K/mm3 Lymph # (Auto) 1.41 (1.32-3.57) K/mm3 [place] # (Auto) 0.53 (0.30-0.82) K/mm3 Eos # (Auto) 0.22 (0.04-0.54) K/mm3 Baso # (Auto) 0.04 (0.01-0.08) K/mm3 Sodium 135 L (136-145) mEq/L Potassium 4.5 (3.5-5.1) mEq/L Chloride 101 (98-107) mEq/L Carbon Dioxide 26 (21-32) mEq/L Anion Gap 12.5 (5-15) BUN 30 H (7-18) mg/dL Creatinine 1.1 (0.7-1.3) mg/dL Est Cr Clr Drug Dosing 60.38 mL/min Estimated GFR (MDRD) > 60 (>60) mL/min BUN/Creatinine Ratio 27.3 H (14-18) Glucose 113 (83-115) mg/dL POC Glucose 134 H (83-110) mg/dL Calcium 9.5 (8.5-10.1) mg/dL Med Orders - Current: Current Medications Acetaminophen (Tylenol) 650 mg PO Q4H PRN PRN Reason: Pain (Mild 1-3)/fever Hydrocodone Bitart/Acetaminophen ([place] 325-5 Mg) 1 tab PO Q4H PRN PRN Reason: Pain (moderate 4-6) Aspirin (Aspirin) 81 mg PO DAILY PENDING SALE TO [facility] Last Admin: 02/02/18 09:29 Dose: 81 mg Bisacodyl (Dulcolax) 5 mg PO DAILY PRN PRN Reason: Constipation Last Admin: 01/25/18 02:30 Dose: 5 mg Calcium Carbonate/Glycine (Tums) 500 mg PO BID PENDING SALE TO [facility] Last Admin: 02/02/18 09:29 Dose: 500 mg Dextrose/Water (Dextrose 50% In Water) 50 ml IVPUSH ASDIRECTED PRN PRN Reason: Hypoglycemia Docusate Sodium (Colace) 100 mg PO BID PRN PRN Reason: Constipation Famotidine (Pepcid) 20 mg PO Q24H PENDING SALE TO [facility] Last Admin: 02/01/18 21:51 Dose: 20 mg Folic Acid (Folic Acid) 1 mg PO BEDTIME PENDING SALE TO [facility] Last Admin: 02/01/18 21:51 Dose: 1 mg Guaifenesin/Phenylephrine HCl (Robitussin Dm) 5 ml PO Q4H PRN PRN Reason: Cough Haloperidol Lactate (Haldol) 2.5 mg IM Q8H PRN PRN Reason: Agitation/Restlessness Last Admin: 01/24/18 08:25 Dose: 2.5 mg Hydralazine HCl (Apresoline) 20 mg IVPUSH Q4H PRN PRN Reason: hypertension Hydromorphone HCl (Dilaudid) 0.25 mg IVPUSH Q2H PRN PRN Reason: Pain (severe 7-10) Promethazine HCl 6.25 mg/ (Sodium Chloride) 50.25 mls @ 100 mls/hr IV Q6H PRN PRN Reason: Nausea/Vomiting Insulin Aspart (Novolog) 0 unit SUBCUT QIDACANDBED PENDING SALE TO [facility]; Protocol Last Admin: 02/02/18 07:01 Dose: Not Given Levothyroxine Sodium (Synthroid) 88 mcg PO ACBREAKFAST PENDING SALE TO [facility] Last Admin: 02/02/18 06:47 Dose: 88 mcg Lisinopril (Prinivil) 20 mg PO DAILY PENDING SALE TO [facility] Last Admin: 02/02/18 09:29 Dose: 20 mg Lorazepam (Ativan) 2 mg IVPUSH Q4H PRN PRN Reason: Seizures Lorazepam (Ativan) 0.25 mg IVPUSH Q4H PRN PRN Reason: Anxiety Last Admin: 01/24/18 15:57 Dose: 0.25 mg Magnesium Hydroxide (Milk Of Magnesia) 30 ml PO Q12H PRN PRN Reason: Constipation Metformin HCl (Glucophage) 500 mg PO BIDMEALS PENDING SALE TO [facility] Last Admin: 02/02/18 06:47 Dose: 500 mg Metoprolol Tartrate (Lopressor) 5 mg IVPUSH Q4H PRN PRN Reason: Tachycardia Miscellaneous Information (Remove Patch) 1 ea TRDERM DAILY PENDING SALE TO [facility] Last Admin: 02/02/18 09:30 Dose: 1 ea Multivitamins (Thera) 1 each PO BEDTIME PENDING SALE TO [facility] Last Admin: 02/01/18 21:51 Dose: 1 each Nicotine (Habitrol) 21 mg TRDERM DAILY PENDING SALE TO [facility] Last Admin: 02/02/18 09:30 Dose: 21 mg Polyethylene Glycol (Miralax) 17 gm PO DAILY PRN PRN Reason: Constipation Promethazine HCl (Phenergan) 25 mg PO Q6H PRN PRN Reason: Nausea/Vomiting Risperidone (Risperidal) 1 mg PO BEDTIME PENDING SALE TO [facility] Last Admin: 02/01/18 21:51 Dose: 1 mg Saccharomyces Boulardii (Florastor) 250 mg PO BID PENDING SALE TO [facility] Last Admin: 02/02/18 09:29 Dose: 250 mg Senna/Docusate Sodium (Senna Plus) 1 tab PO BID PRN PRN Reason: Constipation Sertraline HCl (Zoloft) 50 mg PO BEDTIME PENDING SALE TO [facility] Last Admin: 02/01/18 21:51 Dose: 50 mg Simvastatin (Zocor) 20 mg PO BEDTIME PENDING SALE TO [facility] Last Admin: 02/01/18 21:51 Dose: 20 mg Sodium Chloride (Saline Flush) 10 ml FLUSH ASDIRECTED PRN PRN Reason: Keep Vein Open Last Admin: 01/20/18 12:04 Dose: 10 ml Thiamine HCl (Vitamin B-1) 100 mg PO BEDTIME PENDING SALE TO [facility] Last Admin: 02/01/18 21:51 Dose: 100 mg Discontinued Medications Bisacodyl (Dulcolax) 10 mg RECTAL ONETIME ONE Stop: 01/21/18 20:01 Last Admin: 01/21/18 19:58 Dose: Not Given Caffeine (Caffeine) 200 mg PO ONETIME ONE Stop: 01/22/18 07:01 Last Admin: 01/22/18 06:01 Dose: 200 mg Clindamycin HCl (Cleocin) 150 mg PO Q8H PENDING SALE TO [facility] Stop: 02/01/18 11:01 Last Admin: 02/01/18 11:39 Dose: 150 mg Famotidine (Pepcid) 20 mg PO BID PENDING SALE TO [facility] Last Admin: 01/22/18 10:02 Dose: 20 mg Famotidine (Pepcid) 20 mg IVPUSH Q24H PENDING SALE TO [facility] Last Admin: 01/29/18 21:04 Dose: 20 mg Famotidine (Pepcid) 20 mg IVPUSH ONETIME ONE Stop: 01/22/18 11:44 Last Admin: 01/22/18 11:59 Dose: 20 mg Hydralazine HCl (Apresoline) 20 mg IVPUSH Q4H PRN PRN Reason: Hypertension Last Admin: 01/26/18 03:30 Dose: 20 mg Sodium Chloride (Normal Saline) 1,000 mls @ 125 mls/hr IV ASDIRECTED PENDING SALE TO [facility] Last Admin: 01/22/18 05:05 Dose: 125 mls/hr Azithromycin 500 mg/ Sodium (Chloride) 250 mls @ 250 mls/hr IV ONETIME ONE Stop: 01/22/18 00:56 Last Admin: 01/22/18 00:21 Dose: 250 mls/hr Piperacillin Sod/Tazobactam (Sod 4.5 gm/ Sodium Chloride) 100 mls @ 25 mls/hr IV Q8H PENDING SALE TO [facility] Last Admin: 01/24/18 04:57 Dose: 25 mls/hr Piperacillin Sod/Tazobactam (Sod 4.5 gm/ Sodium Chloride) 100 mls @ 200 mls/hr IV ONETIME ONE Stop: 01/22/18 12:29 Last Admin: 01/22/18 12:00 Dose: 200 mls/hr Dextrose/Sodium Chloride (Dextrose 5%-Normal Saline) 1,000 mls @ 50 mls/hr IV ASDIRECTED PENDING SALE TO [facility] Last Admin: 01/23/18 08:07 Dose: 50 mls/hr Insulin Aspart (Novolog) 0 unit SUBCUT Q6H PRN; Protocol PRN Reason: Hyperglycemia Insulin Aspart (Novolog) 0 unit SUBCUT Q6HR PENDING SALE TO [facility]; Protocol Last Admin: 01/24/18 20:31 Dose: Not Given Lactulose (Cephulac) 20 gm PO ONETIME ONE Stop: 01/21/18 19:03 Last Admin: 01/21/18 19:58 Dose: Not Given Lorazepam (Ativan) 0.5 mg IVPUSH BEDTIME ONE Stop: 01/23/18 23:45 Last Admin: 01/24/18 00:03 Dose: 0.5 mg Magnesium Sulfate (Pharmacy To Dose - Magnesium Replacement) 1 dose .XX ASDIRECTED PENDING SALE TO [facility] Metformin HCl (Glucophage) 500 mg PO BIDMEALS PENDING SALE TO [facility] Last Admin: 01/22/18 06:02 Dose: 500 mg Metformin HCl (Glucophage) 500 mg PO BIDMEALS PENDING SALE TO [facility] Modafinil (Provigil) 100 mg PO DAILY PENDING SALE TO [facility] Modafinil (Provigil) 100 mg PO NOW STA Stop: 01/22/18 11:01 Last Admin: 01/22/18 11:34 Dose: 100 mg Modafinil (Provigil) 200 mg PO DAILY PENDING SALE TO [facility] Stop: 01/23/18 09:01 Last Admin: 01/23/18 08:13 Dose: 200 mg Nicotine (Habitrol) 21 mg TRDERM DAILY PENDING SALE TO [facility] Non-Formulary Medication (Petrolatum,White [Vaseline]) 453.6 gm TOP DAILY PENDING SALE TO [facility] Pantoprazole Sodium (Protonix Iv) 40 mg IVPUSH ONETIME ONE Stop: 01/20/18 12:06 Last Admin: 01/20/18 12:13 Dose: 40 mg Pantoprazole Sodium (Protonix Iv) 40 mg IV Q12HR PENDING SALE TO [facility] Last Admin: 01/21/18 21:09 Dose: 40 mg Potassium Chloride (Pharmacy To Dose - Potassium Replacement) 1 dose .XX ASDIRECTED PENDING SALE TO [facility] Potassium Chloride (Klor-Con M20) 40 meq PO ONETIME ONE Stop: 01/23/18 10:01 Last Admin: 01/23/18 09:43 Dose: 40 meq Risperidone (Risperidal) 0.5 mg PO DAILY PENDING SALE TO [facility] Last Admin: 01/26/18 09:08 Dose: 0.5 mg Risperidone (Risperidal) 1 mg PO DAILY PENDING SALE TO [facility] Risperidone (Risperidal) 1 mg PO BEDTIME PENDING SALE TO [facility] Last Admin: 01/24/18 20:31 Dose: Not Given Sertraline HCl (Zoloft) 50 mg PO DAILY PENDING SALE TO [facility] Last Admin: 01/26/18 09:08 Dose: 50 mg Temazepam (Restoril) 7.5 mg PO BEDTIME PRN PRN Reason: Sleep - Exam Quality Assessment: DVT Prophylaxis. No: Supplemental Oxygen General: Alert, Oriented, No Acute Distress, Other (He would not open his eyes but did follow other commands ) HEENT: Pupils Equal, Pupils Reactive, EOMI, Mucous Membr. Moist/[place], Other ( Eyes opened by this investigative writer ) Neck: Supple. No: Lymphadenopathy Lungs: Clear to Auscultation, Normal Respiratory Effort Cardiovascular: Regular Rate, Regular Rhythm, No Murmurs GI/Abdominal Exam: Normal Bowel Sounds, Soft, Non-Tender, No Distention (Male) Exam: Deferred Back Exam: Normal Inspection, Decreased Range of Motion Extremities: Normal Inspection, Non-Tender, No Pedal Edema, Limited Range of Motion Peripheral Pulses: 1+: Posterior Tibial (L), Posterior Tibial (R), Dorsalis Pedis (L), Dorsalis Pedis (R), 2+: Radial (L), Radial (R) Skin: Warm, Dry, Intact Neurological: No New Focal Deficit, Strength Equal Bilateral, Cranial Nerves Intact (grossly) Psy/Mental Status: Alert, Normal Affect, Normal Mood - Problem List Review Problem List Initiated/Reviewed/Updated: Yes - My Orders Last 24 Hours: My Active Orders 02/03/18 05:11 CBC WITH AUTO DIFF [HEME] AM 02/04/18 05:11 CBC WITH AUTO DIFF [HEME] AM 02/05/18 05:11 CBC WITH AUTO DIFF [HEME] AM 02/06/18 05:11 CBC WITH AUTO DIFF [HEME] AM - Plan Plan:: A/P: Acute: Healthcare Acquired Aspiration Pneumonia/Chemical Pneumonitis - Risk Factors: GERD and AMS - Suspect this is more of a chemical pneumonitis with aspiration, will cover for appropriate pathogens - Had wet cough; suctioned in ED with clear to yellow sputum - Initial CXR-no acute abnormal findings; Follow up CXR shows shows right basilar opacification (new) with last CXR read as nothing acute appreciated on front chest xray - Received one dose of IV 500 mg Azithromycin during admission - Received Zosyn IV 4.5 grams Q8H for pharmacy to dose plus Probiotic 1 tab po BID --> changed to clindamycin 150 mg po q 8 hr on 01/24/18 and received through 02/01/18 - He was on PPI but now on H2B for GERD - Mycoplasma pneumonia, viral panel, and strep pneumonia Ag negative - Decongestant/Expectorant PRN and IS as directed - Afebrile w/o leukocytosis - Aspiration Precautions - May have oropharyngeal dysfunction --> [facility] is seeing patient Probable Oropharyngeal Dysfunction - [facility] initial eval with recommendation of NDD4 diet (regular) and nectar thick liquids; diet was upgraded to thin liquids and no straws - [facility] has now signed off on patient S/p Mental Status Changes, improved - Has underlying Dementia - Suspect 2/2 Medication Side effects (Increased Dose of Risperdal) --> Daughter reported to ED provider that psych medications were recently changed - Panfilo reported slurred speech and lethargy --> - Head CT in ED read as senescent changes with no acute abnormality - Dr. Whiteside recommended: Discontinuing Risperdal 0.5 mg; continuing 1 mg Risperdal q Hs; changing sertraline to HS - Stimulant was discontinued Type 2 Diabetes, Stable - Metformin 500 mg BID resumed - Accu-check Q6H with Low level ISS Cachexia - patient reported UBW 190# (although he is unable to report when he last weighed this amount); weight has ranged from 148-168# during admission with most weights between 155-160# - RD consult - Will begin kcal count: 01/27/18: 1814 kcal, 82 g protein; 01/28/18: 1174 kcal , 78 g protein; 01/29/18: 655 kcal, 36 g protein - He is receiving Glucerna 4oz TID with meals --> intakes have improved - BUN has increased to 30 with normal Cr and eGFR --> likely secondary to improved intakes but will monitor Resolved: Hypokalemia - was 3.4 01/23/18, improved to 3.9 on 01/24/18 - likely 2/2 poor intake and hemodilution with IVF - replete per protocol S/p Acute Hematemesis - Risk factors: History of alcohol abuse, GERD, Pill Esophagitis - Reported by Panfilo [place] to be coffee ground emesis - No further episodes with EMS, in ED, or during admit thus far - ED provider reports negative FOBT - Supportive care: monitor vitals, Hgb --> if indicated, will consult General Surgery for possible EGD - BP 160/98 in ED, improved at admit - Ordered Protonix 40 mg BID IV--> now on H2B Acute decline in Hgb - 12.4 today 12.1 yesterday; lowest value during admission is 12.0 and highest 13.6 - FOBT x 1 negative - Monitor Hypotensive episodes, improved - BP 86/68 yesterday morning - Will adjust hydralazine order to be given if BP >160/90 Chronic: Hx Alcohol Use Disorder Schizophrenia ETOH Dementia MDD GERD Cachexia Presence of cardiac pacemaker Weakness HTN Type 2 DM HLD Hypothyroidism Plan: He is otherwise clinically stable Continue current treatment, greatly improved CM/SW working on placement Continue [facility] eval/tx Routine AM labs Risperdal re-started with behaviors Appreciate Dr. Whiteside's consultation and recommendations Fall and Aspiration Precautions DVT Prophylaxis: SCDs Encourage to use IS as directed PT/OT for deconditioning Other orders as indicated above Code Status: Full code LOS>96 hours for recent adjustment of psychiatric meds, and placement; previous residence has refused to take him back.
[2018-02-02] MEDS: Famotidine 20 MG Tab PO SCH (20:59)
[2018-02-02] MEDS: Sertraline 50 MG Tab PO SCH (20:59)
[2018-02-02] MEDS: Folic Acid 1 MG Tab PO SCH (20:59)
[2018-02-02] MEDS: risperiDONE 1 MG Tab PO SCH (21:00)
[2018-02-02] MEDS: Multivitamins,Therapeutic Tab PO SCH (21:00)
[2018-02-02] MEDS: Thiamine 100 MG Tab PO SCH (21:00)
[2018-02-02] MEDS: Simvastatin 20 MG Tab PO SCH (21:00)
[2018-02-03] MEDS: Levothyroxine 88 MCG Tab PO SCH (06:01)
[2018-02-03] MEDS: metFORMIN 500 MG Tab PO SCH ×2 (06:01→16:27)
[2018-02-03] MEDS: Insulin Aspart 100 Units/ML 3 ML Pen SUBCUT SCH ×3 (06:04→17:20)
[2018-02-03] MEDS: Nicotine 21 MG/24 Hr Patch TRDERM SCH (08:56)
[2018-02-03] MEDS: Lisinopril 20 MG Tab PO SCH (08:56)
[2018-02-03] MEDS: Saccharomyces Boulardii (Probiotic) 250 MG Cap PO SCH ×2 (08:56→23:16)
[2018-02-03] MEDS: Calcium Carbonate 500 MG Tab.Chew PO SCH ×2 (08:57→23:25)
[2018-02-03] MEDS: Aspirin 81 MG Tab.Chew PO SCH (08:57)
--- NOTE | 2018-02-03 09:57 | PCM.PN ---
<Hodan Palencia - Last Filed: 02/03/18 13:14> - General Info Date of Service: 02/03/18 Admission Dx/Problem (Free Text): Admission Diagnosis/Problem Admission Diagnosis/Problem Coffee ground emesis Subjective Update: In to see Dg. He is resting comfortably in bed. He again did not willingly open his eyes during interview but did follow other commands. He denies any complaints. Nursing reports no behaviors but do report that his nights and days appeared to be switched. Functional Status: Reports: Pain Controlled, Tolerating Diet, Ambulating (with assistance ), Urinating - Review of Systems General: Reports: No Symptoms. Denies: Fever, Chills HEENT: Reports: No Symptoms. Denies: Sinus Congestion, Sore Throat Pulmonary: Reports: No Symptoms. Denies: Shortness of Breath, Cough Cardiovascular: Reports: No Symptoms. Denies: Chest Pain, Palpitations, Edema Gastrointestinal: Reports: No Symptoms. Denies: Abdominal Pain, Constipation, Diarrhea, Nausea, Vomiting Genitourinary: Reports: No Symptoms. Denies: Dysuria, Frequency, Burning Musculoskeletal: Reports: No Symptoms. Denies: Joint Pain Skin: Reports: No Symptoms Neurological: Reports: No Symptoms. Denies: Confusion, Dizziness, Headache Psychiatric: Reports: No Symptoms. Denies: Confusion, Depression, Anxiety - Patient Data Vitals - Most Recent: Last Vital Signs Temp 97.9 F 02/03/18 07:16 Pulse 62 02/03/18 07:16 Resp 18 02/03/18 07:16 BP 125/81 02/03/18 07:16 Pulse Ox 97 02/03/18 07:16 Weight - Most Recent: 69.456 kg I&O - Last 24 Hours: Intake & Output 02/02/18 02/03/18 02/03/18 22:59 06:59 14:59 Intake Total 960 400 Balance 960 400 Lab Results Last 24 Hours: Laboratory Results - last 24 hr 02/02/18 02/02/18 02/02/18 Range/Units 10:41 16:43 21:06 WBC (4.23-9.07) K/mm3 RBC (4.63-6.08) M/mm3 Hgb (13.7-17.5) gm/L Hct (40.1-51.0) % MCV (79.0-92.2) fl MCH (25.7-32.2) pg MCHC (32.2-35.5) g/dl RDW Std Deviation (35.1-43.9) fL Plt Count (163-337) K/mm3 MPV (9.4-12.3) fl Neut % (Auto) (34.0-67.9) % Lymph % (Auto) (21.8-53.1) % Collin % (Auto) (5.3-12.2) % Eos % (Auto) (0.8-7.0) Baso % (Auto) (0.1-1.2) % Neut # (Auto) (1.78-5.38) K/mm3 Lymph # (Auto) (1.32-3.57) K/mm3 Collin # (Auto) (0.30-0.82) K/mm3 Eos # (Auto) (0.04-0.54) K/mm3 Baso # (Auto) (0.01-0.08) K/mm3 Sodium (136-145) mEq/L Potassium (3.5-5.1) mEq/L Chloride (98-107) mEq/L Carbon Dioxide (21-32) mEq/L Anion Gap (5-15) BUN (7-18) mg/dL Creatinine (0.7-1.3) mg/dL Est Cr Clr Drug Dosing mL/min Estimated GFR (MDRD) (>60) mL/min BUN/Creatinine Ratio (14-18) Glucose (83-115) mg/dL POC Glucose 136 H 156 H 198 H (83-110) mg/dL Calcium (8.5-10.1) mg/dL Total Bilirubin (0.2-1.0) mg/dL AST (15-37) U/L ALT (16-63) U/L Alkaline Phosphatase (46-116) U/L Total Protein (6.4-8.2) g/dl Albumin (3.4-5.0) g/dl Globulin gm/dL Albumin/Globulin Ratio (1-2) 02/03/18 02/03/18 02/03/18 Range/Units 06:03 06:35 06:35 WBC 6.23 (4.23-9.07) K/mm3 RBC 4.29 L (4.63-6.08) M/mm3 Hgb 11.9 L (13.7-17.5) gm/L Hct 36.2 L (40.1-51.0) % MCV 84.4 (79.0-92.2) fl MCH 27.7 (25.7-32.2) pg MCHC 32.9 (32.2-35.5) g/dl RDW Std Deviation 40.8 (35.1-43.9) fL Plt Count 309 (163-337) K/mm3 MPV 9.2 L (9.4-12.3) fl Neut % (Auto) 61.8 (34.0-67.9) % Lymph % (Auto) 27.6 (21.8-53.1) % Collin % (Auto) 6.3 (5.3-12.2) % Eos % (Auto) 3.5 (0.8-7.0) Baso % (Auto) 0.6 (0.1-1.2) % Neut # (Auto) 3.85 (1.78-5.38) K/mm3 Lymph # (Auto) 1.72 (1.32-3.57) K/mm3 Collin # (Auto) 0.39 (0.30-0.82) K/mm3 Eos # (Auto) 0.22 (0.04-0.54) K/mm3 Baso # (Auto) 0.04 (0.01-0.08) K/mm3 Sodium 135 L (136-145) mEq/L Potassium 4.3 (3.5-5.1) mEq/L Chloride 100 (98-107) mEq/L Carbon Dioxide 26 (21-32) mEq/L Anion Gap 13.3 (5-15) BUN 30 H (7-18) mg/dL Creatinine 1.0 (0.7-1.3) mg/dL Est Cr Clr Drug Dosing 66.56 mL/min Estimated GFR (MDRD) > 60 (>60) mL/min BUN/Creatinine Ratio 30.0 H (14-18) Glucose 112 (83-115) mg/dL POC Glucose 119 H (83-110) mg/dL Calcium 10.0 (8.5-10.1) mg/dL Total Bilirubin 0.4 (0.2-1.0) mg/dL AST 23 (15-37) U/L ALT 50 (16-63) U/L Alkaline Phosphatase 62 (46-116) U/L Total Protein 6.8 (6.4-8.2) g/dl Albumin 3.3 L (3.4-5.0) g/dl Globulin 3.5 gm/dL Albumin/Globulin Ratio 0.9 L (1-2) Med Orders - Current: Current Medications Acetaminophen (Tylenol) 650 mg PO Q4H PRN PRN Reason: Pain (Mild 1-3)/fever Hydrocodone Bitart/Acetaminophen (Darragh 325-5 Mg) 1 tab PO Q4H PRN PRN Reason: Pain (moderate 4-6) Aspirin (Aspirin) 81 mg PO DAILY [facility] Last Admin: 02/03/18 08:57 Dose: 81 mg Bisacodyl (Dulcolax) 5 mg PO DAILY PRN PRN Reason: Constipation Last Admin: 01/25/18 02:30 Dose: 5 mg Calcium Carbonate/Glycine (Tums) 500 mg PO BID [facility] Last Admin: 02/03/18 08:57 Dose: 500 mg Dextrose/Water (Dextrose 50% In Water) 50 ml IVPUSH ASDIRECTED PRN PRN Reason: Hypoglycemia Docusate Sodium (Colace) 100 mg PO BID PRN PRN Reason: Constipation Famotidine (Pepcid) 20 mg PO Q24H [facility] Last Admin: 02/02/18 20:59 Dose: 20 mg Folic Acid (Folic Acid) 1 mg PO BEDTIME [facility] Last Admin: 02/02/18 20:59 Dose: 1 mg Guaifenesin/Phenylephrine HCl (Robitussin Dm) 5 ml PO Q4H PRN PRN Reason: Cough Haloperidol Lactate (Haldol) 2.5 mg IM Q8H PRN PRN Reason: Agitation/Restlessness Last Admin: 01/24/18 08:25 Dose: 2.5 mg Hydralazine HCl (Apresoline) 20 mg IVPUSH Q4H PRN PRN Reason: hypertension Hydromorphone HCl (Dilaudid) 0.25 mg IVPUSH Q2H PRN PRN Reason: Pain (severe 7-10) Promethazine HCl 6.25 mg/ (Sodium Chloride) 50.25 mls @ 100 mls/hr IV Q6H PRN PRN Reason: Nausea/Vomiting Insulin Aspart (Novolog) 0 unit SUBCUT QIDACANDBED [facility]; Protocol Last Admin: 02/03/18 06:04 Dose: Not Given Levothyroxine Sodium (Synthroid) 88 mcg PO ACBREAKFAST [facility] Last Admin: 02/03/18 06:01 Dose: 88 mcg Lisinopril (Prinivil) 20 mg PO DAILY [facility] Last Admin: 02/03/18 08:56 Dose: 20 mg Lorazepam (Ativan) 2 mg IVPUSH Q4H PRN PRN Reason: Seizures Lorazepam (Ativan) 0.25 mg IVPUSH Q4H PRN PRN Reason: Anxiety Last Admin: 01/24/18 15:57 Dose: 0.25 mg Magnesium Hydroxide (Milk Of Magnesia) 30 ml PO Q12H PRN PRN Reason: Constipation Metformin HCl (Glucophage) 500 mg PO BIDMEALS [facility] Last Admin: 02/03/18 06:01 Dose: 500 mg Metoprolol Tartrate (Lopressor) 5 mg IVPUSH Q4H PRN PRN Reason: Tachycardia Miscellaneous Information (Remove Patch) 1 ea TRDERM DAILY [facility] Last Admin: 02/03/18 08:57 Dose: 1 ea Multivitamins (Thera) 1 each PO BEDTIME [facility] Last Admin: 02/02/18 21:00 Dose: 1 each Nicotine (Habitrol) 21 mg TRDERM DAILY [facility] Last Admin: 02/03/18 08:56 Dose: 21 mg Polyethylene Glycol (Miralax) 17 gm PO DAILY PRN PRN Reason: Constipation Promethazine HCl (Phenergan) 25 mg PO Q6H PRN PRN Reason: Nausea/Vomiting Risperidone (Risperidal) 1 mg PO BEDTIME [facility] Last Admin: 02/02/18 21:00 Dose: 1 mg Saccharomyces Boulardii (Florastor) 250 mg PO BID [facility] Last Admin: 02/03/18 08:56 Dose: 250 mg Senna/Docusate Sodium (Senna Plus) 1 tab PO BID PRN PRN Reason: Constipation Sertraline HCl (Zoloft) 50 mg PO BEDTIME [facility] Last Admin: 02/02/18 20:59 Dose: 50 mg Simvastatin (Zocor) 20 mg PO BEDTIME [facility] Last Admin: 02/02/18 21:00 Dose: 20 mg Sodium Chloride (Saline Flush) 10 ml FLUSH ASDIRECTED PRN PRN Reason: Keep Vein Open Last Admin: 01/20/18 12:04 Dose: 10 ml Thiamine HCl (Vitamin B-1) 100 mg PO BEDTIME [facility] Last Admin: 02/02/18 21:00 Dose: 100 mg Discontinued Medications Bisacodyl (Dulcolax) 10 mg RECTAL ONETIME ONE Stop: 01/21/18 20:01 Last Admin: 01/21/18 19:58 Dose: Not Given Caffeine (Caffeine) 200 mg PO ONETIME ONE Stop: 01/22/18 07:01 Last Admin: 01/22/18 06:01 Dose: 200 mg Clindamycin HCl (Cleocin) 150 mg PO Q8H [facility] Stop: 02/01/18 11:01 Last Admin: 02/01/18 11:39 Dose: 150 mg Famotidine (Pepcid) 20 mg PO BID [facility] Last Admin: 01/22/18 10:02 Dose: 20 mg Famotidine (Pepcid) 20 mg IVPUSH Q24H [facility] Last Admin: 01/29/18 21:04 Dose: 20 mg Famotidine (Pepcid) 20 mg IVPUSH ONETIME ONE Stop: 01/22/18 11:44 Last Admin: 01/22/18 11:59 Dose: 20 mg Hydralazine HCl (Apresoline) 20 mg IVPUSH Q4H PRN PRN Reason: Hypertension Last Admin: 01/26/18 03:30 Dose: 20 mg Sodium Chloride (Normal Saline) 1,000 mls @ 125 mls/hr IV ASDIRECTED [facility] Last Admin: 01/22/18 05:05 Dose: 125 mls/hr Azithromycin 500 mg/ Sodium (Chloride) 250 mls @ 250 mls/hr IV ONETIME ONE Stop: 01/22/18 00:56 Last Admin: 01/22/18 00:21 Dose: 250 mls/hr Piperacillin Sod/Tazobactam (Sod 4.5 gm/ Sodium Chloride) 100 mls @ 25 mls/hr IV Q8H [facility] Last Admin: 01/24/18 04:57 Dose: 25 mls/hr Piperacillin Sod/Tazobactam (Sod 4.5 gm/ Sodium Chloride) 100 mls @ 200 mls/hr IV ONETIME ONE Stop: 01/22/18 12:29 Last Admin: 01/22/18 12:00 Dose: 200 mls/hr Dextrose/Sodium Chloride (Dextrose 5%-Normal Saline) 1,000 mls @ 50 mls/hr IV ASDIRECTED [facility] Last Admin: 01/23/18 08:07 Dose: 50 mls/hr Insulin Aspart (Novolog) 0 unit SUBCUT Q6H PRN; Protocol PRN Reason: Hyperglycemia Insulin Aspart (Novolog) 0 unit SUBCUT Q6HR JAMES; Protocol Last Admin: 01/24/18 20:31 Dose: Not Given Lactulose (Cephulac) 20 gm PO ONETIME ONE Stop: 01/21/18 19:03 Last Admin: 01/21/18 19:58 Dose: Not Given Lorazepam (Ativan) 0.5 mg IVPUSH BEDTIME ONE Stop: 01/23/18 23:45 Last Admin: 01/24/18 00:03 Dose: 0.5 mg Magnesium Sulfate (Pharmacy To Dose - Magnesium Replacement) 1 dose .XX ASDIRECTED [facility] Metformin HCl (Glucophage) 500 mg PO BIDMEALS [facility] Last Admin: 01/22/18 06:02 Dose: 500 mg Metformin HCl (Glucophage) 500 mg PO BIDMEALS [facility] Modafinil (Provigil) 100 mg PO DAILY [facility] Modafinil (Provigil) 100 mg PO NOW STA Stop: 01/22/18 11:01 Last Admin: 01/22/18 11:34 Dose: 100 mg Modafinil (Provigil) 200 mg PO DAILY JAMES Stop: 01/23/18 09:01 Last Admin: 01/23/18 08:13 Dose: 200 mg Nicotine (Habitrol) 21 mg TRDERM DAILY [facility] Non-Formulary Medication (Petrolatum,White [Vaseline]) 453.6 gm TOP DAILY [facility] Pantoprazole Sodium (Protonix Iv) 40 mg IVPUSH ONETIME ONE Stop: 01/20/18 12:06 Last Admin: 01/20/18 12:13 Dose: 40 mg Pantoprazole Sodium (Protonix Iv) 40 mg IV Q12HR [facility] Last Admin: 01/21/18 21:09 Dose: 40 mg Potassium Chloride (Pharmacy To Dose - Potassium Replacement) 1 dose .XX ASDIRECTED [facility] Potassium Chloride (Klor-Con M20) 40 meq PO ONETIME ONE Stop: 01/23/18 10:01 Last Admin: 01/23/18 09:43 Dose: 40 meq Risperidone (Risperidal) 0.5 mg PO DAILY [facility] Last Admin: 01/26/18 09:08 Dose: 0.5 mg Risperidone (Risperidal) 1 mg PO DAILY [facility] Risperidone (Risperidal) 1 mg PO BEDTIME JAMES Last Admin: 01/24/18 20:31 Dose: Not Given Sertraline HCl (Zoloft) 50 mg PO DAILY [facility] Last Admin: 01/26/18 09:08 Dose: 50 mg Temazepam (Restoril) 7.5 mg PO BEDTIME PRN PRN Reason: Sleep - Exam Quality Assessment: DVT Prophylaxis. No: Supplemental Oxygen General: Alert, Oriented, Cooperative, No Acute Distress, Other (He does not open his eyes but will follow other commands. ) HEENT: Pupils Equal, Pupils Reactive, EOMI, Mucous Membr. Moist/[place] Neck: Supple. No: Lymphadenopathy Lungs: Clear to Auscultation, Normal Respiratory Effort Cardiovascular: Regular Rate, Regular Rhythm, No Murmurs GI/Abdominal Exam: Normal Bowel Sounds, Soft, Non-Tender, No Distention (Male) Exam: Deferred Back Exam: Normal Inspection, Decreased Range of Motion Extremities: Normal Inspection, Non-Tender, No Pedal Edema, Limited Range of Motion Peripheral Pulses: 1+: Posterior Tibial (L), Posterior Tibial (R), Dorsalis Pedis (L), Dorsalis Pedis (R), 2+: Radial (L), Radial (R) Skin: Warm, Dry, Intact Neurological: No New Focal Deficit, Strength Equal Bilateral, Cranial Nerves Intact (grossly ) Psy/Mental Status: Alert, Normal Affect, Normal Mood - Problem List Review Problem List Initiated/Reviewed/Updated: Yes - My Orders Last 24 Hours: My Active Orders 02/04/18 05:11 BASIC METABOLIC PANEL,BMP [CHEM] AM CBC WITH AUTO DIFF [HEME] AM 02/05/18 05:11 BASIC METABOLIC PANEL,BMP [CHEM] AM CBC WITH AUTO DIFF [HEME] AM 02/06/18 05:11 BASIC METABOLIC PANEL,BMP [CHEM] AM CBC WITH AUTO DIFF [HEME] AM 02/07/18 05:11 BASIC METABOLIC PANEL,BMP [CHEM] AM 02/08/18 05:11 BASIC METABOLIC PANEL,BMP [CHEM] AM - Plan Plan:: A/P: Acute: Hyponatremia - Na 135 today and yesterday - Has been on the lower end of normal - Likely 2/2 sertraline and varied intakes - Will order Thermotabs 2 tab po daily x 3 days and reassess at that time S/p Mental Status Changes, improved - Has underlying Dementia - Likely 2/2 Medication Side effects (Increased Dose of Risperdal) --> Daughter reported to ED provider that psych medications were recently changed - Panfilo reported slurred speech and lethargy --> - Head CT in ED read as senescent changes with no acute abnormality - Dr. Whiteside recommended: Discontinuing Risperdal 0.5 mg; continuing 1 mg Risperdal q Hs; changing sertraline to HS --> requested that he re-evaluate patient today as patient's days/nights appear to be switched Type 2 Diabetes, Stable - Metformin 500 mg BID resumed - Accu-check Q6H with Low level ISS Cachexia - patient reported UBW 190# (although he is unable to report when he last weighed this amount); weight has ranged from 148-168# during admission with most weights between 155-160# - RD consult - Will begin kcal count: 01/27/18: 1814 kcal, 82 g protein; 01/28/18: 1174 kcal , 78 g protein; 01/29/18: 655 kcal, 36 g protein - He is receiving Glucerna 4oz TID with meals --> intakes have improved - BUN has increased to 30 with normal Cr and eGFR --> likely secondary to improved intakes but will monitor Resolved: Healthcare Acquired Aspiration Pneumonia/Chemical Pneumonitis - Risk Factors: GERD and AMS - Suspect this is more of a chemical pneumonitis with aspiration, will cover for appropriate pathogens - Had wet cough; suctioned in ED with clear to yellow sputum - Initial CXR-no acute abnormal findings; Follow up CXR shows shows right basilar opacification (new) with last CXR read as nothing acute appreciated on front chest xray - Received one dose of IV 500 mg Azithromycin during admission - Received Zosyn IV 4.5 grams Q8H for pharmacy to dose plus Probiotic 1 tab po BID --> changed to clindamycin 150 mg po q 8 hr on 01/24/18 and received through 02/01/18 - He was on PPI but now on H2B for GERD - Mycoplasma pneumonia, viral panel, and strep pneumonia Ag negative - Decongestant/Expectorant PRN and IS as directed - Afebrile w/o leukocytosis - Aspiration Precautions - May have oropharyngeal dysfunction --> [employer] has signed off on patient Probable Oropharyngeal Dysfunction - [employer] initial eval with recommendation of NDD4 diet (regular) and nectar thick liquids; diet was upgraded to thin liquids and no straws - [employer] has now signed off on patient Hypokalemia - was 3.4 01/23/18, improved to 3.9 on 01/24/18 - likely 2/2 poor intake and hemodilution with IVF - replete per protocol S/p Acute Hematemesis - Risk factors: History of alcohol abuse, GERD, Pill Esophagitis - Reported by [facility] to be coffee ground emesis - No further episodes with EMS, in ED, or during admit thus far - ED provider reports negative FOBT - Supportive care: monitor vitals, Hgb --> if indicated, will consult General Surgery for possible EGD - BP 160/98 in ED, improved at admit - Ordered Protonix 40 mg BID IV--> now on H2B Acute decline in Hgb - 12.4 today 12.1 yesterday; lowest value during admission is 12.0 and highest 13.6 - FOBT x 1 negative - Monitor Hypotensive episodes, improved - BP 86/68 yesterday morning - Will adjust hydralazine order to be given if BP >160/90 Chronic: Hx Alcohol Use Disorder Schizophrenia ETOH Dementia MDD GERD Cachexia Presence of cardiac pacemaker Weakness HTN Type 2 DM HLD Hypothyroidism Plan: He is otherwise clinically stable Continue current treatment, greatly improved CM/SW working on placement Continue [employer] eval/tx Routine AM labs Risperdal re-started with behaviors Appreciate Dr. Whiteside's consultation and recommendations Fall and Aspiration Precautions DVT Prophylaxis: SCDs Encourage to use IS as directed PT/OT for deconditioning Other orders as indicated above Code Status: Full code LOS>96 hours for recent adjustment of psychiatric meds, and placement; previous residence has refused to take him back. <Shruthi Laws T - Last Filed: 02/03/18 13:28> - Patient Data Vitals - Most Recent: Last Vital Signs Temp 36.6 C 02/03/18 07:16 Pulse 62 02/03/18 07:16 Resp 18 02/03/18 07:16 BP 125/81 02/03/18 07:16 Pulse Ox 97 02/03/18 07:16 I&O - Last 24 Hours: Intake & Output 02/02/18 02/03/18 02/03/18 22:59 06:59 14:59 Intake Total 960 400 120 Balance 960 400 120 Lab Results Last 24 Hours: Laboratory Results - last 24 hr 02/02/18 02/02/18 02/03/18 Range/Units 16:43 21:06 06:03 WBC (4.23-9.07) K/mm3 RBC (4.63-6.08) M/mm3 Hgb (13.7-17.5) gm/L Hct (40.1-51.0) % MCV (79.0-92.2) fl MCH (25.7-32.2) pg MCHC (32.2-35.5) g/dl RDW Std Deviation (35.1-43.9) fL Plt Count (163-337) K/mm3 MPV (9.4-12.3) fl Neut % (Auto) (34.0-67.9) % Lymph % (Auto) (21.8-53.1) % Collin % (Auto) (5.3-12.2) % Eos % (Auto) (0.8-7.0) Baso % (Auto) (0.1-1.2) % Neut # (Auto) (1.78-5.38) K/mm3 Lymph # (Auto) (1.32-3.57) K/mm3 Collin # (Auto) (0.30-0.82) K/mm3 Eos # (Auto) (0.04-0.54) K/mm3 Baso # (Auto) (0.01-0.08) K/mm3 Sodium (136-145) mEq/L Potassium (3.5-5.1) mEq/L Chloride (98-107) mEq/L Carbon Dioxide (21-32) mEq/L Anion Gap (5-15) BUN (7-18) mg/dL Creatinine (0.7-1.3) mg/dL Est Cr Clr Drug Dosing mL/min Estimated GFR (MDRD) (>60) mL/min BUN/Creatinine Ratio (14-18) Glucose (83-115) mg/dL POC Glucose 156 H 198 H 119 H (83-110) mg/dL Calcium (8.5-10.1) mg/dL Total Bilirubin (0.2-1.0) mg/dL AST (15-37) U/L ALT (16-63) U/L Alkaline Phosphatase (46-116) U/L Total Protein (6.4-8.2) g/dl Albumin (3.4-5.0) g/dl Globulin gm/dL Albumin/Globulin Ratio (1-2) 02/03/18 02/03/18 02/03/18 Range/Units 06:35 06:35 11:29 WBC 6.23 (4.23-9.07) K/mm3 RBC 4.29 L (4.63-6.08) M/mm3 Hgb 11.9 L (13.7-17.5) gm/L Hct 36.2 L (40.1-51.0) % MCV 84.4 (79.0-92.2) fl MCH 27.7 (25.7-32.2) pg MCHC 32.9 (32.2-35.5) g/dl RDW Std Deviation 40.8 (35.1-43.9) fL Plt Count 309 (163-337) K/mm3 MPV 9.2 L (9.4-12.3) fl Neut % (Auto) 61.8 (34.0-67.9) % Lymph % (Auto) 27.6 (21.8-53.1) % Collin % (Auto) 6.3 (5.3-12.2) % Eos % (Auto) 3.5 (0.8-7.0) Baso % (Auto) 0.6 (0.1-1.2) % Neut # (Auto) 3.85 (1.78-5.38) K/mm3 Lymph # (Auto) 1.72 (1.32-3.57) K/mm3 Collin # (Auto) 0.39 (0.30-0.82) K/mm3 Eos # (Auto) 0.22 (0.04-0.54) K/mm3 Baso # (Auto) 0.04 (0.01-0.08) K/mm3 Sodium 135 L (136-145) mEq/L Potassium 4.3 (3.5-5.1) mEq/L Chloride 100 (98-107) mEq/L Carbon Dioxide 26 (21-32) mEq/L Anion Gap 13.3 (5-15) BUN 30 H (7-18) mg/dL Creatinine 1.0 (0.7-1.3) mg/dL Est Cr Clr Drug Dosing 66.56 mL/min Estimated GFR (MDRD) > 60 (>60) mL/min BUN/Creatinine Ratio 30.0 H (14-18) Glucose 112 (83-115) mg/dL POC Glucose 127 H (83-110) mg/dL Calcium 10.0 (8.5-10.1) mg/dL Total Bilirubin 0.4 (0.2-1.0) mg/dL AST 23 (15-37) U/L ALT 50 (16-63) U/L Alkaline Phosphatase 62 (46-116) U/L Total Protein 6.8 (6.4-8.2) g/dl Albumin 3.3 L (3.4-5.0) g/dl Globulin 3.5 gm/dL Albumin/Globulin Ratio 0.9 L (1-2) Med Orders - Current: Current Medications Acetaminophen (Tylenol) 650 mg PO Q4H PRN PRN Reason: Pain (Mild 1-3)/fever Hydrocodone Bitart/Acetaminophen (Darragh 325-5 Mg) 1 tab PO Q4H PRN PRN Reason: Pain (moderate 4-6) Aspirin (Aspirin) 81 mg PO DAILY [facility] Last Admin: 02/03/18 08:57 Dose: 81 mg Bisacodyl (Dulcolax) 5 mg PO DAILY PRN PRN Reason: Constipation Last Admin: 01/25/18 02:30 Dose: 5 mg Calcium Carbonate/Glycine (Tums) 500 mg PO BID [facility] Last Admin: 02/03/18 08:57 Dose: 500 mg Dextrose/Water (Dextrose 50% In Water) 50 ml IVPUSH ASDIRECTED PRN PRN Reason: Hypoglycemia Docusate Sodium (Colace) 100 mg PO BID PRN PRN Reason: Constipation Famotidine (Pepcid) 20 mg PO Q24H [facility] Last Admin: 02/02/18 20:59 Dose: 20 mg Folic Acid (Folic Acid) 1 mg PO BEDTIME [facility] Last Admin: 02/02/18 20:59 Dose: 1 mg Guaifenesin/Phenylephrine HCl (Robitussin Dm) 5 ml PO Q4H PRN PRN Reason: Cough Haloperidol Lactate (Haldol) 2.5 mg IM Q8H PRN PRN Reason: Agitation/Restlessness Last Admin: 01/24/18 08:25 Dose: 2.5 mg Hydralazine HCl (Apresoline) 20 mg IVPUSH Q4H PRN PRN Reason: hypertension Hydromorphone HCl (Dilaudid) 0.25 mg IVPUSH Q2H PRN PRN Reason: Pain (severe 7-10) Promethazine HCl 6.25 mg/ (Sodium Chloride) 50.25 mls @ 100 mls/hr IV Q6H PRN PRN Reason: Nausea/Vomiting Insulin Aspart (Novolog) 0 unit SUBCUT QIDACANDBED [facility]; Protocol Last Admin: 02/03/18 11:47 Dose: Not Given Levothyroxine Sodium (Synthroid) 88 mcg PO ACBREAKFAST [facility] Last Admin: 02/03/18 06:01 Dose: 88 mcg Lisinopril (Prinivil) 20 mg PO DAILY [facility] Last Admin: 02/03/18 08:56 Dose: 20 mg Lorazepam (Ativan) 2 mg IVPUSH Q4H PRN PRN Reason: Seizures Lorazepam (Ativan) 0.25 mg IVPUSH Q4H PRN PRN Reason: Anxiety Last Admin: 01/24/18 15:57 Dose: 0.25 mg Magnesium Hydroxide (Milk Of Magnesia) 30 ml PO Q12H PRN PRN Reason: Constipation Metformin HCl (Glucophage) 500 mg PO BIDMEALS [facility] Last Admin: 02/03/18 06:01 Dose: 500 mg Metoprolol Tartrate (Lopressor) 5 mg IVPUSH Q4H PRN PRN Reason: Tachycardia Miscellaneous Information (Remove Patch) 1 ea TRDERM DAILY [facility] Last Admin: 02/03/18 08:57 Dose: 1 ea Multivitamins (Thera) 1 each PO BEDTIME [facility] Last Admin: 02/02/18 21:00 Dose: 1 each Nicotine (Habitrol) 21 mg TRDERM DAILY [facility] Last Admin: 02/03/18 08:56 Dose: 21 mg Oral Electrolytes (Thermotabs) 1 each PO BID [facility] Stop: 02/05/18 23:00 Last Admin: 02/03/18 12:13 Dose: 1 each Polyethylene Glycol (Miralax) 17 gm PO DAILY PRN PRN Reason: Constipation Promethazine HCl (Phenergan) 25 mg PO Q6H PRN PRN Reason: Nausea/Vomiting Risperidone (Risperidal) 1 mg PO BEDTIME [facility] Last Admin: 02/02/18 21:00 Dose: 1 mg Saccharomyces Boulardii (Florastor) 250 mg PO BID [facility] Last Admin: 02/03/18 08:56 Dose: 250 mg Senna/Docusate Sodium (Senna Plus) 1 tab PO BID PRN PRN Reason: Constipation Sertraline HCl (Zoloft) 50 mg PO BEDTIME [facility] Last Admin: 02/02/18 20:59 Dose: 50 mg Simvastatin (Zocor) 20 mg PO BEDTIME [facility] Last Admin: 02/02/18 21:00 Dose: 20 mg Sodium Chloride (Saline Flush) 10 ml FLUSH ASDIRECTED PRN PRN Reason: Keep Vein Open Last Admin: 01/20/18 12:04 Dose: 10 ml Thiamine HCl (Vitamin B-1) 100 mg PO BEDTIME [facility] Last Admin: 02/02/18 21:00 Dose: 100 mg Discontinued Medications Bisacodyl (Dulcolax) 10 mg RECTAL ONETIME ONE Stop: 01/21/18 20:01 Last Admin: 01/21/18 19:58 Dose: Not Given Caffeine (Caffeine) 200 mg PO ONETIME ONE Stop: 01/22/18 07:01 Last Admin: 01/22/18 06:01 Dose: 200 mg Clindamycin HCl (Cleocin) 150 mg PO Q8H JAMES Stop: 02/01/18 11:01 Last Admin: 02/01/18 11:39 Dose: 150 mg Famotidine (Pepcid) 20 mg PO BID [facility] Last Admin: 01/22/18 10:02 Dose: 20 mg Famotidine (Pepcid) 20 mg IVPUSH Q24H [facility] Last Admin: 01/29/18 21:04 Dose: 20 mg Famotidine (Pepcid) 20 mg IVPUSH ONETIME ONE Stop: 01/22/18 11:44 Last Admin: 01/22/18 11:59 Dose: 20 mg Hydralazine HCl (Apresoline) 20 mg IVPUSH Q4H PRN PRN Reason: Hypertension Last Admin: 01/26/18 03:30 Dose: 20 mg Sodium Chloride (Normal Saline) 1,000 mls @ 125 mls/hr IV ASDIRECTED [facility] Last Admin: 01/22/18 05:05 Dose: 125 mls/hr Azithromycin 500 mg/ Sodium (Chloride) 250 mls @ 250 mls/hr IV ONETIME ONE Stop: 01/22/18 00:56 Last Admin: 01/22/18 00:21 Dose: 250 mls/hr Piperacillin Sod/Tazobactam (Sod 4.5 gm/ Sodium Chloride) 100 mls @ 25 mls/hr IV Q8H [facility] Last Admin: 01/24/18 04:57 Dose: 25 mls/hr Piperacillin Sod/Tazobactam (Sod 4.5 gm/ Sodium Chloride) 100 mls @ 200 mls/hr IV ONETIME ONE Stop: 01/22/18 12:29 Last Admin: 01/22/18 12:00 Dose: 200 mls/hr Dextrose/Sodium Chloride (Dextrose 5%-Normal Saline) 1,000 mls @ 50 mls/hr IV ASDIRECTED [facility] Last Admin: 01/23/18 08:07 Dose: 50 mls/hr Insulin Aspart (Novolog) 0 unit SUBCUT Q6H PRN; Protocol PRN Reason: Hyperglycemia Insulin Aspart (Novolog) 0 unit SUBCUT Q6HR [facility]; Protocol Last Admin: 01/24/18 20:31 Dose: Not Given Lactulose (Cephulac) 20 gm PO ONETIME ONE Stop: 01/21/18 19:03 Last Admin: 01/21/18 19:58 Dose: Not Given Lorazepam (Ativan) 0.5 mg IVPUSH BEDTIME ONE Stop: 01/23/18 23:45 Last Admin: 01/24/18 00:03 Dose: 0.5 mg Magnesium Sulfate (Pharmacy To Dose - Magnesium Replacement) 1 dose .XX ASDIRECTED [facility] Metformin HCl (Glucophage) 500 mg PO BIDMEALS [facility] Last Admin: 01/22/18 06:02 Dose: 500 mg Metformin HCl (Glucophage) 500 mg PO BIDMEALS [facility] Modafinil (Provigil) 100 mg PO DAILY [facility] Modafinil (Provigil) 100 mg PO NOW STA Stop: 01/22/18 11:01 Last Admin: 01/22/18 11:34 Dose: 100 mg Modafinil (Provigil) 200 mg PO DAILY [facility] Stop: 01/23/18 09:01 Last Admin: 01/23/18 08:13 Dose: 200 mg Nicotine (Habitrol) 21 mg TRDERM DAILY [facility] Non-Formulary Medication (Petrolatum,White [Vaseline]) 453.6 gm TOP DAILY [facility] Pantoprazole Sodium (Protonix Iv) 40 mg IVPUSH ONETIME ONE Stop: 01/20/18 12:06 Last Admin: 01/20/18 12:13 Dose: 40 mg Pantoprazole Sodium (Protonix Iv) 40 mg IV Q12HR [facility] Last Admin: 01/21/18 21:09 Dose: 40 mg Potassium Chloride (Pharmacy To Dose - Potassium Replacement) 1 dose .XX ASDIRECTED [facility] Potassium Chloride (Klor-Con M20) 40 meq PO ONETIME ONE Stop: 01/23/18 10:01 Last Admin: 01/23/18 09:43 Dose: 40 meq Risperidone (Risperidal) 0.5 mg PO DAILY [facility] Last Admin: 01/26/18 09:08 Dose: 0.5 mg Risperidone (Risperidal) 1 mg PO DAILY [facility] Risperidone (Risperidal) 1 mg PO BEDTIME [facility] Last Admin: 01/24/18 20:31 Dose: Not Given Sertraline HCl (Zoloft) 50 mg PO DAILY [facility] Last Admin: 01/26/18 09:08 Dose: 50 mg Temazepam (Restoril) 7.5 mg PO BEDTIME PRN PRN Reason: Sleep - Plan Plan:: The patient was seen and examined at bedside in concert with the PA student. The assessment and plans were discussed and agreed upon with me.
[2018-02-03] MEDS: Potassium Chloride/Sodium Chloride Tab PO SCH ×2 (12:13→23:17)
[2018-02-03] MEDS: Famotidine 20 MG Tab PO SCH (23:16)
[2018-02-03] MEDS: Sertraline 50 MG Tab PO SCH (23:16)
[2018-02-03] MEDS: Multivitamins,Therapeutic Tab PO SCH (23:17)
[2018-02-03] MEDS: Thiamine 100 MG Tab PO SCH (23:17)
[2018-02-03] MEDS: Folic Acid 1 MG Tab PO SCH (23:17)
[2018-02-03] MEDS: risperiDONE 1 MG Tab PO SCH (23:17)
[2018-02-03] MEDS: Simvastatin 20 MG Tab PO SCH (23:17)
[2018-02-04] MEDS: Insulin Aspart 100 Units/ML 3 ML Pen SUBCUT SCH ×6 (00:07→21:19)
[2018-02-04] MEDS: Levothyroxine 88 MCG Tab PO SCH (05:55)
[2018-02-04] MEDS: metFORMIN 500 MG Tab PO SCH ×2 (06:02→16:32)
--- NOTE | 2018-02-04 07:08 | PCM.PN ---
- General Info Date of Service: 02/04/18 Admission Dx/Problem (Free Text): Admission Diagnosis/Problem Admission Diagnosis/Problem Coffee ground emesis Subjective Update: Follow Up Functional Status: Reports: Pain Controlled, Tolerating Diet, Urinating. Denies : New Symptoms - Review of Systems General: Denies: Fever, Chills HEENT: Reports: No Symptoms Pulmonary: Denies: Shortness of Breath Cardiovascular: Denies: Chest Pain, Dyspnea on Exertion, Lightheadedness Gastrointestinal: Denies: Abdominal Pain, Nausea, Vomiting Genitourinary: Reports: No Symptoms Musculoskeletal: Reports: No Symptoms Skin: Denies: Cyanosis, Diaphoresis, Bruising, Rash Neurological: Reports: Confusion (At baseline), Gait Disturbance. Denies: Weakness Psychiatric: Denies: Depression, Anxiety, Agitation, Hallucinations - Patient Data Vitals - Most Recent: Last Vital Signs Temp 36.7 C 02/04/18 05:53 Pulse 58 L 02/04/18 05:53 Resp 15 02/04/18 05:53 BP 122/68 02/04/18 05:53 Pulse Ox 96 02/04/18 05:53 Weight - Most Recent: 69.581 kg I&O - Last 24 Hours: Intake & Output 02/03/18 02/04/18 02/04/18 22:59 06:59 14:59 Intake Total 930 100 Output Total 75 Balance 930 25 Lab Results Last 24 Hours: Laboratory Results - last 24 hr 02/03/18 02/03/18 02/03/18 Range/Units 06:35 06:35 11:29 WBC 6.23 (4.23-9.07) K/mm3 RBC 4.29 L (4.63-6.08) M/mm3 Hgb 11.9 L (13.7-17.5) gm/L Hct 36.2 L (40.1-51.0) % MCV 84.4 (79.0-92.2) fl MCH 27.7 (25.7-32.2) pg MCHC 32.9 (32.2-35.5) g/dl RDW Std Deviation 40.8 (35.1-43.9) fL Plt Count 309 (163-337) K/mm3 MPV 9.2 L (9.4-12.3) fl Neut % (Auto) 61.8 (34.0-67.9) % Lymph % (Auto) 27.6 (21.8-53.1) % [place] % (Auto) 6.3 (5.3-12.2) % Eos % (Auto) 3.5 (0.8-7.0) Baso % (Auto) 0.6 (0.1-1.2) % Neut # (Auto) 3.85 (1.78-5.38) K/mm3 Lymph # (Auto) 1.72 (1.32-3.57) K/mm3 [place] # (Auto) 0.39 (0.30-0.82) K/mm3 Eos # (Auto) 0.22 (0.04-0.54) K/mm3 Baso # (Auto) 0.04 (0.01-0.08) K/mm3 Sodium 135 L (136-145) mEq/L Potassium 4.3 (3.5-5.1) mEq/L Chloride 100 (98-107) mEq/L Carbon Dioxide 26 (21-32) mEq/L Anion Gap 13.3 (5-15) BUN 30 H (7-18) mg/dL Creatinine 1.0 (0.7-1.3) mg/dL Est Cr Clr Drug Dosing 66.56 mL/min Estimated GFR (MDRD) > 60 (>60) mL/min BUN/Creatinine Ratio 30.0 H (14-18) Glucose 112 (83-115) mg/dL POC Glucose 127 H (83-110) mg/dL Calcium 10.0 (8.5-10.1) mg/dL Total Bilirubin 0.4 (0.2-1.0) mg/dL AST 23 (15-37) U/L ALT 50 (16-63) U/L Alkaline Phosphatase 62 (46-116) U/L Total Protein 6.8 (6.4-8.2) g/dl Albumin 3.3 L (3.4-5.0) g/dl Globulin 3.5 gm/dL Albumin/Globulin Ratio 0.9 L (1-2) 02/03/18 02/03/18 02/04/18 Range/Units 17:14 22:05 05:39 WBC (4.23-9.07) K/mm3 RBC (4.63-6.08) M/mm3 Hgb (13.7-17.5) gm/L Hct (40.1-51.0) % MCV (79.0-92.2) fl MCH (25.7-32.2) pg MCHC (32.2-35.5) g/dl RDW Std Deviation (35.1-43.9) fL Plt Count (163-337) K/mm3 MPV (9.4-12.3) fl Neut % (Auto) (34.0-67.9) % Lymph % (Auto) (21.8-53.1) % [place] % (Auto) (5.3-12.2) % Eos % (Auto) (0.8-7.0) Baso % (Auto) (0.1-1.2) % Neut # (Auto) (1.78-5.38) K/mm3 Lymph # (Auto) (1.32-3.57) K/mm3 [place] # (Auto) (0.30-0.82) K/mm3 Eos # (Auto) (0.04-0.54) K/mm3 Baso # (Auto) (0.01-0.08) K/mm3 Sodium (136-145) mEq/L Potassium (3.5-5.1) mEq/L Chloride (98-107) mEq/L Carbon Dioxide (21-32) mEq/L Anion Gap (5-15) BUN (7-18) mg/dL Creatinine (0.7-1.3) mg/dL Est Cr Clr Drug Dosing mL/min Estimated GFR (MDRD) (>60) mL/min BUN/Creatinine Ratio (14-18) Glucose (83-115) mg/dL POC Glucose 186 H 97 108 (83-110) mg/dL Calcium (8.5-10.1) mg/dL Total Bilirubin (0.2-1.0) mg/dL AST (15-37) U/L ALT (16-63) U/L Alkaline Phosphatase (46-116) U/L Total Protein (6.4-8.2) g/dl Albumin (3.4-5.0) g/dl Globulin gm/dL Albumin/Globulin Ratio (1-2) 02/04/18 Range/Units 06:08 WBC 5.60 (4.23-9.07) K/mm3 RBC 4.61 L (4.63-6.08) M/mm3 Hgb 12.6 L (13.7-17.5) gm/L Hct 38.5 L (40.1-51.0) % MCV 83.5 (79.0-92.2) fl MCH 27.3 (25.7-32.2) pg MCHC 32.7 (32.2-35.5) g/dl RDW Std Deviation 40.0 (35.1-43.9) fL Plt Count 298 (163-337) K/mm3 MPV 8.8 L (9.4-12.3) fl Neut % (Auto) 59.4 (34.0-67.9) % Lymph % (Auto) 28.2 (21.8-53.1) % [place] % (Auto) 7.9 (5.3-12.2) % Eos % (Auto) 3.9 (0.8-7.0) Baso % (Auto) 0.4 (0.1-1.2) % Neut # (Auto) 3.33 (1.78-5.38) K/mm3 Lymph # (Auto) 1.58 (1.32-3.57) K/mm3 [place] # (Auto) 0.44 (0.30-0.82) K/mm3 Eos # (Auto) 0.22 (0.04-0.54) K/mm3 Baso # (Auto) 0.02 (0.01-0.08) K/mm3 Sodium (136-145) mEq/L Potassium (3.5-5.1) mEq/L Chloride (98-107) mEq/L Carbon Dioxide (21-32) mEq/L Anion Gap (5-15) BUN (7-18) mg/dL Creatinine (0.7-1.3) mg/dL Est Cr Clr Drug Dosing mL/min Estimated GFR (MDRD) (>60) mL/min BUN/Creatinine Ratio (14-18) Glucose (83-115) mg/dL POC Glucose (83-110) mg/dL Calcium (8.5-10.1) mg/dL Total Bilirubin (0.2-1.0) mg/dL AST (15-37) U/L ALT (16-63) U/L Alkaline Phosphatase (46-116) U/L Total Protein (6.4-8.2) g/dl Albumin (3.4-5.0) g/dl Globulin gm/dL Albumin/Globulin Ratio (1-2) Med Orders - Current: Current Medications Acetaminophen (Tylenol) 650 mg PO Q4H PRN PRN Reason: Pain (Mild 1-3)/fever Hydrocodone Bitart/Acetaminophen (Pinch 325-5 Mg) 1 tab PO Q4H PRN PRN Reason: Pain (moderate 4-6) Aspirin (Aspirin) 81 mg PO DAILY [facility] Last Admin: 02/03/18 08:57 Dose: 81 mg Bisacodyl (Dulcolax) 5 mg PO DAILY PRN PRN Reason: Constipation Last Admin: 01/25/18 02:30 Dose: 5 mg Calcium Carbonate/Glycine (Tums) 500 mg PO BID [facility] Last Admin: 02/03/18 23:25 Dose: 500 mg Dextrose/Water (Dextrose 50% In Water) 50 ml IVPUSH ASDIRECTED PRN PRN Reason: Hypoglycemia Docusate Sodium (Colace) 100 mg PO BID PRN PRN Reason: Constipation Famotidine (Pepcid) 20 mg PO Q24H [facility] Last Admin: 02/03/18 23:16 Dose: 20 mg Folic Acid (Folic Acid) 1 mg PO BEDTIME [facility] Last Admin: 02/03/18 23:17 Dose: 1 mg Guaifenesin/Phenylephrine HCl (Robitussin Dm) 5 ml PO Q4H PRN PRN Reason: Cough Haloperidol Lactate (Haldol) 2.5 mg IM Q8H PRN PRN Reason: Agitation/Restlessness Last Admin: 01/24/18 08:25 Dose: 2.5 mg Hydralazine HCl (Apresoline) 20 mg IVPUSH Q4H PRN PRN Reason: hypertension Hydromorphone HCl (Dilaudid) 0.25 mg IVPUSH Q2H PRN PRN Reason: Pain (severe 7-10) Promethazine HCl 6.25 mg/ (Sodium Chloride) 50.25 mls @ 100 mls/hr IV Q6H PRN PRN Reason: Nausea/Vomiting Insulin Aspart (Novolog) 0 unit SUBCUT QIDACANDBED [facility]; Protocol Last Admin: 02/04/18 00:07 Dose: Not Given Levothyroxine Sodium (Synthroid) 88 mcg PO ACBREAKFAST [facility] Last Admin: 02/04/18 05:55 Dose: 88 mcg Lisinopril (Prinivil) 20 mg PO DAILY [facility] Last Admin: 02/03/18 08:56 Dose: 20 mg Lorazepam (Ativan) 2 mg IVPUSH Q4H PRN PRN Reason: Seizures Lorazepam (Ativan) 0.25 mg IVPUSH Q4H PRN PRN Reason: Anxiety Last Admin: 01/24/18 15:57 Dose: 0.25 mg Magnesium Hydroxide (Milk Of Magnesia) 30 ml PO Q12H PRN PRN Reason: Constipation Metformin HCl (Glucophage) 500 mg PO BIDMEALS [facility] Last Admin: 02/04/18 06:02 Dose: 500 mg Metoprolol Tartrate (Lopressor) 5 mg IVPUSH Q4H PRN PRN Reason: Tachycardia Miscellaneous Information (Remove Patch) 1 ea TRDERM DAILY [facility] Last Admin: 02/03/18 08:57 Dose: 1 ea Multivitamins (Thera) 1 each PO BEDTIME [facility] Last Admin: 02/03/18 23:17 Dose: 1 each Nicotine (Habitrol) 21 mg TRDERM DAILY [facility] Last Admin: 02/03/18 08:56 Dose: 21 mg Oral Electrolytes (Thermotabs) 1 each PO BID [facility] Stop: 02/05/18 23:00 Last Admin: 02/03/18 23:17 Dose: 1 each Polyethylene Glycol (Miralax) 17 gm PO DAILY PRN PRN Reason: Constipation Promethazine HCl (Phenergan) 25 mg PO Q6H PRN PRN Reason: Nausea/Vomiting Risperidone (Risperidal) 1 mg PO BEDTIME [facility] Last Admin: 02/03/18 23:17 Dose: 1 mg Saccharomyces Boulardii (Florastor) 250 mg PO BID [facility] Last Admin: 02/03/18 23:16 Dose: 250 mg Senna/Docusate Sodium (Senna Plus) 1 tab PO BID PRN PRN Reason: Constipation Sertraline HCl (Zoloft) 50 mg PO BEDTIME [facility] Last Admin: 02/03/18 23:16 Dose: 50 mg Simvastatin (Zocor) 20 mg PO BEDTIME [facility] Last Admin: 02/03/18 23:17 Dose: 20 mg Sodium Chloride (Saline Flush) 10 ml FLUSH ASDIRECTED PRN PRN Reason: Keep Vein Open Last Admin: 01/20/18 12:04 Dose: 10 ml Thiamine HCl (Vitamin B-1) 100 mg PO BEDTIME [facility] Last Admin: 02/03/18 23:17 Dose: 100 mg Discontinued Medications Bisacodyl (Dulcolax) 10 mg RECTAL ONETIME ONE Stop: 01/21/18 20:01 Last Admin: 01/21/18 19:58 Dose: Not Given Caffeine (Caffeine) 200 mg PO ONETIME ONE Stop: 01/22/18 07:01 Last Admin: 01/22/18 06:01 Dose: 200 mg Clindamycin HCl (Cleocin) 150 mg PO Q8H [facility] Stop: 02/01/18 11:01 Last Admin: 02/01/18 11:39 Dose: 150 mg Famotidine (Pepcid) 20 mg PO BID [facility] Last Admin: 01/22/18 10:02 Dose: 20 mg Famotidine (Pepcid) 20 mg IVPUSH Q24H [facility] Last Admin: 01/29/18 21:04 Dose: 20 mg Famotidine (Pepcid) 20 mg IVPUSH ONETIME ONE Stop: 01/22/18 11:44 Last Admin: 01/22/18 11:59 Dose: 20 mg Hydralazine HCl (Apresoline) 20 mg IVPUSH Q4H PRN PRN Reason: Hypertension Last Admin: 01/26/18 03:30 Dose: 20 mg Sodium Chloride (Normal Saline) 1,000 mls @ 125 mls/hr IV ASDIRECTED [facility] Last Admin: 01/22/18 05:05 Dose: 125 mls/hr Azithromycin 500 mg/ Sodium (Chloride) 250 mls @ 250 mls/hr IV ONETIME ONE Stop: 01/22/18 00:56 Last Admin: 01/22/18 00:21 Dose: 250 mls/hr Piperacillin Sod/Tazobactam (Sod 4.5 gm/ Sodium Chloride) 100 mls @ 25 mls/hr IV Q8H [facility] Last Admin: 01/24/18 04:57 Dose: 25 mls/hr Piperacillin Sod/Tazobactam (Sod 4.5 gm/ Sodium Chloride) 100 mls @ 200 mls/hr IV ONETIME ONE Stop: 01/22/18 12:29 Last Admin: 01/22/18 12:00 Dose: 200 mls/hr Dextrose/Sodium Chloride (Dextrose 5%-Normal Saline) 1,000 mls @ 50 mls/hr IV ASDIRECTED [facility] Last Admin: 01/23/18 08:07 Dose: 50 mls/hr Insulin Aspart (Novolog) 0 unit SUBCUT Q6H PRN; Protocol PRN Reason: Hyperglycemia Insulin Aspart (Novolog) 0 unit SUBCUT Q6HR [facility]; Protocol Last Admin: 01/24/18 20:31 Dose: Not Given Lactulose (Cephulac) 20 gm PO ONETIME ONE Stop: 01/21/18 19:03 Last Admin: 01/21/18 19:58 Dose: Not Given Lorazepam (Ativan) 0.5 mg IVPUSH BEDTIME ONE Stop: 01/23/18 23:45 Last Admin: 01/24/18 00:03 Dose: 0.5 mg Magnesium Sulfate (Pharmacy To Dose - Magnesium Replacement) 1 dose .XX ASDIRECTED [facility] Metformin HCl (Glucophage) 500 mg PO BIDMEALS [facility] Last Admin: 01/22/18 06:02 Dose: 500 mg Metformin HCl (Glucophage) 500 mg PO BIDMEALS [facility] Modafinil (Provigil) 100 mg PO DAILY [facility] Modafinil (Provigil) 100 mg PO NOW STA Stop: 01/22/18 11:01 Last Admin: 01/22/18 11:34 Dose: 100 mg Modafinil (Provigil) 200 mg PO DAILY [facility] Stop: 01/23/18 09:01 Last Admin: 01/23/18 08:13 Dose: 200 mg Nicotine (Habitrol) 21 mg TRDERM DAILY [facility] Non-Formulary Medication (Petrolatum,White [Vaseline]) 453.6 gm TOP DAILY [facility] Pantoprazole Sodium (Protonix Iv) 40 mg IVPUSH ONETIME ONE Stop: 01/20/18 12:06 Last Admin: 01/20/18 12:13 Dose: 40 mg Pantoprazole Sodium (Protonix Iv) 40 mg IV Q12HR [facility] Last Admin: 01/21/18 21:09 Dose: 40 mg Potassium Chloride (Pharmacy To Dose - Potassium Replacement) 1 dose .XX ASDIRECTED [facility] Potassium Chloride (Klor-Con M20) 40 meq PO ONETIME ONE Stop: 01/23/18 10:01 Last Admin: 01/23/18 09:43 Dose: 40 meq Risperidone (Risperidal) 0.5 mg PO DAILY [facility] Last Admin: 01/26/18 09:08 Dose: 0.5 mg Risperidone (Risperidal) 1 mg PO DAILY [facility] Risperidone (Risperidal) 1 mg PO BEDTIME [facility] Last Admin: 01/24/18 20:31 Dose: Not Given Sertraline HCl (Zoloft) 50 mg PO DAILY [facility] Last Admin: 01/26/18 09:08 Dose: 50 mg Temazepam (Restoril) 7.5 mg PO BEDTIME PRN PRN Reason: Sleep - Exam General: Alert, Cooperative, No Acute Distress HEENT: Pupils Equal, Pupils Reactive, Mucous Membr. Moist/[place] Neck: Supple, Trachea Midline, No JVD Lungs: Normal Respiratory Effort, Decreased Breath Sounds Cardiovascular: Regular Rate, Regular Rhythm GI/Abdominal Exam: Normal Bowel Sounds, Soft, Non-Tender, No Organomegaly, No Distention, No Abnormal Bruit, No Mass (Male) Exam: Deferred Back Exam: Normal Inspection, Decreased Range of Motion Extremities: Normal Inspection, Normal Range of Motion, Non-Tender, No Pedal Edema, Normal Capillary Refill, Other (bilateral lower extremity atrophy) Peripheral Pulses: 2+: Dorsalis Pedis (L), Dorsalis Pedis (R) Skin: Warm, Dry, Intact Neurological: No New Focal Deficit Psy/Mental Status: Alert, Normal Affect, Normal Mood - Problem List Review Problem List Initiated/Reviewed/Updated: Yes - Plan Plan:: A/P: Chronic: Type 2 Diabetes, Stable - BS well controlled - Continue Metformin 500 mg BID - Accu-check QIDACandHS with Low level ISS Cachexia, Continues to Improve - Patient reported UBW 190# (although he is unable to report when he last weighed this amount); weight has ranged from 148-168# during admission with most weights between 155-160# - RD following - On Glucerna 4oz TID with meals 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 Whiteside following Resolved: S/p Healthcare Acquired Aspiration Pneumonia/Chemical Pneumonitis - Risk Factors: GERD and AMS - Suspect this is more of a chemical pneumonitis with aspiration, will cover for appropriate pathogens - Had wet cough; suctioned in ED with clear to yellow sputum - Initial CXR-no acute abnormal findings; Follow up CXR shows shows right basilar opacification (new) with last CXR read as nothing acute appreciated on front chest xray - Received one dose of IV 500 mg Azithromycin during admission - Received Zosyn IV 4.5 grams Q8H for pharmacy to dose plus Probiotic 1 tab po BID --> changed to clindamycin 150 mg po q 8 hr on 01/24/18 and received through 02/01/18 - He was on PPI but now on H2B for GERD - Mycoplasma pneumonia, viral panel, and strep pneumonia Ag negative - Decongestant/Expectorant PRN and IS as directed - Afebrile w/o leukocytosis - Aspiration Precautions - May have oropharyngeal dysfunction --> [employer] has signed off on patient S/p Probable Oropharyngeal Dysfunction - [employer] initial eval with recommendation of NDD4 diet (regular) and nectar thick liquids; diet was upgraded to thin liquids and no straws - [employer] has now signed off on patient S/p Hypokalemia - was 3.4 01/23/18, improved to 3.9 on 01/24/18 - likely 2/2 poor intake and hemodilution with IVF - replete per protocol S/p Acute Hematemesis - Risk factors: History of alcohol abuse, GERD, Pill Esophagitis - Reported by Panfilo [place] to be coffee ground emesis - No further episodes with EMS, in ED, or during admit thus far - ED provider reports negative FOBT - Supportive care: monitor vitals, Hgb --> if indicated, will consult General Surgery for possible EGD - BP 160/98 in ED, improved at admit - Ordered Protonix 40 mg BID IV--> now on H2B S/p Hypotension - BP 86/68 yesterday morning - Will adjust hydralazine order to be given if BP >160/90 S/p Mild Hyponatremia - Na 135--> 136 - Has been on the lower end of normal - Likely 2/2 sertraline and varied intakes - On Thermotabs 2 tab po daily x 3 days S/p Mental Status Changes - Has underlying Dementia - Likely 2/2 Medication Side effects (Increased Dose of Risperdal) --> Daughter reported to ED provider that psych medications were recently changed - Panfilo reported slurred speech and lethargy --> - Head CT in ED read as senescent changes with no acute abnormality - Dr. Whiteside recommended: Discontinuing Risperdal 0.5 mg; continuing 1 mg Risperdal q Hs; changing sertraline to HS --> requested that he re-evaluate patient today as patient's days/nights appear to be switched Chronic: Hx Alcohol Use Disorder Schizophrenia MDD GERD S/p Cardiac pacemaker placement Weakness HTN HLD Hypothyroidism Plan: He is clinically stable PRN AM Labs Continue current treatment Fall and Aspiration Precautions DVT/GI Prophylaxis: H2B/SCDs PT/OT for deconditioning CM/SW still working on placement Other orders as indicated above Code Status: Full code Discharge pending placement to any [place] facilities
[2018-02-04] MEDS: Saccharomyces Boulardii (Probiotic) 250 MG Cap PO SCH ×2 (11:22→20:21)
[2018-02-04] MEDS: Calcium Carbonate 500 MG Tab.Chew PO SCH ×2 (11:22→20:22)
[2018-02-04] MEDS: Lisinopril 20 MG Tab PO SCH (11:22)
[2018-02-04] MEDS: Aspirin 81 MG Tab.Chew PO SCH (11:22)
[2018-02-04] MEDS: Potassium Chloride/Sodium Chloride Tab PO SCH ×2 (11:23→20:22)
[2018-02-04] MEDS: Nicotine 21 MG/24 Hr Patch TRDERM SCH (11:25)
[2018-02-04] MEDS: risperiDONE 1 MG Tab PO SCH (20:22)
[2018-02-04] MEDS: Multivitamins,Therapeutic Tab PO SCH (20:22)
[2018-02-04] MEDS: Famotidine 20 MG Tab PO SCH (20:22)
[2018-02-04] MEDS: Sertraline 50 MG Tab PO SCH (20:23)
[2018-02-04] MEDS: Thiamine 100 MG Tab PO SCH (20:23)
[2018-02-04] MEDS: Folic Acid 1 MG Tab PO SCH (20:23)
[2018-02-04] MEDS: Simvastatin 20 MG Tab PO SCH (20:24)
[2018-02-05] MEDS: metFORMIN 500 MG Tab PO SCH ×2 (06:36→17:26)
[2018-02-05] MEDS: Levothyroxine 88 MCG Tab PO SCH (06:36)
[2018-02-05] MEDS: Insulin Aspart 100 Units/ML 3 ML Pen SUBCUT SCH ×5 (07:38→22:45)
[2018-02-05] MEDS: Saccharomyces Boulardii (Probiotic) 250 MG Cap PO SCH ×3 (08:50→22:36)
[2018-02-05] MEDS: Famotidine 20 MG Tab PO SCH ×3 (08:51→22:36)
[2018-02-05] MEDS: Aspirin 81 MG Tab.Chew PO SCH (08:51)
[2018-02-05] MEDS: Nicotine 21 MG/24 Hr Patch TRDERM SCH (08:51)
[2018-02-05] MEDS: Lisinopril 20 MG Tab PO SCH (08:51)
[2018-02-05] MEDS: Potassium Chloride/Sodium Chloride Tab PO SCH ×3 (08:51→22:39)
[2018-02-05] MEDS: Calcium Carbonate 500 MG Tab.Chew PO SCH ×3 (08:51→22:41)
--- NOTE | 2018-02-05 10:38 | PCM.PN ---
- General Info Date of Service: 02/05/18 Admission Dx/Problem (Free Text): Admission Diagnosis/Problem Admission Diagnosis/Problem Coffee ground emesis Subjective Update: Follow Up Functional Status: Reports: Pain Controlled, Tolerating Diet, Ambulating, Urinating. Denies: New Symptoms - Review of Systems General: Denies: Fever, Chills HEENT: Reports: No Symptoms Pulmonary: Denies: Shortness of Breath, Cough, Sputum Cardiovascular: Denies: Chest Pain, Palpitations, Dyspnea on Exertion, Lightheadedness Gastrointestinal: Denies: Abdominal Pain, Decreased Appetite, Difficulty Swallowing, Nausea, Vomiting Genitourinary: Reports: No Symptoms Musculoskeletal: Reports: No Symptoms Skin: Denies: Cyanosis, Pallor, Diaphoresis, Rash Neurological: Reports: Confusion (baseline dementia), Pre-Existing Deficit, Weakness, Gait Disturbance. Denies: Difficulty Walking Psychiatric: Denies: Depression, Anxiety, Agitation, Hallucinations Systems Review Comment:: No overnight or acute issues. He is relatively stable. He is alert and awake this morning, eating his breakfast on his own. He has no complaints. - Patient Data Vitals - Most Recent: Last Vital Signs Temp 35.8 C 02/05/18 08:49 Pulse 73 02/05/18 08:49 Resp 18 02/05/18 08:49 BP 135/73 02/05/18 08:51 Pulse Ox 95 02/05/18 08:49 Weight - Most Recent: 67.721 kg I&O - Last 24 Hours: Intake & Output 02/04/18 02/05/18 02/05/18 22:59 06:59 14:59 Intake Total 400 150 Output Total 100 Balance 300 150 Lab Results Last 24 Hours: Laboratory Results - last 24 hr 02/04/18 02/04/18 02/04/18 Range/Units 11:11 16:34 20:17 WBC (4.23-9.07) K/mm3 RBC (4.63-6.08) M/mm3 Hgb (13.7-17.5) gm/L Hct (40.1-51.0) % MCV (79.0-92.2) fl MCH (25.7-32.2) pg MCHC (32.2-35.5) g/dl RDW Std Deviation (35.1-43.9) fL Plt Count (163-337) K/mm3 MPV (9.4-12.3) fl Neut % (Auto) (34.0-67.9) % Lymph % (Auto) (21.8-53.1) % [place] % (Auto) (5.3-12.2) % Eos % (Auto) (0.8-7.0) Baso % (Auto) (0.1-1.2) % Neut # (Auto) (1.78-5.38) K/mm3 Lymph # (Auto) (1.32-3.57) K/mm3 [place] # (Auto) (0.30-0.82) K/mm3 Eos # (Auto) (0.04-0.54) K/mm3 Baso # (Auto) (0.01-0.08) K/mm3 Sodium (136-145) mEq/L Potassium (3.5-5.1) mEq/L Chloride (98-107) mEq/L Carbon Dioxide (21-32) mEq/L Anion Gap (5-15) BUN (7-18) mg/dL Creatinine (0.7-1.3) mg/dL Est Cr Clr Drug Dosing mL/min Estimated GFR (MDRD) (>60) mL/min BUN/Creatinine Ratio (14-18) Glucose (83-115) mg/dL POC Glucose 101 128 H 197 H (83-110) mg/dL Calcium (8.5-10.1) mg/dL 18 18 Range/Units 05:05 05:05 WBC 5.85 (4.23-9.07) K/mm3 RBC 4.47 L (4.63-6.08) M/mm3 Hgb 12.5 L (13.7-17.5) gm/L Hct 37.7 L (40.1-51.0) % MCV 84.3 (79.0-92.2) fl MCH 28.0 (25.7-32.2) pg MCHC 33.2 (32.2-35.5) g/dl RDW Std Deviation 41.0 (35.1-43.9) fL Plt Count 303 (163-337) K/mm3 MPV 8.9 L (9.4-12.3) fl Neut % (Auto) 60.3 (34.0-67.9) % Lymph % (Auto) 26.5 (21.8-53.1) % [place] % (Auto) 9.6 (5.3-12.2) % Eos % (Auto) 3.1 (0.8-7.0) Baso % (Auto) 0.5 (0.1-1.2) % Neut # (Auto) 3.53 (1.78-5.38) K/mm3 Lymph # (Auto) 1.55 (1.32-3.57) K/mm3 [place] # (Auto) 0.56 (0.30-0.82) K/mm3 Eos # (Auto) 0.18 (0.04-0.54) K/mm3 Baso # (Auto) 0.03 (0.01-0.08) K/mm3 Sodium 136 (136-145) mEq/L Potassium 4.2 (3.5-5.1) mEq/L Chloride 103 (98-107) mEq/L Carbon Dioxide 26 (21-32) mEq/L Anion Gap 11.2 (5-15) BUN 31 H (7-18) mg/dL Creatinine 1.1 (0.7-1.3) mg/dL Est Cr Clr Drug Dosing 60.62 mL/min Estimated GFR (MDRD) > 60 (>60) mL/min BUN/Creatinine Ratio 28.2 H (14-18) Glucose 101 (83-115) mg/dL POC Glucose (83-110) mg/dL Calcium 9.7 (8.5-10.1) mg/dL Med Orders - Current: Current Medications Acetaminophen (Tylenol) 650 mg PO Q4H PRN PRN Reason: Pain (Mild 1-3)/fever Hydrocodone Bitart/Acetaminophen ([place] 325-5 Mg) 1 tab PO Q4H PRN PRN Reason: Pain (moderate 4-6) Aspirin (Aspirin) 81 mg PO DAILY [facility] [place] Last Admin: 02/05/18 08:51 Dose: 81 mg Bisacodyl (Dulcolax) 5 mg PO DAILY PRN PRN Reason: Constipation Last Admin: 01/25/18 02:30 Dose: 5 mg Calcium Carbonate/Glycine (Tums) 500 mg PO BID [facility] [place] Last Admin: 02/05/18 08:51 Dose: 500 mg Dextrose/Water (Dextrose 50% In Water) 50 ml IVPUSH ASDIRECTED PRN PRN Reason: Hypoglycemia Docusate Sodium (Colace) 100 mg PO BID PRN PRN Reason: Constipation Famotidine (Pepcid) 20 mg PO BID [facility] [place] Last Admin: 02/05/18 08:51 Dose: 20 mg Folic Acid (Folic Acid) 1 mg PO BEDTIME [facility] [place] Last Admin: 02/04/18 20:23 Dose: 1 mg Guaifenesin/Phenylephrine HCl (Robitussin Dm) 5 ml PO Q4H PRN PRN Reason: Cough Haloperidol Lactate (Haldol) 2.5 mg IM Q8H PRN PRN Reason: Agitation/Restlessness Last Admin: 01/24/18 08:25 Dose: 2.5 mg Hydralazine HCl (Apresoline) 20 mg IVPUSH Q4H PRN PRN Reason: hypertension Hydromorphone HCl (Dilaudid) 0.25 mg IVPUSH Q2H PRN PRN Reason: Pain (severe 7-10) Promethazine HCl 6.25 mg/ (Sodium Chloride) 50.25 mls @ 100 mls/hr IV Q6H PRN PRN Reason: Nausea/Vomiting Insulin Aspart (Novolog) 0 unit SUBCUT QIDACANDBED [facility] [place]; Protocol Last Admin: 02/05/18 07:38 Dose: Not Given Levothyroxine Sodium (Synthroid) 88 mcg PO ACBREAKFAST [facility] [place] Last Admin: 02/05/18 06:36 Dose: 88 mcg Lisinopril (Prinivil) 20 mg PO DAILY [facility] [place] Last Admin: 02/05/18 08:51 Dose: 20 mg Lorazepam (Ativan) 2 mg IVPUSH Q4H PRN PRN Reason: Seizures Lorazepam (Ativan) 0.25 mg IVPUSH Q4H PRN PRN Reason: Anxiety Last Admin: 01/24/18 15:57 Dose: 0.25 mg Magnesium Hydroxide (Milk Of Magnesia) 30 ml PO Q12H PRN PRN Reason: Constipation Metformin HCl (Glucophage) 500 mg PO BIDMEALS [facility] [place] Last Admin: 02/05/18 06:36 Dose: 500 mg Metoprolol Tartrate (Lopressor) 5 mg IVPUSH Q4H PRN PRN Reason: Tachycardia Miscellaneous Information (Remove Patch) 1 ea TRDERM DAILY [facility] [place] Last Admin: 02/05/18 08:52 Dose: 1 ea Multivitamins (Thera) 1 each PO BEDTIME [facility] [place] Last Admin: 02/04/18 20:22 Dose: 1 each Nicotine (Habitrol) 21 mg TRDERM DAILY [facility] [place] Last Admin: 02/05/18 08:51 Dose: 21 mg Oral Electrolytes (Thermotabs) 1 each PO BID [facility] [place] Stop: 02/05/18 23:00 Last Admin: 02/05/18 08:51 Dose: 1 each Polyethylene Glycol (Miralax) 17 gm PO DAILY PRN PRN Reason: Constipation Promethazine HCl (Phenergan) 25 mg PO Q6H PRN PRN Reason: Nausea/Vomiting Risperidone (Risperidal) 1 mg PO BEDTIME [facility] [place] Last Admin: 02/04/18 20:22 Dose: 1 mg Saccharomyces Boulardii (Florastor) 250 mg PO BID [facility] [place] Last Admin: 02/05/18 08:50 Dose: 250 mg Senna/Docusate Sodium (Senna Plus) 1 tab PO BID PRN PRN Reason: Constipation Sertraline HCl (Zoloft) 50 mg PO BEDTIME [facility] [place] Last Admin: 02/04/18 20:23 Dose: 50 mg Simvastatin (Zocor) 20 mg PO BEDTIME [facility] [place] Last Admin: 02/04/18 20:24 Dose: 20 mg Sodium Chloride (Saline Flush) 10 ml FLUSH ASDIRECTED PRN PRN Reason: Keep Vein Open Last Admin: 01/20/18 12:04 Dose: 10 ml Thiamine HCl (Vitamin B-1) 100 mg PO BEDTIME [facility] [place] Last Admin: 02/04/18 20:23 Dose: 100 mg Discontinued Medications Bisacodyl (Dulcolax) 10 mg RECTAL ONETIME ONE Stop: 01/21/18 20:01 Last Admin: 01/21/18 19:58 Dose: Not Given Caffeine (Caffeine) 200 mg PO ONETIME ONE Stop: 01/22/18 07:01 Last Admin: 01/22/18 06:01 Dose: 200 mg Clindamycin HCl (Cleocin) 150 mg PO Q8H [facility] [place] Stop: 02/01/18 11:01 Last Admin: 02/01/18 11:39 Dose: 150 mg Famotidine (Pepcid) 20 mg PO BID [facility] [place] Last Admin: 01/22/18 10:02 Dose: 20 mg Famotidine (Pepcid) 20 mg IVPUSH Q24H [facility] [place] Last Admin: 01/29/18 21:04 Dose: 20 mg Famotidine (Pepcid) 20 mg IVPUSH ONETIME ONE Stop: 01/22/18 11:44 Last Admin: 01/22/18 11:59 Dose: 20 mg Famotidine (Pepcid) 20 mg PO Q24H [facility] Last Admin: 02/03/18 23:16 Dose: 20 mg Hydralazine HCl (Apresoline) 20 mg IVPUSH Q4H PRN PRN Reason: Hypertension Last Admin: 01/26/18 03:30 Dose: 20 mg Sodium Chloride (Normal Saline) 1,000 mls @ 125 mls/hr IV ASDIRECTED [facility] [place] Last Admin: 01/22/18 05:05 Dose: 125 mls/hr Azithromycin 500 mg/ Sodium (Chloride) 250 mls @ 250 mls/hr IV ONETIME ONE Stop: 01/22/18 00:56 Last Admin: 01/22/18 00:21 Dose: 250 mls/hr Piperacillin Sod/Tazobactam (Sod 4.5 gm/ Sodium Chloride) 100 mls @ 25 mls/hr IV Q8H [facility] [place] Last Admin: 01/24/18 04:57 Dose: 25 mls/hr Piperacillin Sod/Tazobactam (Sod 4.5 gm/ Sodium Chloride) 100 mls @ 200 mls/hr IV ONETIME ONE Stop: 01/22/18 12:29 Last Admin: 01/22/18 12:00 Dose: 200 mls/hr Dextrose/Sodium Chloride (Dextrose 5%-Normal Saline) 1,000 mls @ 50 mls/hr IV ASDIRECTED [facility] [place] Last Admin: 01/23/18 08:07 Dose: 50 mls/hr Insulin Aspart (Novolog) 0 unit SUBCUT Q6H PRN; Protocol PRN Reason: Hyperglycemia Insulin Aspart (Novolog) 0 unit SUBCUT Q6HR [facility] [place]; Protocol Last Admin: 01/24/18 20:31 Dose: Not Given Lactulose (Cephulac) 20 gm PO ONETIME ONE Stop: 01/21/18 19:03 Last Admin: 01/21/18 19:58 Dose: Not Given Lorazepam (Ativan) 0.5 mg IVPUSH BEDTIME ONE Stop: 01/23/18 23:45 Last Admin: 01/24/18 00:03 Dose: 0.5 mg Magnesium Sulfate (Pharmacy To Dose - Magnesium Replacement) 1 dose .XX ASDIRECTED [facility] [place] Metformin HCl (Glucophage) 500 mg PO BIDMEALS [facility] [place] Last Admin: 01/22/18 06:02 Dose: 500 mg Metformin HCl (Glucophage) 500 mg PO BIDMEALS [facility] [place] Modafinil (Provigil) 100 mg PO DAILY [facility] [place] Modafinil (Provigil) 100 mg PO NOW STA Stop: 01/22/18 11:01 Last Admin: 01/22/18 11:34 Dose: 100 mg Modafinil (Provigil) 200 mg PO DAILY [facility] [place] Stop: 01/23/18 09:01 Last Admin: 01/23/18 08:13 Dose: 200 mg Nicotine (Habitrol) 21 mg TRDERM DAILY [facility] [place] Non-Formulary Medication (Petrolatum,White [Vaseline]) 453.6 gm TOP DAILY [facility] [place] Pantoprazole Sodium (Protonix Iv) 40 mg IVPUSH ONETIME ONE Stop: 01/20/18 12:06 Last Admin: 01/20/18 12:13 Dose: 40 mg Pantoprazole Sodium (Protonix Iv) 40 mg IV Q12HR [facility] [place] Last Admin: 01/21/18 21:09 Dose: 40 mg Potassium Chloride (Pharmacy To Dose - Potassium Replacement) 1 dose .XX ASDIRECTED [facility] [place] Potassium Chloride (Klor-Con M20) 40 meq PO ONETIME ONE Stop: 01/23/18 10:01 Last Admin: 01/23/18 09:43 Dose: 40 meq Risperidone (Risperidal) 0.5 mg PO DAILY [facility] [place] Last Admin: 01/26/18 09:08 Dose: 0.5 mg Risperidone (Risperidal) 1 mg PO DAILY [facility] [place] Risperidone (Risperidal) 1 mg PO BEDTIME [facility] [place] Last Admin: 01/24/18 20:31 Dose: Not Given Sertraline HCl (Zoloft) 50 mg PO DAILY [facility] [place] Last Admin: 01/26/18 09:08 Dose: 50 mg Temazepam (Restoril) 7.5 mg PO BEDTIME PRN PRN Reason: Sleep - Exam General: Alert, Cooperative, No Acute Distress HEENT: Pupils Equal, Pupils Reactive, Mucous Membr. Moist/[place] Neck: Supple, No JVD Lungs: Normal Respiratory Effort, Decreased Breath Sounds Cardiovascular: Regular Rate, Regular Rhythm, Other (pace maker on left upper thorax) GI/Abdominal Exam: Normal Bowel Sounds, Soft, Non-Tender, No Organomegaly, No Distention, No Abnormal Bruit, No Mass (Male) Exam: Deferred Back Exam: Normal Inspection, Decreased Range of Motion Extremities: Normal Inspection, Normal Range of Motion, Non-Tender, No Pedal Edema, Normal Capillary Refill Peripheral Pulses: 2+: Dorsalis Pedis (L), Dorsalis Pedis (R) Skin: Warm, Dry, Intact Neurological: No New Focal Deficit Psy/Mental Status: Alert. No: Normal Affect, Anxious, Agitated, Suicidal Ideation, Hallucinations - Problem List Review Problem List Initiated/Reviewed/Updated: Yes - My Orders Last 24 Hours: My Active Orders 02/04/18 21:00 Famotidine [Pepcid] 20 mg PO BID - Plan Plan:: A/P: Chronic: Type 2 Diabetes, Stable - BS well controlled - Continue Metformin 500 mg BID - Accu-check QIDACandHS with Low level ISS Cachexia, Continues to Improve - Patient reported UBW 190# (although he is unable to report when he last weighed this amount); weight has ranged from 148-168# during admission with most weights between 155-160# - RD following - On Glucerna 4oz TID with meals 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 Whiteside following Resolved: S/p Healthcare Acquired Aspiration Pneumonia/Chemical Pneumonitis - Risk Factors: GERD and AMS - Suspect this is more of a chemical pneumonitis with aspiration, will cover for appropriate pathogens - Had wet cough; suctioned in ED with clear to yellow sputum - Initial CXR-no acute abnormal findings; Follow up CXR shows shows right basilar opacification (new) with last CXR read as nothing acute appreciated on front chest xray - Received one dose of IV 500 mg Azithromycin during admission - Received Zosyn IV 4.5 grams Q8H for pharmacy to dose plus Probiotic 1 tab po BID --> changed to clindamycin 150 mg po q 8 hr on 01/24/18 and received through 02/01/18 - He was on PPI but now on H2B for GERD - Mycoplasma pneumonia, viral panel, and strep pneumonia Ag negative - Decongestant/Expectorant PRN and IS as directed - Afebrile w/o leukocytosis - Aspiration Precautions - May have oropharyngeal dysfunction --> [employer]CTION [employer]ER has signed off on patient S/p Probable Oropharyngeal Dysfunction - [employer] initial eval with recommendation of NDD4 diet (regular) and nectar thick liquids; diet was upgraded to thin liquids and no straws - [employer]CTION LAB[employer]ER has now signed off on patient S/p Hypokalemia - was 3.4 01/23/18, improved to 3.9 on 01/24/18 - likely 2/2 poor intake and hemodilution with IVF - replete per protocol S/p Acute Hematemesis - Risk factors: History of alcohol abuse, GERD, Pill Esophagitis - Reported by [facility] to be coffee ground emesis - No further episodes with EMS, in ED, or during admit thus far - ED provider reports negative FOBT - Supportive care: monitor vitals, Hgb --> if indicated, will consult General Surgery for possible EGD - BP 160/98 in ED, improved at admit - Ordered Protonix 40 mg BID IV--> now on H2B S/p Hypotension - BP 86/68 yesterday morning - Will adjust hydralazine order to be given if BP >160/90 S/p Mild Hyponatremia - Na 135--> 136 - Has been on the lower end of normal - Likely 2/2 sertraline and varied intakes - On Thermotabs 2 tab po daily x 3 days S/p Mental Status Changes - Has underlying Dementia - Likely 2/2 Medication Side effects (Increased Dose of Risperdal) --> Daughter reported to ED provider that psych medications were recently changed - [facility] reported slurred speech and lethargy --> - Head CT in ED read as senescent changes with no acute abnormality - Dr. Whiteside recommended: Discontinuing Risperdal 0.5 mg; continuing 1 mg Risperdal q Hs; changing sertraline to HS --> requested that he re-evaluate patient today as patient's days/nights appear to be switched Chronic: Hx Alcohol Use Disorder Schizophrenia MDD GERD S/p Cardiac pacemaker placement Weakness HTN HLD Hypothyroidism Plan: He remains clinically stable PRN AM Labs Continue current treatment Fall and Aspiration Precautions DVT/GI Prophylaxis: H2B/SCDs CM/SW still working on placement Encourage to ambulate as tolerated Other orders as indicated above Code Status: Full code Discharge pending placement to any [place] facilities
[2018-02-05] MEDS: Simvastatin 20 MG Tab PO SCH ×2 (19:51→22:45)
[2018-02-05] MEDS: Thiamine 100 MG Tab PO SCH ×2 (19:52→22:44)
[2018-02-05] MEDS: risperiDONE 1 MG Tab PO SCH ×2 (19:52→22:36)
[2018-02-05] MEDS: Folic Acid 1 MG Tab PO SCH ×2 (19:53→22:36)
[2018-02-05] MEDS: Multivitamins,Therapeutic Tab PO SCH ×2 (19:54→22:36)
[2018-02-05] MEDS: Sertraline 50 MG Tab PO SCH ×2 (19:54→22:45)
[2018-02-06] MEDS: metFORMIN 500 MG Tab PO SCH ×2 (08:01→17:48)
[2018-02-06] MEDS: Levothyroxine 88 MCG Tab PO SCH (08:01)
[2018-02-06] MEDS: Famotidine 20 MG Tab PO SCH ×2 (09:17→21:57)
[2018-02-06] MEDS: Lisinopril 20 MG Tab PO SCH (09:17)
[2018-02-06] MEDS: Aspirin 81 MG Tab.Chew PO SCH (09:18)
[2018-02-06] MEDS: Nicotine 21 MG/24 Hr Patch TRDERM SCH (09:18)
[2018-02-06] MEDS: Calcium Carbonate 500 MG Tab.Chew PO SCH ×2 (09:18→21:57)
[2018-02-06] MEDS: Saccharomyces Boulardii (Probiotic) 250 MG Cap PO SCH ×2 (09:18→21:57)
[2018-02-06] MEDS: Insulin Aspart 100 Units/ML 3 ML Pen SUBCUT SCH ×4 (09:28→21:58)
--- NOTE | 2018-02-06 14:36 | PCM.PN ---
<Hodan Palencia - Last Filed: 02/06/18 16:06> - General Info Date of Service: 02/06/18 Admission Dx/Problem (Free Text): Admission Diagnosis/Problem Admission Diagnosis/Problem Coffee ground emesis Subjective Update: In to see Dg. He is sitting in bed eating a late lunch. Nursing reports that patient slept through breakfast and normal lunch time. Patient reports he is terrible today but does not elaborate on this statement. Patient denies pain. He does not appear in any distress at this time. Functional Status: Reports: Pain Controlled, Tolerating Diet, Ambulating (with assistance ), Urinating - Review of Systems General: Reports: No Symptoms. Denies: Fever, Weakness HEENT: Reports: No Symptoms. Denies: Sinus Congestion, Sore Throat Pulmonary: Reports: No Symptoms. Denies: Shortness of Breath, Cough Cardiovascular: Reports: No Symptoms. Denies: Chest Pain, Edema Gastrointestinal: Reports: No Symptoms. Denies: Abdominal Pain, Constipation, Diarrhea, Nausea, Vomiting Genitourinary: Reports: No Symptoms. Denies: Dysuria, Frequency, Burning Musculoskeletal: Reports: No Symptoms. Denies: Joint Pain Skin: Reports: No Symptoms Neurological: Reports: No Symptoms. Denies: Confusion, Dizziness, Headache Psychiatric: Reports: No Symptoms. Denies: Confusion, Depression, Anxiety - Patient Data Vitals - Most Recent: Last Vital Signs Temp 96.8 F 02/06/18 09:12 Pulse 114 H 02/06/18 09:12 Resp 20 02/06/18 09:12 BP 129/79 02/06/18 09:17 Pulse Ox 100 02/06/18 09:12 Weight - Most Recent: 70.171 kg I&O - Last 24 Hours: Intake & Output 02/05/18 02/06/18 02/06/18 22:59 06:59 14:59 Intake Total 160 480 0 Output Total 425 Balance 160 55 0 Lab Results Last 24 Hours: Laboratory Results - last 24 hr 02/05/18 02/05/18 02/06/18 Range/Units 17:12 20:03 05:50 WBC 4.75 (4.23-9.07) K/mm3 RBC 4.81 (4.63-6.08) M/mm3 Hgb 13.1 L (13.7-17.5) gm/L Hct 40.3 (40.1-51.0) % MCV 83.8 (79.0-92.2) fl MCH 27.2 (25.7-32.2) pg MCHC 32.5 (32.2-35.5) g/dl RDW Std Deviation 41.7 (35.1-43.9) fL Plt Count 303 (163-337) K/mm3 MPV 8.6 L (9.4-12.3) fl Neut % (Auto) 58.6 (34.0-67.9) % Lymph % (Auto) 28.8 (21.8-53.1) % Cameron % (Auto) 8.4 (5.3-12.2) % Eos % (Auto) 3.4 (0.8-7.0) Baso % (Auto) 0.6 (0.1-1.2) % Neut # (Auto) 2.78 (1.78-5.38) K/mm3 Lymph # (Auto) 1.37 (1.32-3.57) K/mm3 Cameron # (Auto) 0.40 (0.30-0.82) K/mm3 Eos # (Auto) 0.16 (0.04-0.54) K/mm3 Baso # (Auto) 0.03 (0.01-0.08) K/mm3 Sodium (136-145) mEq/L Potassium (3.5-5.1) mEq/L Chloride (98-107) mEq/L Carbon Dioxide (21-32) mEq/L Anion Gap (5-15) BUN (7-18) mg/dL Creatinine (0.7-1.3) mg/dL Est Cr Clr Drug Dosing mL/min Estimated GFR (MDRD) (>60) mL/min BUN/Creatinine Ratio (14-18) Glucose (83-115) mg/dL POC Glucose 73 L 160 H (83-110) mg/dL Calcium (8.5-10.1) mg/dL 02/06/18 02/06/18 02/06/18 Range/Units 05:50 06:54 11:25 WBC (4.23-9.07) K/mm3 RBC (4.63-6.08) M/mm3 Hgb (13.7-17.5) gm/L Hct (40.1-51.0) % MCV (79.0-92.2) fl MCH (25.7-32.2) pg MCHC (32.2-35.5) g/dl RDW Std Deviation (35.1-43.9) fL Plt Count (163-337) K/mm3 MPV (9.4-12.3) fl Neut % (Auto) (34.0-67.9) % Lymph % (Auto) (21.8-53.1) % Cameron % (Auto) (5.3-12.2) % Eos % (Auto) (0.8-7.0) Baso % (Auto) (0.1-1.2) % Neut # (Auto) (1.78-5.38) K/mm3 Lymph # (Auto) (1.32-3.57) K/mm3 Cameron # (Auto) (0.30-0.82) K/mm3 Eos # (Auto) (0.04-0.54) K/mm3 Baso # (Auto) (0.01-0.08) K/mm3 Sodium 138 (136-145) mEq/L Potassium 4.3 (3.5-5.1) mEq/L Chloride 101 (98-107) mEq/L Carbon Dioxide 27 (21-32) mEq/L Anion Gap 14.3 (5-15) BUN 29 H (7-18) mg/dL Creatinine 1.1 (0.7-1.3) mg/dL Est Cr Clr Drug Dosing 59.00 mL/min Estimated GFR (MDRD) > 60 (>60) mL/min BUN/Creatinine Ratio 26.4 H (14-18) Glucose 102 (83-115) mg/dL POC Glucose 88 104 (83-110) mg/dL Calcium 10.4 H (8.5-10.1) mg/dL Med Orders - Current: Current Medications Acetaminophen (Tylenol) 650 mg PO Q4H PRN PRN Reason: Pain (Mild 1-3)/fever Hydrocodone Bitart/Acetaminophen (Kistler 325-5 Mg) 1 tab PO Q4H PRN PRN Reason: Pain (moderate 4-6) Aspirin (Aspirin) 81 mg PO DAILY [facility] Last Admin: 02/06/18 09:18 Dose: 81 mg Bisacodyl (Dulcolax) 5 mg PO DAILY PRN PRN Reason: Constipation Last Admin: 01/25/18 02:30 Dose: 5 mg Calcium Carbonate/Glycine (Tums) 500 mg PO BID [facility] Last Admin: 02/06/18 09:18 Dose: 500 mg Dextrose/Water (Dextrose 50% In Water) 50 ml IVPUSH ASDIRECTED PRN PRN Reason: Hypoglycemia Docusate Sodium (Colace) 100 mg PO BID PRN PRN Reason: Constipation Famotidine (Pepcid) 20 mg PO BID [facility] Last Admin: 02/06/18 09:17 Dose: 20 mg Folic Acid (Folic Acid) 1 mg PO BEDTIME [facility] Last Admin: 02/05/18 22:36 Dose: Not Given Guaifenesin/Phenylephrine HCl (Robitussin Dm) 5 ml PO Q4H PRN PRN Reason: Cough Haloperidol Lactate (Haldol) 2.5 mg IM Q8H PRN PRN Reason: Agitation/Restlessness Last Admin: 01/24/18 08:25 Dose: 2.5 mg Hydralazine HCl (Apresoline) 20 mg IVPUSH Q4H PRN PRN Reason: hypertension Last Admin: 02/05/18 20:08 Dose: 20 mg Hydromorphone HCl (Dilaudid) 0.25 mg IVPUSH Q2H PRN PRN Reason: Pain (severe 7-10) Promethazine HCl 6.25 mg/ (Sodium Chloride) 50.25 mls @ 100 mls/hr IV Q6H PRN PRN Reason: Nausea/Vomiting Insulin Aspart (Novolog) 0 unit SUBCUT QIDACANDBED [facility]; Protocol Last Admin: 02/06/18 13:20 Dose: Not Given Levothyroxine Sodium (Synthroid) 88 mcg PO ACBREAKFAST [facility] Last Admin: 02/06/18 08:01 Dose: 88 mcg Lisinopril (Prinivil) 20 mg PO DAILY [facility] Last Admin: 02/06/18 09:17 Dose: 20 mg Lorazepam (Ativan) 2 mg IVPUSH Q4H PRN PRN Reason: Seizures Lorazepam (Ativan) 0.25 mg IVPUSH Q4H PRN PRN Reason: Anxiety Last Admin: 01/24/18 15:57 Dose: 0.25 mg Magnesium Hydroxide (Milk Of Magnesia) 30 ml PO Q12H PRN PRN Reason: Constipation Metformin HCl (Glucophage) 500 mg PO BIDMEALS [facility] Last Admin: 02/06/18 08:01 Dose: 500 mg Metoprolol Tartrate (Lopressor) 5 mg IVPUSH Q4H PRN PRN Reason: Tachycardia Miscellaneous Information (Remove Patch) 1 ea TRDERM DAILY [facility] Last Admin: 02/06/18 09:19 Dose: 1 ea Multivitamins (Thera) 1 each PO BEDTIME [facility] Last Admin: 02/05/18 22:36 Dose: Not Given Nicotine (Habitrol) 21 mg TRDERM DAILY [facility] Last Admin: 02/06/18 09:18 Dose: 21 mg Polyethylene Glycol (Miralax) 17 gm PO DAILY PRN PRN Reason: Constipation Promethazine HCl (Phenergan) 25 mg PO Q6H PRN PRN Reason: Nausea/Vomiting Risperidone (Risperidal) 1 mg PO BEDTIME [facility] Last Admin: 02/05/18 22:36 Dose: Not Given Saccharomyces Boulardii (Florastor) 250 mg PO BID [facility] Last Admin: 02/06/18 09:18 Dose: 250 mg Senna/Docusate Sodium (Senna Plus) 1 tab PO BID PRN PRN Reason: Constipation Sertraline HCl (Zoloft) 50 mg PO BEDTIME [facility] Last Admin: 02/05/18 22:45 Dose: Not Given Simvastatin (Zocor) 20 mg PO BEDTIME [facility] Last Admin: 02/05/18 22:45 Dose: Not Given Sodium Chloride (Saline Flush) 10 ml FLUSH ASDIRECTED PRN PRN Reason: Keep Vein Open Last Admin: 01/20/18 12:04 Dose: 10 ml Thiamine HCl (Vitamin B-1) 100 mg PO BEDTIME [facility] Last Admin: 02/05/18 22:44 Dose: Not Given Discontinued Medications Bisacodyl (Dulcolax) 10 mg RECTAL ONETIME ONE Stop: 01/21/18 20:01 Last Admin: 01/21/18 19:58 Dose: Not Given Caffeine (Caffeine) 200 mg PO ONETIME ONE Stop: 01/22/18 07:01 Last Admin: 01/22/18 06:01 Dose: 200 mg Clindamycin HCl (Cleocin) 150 mg PO Q8H [facility] Stop: 02/01/18 11:01 Last Admin: 02/01/18 11:39 Dose: 150 mg Famotidine (Pepcid) 20 mg PO BID [facility] Last Admin: 01/22/18 10:02 Dose: 20 mg Famotidine (Pepcid) 20 mg IVPUSH Q24H [facility] Last Admin: 01/29/18 21:04 Dose: 20 mg Famotidine (Pepcid) 20 mg IVPUSH ONETIME ONE Stop: 01/22/18 11:44 Last Admin: 01/22/18 11:59 Dose: 20 mg Famotidine (Pepcid) 20 mg PO Q24H [facility] Last Admin: 02/03/18 23:16 Dose: 20 mg Hydralazine HCl (Apresoline) 20 mg IVPUSH Q4H PRN PRN Reason: Hypertension Last Admin: 01/26/18 03:30 Dose: 20 mg Sodium Chloride (Normal Saline) 1,000 mls @ 125 mls/hr IV ASDIRECTED [facility] Last Admin: 01/22/18 05:05 Dose: 125 mls/hr Azithromycin 500 mg/ Sodium (Chloride) 250 mls @ 250 mls/hr IV ONETIME ONE Stop: 01/22/18 00:56 Last Admin: 01/22/18 00:21 Dose: 250 mls/hr Piperacillin Sod/Tazobactam (Sod 4.5 gm/ Sodium Chloride) 100 mls @ 25 mls/hr IV Q8H [facility] Last Admin: 01/24/18 04:57 Dose: 25 mls/hr Piperacillin Sod/Tazobactam (Sod 4.5 gm/ Sodium Chloride) 100 mls @ 200 mls/hr IV ONETIME ONE Stop: 01/22/18 12:29 Last Admin: 01/22/18 12:00 Dose: 200 mls/hr Dextrose/Sodium Chloride (Dextrose 5%-Normal Saline) 1,000 mls @ 50 mls/hr IV ASDIRECTED [facility] Last Admin: 01/23/18 08:07 Dose: 50 mls/hr Insulin Aspart (Novolog) 0 unit SUBCUT Q6H PRN; Protocol PRN Reason: Hyperglycemia Insulin Aspart (Novolog) 0 unit SUBCUT Q6HR [facility]; Protocol Last Admin: 01/24/18 20:31 Dose: Not Given Lactulose (Cephulac) 20 gm PO ONETIME ONE Stop: 01/21/18 19:03 Last Admin: 01/21/18 19:58 Dose: Not Given Lorazepam (Ativan) 0.5 mg IVPUSH BEDTIME ONE Stop: 01/23/18 23:45 Last Admin: 01/24/18 00:03 Dose: 0.5 mg Magnesium Sulfate (Pharmacy To Dose - Magnesium Replacement) 1 dose .XX ASDIRECTED [facility] Metformin HCl (Glucophage) 500 mg PO BIDMEALS [facility] Last Admin: 01/22/18 06:02 Dose: 500 mg Metformin HCl (Glucophage) 500 mg PO BIDMEALS [facility] Modafinil (Provigil) 100 mg PO DAILY [facility] Modafinil (Provigil) 100 mg PO NOW STA Stop: 01/22/18 11:01 Last Admin: 01/22/18 11:34 Dose: 100 mg Modafinil (Provigil) 200 mg PO DAILY [facility] Stop: 01/23/18 09:01 Last Admin: 01/23/18 08:13 Dose: 200 mg Nicotine (Habitrol) 21 mg TRDERM DAILY [facility] Non-Formulary Medication (Petrolatum,White [Vaseline]) 453.6 gm TOP DAILY [facility] Oral Electrolytes (Thermotabs) 1 each PO BID [facility] Stop: 02/05/18 23:00 Last Admin: 02/05/18 22:39 Dose: Not Given Pantoprazole Sodium (Protonix Iv) 40 mg IVPUSH ONETIME ONE Stop: 01/20/18 12:06 Last Admin: 01/20/18 12:13 Dose: 40 mg Pantoprazole Sodium (Protonix Iv) 40 mg IV Q12HR [facility] Last Admin: 01/21/18 21:09 Dose: 40 mg Potassium Chloride (Pharmacy To Dose - Potassium Replacement) 1 dose .XX ASDIRECTED [facility] Potassium Chloride (Klor-Con M20) 40 meq PO ONETIME ONE Stop: 01/23/18 10:01 Last Admin: 01/23/18 09:43 Dose: 40 meq Risperidone (Risperidal) 0.5 mg PO DAILY [facility] Last Admin: 01/26/18 09:08 Dose: 0.5 mg Risperidone (Risperidal) 1 mg PO DAILY [facility] Risperidone (Risperidal) 1 mg PO BEDTIME [facility] Last Admin: 01/24/18 20:31 Dose: Not Given Sertraline HCl (Zoloft) 50 mg PO DAILY [facility] Last Admin: 01/26/18 09:08 Dose: 50 mg Temazepam (Restoril) 7.5 mg PO BEDTIME PRN PRN Reason: Sleep - Exam Quality Assessment: DVT Prophylaxis. No: Supplemental Oxygen General: Alert, Oriented, Cooperative, No Acute Distress HEENT: Pupils Equal, Pupils Reactive, EOMI, Mucous Membr. Moist/[place] Neck: Supple. No: Thyromegaly Lungs: Clear to Auscultation, Normal Respiratory Effort Cardiovascular: Regular Rate, Regular Rhythm, No Murmurs GI/Abdominal Exam: Normal Bowel Sounds, Soft, Non-Tender, No Distention (Male) Exam: Deferred Back Exam: Normal Inspection, Decreased Range of Motion Extremities: Normal Inspection, Non-Tender, No Pedal Edema, Normal Capillary Refill, Limited Range of Motion, Other (Mild tremor noted b/l exremities ) Peripheral Pulses: 2+: Radial (L), Radial (R), Posterior Tibial (L), Posterior Tibial (R), Dorsalis Pedis (L), Dorsalis Pedis (R) Skin: Warm, Dry, Intact Neurological: No New Focal Deficit, Strength Equal Bilateral Psy/Mental Status: Alert, Normal Affect, Normal Mood - Problem List Review Problem List Initiated/Reviewed/Updated: Yes - My Orders Last 24 Hours: My Active Orders 02/07/18 05:11 BASIC METABOLIC PANEL,BMP [CHEM] AM CBC WITH AUTO DIFF [HEME] AM 02/08/18 05:11 BASIC METABOLIC PANEL,BMP [CHEM] AM CBC WITH AUTO DIFF [HEME] AM 02/09/18 05:11 CBC WITH AUTO DIFF [HEME] AM 02/10/18 05:11 CBC WITH AUTO DIFF [HEME] AM 02/11/18 05:11 CBC WITH AUTO DIFF [HEME] AM - Plan Plan:: A/P: Chronic: Type 2 Diabetes, Stable - BS well controlled - Continue Metformin 500 mg BID - Accu-check QIDACandHS with Low level ISS Cachexia, Continues to Improve - Patient reported UBW 190# (although he is unable to report when he last weighed this amount); weight has ranged from 148-168# during admission with most weights between 155-160# - RD following - On Glucerna 4oz TID with meals 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 Whiteside following --> requested that he re-evaluate patient as patient's days/nights appear to be switched Resolved: S/p Healthcare Acquired Aspiration Pneumonia/Chemical Pneumonitis - Risk Factors: GERD and AMS - Suspect this is more of a chemical pneumonitis with aspiration, will cover for appropriate pathogens - Had wet cough; suctioned in ED with clear to yellow sputum - Initial CXR-no acute abnormal findings; Follow up CXR shows shows right basilar opacification (new) with last CXR read as nothing acute appreciated on front chest xray - Received one dose of IV 500 mg Azithromycin during admission - Received Zosyn IV 4.5 grams Q8H for pharmacy to dose plus Probiotic 1 tab po BID --> changed to clindamycin 150 mg po q 8 hr on 01/24/18 and received through 02/01/18 - He was on PPI but now on H2B for GERD - Mycoplasma pneumonia, viral panel, and strep pneumonia Ag negative - Decongestant/Expectorant PRN and IS as directed - Afebrile w/o leukocytosis - Aspiration Precautions - May have oropharyngeal dysfunction --> [employer] has signed off on patient S/p Probable Oropharyngeal Dysfunction - [employer] initial eval with recommendation of NDD4 diet (regular) and nectar thick liquids; diet was upgraded to thin liquids and no straws - [employer] has now signed off on patient S/p Hypokalemia - was 3.4 01/23/18, improved to 3.9 on 01/24/18 - likely 2/2 poor intake and hemodilution with IVF - replete per protocol S/p Acute Hematemesis - Risk factors: History of alcohol abuse, GERD, Pill Esophagitis - Reported by [facility] to be coffee ground emesis - No further episodes with EMS, in ED, or during admit thus far - ED provider reports negative FOBT - Supportive care: monitor vitals, Hgb --> if indicated, will consult General Surgery for possible EGD - BP 160/98 in ED, improved at admit - Ordered Protonix 40 mg BID IV--> now on H2B S/p Hypotension - BP 86/68 yesterday morning - Will adjust hydralazine order to be given if BP >160/90 S/p Mild Hyponatremia - Na 135--> 138 - Has been on the lower end of normal - Likely 2/2 sertraline and varied intakes - On Thermotabs 2 tab po daily x 3 days S/p Mental Status Changes - Has underlying Dementia - Likely 2/2 Medication Side effects (Increased Dose of Risperdal) --> Daughter reported to ED provider that psych medications were recently changed - Panfilo reported slurred speech and lethargy --> - Head CT in ED read as senescent changes with no acute abnormality - Dr. Whiteside recommended: Discontinuing Risperdal 0.5 mg; continuing 1 mg Risperdal q Hs; changing sertraline to HS --> requested that he re-evaluate patient as patient's days/nights appear to be switched Chronic: Hx Alcohol Use Disorder Schizophrenia MDD GERD S/p Cardiac pacemaker placement Weakness HTN HLD Hypothyroidism Plan: He remains clinically stable PRN AM Labs Continue current treatment Fall and Aspiration Precautions DVT/GI Prophylaxis: H2B/SCDs CM/SW still working on placement Encourage to ambulate as tolerated Other orders as indicated above Code Status: Full code Discharge pending placement to any MI facilities <Shruthi Laws T - Last Filed: 02/06/18 17:00> - Patient Data Vitals - Most Recent: Last Vital Signs Temp 36.0 C 02/06/18 09:12 Pulse 114 H 02/06/18 09:12 Resp 20 02/06/18 09:12 BP 129/79 02/06/18 09:17 Pulse Ox 100 02/06/18 09:12 I&O - Last 24 Hours: Intake & Output 02/06/18 02/06/18 02/06/18 06:59 14:59 22:59 Intake Total 480 0 50 Output Total 425 300 Balance 55 0 -250 Lab Results Last 24 Hours: Laboratory Results - last 24 hr 02/05/18 02/05/18 02/06/18 Range/Units 17:12 20:03 05:50 WBC 4.75 (4.23-9.07) K/mm3 RBC 4.81 (4.63-6.08) M/mm3 Hgb 13.1 L (13.7-17.5) gm/L Hct 40.3 (40.1-51.0) % MCV 83.8 (79.0-92.2) fl MCH 27.2 (25.7-32.2) pg MCHC 32.5 (32.2-35.5) g/dl RDW Std Deviation 41.7 (35.1-43.9) fL Plt Count 303 (163-337) K/mm3 MPV 8.6 L (9.4-12.3) fl Neut % (Auto) 58.6 (34.0-67.9) % Lymph % (Auto) 28.8 (21.8-53.1) % Cameron % (Auto) 8.4 (5.3-12.2) % Eos % (Auto) 3.4 (0.8-7.0) Baso % (Auto) 0.6 (0.1-1.2) % Neut # (Auto) 2.78 (1.78-5.38) K/mm3 Lymph # (Auto) 1.37 (1.32-3.57) K/mm3 Cameron # (Auto) 0.40 (0.30-0.82) K/mm3 Eos # (Auto) 0.16 (0.04-0.54) K/mm3 Baso # (Auto) 0.03 (0.01-0.08) K/mm3 Sodium (136-145) mEq/L Potassium (3.5-5.1) mEq/L Chloride (98-107) mEq/L Carbon Dioxide (21-32) mEq/L Anion Gap (5-15) BUN (7-18) mg/dL Creatinine (0.7-1.3) mg/dL Est Cr Clr Drug Dosing mL/min Estimated GFR (MDRD) (>60) mL/min BUN/Creatinine Ratio (14-18) Glucose (83-115) mg/dL POC Glucose 73 L 160 H (83-110) mg/dL Calcium (8.5-10.1) mg/dL 02/06/18 02/06/18 02/06/18 Range/Units 05:50 06:54 11:25 WBC (4.23-9.07) K/mm3 RBC (4.63-6.08) M/mm3 Hgb (13.7-17.5) gm/L Hct (40.1-51.0) % MCV (79.0-92.2) fl MCH (25.7-32.2) pg MCHC (32.2-35.5) g/dl RDW Std Deviation (35.1-43.9) fL Plt Count (163-337) K/mm3 MPV (9.4-12.3) fl Neut % (Auto) (34.0-67.9) % Lymph % (Auto) (21.8-53.1) % Cameron % (Auto) (5.3-12.2) % Eos % (Auto) (0.8-7.0) Baso % (Auto) (0.1-1.2) % Neut # (Auto) (1.78-5.38) K/mm3 Lymph # (Auto) (1.32-3.57) K/mm3 Cameron # (Auto) (0.30-0.82) K/mm3 Eos # (Auto) (0.04-0.54) K/mm3 Baso # (Auto) (0.01-0.08) K/mm3 Sodium 138 (136-145) mEq/L Potassium 4.3 (3.5-5.1) mEq/L Chloride 101 (98-107) mEq/L Carbon Dioxide 27 (21-32) mEq/L Anion Gap 14.3 (5-15) BUN 29 H (7-18) mg/dL Creatinine 1.1 (0.7-1.3) mg/dL Est Cr Clr Drug Dosing 59.00 mL/min Estimated GFR (MDRD) > 60 (>60) mL/min BUN/Creatinine Ratio 26.4 H (14-18) Glucose 102 (83-115) mg/dL POC Glucose 88 104 (83-110) mg/dL Calcium 10.4 H (8.5-10.1) mg/dL Med Orders - Current: Current Medications Acetaminophen (Tylenol) 650 mg PO Q4H PRN PRN Reason: Pain (Mild 1-3)/fever Hydrocodone Bitart/Acetaminophen (Kistler 325-5 Mg) 1 tab PO Q4H PRN PRN Reason: Pain (moderate 4-6) Aspirin (Aspirin) 81 mg PO DAILY [facility] Last Admin: 02/06/18 09:18 Dose: 81 mg Bisacodyl (Dulcolax) 5 mg PO DAILY PRN PRN Reason: Constipation Last Admin: 01/25/18 02:30 Dose: 5 mg Calcium Carbonate/Glycine (Tums) 500 mg PO BID [facility] Last Admin: 02/06/18 09:18 Dose: 500 mg Dextrose/Water (Dextrose 50% In Water) 50 ml IVPUSH ASDIRECTED PRN PRN Reason: Hypoglycemia Docusate Sodium (Colace) 100 mg PO BID PRN PRN Reason: Constipation Famotidine (Pepcid) 20 mg PO BID [facility] Last Admin: 02/06/18 09:17 Dose: 20 mg Folic Acid (Folic Acid) 1 mg PO BEDTIME [facility] Last Admin: 02/05/18 22:36 Dose: Not Given Guaifenesin/Phenylephrine HCl (Robitussin Dm) 5 ml PO Q4H PRN PRN Reason: Cough Haloperidol Lactate (Haldol) 2.5 mg IM Q8H PRN PRN Reason: Agitation/Restlessness Last Admin: 01/24/18 08:25 Dose: 2.5 mg Hydralazine HCl (Apresoline) 20 mg IVPUSH Q4H PRN PRN Reason: hypertension Last Admin: 02/05/18 20:08 Dose: 20 mg Hydromorphone HCl (Dilaudid) 0.25 mg IVPUSH Q2H PRN PRN Reason: Pain (severe 7-10) Promethazine HCl 6.25 mg/ (Sodium Chloride) 50.25 mls @ 100 mls/hr IV Q6H PRN PRN Reason: Nausea/Vomiting Insulin Aspart (Novolog) 0 unit SUBCUT QIDACANDBED [facility]; Protocol Last Admin: 02/06/18 13:20 Dose: Not Given Levothyroxine Sodium (Synthroid) 88 mcg PO ACBREAKFAST [facility] Last Admin: 02/06/18 08:01 Dose: 88 mcg Lisinopril (Prinivil) 20 mg PO DAILY [facility] Last Admin: 02/06/18 09:17 Dose: 20 mg Lorazepam (Ativan) 2 mg IVPUSH Q4H PRN PRN Reason: Seizures Lorazepam (Ativan) 0.25 mg IVPUSH Q4H PRN PRN Reason: Anxiety Last Admin: 01/24/18 15:57 Dose: 0.25 mg Magnesium Hydroxide (Milk Of Magnesia) 30 ml PO Q12H PRN PRN Reason: Constipation Metformin HCl (Glucophage) 500 mg PO BIDMEALS [facility] Last Admin: 02/06/18 08:01 Dose: 500 mg Metoprolol Tartrate (Lopressor) 5 mg IVPUSH Q4H PRN PRN Reason: Tachycardia Miscellaneous Information (Remove Patch) 1 ea TRDERM DAILY [facility] Last Admin: 02/06/18 09:19 Dose: 1 ea Multivitamins (Thera) 1 each PO BEDTIME [facility] Last Admin: 02/05/18 22:36 Dose: Not Given Nicotine (Habitrol) 21 mg TRDERM DAILY [facility] Last Admin: 02/06/18 09:18 Dose: 21 mg Polyethylene Glycol (Miralax) 17 gm PO DAILY PRN PRN Reason: Constipation Promethazine HCl (Phenergan) 25 mg PO Q6H PRN PRN Reason: Nausea/Vomiting Risperidone (Risperidal) 1 mg PO BEDTIME [facility] Last Admin: 02/05/18 22:36 Dose: Not Given Saccharomyces Boulardii (Florastor) 250 mg PO BID [facility] Last Admin: 02/06/18 09:18 Dose: 250 mg Senna/Docusate Sodium (Senna Plus) 1 tab PO BID PRN PRN Reason: Constipation Sertraline HCl (Zoloft) 50 mg PO BEDTIME [facility] Last Admin: 02/05/18 22:45 Dose: Not Given Simvastatin (Zocor) 20 mg PO BEDTIME [facility] Last Admin: 02/05/18 22:45 Dose: Not Given Sodium Chloride (Saline Flush) 10 ml FLUSH ASDIRECTED PRN PRN Reason: Keep Vein Open Last Admin: 01/20/18 12:04 Dose: 10 ml Thiamine HCl (Vitamin B-1) 100 mg PO BEDTIME [facility] Last Admin: 02/05/18 22:44 Dose: Not Given Discontinued Medications Bisacodyl (Dulcolax) 10 mg RECTAL ONETIME ONE Stop: 01/21/18 20:01 Last Admin: 01/21/18 19:58 Dose: Not Given Caffeine (Caffeine) 200 mg PO ONETIME ONE Stop: 01/22/18 07:01 Last Admin: 01/22/18 06:01 Dose: 200 mg Clindamycin HCl (Cleocin) 150 mg PO Q8H [facility] Stop: 02/01/18 11:01 Last Admin: 02/01/18 11:39 Dose: 150 mg Famotidine (Pepcid) 20 mg PO BID [facility] Last Admin: 01/22/18 10:02 Dose: 20 mg Famotidine (Pepcid) 20 mg IVPUSH Q24H [facility] Last Admin: 01/29/18 21:04 Dose: 20 mg Famotidine (Pepcid) 20 mg IVPUSH ONETIME ONE Stop: 01/22/18 11:44 Last Admin: 01/22/18 11:59 Dose: 20 mg Famotidine (Pepcid) 20 mg PO Q24H [facility] Last Admin: 02/03/18 23:16 Dose: 20 mg Hydralazine HCl (Apresoline) 20 mg IVPUSH Q4H PRN PRN Reason: Hypertension Last Admin: 01/26/18 03:30 Dose: 20 mg Sodium Chloride (Normal Saline) 1,000 mls @ 125 mls/hr IV ASDIRECTED [facility] Last Admin: 01/22/18 05:05 Dose: 125 mls/hr Azithromycin 500 mg/ Sodium (Chloride) 250 mls @ 250 mls/hr IV ONETIME ONE Stop: 01/22/18 00:56 Last Admin: 01/22/18 00:21 Dose: 250 mls/hr Piperacillin Sod/Tazobactam (Sod 4.5 gm/ Sodium Chloride) 100 mls @ 25 mls/hr IV Q8H [facility] Last Admin: 01/24/18 04:57 Dose: 25 mls/hr Piperacillin Sod/Tazobactam (Sod 4.5 gm/ Sodium Chloride) 100 mls @ 200 mls/hr IV ONETIME ONE Stop: 01/22/18 12:29 Last Admin: 01/22/18 12:00 Dose: 200 mls/hr Dextrose/Sodium Chloride (Dextrose 5%-Normal Saline) 1,000 mls @ 50 mls/hr IV ASDIRECTED [facility] Last Admin: 01/23/18 08:07 Dose: 50 mls/hr Insulin Aspart (Novolog) 0 unit SUBCUT Q6H PRN; Protocol PRN Reason: Hyperglycemia Insulin Aspart (Novolog) 0 unit SUBCUT Q6HR [facility]; Protocol Last Admin: 01/24/18 20:31 Dose: Not Given Lactulose (Cephulac) 20 gm PO ONETIME ONE Stop: 01/21/18 19:03 Last Admin: 01/21/18 19:58 Dose: Not Given Lorazepam (Ativan) 0.5 mg IVPUSH BEDTIME ONE Stop: 01/23/18 23:45 Last Admin: 01/24/18 00:03 Dose: 0.5 mg Magnesium Sulfate (Pharmacy To Dose - Magnesium Replacement) 1 dose .XX ASDIRECTED [facility] Metformin HCl (Glucophage) 500 mg PO BIDMEALS [facility] Last Admin: 01/22/18 06:02 Dose: 500 mg Metformin HCl (Glucophage) 500 mg PO BIDMEALS [facility] Modafinil (Provigil) 100 mg PO DAILY [facility] Modafinil (Provigil) 100 mg PO NOW STA Stop: 01/22/18 11:01 Last Admin: 01/22/18 11:34 Dose: 100 mg Modafinil (Provigil) 200 mg PO DAILY JAMES Stop: 01/23/18 09:01 Last Admin: 01/23/18 08:13 Dose: 200 mg Nicotine (Habitrol) 21 mg TRDERM DAILY [facility] Non-Formulary Medication (Petrolatum,White [Vaseline]) 453.6 gm TOP DAILY [facility] Oral Electrolytes (Thermotabs) 1 each PO BID JAMES Stop: 02/05/18 23:00 Last Admin: 02/05/18 22:39 Dose: Not Given Pantoprazole Sodium (Protonix Iv) 40 mg IVPUSH ONETIME ONE Stop: 01/20/18 12:06 Last Admin: 01/20/18 12:13 Dose: 40 mg Pantoprazole Sodium (Protonix Iv) 40 mg IV Q12HR [facility] Last Admin: 01/21/18 21:09 Dose: 40 mg Potassium Chloride (Pharmacy To Dose - Potassium Replacement) 1 dose .XX ASDIRECTED [facility] Potassium Chloride (Klor-Con M20) 40 meq PO ONETIME ONE Stop: 01/23/18 10:01 Last Admin: 01/23/18 09:43 Dose: 40 meq Risperidone (Risperidal) 0.5 mg PO DAILY [facility] Last Admin: 01/26/18 09:08 Dose: 0.5 mg Risperidone (Risperidal) 1 mg PO DAILY [facility] Risperidone (Risperidal) 1 mg PO BEDTIME [facility] Last Admin: 01/24/18 20:31 Dose: Not Given Sertraline HCl (Zoloft) 50 mg PO DAILY [facility] Last Admin: 01/26/18 09:08 Dose: 50 mg Temazepam (Restoril) 7.5 mg PO BEDTIME PRN PRN Reason: Sleep - Plan Plan:: The patient was seen and examined at bedside in concert with the PA student. The admission assessment and plans were discussed and agreed upon with me. Any changes or further treatment will be based on the patient's course.
[2018-02-06] MEDS: risperiDONE 1 MG Tab PO SCH (21:57)
[2018-02-06] MEDS: Sertraline 50 MG Tab PO SCH (21:57)
[2018-02-06] MEDS: Simvastatin 20 MG Tab PO SCH (21:57)
[2018-02-06] MEDS: Multivitamins,Therapeutic Tab PO SCH (21:57)
[2018-02-06] MEDS: Folic Acid 1 MG Tab PO SCH (21:58)
[2018-02-06] MEDS: Thiamine 100 MG Tab PO SCH (21:58)
[2018-02-07] MEDS: Levothyroxine 88 MCG Tab PO SCH (06:05)
[2018-02-07] MEDS: metFORMIN 500 MG Tab PO SCH ×2 (06:06→17:12)
[2018-02-07] MEDS: Insulin Aspart 100 Units/ML 3 ML Pen SUBCUT SCH ×4 (06:06→21:36)
--- NOTE | 2018-02-07 08:06 | CONS ---
CONSULTING PHYSICIAN: Bairon Whiteside MD DATE OF CONSULTATION: 02/06/2018 FOLLOW-UP CONSULTATION ASSESSMENT: This patient is a 73-year-old male who was initially seen on 01/26/2018 for psychiatric consultation. His diagnosis is schizophrenia, paranoid type, as well as dementia. The patient had psychiatric medications adjusted at the time of the initial consultation and this note is to follow up for treatment planning going forward. The patient has largely been stable on his newly adjusted psychiatric medication regimen, but staff are having trouble with placement for the patient at this point in time and it is the consensus of the treatment team as well as the psychiatric consultation team that the patient would be best served by being referred to the [facility] for further management of his psychiatric medications and his overall psychiatric condition once he is medically stabilized. If the Social Work Team has no success in finding placement for the patient in any other type of living situation, it is again recommended that the patient be referred for placement at the [facility] for long-term management of his serious and persistent mental health issues and dementia state. [place] /[id number]
[2018-02-07] MEDS: Nicotine 21 MG/24 Hr Patch TRDERM SCH (10:03)
[2018-02-07] MEDS: Lisinopril 20 MG Tab PO SCH (10:07)
[2018-02-07] MEDS: Aspirin 81 MG Tab.Chew PO SCH (10:08)
[2018-02-07] MEDS: Saccharomyces Boulardii (Probiotic) 250 MG Cap PO SCH ×2 (10:08→21:35)
[2018-02-07] MEDS: Famotidine 20 MG Tab PO SCH ×2 (10:08→21:36)
[2018-02-07] MEDS: Calcium Carbonate 500 MG Tab.Chew PO SCH ×2 (10:08→21:36)
--- NOTE | 2018-02-07 11:42 | PCM.PN ---
<Hodan Palencia - Last Filed: 02/07/18 13:22> - General Info Date of Service: 02/07/18 Admission Dx/Problem (Free Text): Admission Diagnosis/Problem Admission Diagnosis/Problem Coffee ground emesis Subjective Update: In to see Dg. He is laying comfortably in bed. He does not open his eyes but does report that he is not having any pain or complaints today. Nursing has no concerns. Functional Status: Reports: Pain Controlled, Tolerating Diet, Ambulating, Urinating - Review of Systems General: Reports: No Symptoms. Denies: Fever, Chills HEENT: Reports: No Symptoms. Denies: Sinus Congestion, Sore Throat Pulmonary: Reports: No Symptoms. Denies: Shortness of Breath, Cough Cardiovascular: Reports: No Symptoms. Denies: Chest Pain, Palpitations, Edema Gastrointestinal: Reports: No Symptoms. Denies: Abdominal Pain, Constipation, Diarrhea, Nausea, Vomiting Genitourinary: Reports: No Symptoms. Denies: Dysuria, Frequency, Burning Musculoskeletal: Reports: No Symptoms. Denies: Joint Pain Skin: Reports: No Symptoms Neurological: Reports: No Symptoms. Denies: Dizziness, Headache Psychiatric: Reports: No Symptoms. Denies: Depression, Anxiety - Patient Data Vitals - Most Recent: Last Vital Signs Temp 97.5 F 02/07/18 08:50 Pulse 57 L 02/07/18 08:50 Resp 20 02/07/18 08:50 BP 122/84 02/07/18 10:07 Pulse Ox 99 02/07/18 08:50 Weight - Most Recent: 69.031 kg I&O - Last 24 Hours: Intake & Output 02/06/18 02/07/18 02/07/18 22:59 06:59 14:59 Intake Total 230 700 360 Output Total 300 Balance -70 700 360 Lab Results Last 24 Hours: Laboratory Results - last 24 hr 02/06/18 02/06/18 02/07/18 Range/Units 17:46 20:48 05:40 WBC (4.23-9.07) K/mm3 RBC (4.63-6.08) M/mm3 Hgb (13.7-17.5) gm/L Hct (40.1-51.0) % MCV (79.0-92.2) fl MCH (25.7-32.2) pg MCHC (32.2-35.5) g/dl RDW Std Deviation (35.1-43.9) fL Plt Count (163-337) K/mm3 MPV (9.4-12.3) fl Neut % (Auto) (34.0-67.9) % Lymph % (Auto) (21.8-53.1) % [place] % (Auto) (5.3-12.2) % Eos % (Auto) (0.8-7.0) Baso % (Auto) (0.1-1.2) % Neut # (Auto) (1.78-5.38) K/mm3 Lymph # (Auto) (1.32-3.57) K/mm3 [place] # (Auto) (0.30-0.82) K/mm3 Eos # (Auto) (0.04-0.54) K/mm3 Baso # (Auto) (0.01-0.08) K/mm3 Sodium 135 L (136-145) mEq/L Potassium 3.9 (3.5-5.1) mEq/L Chloride 100 (98-107) mEq/L Carbon Dioxide 26 (21-32) mEq/L Anion Gap 12.9 (5-15) BUN 32 H (7-18) mg/dL Creatinine 1.1 (0.7-1.3) mg/dL Est Cr Clr Drug Dosing 60.14 mL/min Estimated GFR (MDRD) > 60 (>60) mL/min BUN/Creatinine Ratio 29.1 H (14-18) Glucose 97 (83-115) mg/dL POC Glucose 132 H 95 (83-110) mg/dL Calcium 9.8 (8.5-10.1) mg/dL 02/07/18 02/07/18 Range/Units 05:40 06:04 WBC 7.71 (4.23-9.07) K/mm3 RBC 4.37 L (4.63-6.08) M/mm3 Hgb 12.1 L (13.7-17.5) gm/L Hct 36.9 L (40.1-51.0) % MCV 84.4 (79.0-92.2) fl MCH 27.7 (25.7-32.2) pg MCHC 32.8 (32.2-35.5) g/dl RDW Std Deviation 41.5 (35.1-43.9) fL Plt Count 320 (163-337) K/mm3 MPV 9.2 L (9.4-12.3) fl Neut % (Auto) 72.8 H (34.0-67.9) % Lymph % (Auto) 17.8 L (21.8-53.1) % [place] % (Auto) 6.9 (5.3-12.2) % Eos % (Auto) 1.9 (0.8-7.0) Baso % (Auto) 0.5 (0.1-1.2) % Neut # (Auto) 5.61 H (1.78-5.38) K/mm3 Lymph # (Auto) 1.37 (1.32-3.57) K/mm3 [place] # (Auto) 0.53 (0.30-0.82) K/mm3 Eos # (Auto) 0.15 (0.04-0.54) K/mm3 Baso # (Auto) 0.04 (0.01-0.08) K/mm3 Sodium (136-145) mEq/L Potassium (3.5-5.1) mEq/L Chloride (98-107) mEq/L Carbon Dioxide (21-32) mEq/L Anion Gap (5-15) BUN (7-18) mg/dL Creatinine (0.7-1.3) mg/dL Est Cr Clr Drug Dosing mL/min Estimated GFR (MDRD) (>60) mL/min BUN/Creatinine Ratio (14-18) Glucose (83-115) mg/dL POC Glucose 102 (83-110) mg/dL Calcium (8.5-10.1) mg/dL Med Orders - Current: Current Medications Acetaminophen (Tylenol) 650 mg PO Q4H PRN PRN Reason: Pain (Mild 1-3)/fever Hydrocodone Bitart/Acetaminophen ([place] 325-5 Mg) 1 tab PO Q4H PRN PRN Reason: Pain (moderate 4-6) Aspirin (Aspirin) 81 mg PO DAILY J[facility] Last Admin: 02/07/18 10:08 Dose: 81 mg Bisacodyl (Dulcolax) 5 mg PO DAILY PRN PRN Reason: Constipation Last Admin: 01/25/18 02:30 Dose: 5 mg Calcium Carbonate/Glycine (Tums) 500 mg PO BID [facility] Last Admin: 02/07/18 10:08 Dose: 500 mg Dextrose/Water (Dextrose 50% In Water) 50 ml IVPUSH ASDIRECTED PRN PRN Reason: Hypoglycemia Docusate Sodium (Colace) 100 mg PO BID PRN PRN Reason: Constipation Famotidine (Pepcid) 20 mg PO BID [facility] Last Admin: 02/07/18 10:08 Dose: 20 mg Folic Acid (Folic Acid) 1 mg PO BEDTIME [facility] Last Admin: 02/06/18 21:58 Dose: 1 mg Guaifenesin/Phenylephrine HCl (Robitussin Dm) 5 ml PO Q4H PRN PRN Reason: Cough Haloperidol Lactate (Haldol) 2.5 mg IM Q8H PRN PRN Reason: Agitation/Restlessness Last Admin: 01/24/18 08:25 Dose: 2.5 mg Hydralazine HCl (Apresoline) 20 mg IVPUSH Q4H PRN PRN Reason: hypertension Last Admin: 02/05/18 20:08 Dose: 20 mg Hydromorphone HCl (Dilaudid) 0.25 mg IVPUSH Q2H PRN PRN Reason: Pain (severe 7-10) Promethazine HCl 6.25 mg/ (Sodium Chloride) 50.25 mls @ 100 mls/hr IV Q6H PRN PRN Reason: Nausea/Vomiting Insulin Aspart (Novolog) 0 unit SUBCUT QIDACANDBED [facility]; Protocol Last Admin: 02/07/18 06:06 Dose: Not Given Levothyroxine Sodium (Synthroid) 88 mcg PO ACBREAKFAST [facility] Last Admin: 02/07/18 06:05 Dose: 88 mcg Lisinopril (Prinivil) 20 mg PO DAILY [facility] Last Admin: 02/07/18 10:07 Dose: 20 mg Lorazepam (Ativan) 2 mg IVPUSH Q4H PRN PRN Reason: Seizures Lorazepam (Ativan) 0.25 mg IVPUSH Q4H PRN PRN Reason: Anxiety Last Admin: 01/24/18 15:57 Dose: 0.25 mg Magnesium Hydroxide (Milk Of Magnesia) 30 ml PO Q12H PRN PRN Reason: Constipation Metformin HCl (Glucophage) 500 mg PO BIDMEALS [facility] Last Admin: 02/07/18 06:06 Dose: 500 mg Metoprolol Tartrate (Lopressor) 5 mg IVPUSH Q4H PRN PRN Reason: Tachycardia Miscellaneous Information (Remove Patch) 1 ea TRDERM DAILY [facility] Last Admin: 02/07/18 10:05 Dose: 1 ea Multivitamins (Thera) 1 each PO BEDTIME [facility] Last Admin: 02/06/18 21:57 Dose: 1 each Nicotine (Habitrol) 21 mg TRDERM DAILY [facility] Last Admin: 02/07/18 10:03 Dose: 21 mg Polyethylene Glycol (Miralax) 17 gm PO DAILY PRN PRN Reason: Constipation Promethazine HCl (Phenergan) 25 mg PO Q6H PRN PRN Reason: Nausea/Vomiting Risperidone (Risperidal) 1 mg PO BEDTIME [facility] Last Admin: 02/06/18 21:57 Dose: 1 mg Saccharomyces Boulardii (Florastor) 250 mg PO BID [facility] Last Admin: 02/07/18 10:08 Dose: 250 mg Senna/Docusate Sodium (Senna Plus) 1 tab PO BID PRN PRN Reason: Constipation Sertraline HCl (Zoloft) 50 mg PO BEDTIME [facility] Last Admin: 02/06/18 21:57 Dose: 50 mg Simvastatin (Zocor) 20 mg PO BEDTIME [facility] Last Admin: 02/06/18 21:57 Dose: 20 mg Sodium Chloride (Saline Flush) 10 ml FLUSH ASDIRECTED PRN PRN Reason: Keep Vein Open Last Admin: 01/20/18 12:04 Dose: 10 ml Thiamine HCl (Vitamin B-1) 100 mg PO BEDTIME [facility] Last Admin: 02/06/18 21:58 Dose: 100 mg Discontinued Medications Bisacodyl (Dulcolax) 10 mg RECTAL ONETIME ONE Stop: 01/21/18 20:01 Last Admin: 01/21/18 19:58 Dose: Not Given Caffeine (Caffeine) 200 mg PO ONETIME ONE Stop: 01/22/18 07:01 Last Admin: 01/22/18 06:01 Dose: 200 mg Clindamycin HCl (Cleocin) 150 mg PO Q8H [facility] Stop: 02/01/18 11:01 Last Admin: 02/01/18 11:39 Dose: 150 mg Famotidine (Pepcid) 20 mg PO BID [facility] Last Admin: 01/22/18 10:02 Dose: 20 mg Famotidine (Pepcid) 20 mg IVPUSH Q24H [facility] Last Admin: 01/29/18 21:04 Dose: 20 mg Famotidine (Pepcid) 20 mg IVPUSH ONETIME ONE Stop: 01/22/18 11:44 Last Admin: 01/22/18 11:59 Dose: 20 mg Famotidine (Pepcid) 20 mg PO Q24H [facility] Last Admin: 02/03/18 23:16 Dose: 20 mg Hydralazine HCl (Apresoline) 20 mg IVPUSH Q4H PRN PRN Reason: Hypertension Last Admin: 01/26/18 03:30 Dose: 20 mg Sodium Chloride (Normal Saline) 1,000 mls @ 125 mls/hr IV ASDIRECTED [facility] Last Admin: 01/22/18 05:05 Dose: 125 mls/hr Azithromycin 500 mg/ Sodium (Chloride) 250 mls @ 250 mls/hr IV ONETIME ONE Stop: 01/22/18 00:56 Last Admin: 01/22/18 00:21 Dose: 250 mls/hr Piperacillin Sod/Tazobactam (Sod 4.5 gm/ Sodium Chloride) 100 mls @ 25 mls/hr IV Q8H [facility] Last Admin: 01/24/18 04:57 Dose: 25 mls/hr Piperacillin Sod/Tazobactam (Sod 4.5 gm/ Sodium Chloride) 100 mls @ 200 mls/hr IV ONETIME ONE Stop: 01/22/18 12:29 Last Admin: 01/22/18 12:00 Dose: 200 mls/hr Dextrose/Sodium Chloride (Dextrose 5%-Normal Saline) 1,000 mls @ 50 mls/hr IV ASDIRECTED [facility] Last Admin: 01/23/18 08:07 Dose: 50 mls/hr Insulin Aspart (Novolog) 0 unit SUBCUT Q6H PRN; Protocol PRN Reason: Hyperglycemia Insulin Aspart (Novolog) 0 unit SUBCUT Q6HR [facility]; Protocol Last Admin: 01/24/18 20:31 Dose: Not Given Lactulose (Cephulac) 20 gm PO ONETIME ONE Stop: 01/21/18 19:03 Last Admin: 01/21/18 19:58 Dose: Not Given Lorazepam (Ativan) 0.5 mg IVPUSH BEDTIME ONE Stop: 01/23/18 23:45 Last Admin: 01/24/18 00:03 Dose: 0.5 mg Magnesium Sulfate (Pharmacy To Dose - Magnesium Replacement) 1 dose .XX ASDIRECTED [facility] Metformin HCl (Glucophage) 500 mg PO BIDMEALS [facility] Last Admin: 01/22/18 06:02 Dose: 500 mg Metformin HCl (Glucophage) 500 mg PO BIDMEALS [facility] Modafinil (Provigil) 100 mg PO DAILY [facility] Modafinil (Provigil) 100 mg PO NOW STA Stop: 01/22/18 11:01 Last Admin: 01/22/18 11:34 Dose: 100 mg Modafinil (Provigil) 200 mg PO DAILY J[facility] Stop: 01/23/18 09:01 Last Admin: 01/23/18 08:13 Dose: 200 mg Nicotine (Habitrol) 21 mg TRDERM DAILY [facility] Non-Formulary Medication (Petrolatum,White [Vaseline]) 453.6 gm TOP DAILY [facility] Oral Electrolytes (Thermotabs) 1 each PO BID [facility] Stop: 02/05/18 23:00 Last Admin: 02/05/18 22:39 Dose: Not Given Pantoprazole Sodium (Protonix Iv) 40 mg IVPUSH ONETIME ONE Stop: 01/20/18 12:06 Last Admin: 01/20/18 12:13 Dose: 40 mg Pantoprazole Sodium (Protonix Iv) 40 mg IV Q12HR [facility] Last Admin: 01/21/18 21:09 Dose: 40 mg Potassium Chloride (Pharmacy To Dose - Potassium Replacement) 1 dose .XX ASDIRECTED [facility] Potassium Chloride (Klor-Con M20) 40 meq PO ONETIME ONE Stop: 01/23/18 10:01 Last Admin: 01/23/18 09:43 Dose: 40 meq Risperidone (Risperidal) 0.5 mg PO DAILY [facility] Last Admin: 01/26/18 09:08 Dose: 0.5 mg Risperidone (Risperidal) 1 mg PO DAILY [facility] Risperidone (Risperidal) 1 mg PO BEDTIME [facility] Last Admin: 01/24/18 20:31 Dose: Not Given Sertraline HCl (Zoloft) 50 mg PO DAILY [facility] Last Admin: 01/26/18 09:08 Dose: 50 mg Temazepam (Restoril) 7.5 mg PO BEDTIME PRN PRN Reason: Sleep - Exam Quality Assessment: DVT Prophylaxis. No: Supplemental Oxygen General: Alert, Oriented, Cooperative, No Acute Distress HEENT: Pupils Equal, Pupils Reactive, EOMI, Mucous Membr. Moist/[place] Neck: Supple. No: Lymphadenopathy Lungs: Clear to Auscultation, Normal Respiratory Effort Cardiovascular: Regular Rate, Regular Rhythm, No Murmurs GI/Abdominal Exam: Normal Bowel Sounds, Soft, Non-Tender, No Distention (Male) Exam: Deferred Back Exam: Normal Inspection, Decreased Range of Motion Extremities: Normal Inspection, Non-Tender, No Pedal Edema, Limited Range of Motion Peripheral Pulses: 2+: Radial (L), Radial (R), Posterior Tibial (L), Posterior Tibial (R), Dorsalis Pedis (L), Dorsalis Pedis (R) Skin: Warm, Dry, Intact Neurological: No New Focal Deficit, Strength Equal Bilateral, Cranial Nerves Intact (grossly) Psy/Mental Status: Alert, Normal Affect, Normal Mood - Problem List Review Problem List Initiated/Reviewed/Updated: Yes - My Orders Last 24 Hours: My Active Orders 02/08/18 05:11 BASIC METABOLIC PANEL,BMP [CHEM] AM CBC WITH AUTO DIFF [HEME] AM 02/09/18 05:11 CBC WITH AUTO DIFF [HEME] AM 02/10/18 05:11 CBC WITH AUTO DIFF [HEME] AM 02/11/18 05:11 CBC WITH AUTO DIFF [HEME] AM - Plan Plan:: A/P: Chronic: Type 2 Diabetes, Stable - BS well controlled - Continue Metformin 500 mg BID - Accu-check QIDACandHS with Low level ISS Cachexia, Continues to Improve - Patient reported UBW 190# (although he is unable to report when he last weighed this amount); weight has ranged from 148-168# during admission with most weights between 155-160# - RD following - On Glucerna 4oz TID with meals 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 Whiteside following, no new recommendations Resolved: S/p Healthcare Acquired Aspiration Pneumonia/Chemical Pneumonitis - Risk Factors: GERD and AMS - Suspect this is more of a chemical pneumonitis with aspiration, will cover for appropriate pathogens - Had wet cough; suctioned in ED with clear to yellow sputum - Initial CXR-no acute abnormal findings; Follow up CXR shows shows right basilar opacification (new) with last CXR read as nothing acute appreciated on front chest xray - Received one dose of IV 500 mg Azithromycin during admission - Received Zosyn IV 4.5 grams Q8H for pharmacy to dose plus Probiotic 1 tab po BID --> changed to clindamycin 150 mg po q 8 hr on 01/24/18 and received through 02/01/18 - He was on PPI but now on H2B for GERD - Mycoplasma pneumonia, viral panel, and strep pneumonia Ag negative - Decongestant/Expectorant PRN and IS as directed - Afebrile w/o leukocytosis - Aspiration Precautions - May have oropharyngeal dysfunction --> FOOD SERVICES MANAGER has signed off on patient S/p Probable Oropharyngeal Dysfunction - FOOD SERVICES MANAGER initial eval with recommendation of NDD4 diet (regular) and nectar thick liquids; diet was upgraded to thin liquids and no straws - FOOD SERVICES MANAGER has now signed off on patient S/p Hypokalemia - was 3.4 01/23/18, improved to 3.9 on 01/24/18 - likely 2/2 poor intake and hemodilution with IVF - replete per protocol S/p Acute Hematemesis - Risk factors: History of alcohol abuse, GERD, Pill Esophagitis - Reported by [facility] to be coffee ground emesis - No further episodes with EMS, in ED, or during admit thus far - ED provider reports negative FOBT - Supportive care: monitor vitals, Hgb --> if indicated, will consult General Surgery for possible EGD - BP 160/98 in ED, improved at admit - Ordered Protonix 40 mg BID IV--> now on H2B S/p Hypotension - BP 86/68 yesterday morning - Will adjust hydralazine order to be given if BP >160/90 S/p Mild Hyponatremia - Na 135--> 138 - Has been on the lower end of normal - Likely 2/2 sertraline and varied intakes - On Thermotabs 2 tab po daily x 3 days S/p Mental Status Changes - Has underlying Dementia - Likely 2/2 Medication Side effects (Increased Dose of Risperdal) --> Daughter reported to ED provider that psych medications were recently changed - [facility] reported slurred speech and lethargy --> - Head CT in ED read as senescent changes with no acute abnormality - Dr. Whiteside recommended: Discontinuing Risperdal 0.5 mg; continuing 1 mg Risperdal q Hs; changing sertraline to HS Chronic: Hx Alcohol Use Disorder Schizophrenia MDD GERD S/p Cardiac pacemaker placement Weakness HTN HLD Hypothyroidism Plan: He remains clinically stable PRN AM Labs Continue current treatment Fall and Aspiration Precautions DVT/GI Prophylaxis: H2B/SCDs CM/SW still working on placement Encourage to ambulate as tolerated Other orders as indicated above Code Status: Full code Discharge pending placement to any [facility] facilities <Shruthi Laws T - Last Filed: 02/07/18 13:57> - Patient Data Vitals - Most Recent: Last Vital Signs Temp 36.4 C 02/07/18 08:50 Pulse 57 L 02/07/18 08:50 Resp 20 02/07/18 08:50 BP 122/84 02/07/18 10:07 Pulse Ox 99 02/07/18 08:50 I&O - Last 24 Hours: Intake & Output 02/06/18 02/07/18 02/07/18 22:59 06:59 14:59 Intake Total 230 700 360 Output Total 300 Balance -70 700 360 Lab Results Last 24 Hours: Laboratory Results - last 24 hr 02/06/18 02/06/18 02/07/18 Range/Units 17:46 20:48 05:40 WBC (4.23-9.07) K/mm3 RBC (4.63-6.08) M/mm3 Hgb (13.7-17.5) gm/L Hct (40.1-51.0) % MCV (79.0-92.2) fl MCH (25.7-32.2) pg MCHC (32.2-35.5) g/dl RDW Std Deviation (35.1-43.9) fL Plt Count (163-337) K/mm3 MPV (9.4-12.3) fl Neut % (Auto) (34.0-67.9) % Lymph % (Auto) (21.8-53.1) % [place] % (Auto) (5.3-12.2) % Eos % (Auto) (0.8-7.0) Baso % (Auto) (0.1-1.2) % Neut # (Auto) (1.78-5.38) K/mm3 Lymph # (Auto) (1.32-3.57) K/mm3 [place] # (Auto) (0.30-0.82) K/mm3 Eos # (Auto) (0.04-0.54) K/mm3 Baso # (Auto) (0.01-0.08) K/mm3 Sodium 135 L (136-145) mEq/L Potassium 3.9 (3.5-5.1) mEq/L Chloride 100 (98-107) mEq/L Carbon Dioxide 26 (21-32) mEq/L Anion Gap 12.9 (5-15) BUN 32 H (7-18) mg/dL Creatinine 1.1 (0.7-1.3) mg/dL Est Cr Clr Drug Dosing 60.14 mL/min Estimated GFR (MDRD) > 60 (>60) mL/min BUN/Creatinine Ratio 29.1 H (14-18) Glucose 97 (83-115) mg/dL POC Glucose 132 H 95 (83-110) mg/dL Calcium 9.8 (8.5-10.1) mg/dL 02/07/18 02/07/18 02/07/18 Range/Units 05:40 06:04 12:40 WBC 7.71 (4.23-9.07) K/mm3 RBC 4.37 L (4.63-6.08) M/mm3 Hgb 12.1 L (13.7-17.5) gm/L Hct 36.9 L (40.1-51.0) % MCV 84.4 (79.0-92.2) fl MCH 27.7 (25.7-32.2) pg MCHC 32.8 (32.2-35.5) g/dl RDW Std Deviation 41.5 (35.1-43.9) fL Plt Count 320 (163-337) K/mm3 MPV 9.2 L (9.4-12.3) fl Neut % (Auto) 72.8 H (34.0-67.9) % Lymph % (Auto) 17.8 L (21.8-53.1) % [place] % (Auto) 6.9 (5.3-12.2) % Eos % (Auto) 1.9 (0.8-7.0) Baso % (Auto) 0.5 (0.1-1.2) % Neut # (Auto) 5.61 H (1.78-5.38) K/mm3 Lymph # (Auto) 1.37 (1.32-3.57) K/mm3 [place] # (Auto) 0.53 (0.30-0.82) K/mm3 Eos # (Auto) 0.15 (0.04-0.54) K/mm3 Baso # (Auto) 0.04 (0.01-0.08) K/mm3 Sodium (136-145) mEq/L Potassium (3.5-5.1) mEq/L Chloride (98-107) mEq/L Carbon Dioxide (21-32) mEq/L Anion Gap (5-15) BUN (7-18) mg/dL Creatinine (0.7-1.3) mg/dL Est Cr Clr Drug Dosing mL/min Estimated GFR (MDRD) (>60) mL/min BUN/Creatinine Ratio (14-18) Glucose (83-115) mg/dL POC Glucose 102 140 H (83-110) mg/dL Calcium (8.5-10.1) mg/dL Med Orders - Current: Current Medications Acetaminophen (Tylenol) 650 mg PO Q4H PRN PRN Reason: Pain (Mild 1-3)/fever Hydrocodone Bitart/Acetaminophen ([place] 325-5 Mg) 1 tab PO Q4H PRN PRN Reason: Pain (moderate 4-6) Aspirin (Aspirin) 81 mg PO DAILY [facility] Last Admin: 02/07/18 10:08 Dose: 81 mg Bisacodyl (Dulcolax) 5 mg PO DAILY PRN PRN Reason: Constipation Last Admin: 01/25/18 02:30 Dose: 5 mg Calcium Carbonate/Glycine (Tums) 500 mg PO BID [facility] Last Admin: 02/07/18 10:08 Dose: 500 mg Dextrose/Water (Dextrose 50% In Water) 50 ml IVPUSH ASDIRECTED PRN PRN Reason: Hypoglycemia Docusate Sodium (Colace) 100 mg PO BID PRN PRN Reason: Constipation Famotidine (Pepcid) 20 mg PO BID [facility] Last Admin: 02/07/18 10:08 Dose: 20 mg Folic Acid (Folic Acid) 1 mg PO BEDTIME [facility] Last Admin: 06/25/18 21:58 Dose: 1 mg Guaifenesin/Phenylephrine HCl (Robitussin Dm) 5 ml PO Q4H PRN PRN Reason: Cough Haloperidol Lactate (Haldol) 2.5 mg IM Q8H PRN PRN Reason: Agitation/Restlessness Last Admin: 01/24/18 08:25 Dose: 2.5 mg Hydralazine HCl (Apresoline) 20 mg IVPUSH Q4H PRN PRN Reason: hypertension Last Admin: 02/05/18 20:08 Dose: 20 mg Hydromorphone HCl (Dilaudid) 0.25 mg IVPUSH Q2H PRN PRN Reason: Pain (severe 7-10) Promethazine HCl 6.25 mg/ (Sodium Chloride) 50.25 mls @ 100 mls/hr IV Q6H PRN PRN Reason: Nausea/Vomiting Insulin Aspart (Novolog) 0 unit SUBCUT QIDACANDBED [facility]; Protocol Last Admin: 02/07/18 13:10 Dose: Not Given Levothyroxine Sodium (Synthroid) 88 mcg PO ACBREAKFAST [facility] Last Admin: 02/07/18 06:05 Dose: 88 mcg Lisinopril (Prinivil) 20 mg PO DAILY [facility] Last Admin: 02/07/18 10:07 Dose: 20 mg Lorazepam (Ativan) 2 mg IVPUSH Q4H PRN PRN Reason: Seizures Lorazepam (Ativan) 0.25 mg IVPUSH Q4H PRN PRN Reason: Anxiety Last Admin: 01/24/18 15:57 Dose: 0.25 mg Magnesium Hydroxide (Milk Of Magnesia) 30 ml PO Q12H PRN PRN Reason: Constipation Metformin HCl (Glucophage) 500 mg PO BIDMEALS [facility] Last Admin: 02/07/18 06:06 Dose: 500 mg Metoprolol Tartrate (Lopressor) 5 mg IVPUSH Q4H PRN PRN Reason: Tachycardia Miscellaneous Information (Remove Patch) 1 ea TRDERM DAILY [facility] Last Admin: 02/07/18 10:05 Dose: 1 ea Multivitamins (Thera) 1 each PO BEDTIME [facility] Last Admin: 02/06/18 21:57 Dose: 1 each Nicotine (Habitrol) 21 mg TRDERM DAILY [facility] Last Admin: 02/07/18 10:03 Dose: 21 mg Polyethylene Glycol (Miralax) 17 gm PO DAILY PRN PRN Reason: Constipation Promethazine HCl (Phenergan) 25 mg PO Q6H PRN PRN Reason: Nausea/Vomiting Risperidone (Risperidal) 1 mg PO BEDTIME [facility] Last Admin: 02/06/18 21:57 Dose: 1 mg Saccharomyces Boulardii (Florastor) 250 mg PO BID [facility] Last Admin: 02/07/18 10:08 Dose: 250 mg Senna/Docusate Sodium (Senna Plus) 1 tab PO BID PRN PRN Reason: Constipation Sertraline HCl (Zoloft) 50 mg PO BEDTIME [facility] Last Admin: 02/06/18 21:57 Dose: 50 mg Simvastatin (Zocor) 20 mg PO BEDTIME [facility] Last Admin: 02/06/18 21:57 Dose: 20 mg Sodium Chloride (Saline Flush) 10 ml FLUSH ASDIRECTED PRN PRN Reason: Keep Vein Open Last Admin: 01/20/18 12:04 Dose: 10 ml Thiamine HCl (Vitamin B-1) 100 mg PO BEDTIME [facility] Last Admin: 02/06/18 21:58 Dose: 100 mg Discontinued Medications Bisacodyl (Dulcolax) 10 mg RECTAL ONETIME ONE Stop: 01/21/18 20:01 Last Admin: 01/21/18 19:58 Dose: Not Given Caffeine (Caffeine) 200 mg PO ONETIME ONE Stop: 01/22/18 07:01 Last Admin: 01/22/18 06:01 Dose: 200 mg Clindamycin HCl (Cleocin) 150 mg PO Q8H [facility] Stop: 02/01/18 11:01 Last Admin: 02/01/18 11:39 Dose: 150 mg Famotidine (Pepcid) 20 mg PO BID [facility] Last Admin: 01/22/18 10:02 Dose: 20 mg Famotidine (Pepcid) 20 mg IVPUSH Q24H [facility] Last Admin: 01/29/18 21:04 Dose: 20 mg Famotidine (Pepcid) 20 mg IVPUSH ONETIME ONE Stop: 01/22/18 11:44 Last Admin: 01/22/18 11:59 Dose: 20 mg Famotidine (Pepcid) 20 mg PO Q24H [facility] Last Admin: 02/03/18 23:16 Dose: 20 mg Hydralazine HCl (Apresoline) 20 mg IVPUSH Q4H PRN PRN Reason: Hypertension Last Admin: 01/26/18 03:30 Dose: 20 mg Sodium Chloride (Normal Saline) 1,000 mls @ 125 mls/hr IV ASDIRECTED [facility] Last Admin: 01/22/18 05:05 Dose: 125 mls/hr Azithromycin 500 mg/ Sodium (Chloride) 250 mls @ 250 mls/hr IV ONETIME ONE Stop: 01/22/18 00:56 Last Admin: 01/22/18 00:21 Dose: 250 mls/hr Piperacillin Sod/Tazobactam (Sod 4.5 gm/ Sodium Chloride) 100 mls @ 25 mls/hr IV Q8H [facility] Last Admin: 01/24/18 04:57 Dose: 25 mls/hr Piperacillin Sod/Tazobactam (Sod 4.5 gm/ Sodium Chloride) 100 mls @ 200 mls/hr IV ONETIME ONE Stop: 01/22/18 12:29 Last Admin: 01/22/18 12:00 Dose: 200 mls/hr Dextrose/Sodium Chloride (Dextrose 5%-Normal Saline) 1,000 mls @ 50 mls/hr IV ASDIRECTED [facility] Last Admin: 01/23/18 08:07 Dose: 50 mls/hr Insulin Aspart (Novolog) 0 unit SUBCUT Q6H PRN; Protocol PRN Reason: Hyperglycemia Insulin Aspart (Novolog) 0 unit SUBCUT Q6HR [facility]; Protocol Last Admin: 01/24/18 20:31 Dose: Not Given Lactulose (Cephulac) 20 gm PO ONETIME ONE Stop: 01/21/18 19:03 Last Admin: 01/21/18 19:58 Dose: Not Given Lorazepam (Ativan) 0.5 mg IVPUSH BEDTIME ONE Stop: 01/23/18 23:45 Last Admin: 01/24/18 00:03 Dose: 0.5 mg Magnesium Sulfate (Pharmacy To Dose - Magnesium Replacement) 1 dose .XX ASDIRECTED [facility] Metformin HCl (Glucophage) 500 mg PO BIDMEALS [facility] Last Admin: 01/22/18 06:02 Dose: 500 mg Metformin HCl (Glucophage) 500 mg PO BIDMEALS [facility] Modafinil (Provigil) 100 mg PO DAILY [facility] Modafinil (Provigil) 100 mg PO NOW STA Stop: 01/22/18 11:01 Last Admin: 01/22/18 11:34 Dose: 100 mg Modafinil (Provigil) 200 mg PO DAILY [facility] Stop: 01/23/18 09:01 Last Admin: 01/23/18 08:13 Dose: 200 mg Nicotine (Habitrol) 21 mg TRDERM DAILY [facility] Non-Formulary Medication (Petrolatum,White [Vaseline]) 453.6 gm TOP [facility] Oral Electrolytes (Thermotabs) 1 each PO BID [facility] Stop: 02/05/18 23:00 Last Admin: 02/05/18 22:39 Dose: Not Given Pantoprazole Sodium (Protonix Iv) 40 mg IVPUSH ONETIME ONE Stop: 01/20/18 12:06 Last Admin: 01/20/18 12:13 Dose: 40 mg Pantoprazole Sodium (Protonix Iv) 40 mg IV Q12HR [facility] Last Admin: 01/21/18 21:09 Dose: 40 mg Potassium Chloride (Pharmacy To Dose - Potassium Replacement) 1 dose .XX ASDIRECTED [facility] Potassium Chloride (Klor-Con M20) 40 meq PO ONETIME ONE Stop: 01/23/18 10:01 Last Admin: 01/23/18 09:43 Dose: 40 meq Risperidone (Risperidal) 0.5 mg PO DAILY [facility] Last Admin: 01/26/18 09:08 Dose: 0.5 mg Risperidone (Risperidal) 1 mg PO DAILY [facility] Risperidone (Risperidal) 1 mg PO BEDTIME [facility] Last Admin: 01/24/18 20:31 Dose: Not Given Sertraline HCl (Zoloft) 50 mg PO DAILY [facility] Last Admin: 01/26/18 09:08 Dose: 50 mg Temazepam (Restoril) 7.5 mg PO BEDTIME PRN PRN Reason: Sleep - Plan Plan:: The patient was examined at bedside in concert with the PA student. The assessment and plans were discussed and agreed upon with me.
[2018-02-07] MEDS: Folic Acid 1 MG Tab PO SCH (21:35)
[2018-02-07] MEDS: risperiDONE 1 MG Tab PO SCH (21:35)
[2018-02-07] MEDS: Simvastatin 20 MG Tab PO SCH (21:35)
[2018-02-07] MEDS: Multivitamins,Therapeutic Tab PO SCH (21:36)
[2018-02-07] MEDS: Thiamine 100 MG Tab PO SCH (21:36)
[2018-02-07] MEDS: Sertraline 50 MG Tab PO SCH (21:36)
[2018-02-08] MEDS: Levothyroxine 88 MCG Tab PO SCH (06:18)
[2018-02-08] MEDS: Insulin Aspart 100 Units/ML 3 ML Pen SUBCUT SCH ×4 (06:18→21:01)
[2018-02-08] MEDS: metFORMIN 500 MG Tab PO SCH ×2 (06:18→17:56)
[2018-02-08] MEDS: Lisinopril 20 MG Tab PO SCH (08:53)
[2018-02-08] MEDS: Saccharomyces Boulardii (Probiotic) 250 MG Cap PO SCH ×2 (08:53→20:53)
[2018-02-08] MEDS: Nicotine 21 MG/24 Hr Patch TRDERM SCH (08:53)
[2018-02-08] MEDS: Calcium Carbonate 500 MG Tab.Chew PO SCH ×2 (08:53→20:53)
[2018-02-08] MEDS: Famotidine 20 MG Tab PO SCH ×2 (08:53→20:53)
[2018-02-08] MEDS: Aspirin 81 MG Tab.Chew PO SCH (08:53)
--- NOTE | 2018-02-08 08:57 | PCM.PN ---
<Hodan Palencia - Last Filed: 02/08/18 12:48> - General Info Date of Service: 02/08/18 Admission Dx/Problem (Free Text): Admission Diagnosis/Problem Admission Diagnosis/Problem Coffee ground emesis Subjective Update: In to see Dg. He is watching TV and sitting in chair. He reports he has no complaints today. Denies chest pain, dyspnea. States he is having regular BMs. Nursing has no concerns and reports that he has been walking with PT earlier and did very well. Functional Status: Reports: Pain Controlled, Tolerating Diet, Ambulating, Urinating - Review of Systems General: Reports: No Symptoms. Denies: Fever, Malaise HEENT: Reports: No Symptoms. Denies: Sinus Congestion, Sore Throat Pulmonary: Reports: No Symptoms. Denies: Shortness of Breath, Cough Cardiovascular: Reports: No Symptoms. Denies: Chest Pain, Edema Gastrointestinal: Reports: No Symptoms. Denies: Abdominal Pain, Constipation, Diarrhea, Nausea, Vomiting Genitourinary: Reports: No Symptoms. Denies: Dysuria, Frequency, Burning Musculoskeletal: Reports: No Symptoms. Denies: Joint Pain Skin: Reports: No Symptoms Neurological: Reports: No Symptoms. Denies: Dizziness, Headache Psychiatric: Reports: No Symptoms. Denies: Depression, Anxiety - Patient Data Vitals - Most Recent: Last Vital Signs Temp 97.5 F 02/08/18 07:27 Pulse 57 L 02/08/18 07:27 Resp 16 02/08/18 07:27 BP 101/66 02/08/18 07:27 Pulse Ox 92 L 02/08/18 07:27 Weight - Most Recent: 72.439 kg I&O - Last 24 Hours: Intake & Output 02/07/18 02/08/18 02/08/18 22:59 06:59 14:59 Intake Total 660 300 Balance 660 300 Lab Results Last 24 Hours: Laboratory Results - last 24 hr 02/07/18 02/07/18 02/07/18 Range/Units 12:40 17:09 21:33 WBC (4.23-9.07) K/mm3 RBC (4.63-6.08) M/mm3 Hgb (13.7-17.5) gm/L Hct (40.1-51.0) % MCV (79.0-92.2) fl MCH (25.7-32.2) pg MCHC (32.2-35.5) g/dl RDW Std Deviation (35.1-43.9) fL Plt Count (163-337) K/mm3 MPV (9.4-12.3) fl Neut % (Auto) (34.0-67.9) % Lymph % (Auto) (21.8-53.1) % [place] % (Auto) (5.3-12.2) % Eos % (Auto) (0.8-7.0) Baso % (Auto) (0.1-1.2) % Neut # (Auto) (1.78-5.38) K/mm3 Lymph # (Auto) (1.32-3.57) K/mm3 [place] # (Auto) (0.30-0.82) K/mm3 Eos # (Auto) (0.04-0.54) K/mm3 Baso # (Auto) (0.01-0.08) K/mm3 Sodium (136-145) mEq/L Potassium (3.5-5.1) mEq/L Chloride (98-107) mEq/L Carbon Dioxide (21-32) mEq/L Anion Gap (5-15) BUN (7-18) mg/dL Creatinine (0.7-1.3) mg/dL Est Cr Clr Drug Dosing mL/min Estimated GFR (MDRD) (>60) mL/min BUN/Creatinine Ratio (14-18) Glucose (83-115) mg/dL POC Glucose 140 H 127 H 124 H (83-110) mg/dL Calcium (8.5-10.1) mg/dL 02/08/18 02/08/18 02/08/18 Range/Units 05:41 05:41 06:17 WBC 5.47 (4.23-9.07) K/mm3 RBC 4.09 L (4.63-6.08) M/mm3 Hgb 11.2 L (13.7-17.5) gm/L Hct 34.5 L (40.1-51.0) % MCV 84.4 (79.0-92.2) fl MCH 27.4 (25.7-32.2) pg MCHC 32.5 (32.2-35.5) g/dl RDW Std Deviation 40.8 (35.1-43.9) fL Plt Count 273 (163-337) K/mm3 MPV 9.4 (9.4-12.3) fl Neut % (Auto) 58.4 (34.0-67.9) % Lymph % (Auto) 29.4 (21.8-53.1) % [place] % (Auto) 8.6 (5.3-12.2) % Eos % (Auto) 2.9 (0.8-7.0) Baso % (Auto) 0.5 (0.1-1.2) % Neut # (Auto) 3.19 (1.78-5.38) K/mm3 Lymph # (Auto) 1.61 (1.32-3.57) K/mm3 [place] # (Auto) 0.47 (0.30-0.82) K/mm3 Eos # (Auto) 0.16 (0.04-0.54) K/mm3 Baso # (Auto) 0.03 (0.01-0.08) K/mm3 Sodium 134 L (136-145) mEq/L Potassium 4.1 (3.5-5.1) mEq/L Chloride 102 (98-107) mEq/L Carbon Dioxide 24 (21-32) mEq/L Anion Gap 12.1 (5-15) BUN 31 H (7-18) mg/dL Creatinine 1.1 (0.7-1.3) mg/dL Est Cr Clr Drug Dosing 63.11 mL/min Estimated GFR (MDRD) > 60 (>60) mL/min BUN/Creatinine Ratio 28.2 H (14-18) Glucose 109 (83-115) mg/dL POC Glucose 136 H (83-110) mg/dL Calcium 9.7 (8.5-10.1) mg/dL Med Orders - Current: Current Medications Acetaminophen (Tylenol) 650 mg PO Q4H PRN PRN Reason: Pain (Mild 1-3)/fever Hydrocodone Bitart/Acetaminophen ([place] 325-5 Mg) 1 tab PO Q4H PRN PRN Reason: Pain (moderate 4-6) Aspirin (Aspirin) 81 mg PO DAILY [facility] Last Admin: 02/07/18 10:08 Dose: 81 mg Bisacodyl (Dulcolax) 5 mg PO DAILY PRN PRN Reason: Constipation Last Admin: 01/25/18 02:30 Dose: 5 mg Calcium Carbonate/Glycine (Tums) 500 mg PO BID [facility] Last Admin: 02/07/18 21:36 Dose: 500 mg Dextrose/Water (Dextrose 50% In Water) 50 ml IVPUSH ASDIRECTED PRN PRN Reason: Hypoglycemia Docusate Sodium (Colace) 100 mg PO BID PRN PRN Reason: Constipation Famotidine (Pepcid) 20 mg PO BID [facility] Last Admin: 02/07/18 21:36 Dose: 20 mg Folic Acid (Folic Acid) 1 mg PO BEDTIME [facility] Last Admin: 02/07/18 21:35 Dose: 1 mg Guaifenesin/Phenylephrine HCl (Robitussin Dm) 5 ml PO Q4H PRN PRN Reason: Cough Haloperidol Lactate (Haldol) 2.5 mg IM Q8H PRN PRN Reason: Agitation/Restlessness Last Admin: 01/24/18 08:25 Dose: 2.5 mg Hydralazine HCl (Apresoline) 20 mg IVPUSH Q4H PRN PRN Reason: hypertension Last Admin: 02/05/18 20:08 Dose: 20 mg Hydromorphone HCl (Dilaudid) 0.25 mg IVPUSH Q2H PRN PRN Reason: Pain (severe 7-10) Promethazine HCl 6.25 mg/ (Sodium Chloride) 50.25 mls @ 100 mls/hr IV Q6H PRN PRN Reason: Nausea/Vomiting Insulin Aspart (Novolog) 0 unit SUBCUT QIDACANDBED [facility]; Protocol Last Admin: 02/08/18 06:18 Dose: Not Given Levothyroxine Sodium (Synthroid) 88 mcg PO ACBREAKFAST [facility] Last Admin: 02/08/18 06:18 Dose: 88 mcg Lisinopril (Prinivil) 20 mg PO DAILY [facility] Last Admin: 02/07/18 10:07 Dose: 20 mg Lorazepam (Ativan) 2 mg IVPUSH Q4H PRN PRN Reason: Seizures Lorazepam (Ativan) 0.25 mg IVPUSH Q4H PRN PRN Reason: Anxiety Last Admin: 01/24/18 15:57 Dose: 0.25 mg Magnesium Hydroxide (Milk Of Magnesia) 30 ml PO Q12H PRN PRN Reason: Constipation Metformin HCl (Glucophage) 500 mg PO BIDMEALS [facility] Last Admin: 02/08/18 06:18 Dose: 500 mg Metoprolol Tartrate (Lopressor) 5 mg IVPUSH Q4H PRN PRN Reason: Tachycardia Miscellaneous Information (Remove Patch) 1 ea TRDERM DAILY [facility] Last Admin: 02/07/18 10:05 Dose: 1 ea Multivitamins (Thera) 1 each PO BEDTIME [facility] Last Admin: 02/07/18 21:36 Dose: 1 each Nicotine (Habitrol) 21 mg TRDERM DAILY [facility] Last Admin: 02/07/18 10:03 Dose: 21 mg Polyethylene Glycol (Miralax) 17 gm PO DAILY PRN PRN Reason: Constipation Promethazine HCl (Phenergan) 25 mg PO Q6H PRN PRN Reason: Nausea/Vomiting Risperidone (Risperidal) 1 mg PO BEDTIME [facility] Last Admin: 02/07/18 21:35 Dose: 1 mg Saccharomyces Boulardii (Florastor) 250 mg PO BID [facility] Last Admin: 02/07/18 21:35 Dose: 250 mg Senna/Docusate Sodium (Senna Plus) 1 tab PO BID PRN PRN Reason: Constipation Sertraline HCl (Zoloft) 50 mg PO BEDTIME [facility] Last Admin: 02/07/18 21:36 Dose: 50 mg Simvastatin (Zocor) 20 mg PO BEDTIME [facility] Last Admin: 02/07/18 21:35 Dose: 20 mg Sodium Chloride (Saline Flush) 10 ml FLUSH ASDIRECTED PRN PRN Reason: Keep Vein Open Last Admin: 01/20/18 12:04 Dose: 10 ml Thiamine HCl (Vitamin B-1) 100 mg PO BEDTIME [facility] Last Admin: 02/07/18 21:36 Dose: 100 mg Discontinued Medications Bisacodyl (Dulcolax) 10 mg RECTAL ONETIME ONE Stop: 01/21/18 20:01 Last Admin: 01/21/18 19:58 Dose: Not Given Caffeine (Caffeine) 200 mg PO ONETIME ONE Stop: 01/22/18 07:01 Last Admin: 01/22/18 06:01 Dose: 200 mg Clindamycin HCl (Cleocin) 150 mg PO Q8H [facility] Stop: 02/01/18 11:01 Last Admin: 02/01/18 11:39 Dose: 150 mg Famotidine (Pepcid) 20 mg PO BID [facility] Last Admin: 01/22/18 10:02 Dose: 20 mg Famotidine (Pepcid) 20 mg IVPUSH Q24H [facility] Last Admin: 01/29/18 21:04 Dose: 20 mg Famotidine (Pepcid) 20 mg IVPUSH ONETIME ONE Stop: 01/22/18 11:44 Last Admin: 01/22/18 11:59 Dose: 20 mg Famotidine (Pepcid) 20 mg PO Q24H [facility] Last Admin: 02/03/18 23:16 Dose: 20 mg Hydralazine HCl (Apresoline) 20 mg IVPUSH Q4H PRN PRN Reason: Hypertension Last Admin: 01/26/18 03:30 Dose: 20 mg Sodium Chloride (Normal Saline) 1,000 mls @ 125 mls/hr IV ASDIRECTED [facility] Last Admin: 01/22/18 05:05 Dose: 125 mls/hr Azithromycin 500 mg/ Sodium (Chloride) 250 mls @ 250 mls/hr IV ONETIME ONE Stop: 01/22/18 00:56 Last Admin: 01/22/18 00:21 Dose: 250 mls/hr Piperacillin Sod/Tazobactam (Sod 4.5 gm/ Sodium Chloride) 100 mls @ 25 mls/hr IV Q8H [facility] Last Admin: 01/24/18 04:57 Dose: 25 mls/hr Piperacillin Sod/Tazobactam (Sod 4.5 gm/ Sodium Chloride) 100 mls @ 200 mls/hr IV ONETIME ONE Stop: 01/22/18 12:29 Last Admin: 01/22/18 12:00 Dose: 200 mls/hr Dextrose/Sodium Chloride (Dextrose 5%-Normal Saline) 1,000 mls @ 50 mls/hr IV ASDIRECTED [facility] Last Admin: 01/23/18 08:07 Dose: 50 mls/hr Insulin Aspart (Novolog) 0 unit SUBCUT Q6H PRN; Protocol PRN Reason: Hyperglycemia Insulin Aspart (Novolog) 0 unit SUBCUT Q6HR [facility]; Protocol Last Admin: 01/24/18 20:31 Dose: Not Given Lactulose (Cephulac) 20 gm PO ONETIME ONE Stop: 01/21/18 19:03 Last Admin: 01/21/18 19:58 Dose: Not Given Lorazepam (Ativan) 0.5 mg IVPUSH BEDTIME ONE Stop: 01/23/18 23:45 Last Admin: 01/24/18 00:03 Dose: 0.5 mg Magnesium Sulfate (Pharmacy To Dose - Magnesium Replacement) 1 dose .XX ASDIRECTED [facility] Metformin HCl (Glucophage) 500 mg PO BIDMEALS [facility] Last Admin: 01/22/18 06:02 Dose: 500 mg Metformin HCl (Glucophage) 500 mg PO BIDMEALS [facility] Modafinil (Provigil) 100 mg PO DAILY [facility] Modafinil (Provigil) 100 mg PO NOW STA Stop: 01/22/18 11:01 Last Admin: 01/22/18 11:34 Dose: 100 mg Modafinil (Provigil) 200 mg PO DAILY [facility] Stop: 01/23/18 09:01 Last Admin: 01/23/18 08:13 Dose: 200 mg Nicotine (Habitrol) 21 mg TRDERM DAILY [facility] Non-Formulary Medication (Petrolatum,White [Vaseline]) 453.6 gm TOP DAILY [facility] Oral Electrolytes (Thermotabs) 1 each PO BID [facility] Stop: 02/05/18 23:00 Last Admin: 02/05/18 22:39 Dose: Not Given Pantoprazole Sodium (Protonix Iv) 40 mg IVPUSH ONETIME ONE Stop: 01/20/18 12:06 Last Admin: 01/20/18 12:13 Dose: 40 mg Pantoprazole Sodium (Protonix Iv) 40 mg IV Q12HR [facility] Last Admin: 01/21/18 21:09 Dose: 40 mg Potassium Chloride (Pharmacy To Dose - Potassium Replacement) 1 dose .XX ASDIRECTED [facility] Potassium Chloride (Klor-Con M20) 40 meq PO ONETIME ONE Stop: 01/23/18 10:01 Last Admin: 01/23/18 09:43 Dose: 40 meq Risperidone (Risperidal) 0.5 mg PO DAILY [facility] Last Admin: 01/26/18 09:08 Dose: 0.5 mg Risperidone (Risperidal) 1 mg PO DAILY [facility] Risperidone (Risperidal) 1 mg PO BEDTIME [facility] Last Admin: 01/24/18 20:31 Dose: Not Given Sertraline HCl (Zoloft) 50 mg PO DAILY [facility] Last Admin: 01/26/18 09:08 Dose: 50 mg Temazepam (Restoril) 7.5 mg PO BEDTIME PRN PRN Reason: Sleep - Exam Quality Assessment: DVT Prophylaxis. No: Supplemental Oxygen General: Alert, Oriented, Cooperative, No Acute Distress HEENT: Pupils Equal, Pupils Reactive, EOMI, Mucous Membr. Moist/Level Green Neck: Supple, Trachea Midline. No: Lymphadenopathy Lungs: Clear to Auscultation, Normal Respiratory Effort Cardiovascular: Regular Rate, Regular Rhythm, No Murmurs GI/Abdominal Exam: Normal Bowel Sounds, Soft, Non-Tender, No Distention (Male) Exam: Deferred Back Exam: Normal Inspection, Decreased Range of Motion Extremities: Normal Inspection, Non-Tender, No Pedal Edema, Limited Range of Motion (at baseline ) Peripheral Pulses: 1+: Posterior Tibial (L), Posterior Tibial (R), Dorsalis Pedis (L), Dorsalis Pedis (R), 2+: Radial (L), Radial (R) Skin: Warm, Dry, Intact Neurological: No New Focal Deficit, Strength Equal Bilateral, Cranial Nerves Intact (grossly ) Psy/Mental Status: Alert, Normal Affect, Normal Mood - Problem List Review Problem List Initiated/Reviewed/Updated: Yes - My Orders Last 24 Hours: My Active Orders 02/09/18 05:11 CBC WITH AUTO DIFF [HEME] AM 02/10/18 05:11 CBC WITH AUTO DIFF [HEME] AM 02/11/18 05:11 CBC WITH AUTO DIFF [HEME] AM - Plan Plan:: Plan: A/P: Chronic: Type 2 Diabetes, Stable - BS well controlled - Continue Metformin 500 mg BID - Accu-check QID, AC, and HS with Low level ISS Cachexia, Continues to Improve - Patient reported UBW 190# (although he is unable to report when he last weighed this amount); weight has ranged from 148-168# during admission with most weights between 155-160# - RD following - Receiving Glucerna 4oz TID with meals 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 Whiteside following, no new recommendations Resolved: S/p Healthcare Acquired Aspiration Pneumonia/Chemical Pneumonitis - Risk Factors: GERD and AMS - Suspect this is more of a chemical pneumonitis with aspiration, will cover for appropriate pathogens - Had wet cough; suctioned in ED with clear to yellow sputum - Initial CXR-no acute abnormal findings; Follow up CXR shows shows right basilar opacification (new) with last CXR read as nothing acute appreciated on front chest xray - Received one dose of IV 500 mg Azithromycin during admission - Received Zosyn IV 4.5 grams Q8H for pharmacy to dose plus Probiotic 1 tab po BID --> changed to clindamycin 150 mg po q 8 hr on 01/24/18 and received through 02/01/18 - He was on PPI but now on H2B for GERD - Mycoplasma pneumonia, viral panel, and strep pneumonia Ag negative - Decongestant/Expectorant PRN and IS as directed - Afebrile w/o leukocytosis - Aspiration Precautions - May have oropharyngeal dysfunction --> AUTOMATION SOFTWARE ENGINEER has signed off on patient S/p Probable Oropharyngeal Dysfunction - AUT[employer] SOFTWARE ENGINEER initial eval with recommendation of NDD4 diet (regular) and nectar thick liquids; diet was upgraded to thin liquids and no straws - AUTOMATION SOFTWARE ENGINEER has now signed off on patient S/p Hypokalemia - Was 3.4 01/23/18, improved to 3.9 on 01/24/18 - Likely 2/2 poor intake and hemodilution with IVF - Replete per protocol S/p Acute Hematemesis - Risk factors: History of alcohol abuse, GERD, Pill Esophagitis - Reported by [facility] to be coffee ground emesis - No further episodes with EMS, in ED, or during admit thus far - ED provider reports negative FOBT - Supportive care: monitor vitals, Hgb --> if indicated, will consult General Surgery for possible EGD - BP 160/98 in ED, improved at admit - Ordered Protonix 40 mg BID IV--> now on H2B S/p Hypotension - BP 86/68 yesterday morning - Will adjust hydralazine order to be given if BP >160/90 S/p Mild Hyponatremia - Na 135--> 138 - Has been on the lower end of normal - Likely 2/2 sertraline and varied intakes - On Thermotabs 2 tab po daily x 3 days S/p Mental Status Changes - Has underlying Dementia - Likely 2/2 Medication Side effects (Increased Dose of Risperdal) --> Daughter reported to ED provider that psych medications were recently changed - Panfilo reported slurred speech and lethargy --> - Head CT in ED read as senescent changes with no acute abnormality - Dr. Whiteside recommended: Discontinuing Risperdal 0.5 mg; continuing 1 mg Risperdal q Hs; changing sertraline to HS Chronic: Hx Alcohol Use Disorder Schizophrenia MDD GERD S/p Cardiac pacemaker placement Weakness HTN HLD Hypothyroidism Plan: He remains clinically stable PRN AM Labs Continue current treatment Fall and Aspiration Precautions DVT/GI Prophylaxis: H2B/SCDs CM/SW still working on placement Encourage to ambulate as tolerated Other orders as indicated above Code Status: Full code Discharge pending placement to any [place] facilities <Shruthi Laws T - Last Filed: 02/08/18 13:42> - Patient Data Vitals - Most Recent: Last Vital Signs Temp 36.4 C 02/08/18 07:27 Pulse 57 L 02/08/18 07:27 Resp 16 02/08/18 07:27 BP 101/66 02/08/18 08:53 Pulse Ox 92 L 02/08/18 07:27 I&O - Last 24 Hours: Intake & Output 02/07/18 02/08/18 02/08/18 22:59 06:59 14:59 Intake Total 660 300 120 Balance 660 300 120 Lab Results Last 24 Hours: Laboratory Results - last 24 hr 02/07/18 02/07/18 02/08/18 Range/Units 17:09 21:33 05:41 WBC (4.23-9.07) K/mm3 RBC (4.63-6.08) M/mm3 Hgb (13.7-17.5) gm/L Hct (40.1-51.0) % MCV (79.0-92.2) fl MCH (25.7-32.2) pg MCHC (32.2-35.5) g/dl RDW Std Deviation (35.1-43.9) fL Plt Count (163-337) K/mm3 MPV (9.4-12.3) fl Neut % (Auto) (34.0-67.9) % Lymph % (Auto) (21.8-53.1) % [place] % (Auto) (5.3-12.2) % Eos % (Auto) (0.8-7.0) Baso % (Auto) (0.1-1.2) % Neut # (Auto) (1.78-5.38) K/mm3 Lymph # (Auto) (1.32-3.57) K/mm3 [place] # (Auto) (0.30-0.82) K/mm3 Eos # (Auto) (0.04-0.54) K/mm3 Baso # (Auto) (0.01-0.08) K/mm3 Sodium 134 L (136-145) mEq/L Potassium 4.1 (3.5-5.1) mEq/L Chloride 102 (98-107) mEq/L Carbon Dioxide 24 (21-32) mEq/L Anion Gap 12.1 (5-15) BUN 31 H (7-18) mg/dL Creatinine 1.1 (0.7-1.3) mg/dL Est Cr Clr Drug Dosing 63.11 mL/min Estimated GFR (MDRD) > 60 (>60) mL/min BUN/Creatinine Ratio 28.2 H (14-18) Glucose 109 (83-115) mg/dL POC Glucose 127 H 124 H (83-110) mg/dL Calcium 9.7 (8.5-10.1) mg/dL 02/08/18 02/08/18 02/08/18 Range/Units 05:41 06:17 11:05 WBC 5.47 (4.23-9.07) K/mm3 RBC 4.09 L (4.63-6.08) M/mm3 Hgb 11.2 L (13.7-17.5) gm/L Hct 34.5 L (40.1-51.0) % MCV 84.4 (79.0-92.2) fl MCH 27.4 (25.7-32.2) pg MCHC 32.5 (32.2-35.5) g/dl RDW Std Deviation 40.8 (35.1-43.9) fL Plt Count 273 (163-337) K/mm3 MPV 9.4 (9.4-12.3) fl Neut % (Auto) 58.4 (34.0-67.9) % Lymph % (Auto) 29.4 (21.8-53.1) % [place] % (Auto) 8.6 (5.3-12.2) % Eos % (Auto) 2.9 (0.8-7.0) Baso % (Auto) 0.5 (0.1-1.2) % Neut # (Auto) 3.19 (1.78-5.38) K/mm3 Lymph # (Auto) 1.61 (1.32-3.57) K/mm3 [place] # (Auto) 0.47 (0.30-0.82) K/mm3 Eos # (Auto) 0.16 (0.04-0.54) K/mm3 Baso # (Auto) 0.03 (0.01-0.08) K/mm3 Sodium (136-145) mEq/L Potassium (3.5-5.1) mEq/L Chloride (98-107) mEq/L Carbon Dioxide (21-32) mEq/L Anion Gap (5-15) BUN (7-18) mg/dL Creatinine (0.7-1.3) mg/dL Est Cr Clr Drug Dosing mL/min Estimated GFR (MDRD) (>60) mL/min BUN/Creatinine Ratio (14-18) Glucose (83-115) mg/dL POC Glucose 136 H 127 H (83-110) mg/dL Calcium (8.5-10.1) mg/dL Med Orders - Current: Current Medications Acetaminophen (Tylenol) 650 mg PO Q4H PRN PRN Reason: Pain (Mild 1-3)/fever Hydrocodone Bitart/Acetaminophen ([place] 325-5 Mg) 1 tab PO Q4H PRN PRN Reason: Pain (moderate 4-6) Aspirin (Aspirin) 81 mg PO DAILY [facility] Last Admin: 02/08/18 08:53 Dose: 81 mg Bisacodyl (Dulcolax) 5 mg PO DAILY PRN PRN Reason: Constipation Last Admin: 01/25/18 02:30 Dose: 5 mg Calcium Carbonate/Glycine (Tums) 500 mg PO BID [facility] Last Admin: 02/08/18 08:53 Dose: 500 mg Dextrose/Water (Dextrose 50% In Water) 50 ml IVPUSH ASDIRECTED PRN PRN Reason: Hypoglycemia Docusate Sodium (Colace) 100 mg PO BID PRN PRN Reason: Constipation Famotidine (Pepcid) 20 mg PO BID [facility] Last Admin: 02/08/18 08:53 Dose: 20 mg Folic Acid (Folic Acid) 1 mg PO BEDTIME [facility] Last Admin: 02/07/18 21:35 Dose: 1 mg Guaifenesin/Phenylephrine HCl (Robitussin Dm) 5 ml PO Q4H PRN PRN Reason: Cough Haloperidol Lactate (Haldol) 2.5 mg IM Q8H PRN PRN Reason: Agitation/Restlessness Last Admin: 01/24/18 08:25 Dose: 2.5 mg Hydralazine HCl (Apresoline) 20 mg IVPUSH Q4H PRN PRN Reason: hypertension Last Admin: 02/05/18 20:08 Dose: 20 mg Hydromorphone HCl (Dilaudid) 0.25 mg IVPUSH Q2H PRN PRN Reason: Pain (severe 7-10) Promethazine HCl 6.25 mg/ (Sodium Chloride) 50.25 mls @ 100 mls/hr IV Q6H PRN PRN Reason: Nausea/Vomiting Insulin Aspart (Novolog) 0 unit SUBCUT QIDACANDBED [facility]; Protocol Last Admin: 02/08/18 11:20 Dose: Not Given Levothyroxine Sodium (Synthroid) 88 mcg PO ACBREAKFAST [facility] Last Admin: 02/08/18 06:18 Dose: 88 mcg Lisinopril (Prinivil) 20 mg PO DAILY [facility] Last Admin: 02/08/18 08:53 Dose: 20 mg Lorazepam (Ativan) 2 mg IVPUSH Q4H PRN PRN Reason: Seizures Lorazepam (Ativan) 0.25 mg IVPUSH Q4H PRN PRN Reason: Anxiety Last Admin: 01/24/18 15:57 Dose: 0.25 mg Magnesium Hydroxide (Milk Of Magnesia) 30 ml PO Q12H PRN PRN Reason: Constipation Metformin HCl (Glucophage) 500 mg PO BIDMEALS [facility] Last Admin: 02/08/18 06:18 Dose: 500 mg Metoprolol Tartrate (Lopressor) 5 mg IVPUSH Q4H PRN PRN Reason: Tachycardia Miscellaneous Information (Remove Patch) 1 ea TRDERM DAILY [facility] Last Admin: 02/08/18 08:54 Dose: 1 ea Multivitamins (Thera) 1 each PO BEDTIME [facility] Last Admin: 02/07/18 21:36 Dose: 1 each Nicotine (Habitrol) 21 mg TRDERM DAILY [facility] Last Admin: 02/08/18 08:53 Dose: 21 mg Polyethylene Glycol (Miralax) 17 gm PO DAILY PRN PRN Reason: Constipation Promethazine HCl (Phenergan) 25 mg PO Q6H PRN PRN Reason: Nausea/Vomiting Risperidone (Risperidal) 1 mg PO BEDTIME [facility] Last Admin: 02/07/18 21:35 Dose: 1 mg Saccharomyces Boulardii (Florastor) 250 mg PO BID [facility] Last Admin: 02/08/18 08:53 Dose: 250 mg Senna/Docusate Sodium (Senna Plus) 1 tab PO BID PRN PRN Reason: Constipation Sertraline HCl (Zoloft) 50 mg PO BEDTIME [facility] Last Admin: 02/07/18 21:36 Dose: 50 mg Simvastatin (Zocor) 20 mg PO BEDTIME [facility] Last Admin: 02/07/18 21:35 Dose: 20 mg Sodium Chloride (Saline Flush) 10 ml FLUSH ASDIRECTED PRN PRN Reason: Keep Vein Open Last Admin: 01/20/18 12:04 Dose: 10 ml Thiamine HCl (Vitamin B-1) 100 mg PO BEDTIME [facility] Last Admin: 02/07/18 21:36 Dose: 100 mg Discontinued Medications Bisacodyl (Dulcolax) 10 mg RECTAL ONETIME ONE Stop: 01/21/18 20:01 Last Admin: 01/21/18 19:58 Dose: Not Given Caffeine (Caffeine) 200 mg PO ONETIME ONE Stop: 01/22/18 07:01 Last Admin: 01/22/18 06:01 Dose: 200 mg Clindamycin HCl (Cleocin) 150 mg PO Q8H [facility] Stop: 02/01/18 11:01 Last Admin: 02/01/18 11:39 Dose: 150 mg Famotidine (Pepcid) 20 mg PO BID [facility] Last Admin: 01/22/18 10:02 Dose: 20 mg Famotidine (Pepcid) 20 mg IVPUSH Q24H [facility] Last Admin: 01/29/18 21:04 Dose: 20 mg Famotidine (Pepcid) 20 mg IVPUSH ONETIME ONE Stop: 01/22/18 11:44 Last Admin: 01/22/18 11:59 Dose: 20 mg Famotidine (Pepcid) 20 mg PO Q24H [facility] Last Admin: 02/03/18 23:16 Dose: 20 mg Hydralazine HCl (Apresoline) 20 mg IVPUSH Q4H PRN PRN Reason: Hypertension Last Admin: 01/26/18 03:30 Dose: 20 mg Sodium Chloride (Normal Saline) 1,000 mls @ 125 mls/hr IV ASDIRECTED [facility] Last Admin: 01/22/18 05:05 Dose: 125 mls/hr Azithromycin 500 mg/ Sodium (Chloride) 250 mls @ 250 mls/hr IV ONETIME ONE Stop: 01/22/18 00:56 Last Admin: 01/22/18 00:21 Dose: 250 mls/hr Piperacillin Sod/Tazobactam (Sod 4.5 gm/ Sodium Chloride) 100 mls @ 25 mls/hr IV Q8H [facility] Last Admin: 01/24/18 04:57 Dose: 25 mls/hr Piperacillin Sod/Tazobactam (Sod 4.5 gm/ Sodium Chloride) 100 mls @ 200 mls/hr IV ONETIME ONE Stop: 01/22/18 12:29 Last Admin: 01/22/18 12:00 Dose: 200 mls/hr Dextrose/Sodium Chloride (Dextrose 5%-Normal Saline) 1,000 mls @ 50 mls/hr IV ASDIRECTED [facility] Last Admin: 01/23/18 08:07 Dose: 50 mls/hr Insulin Aspart (Novolog) 0 unit SUBCUT Q6H PRN; Protocol PRN Reason: Hyperglycemia Insulin Aspart (Novolog) 0 unit SUBCUT Q6HR [facility]; Protocol Last Admin: 01/24/18 20:31 Dose: Not Given Lactulose (Cephulac) 20 gm PO ONETIME ONE Stop: 01/21/18 19:03 Last Admin: 01/21/18 19:58 Dose: Not Given Lorazepam (Ativan) 0.5 mg IVPUSH BEDTIME ONE Stop: 01/23/18 23:45 Last Admin: 01/24/18 00:03 Dose: 0.5 mg Magnesium Sulfate (Pharmacy To Dose - Magnesium Replacement) 1 dose .XX ASDIRECTED [facility] Metformin HCl (Glucophage) 500 mg PO BIDMEALS [facility] Last Admin: 01/22/18 06:02 Dose: 500 mg Metformin HCl (Glucophage) 500 mg PO BIDMEALS [facility] Modafinil (Provigil) 100 mg PO DAILY [facility] Modafinil (Provigil) 100 mg PO NOW STA Stop: 01/22/18 11:01 Last Admin: 01/22/18 11:34 Dose: 100 mg Modafinil (Provigil) 200 mg PO DAILY [facility] Stop: 01/23/18 09:01 Last Admin: 01/23/18 08:13 Dose: 200 mg Nicotine (Habitrol) 21 mg TRDERM DAILY [facility] Non-Formulary Medication (Petrolatum,White [Vaseline]) 453.6 gm TOP DAILY [facility] Oral Electrolytes (Thermotabs) 1 each PO BID [facility] Stop: 02/05/18 23:00 Last Admin: 02/05/18 22:39 Dose: Not Given Pantoprazole Sodium (Protonix Iv) 40 mg IVPUSH ONETIME ONE Stop: 01/20/18 12:06 Last Admin: 01/20/18 12:13 Dose: 40 mg Pantoprazole Sodium (Protonix Iv) 40 mg IV Q12HR [facility] Last Admin: 01/21/18 21:09 Dose: 40 mg Potassium Chloride (Pharmacy To Dose - Potassium Replacement) 1 dose .XX ASDIRECTED [facility] Potassium Chloride (Klor-Con M20) 40 meq PO ONETIME ONE Stop: 01/23/18 10:01 Last Admin: 01/23/18 09:43 Dose: 40 meq Risperidone (Risperidal) 0.5 mg PO DAILY [facility] Last Admin: 01/26/18 09:08 Dose: 0.5 mg Risperidone (Risperidal) 1 mg PO DAILY [facility] Risperidone (Risperidal) 1 mg PO BEDTIME [facility] Last Admin: 01/24/18 20:31 Dose: Not Given Sertraline HCl (Zoloft) 50 mg PO DAILY [facility] Last Admin: 01/26/18 09:08 Dose: 50 mg Temazepam (Restoril) 7.5 mg PO BEDTIME PRN PRN Reason: Sleep - Plan Plan:: Patient was seen and examined at bedside in concert with the PA student. The assessment and plans were discussed and agreed upon with me. Patient remains stable. Discharge pending placement: [facility] vs [facility].
[2018-02-08] MEDS: Sertraline 50 MG Tab PO SCH (20:53)
[2018-02-08] MEDS: Thiamine 100 MG Tab PO SCH (20:53)
[2018-02-08] MEDS: risperiDONE 1 MG Tab PO SCH (20:53)
[2018-02-08] MEDS: Simvastatin 20 MG Tab PO SCH (20:53)
[2018-02-08] MEDS: Multivitamins,Therapeutic Tab PO SCH (20:53)
[2018-02-08] MEDS: Folic Acid 1 MG Tab PO SCH (20:53)
[2018-02-09] MEDS: Levothyroxine 88 MCG Tab PO SCH (06:30)
[2018-02-09] MEDS: metFORMIN 500 MG Tab PO SCH (06:30)
[2018-02-09] MEDS: Insulin Aspart 100 Units/ML 3 ML Pen SUBCUT SCH ×2 (06:30→10:49)
[2018-02-09 08:13] VITALS: BP 146/80
[2018-02-09] MEDS: Aspirin 81 MG Tab.Chew PO SCH (08:27)
[2018-02-09] MEDS: Calcium Carbonate 500 MG Tab.Chew PO SCH (08:27)
[2018-02-09] MEDS: Lisinopril 20 MG Tab PO SCH (08:27)
[2018-02-09] MEDS: Famotidine 20 MG Tab PO SCH (08:27)
[2018-02-09] MEDS: Nicotine 21 MG/24 Hr Patch TRDERM SCH (08:27)
[2018-02-09] MEDS: Saccharomyces Boulardii (Probiotic) 250 MG Cap PO SCH (08:27)
--- NOTE | 2018-02-09 08:42 | PCM.PN ---
- General Info Date of Service: 02/09/18 Admission Dx/Problem (Free Text): Admission Diagnosis/Problem Admission Diagnosis/Problem Coffee ground emesis Subjective Update: In to see Dg. He is laying comfortably in bed. He reports he has no complaints today. Denies chest pain, dyspnea. Nursing has no concerns and reports that patient has been cooperative with cares. Functional Status: Reports: Pain Controlled, Tolerating Diet, Ambulating, Urinating - Review of Systems General: Reports: No Symptoms. Denies: Fever, Malaise HEENT: Reports: No Symptoms. Denies: Sinus Congestion, Sore Throat Pulmonary: Reports: No Symptoms. Denies: Shortness of Breath, Cough Cardiovascular: Reports: No Symptoms. Denies: Chest Pain, Palpitations Gastrointestinal: Reports: No Symptoms. Denies: Abdominal Pain, Constipation, Diarrhea, Nausea, Vomiting Genitourinary: Reports: No Symptoms. Denies: Dysuria, Frequency, Burning Musculoskeletal: Reports: No Symptoms. Denies: Joint Pain Skin: Reports: No Symptoms Neurological: Reports: No Symptoms. Denies: Headache Psychiatric: Reports: No Symptoms. Denies: Depression, Anxiety - Patient Data Vitals - Most Recent: Last Vital Signs Temp 97.9 F 02/09/18 07:32 Pulse 61 02/09/18 07:32 Resp 18 02/09/18 07:32 BP 146/80 H 02/09/18 08:27 Pulse Ox 97 02/09/18 07:32 Weight - Most Recent: 158 lb 4.8 oz I&O - Last 24 Hours: Intake & Output 02/08/18 02/09/18 02/09/18 22:59 06:59 14:59 Intake Total 580 200 Balance 580 200 Lab Results Last 24 Hours: Laboratory Results - last 24 hr 02/08/18 02/08/18 02/08/18 Range/Units 11:05 17:07 20:47 WBC (4.23-9.07) K/mm3 RBC (4.63-6.08) M/mm3 Hgb (13.7-17.5) gm/L Hct (40.1-51.0) % MCV (79.0-92.2) fl MCH (25.7-32.2) pg MCHC (32.2-35.5) g/dl RDW Std Deviation (35.1-43.9) fL Plt Count (163-337) K/mm3 MPV (9.4-12.3) fl Neut % (Auto) (34.0-67.9) % Lymph % (Auto) (21.8-53.1) % [place] % (Auto) (5.3-12.2) % Eos % (Auto) (0.8-7.0) Baso % (Auto) (0.1-1.2) % Neut # (Auto) (1.78-5.38) K/mm3 Lymph # (Auto) (1.32-3.57) K/mm3 [place] # (Auto) (0.30-0.82) K/mm3 Eos # (Auto) (0.04-0.54) K/mm3 Baso # (Auto) (0.01-0.08) K/mm3 Sodium (136-145) mEq/L Potassium (3.5-5.1) mEq/L Chloride (98-107) mEq/L Carbon Dioxide (21-32) mEq/L Anion Gap (5-15) BUN (7-18) mg/dL Creatinine (0.7-1.3) mg/dL Est Cr Clr Drug Dosing mL/min Estimated GFR (MDRD) (>60) mL/min BUN/Creatinine Ratio (14-18) Glucose (83-115) mg/dL POC Glucose 127 H 127 H 212 H (83-110) mg/dL Calcium (8.5-10.1) mg/dL 02/09/18 02/09/18 02/09/18 Range/Units 06:17 06:18 06:18 WBC 4.46 (4.23-9.07) K/mm3 RBC 4.07 L (4.63-6.08) M/mm3 Hgb 11.1 L (13.7-17.5) gm/L Hct 34.3 L (40.1-51.0) % MCV 84.3 (79.0-92.2) fl MCH 27.3 (25.7-32.2) pg MCHC 32.4 (32.2-35.5) g/dl RDW Std Deviation 40.9 (35.1-43.9) fL Plt Count 254 (163-337) K/mm3 MPV 9.3 L (9.4-12.3) fl Neut % (Auto) 55.1 (34.0-67.9) % Lymph % (Auto) 34.5 (21.8-53.1) % [place] % (Auto) 6.3 (5.3-12.2) % Eos % (Auto) 3.4 (0.8-7.0) Baso % (Auto) 0.7 (0.1-1.2) % Neut # (Auto) 2.46 (1.78-5.38) K/mm3 Lymph # (Auto) 1.54 (1.32-3.57) K/mm3 [place] # (Auto) 0.28 L (0.30-0.82) K/mm3 Eos # (Auto) 0.15 (0.04-0.54) K/mm3 Baso # (Auto) 0.03 (0.01-0.08) K/mm3 Sodium 136 (136-145) mEq/L Potassium 4.2 (3.5-5.1) mEq/L Chloride 103 (98-107) mEq/L Carbon Dioxide 25 (21-32) mEq/L Anion Gap 12.2 (5-15) BUN 32 H (7-18) mg/dL Creatinine 1.1 (0.7-1.3) mg/dL Est Cr Clr Drug Dosing 62.56 mL/min Estimated GFR (MDRD) > 60 (>60) mL/min BUN/Creatinine Ratio 29.1 H (14-18) Glucose 101 (83-115) mg/dL POC Glucose 95 (83-110) mg/dL Calcium 9.5 (8.5-10.1) mg/dL Med Orders - Current: Current Medications Acetaminophen (Tylenol) 650 mg PO Q4H PRN PRN Reason: Pain (Mild 1-3)/fever Hydrocodone Bitart/Acetaminophen ([place] 325-5 Mg) 1 tab PO Q4H PRN PRN Reason: Pain (moderate 4-6) Aspirin (Aspirin) 81 mg PO DAILY [facility] Last Admin: 02/09/18 08:27 Dose: 81 mg Bisacodyl (Dulcolax) 5 mg PO DAILY PRN PRN Reason: Constipation Last Admin: 01/25/18 02:30 Dose: 5 mg Calcium Carbonate/Glycine (Tums) 500 mg PO BID [facility] Last Admin: 02/09/18 08:27 Dose: 500 mg Dextrose/Water (Dextrose 50% In Water) 50 ml IVPUSH ASDIRECTED PRN PRN Reason: Hypoglycemia Docusate Sodium (Colace) 100 mg PO BID PRN PRN Reason: Constipation Famotidine (Pepcid) 20 mg PO BID [facility] Last Admin: 02/09/18 08:27 Dose: 20 mg Folic Acid (Folic Acid) 1 mg PO BEDTIME [facility] Last Admin: 02/08/18 20:53 Dose: 1 mg Guaifenesin/Phenylephrine HCl (Robitussin Dm) 5 ml PO Q4H PRN PRN Reason: Cough Haloperidol Lactate (Haldol) 2.5 mg IM Q8H PRN PRN Reason: Agitation/Restlessness Last Admin: 01/24/18 08:25 Dose: 2.5 mg Hydralazine HCl (Apresoline) 20 mg IVPUSH Q4H PRN PRN Reason: hypertension Last Admin: 02/05/18 20:08 Dose: 20 mg Hydromorphone HCl (Dilaudid) 0.25 mg IVPUSH Q2H PRN PRN Reason: Pain (severe 7-10) Promethazine HCl 6.25 mg/ (Sodium Chloride) 50.25 mls @ 100 mls/hr IV Q6H PRN PRN Reason: Nausea/Vomiting Insulin Aspart (Novolog) 0 unit SUBCUT QIDACANDBED [facility]; Protocol Last Admin: 02/09/18 06:30 Dose: Not Given Levothyroxine Sodium (Synthroid) 88 mcg PO ACBREAKFAST [facility] Last Admin: 02/09/18 06:30 Dose: 88 mcg Lisinopril (Prinivil) 20 mg PO DAILY [facility] Last Admin: 02/09/18 08:27 Dose: 20 mg Lorazepam (Ativan) 2 mg IVPUSH Q4H PRN PRN Reason: Seizures Lorazepam (Ativan) 0.25 mg IVPUSH Q4H PRN PRN Reason: Anxiety Last Admin: 01/24/18 15:57 Dose: 0.25 mg Magnesium Hydroxide (Milk Of Magnesia) 30 ml PO Q12H PRN PRN Reason: Constipation Metformin HCl (Glucophage) 500 mg PO BIDMEALS [facility] Last Admin: 02/09/18 06:30 Dose: 500 mg Metoprolol Tartrate (Lopressor) 5 mg IVPUSH Q4H PRN PRN Reason: Tachycardia Miscellaneous Information (Remove Patch) 1 ea TRDERM DAILY [facility] Last Admin: 02/09/18 08:28 Dose: 1 ea Multivitamins (Thera) 1 each PO BEDTIME [facility] Last Admin: 02/08/18 20:53 Dose: 1 each Nicotine (Habitrol) 21 mg TRDERM DAILY [facility] Last Admin: 02/09/18 08:27 Dose: 21 mg Polyethylene Glycol (Miralax) 17 gm PO DAILY PRN PRN Reason: Constipation Last Admin: 02/08/18 17:56 Dose: 17 gm Promethazine HCl (Phenergan) 25 mg PO Q6H PRN PRN Reason: Nausea/Vomiting Risperidone (Risperidal) 1 mg PO BEDTIME [facility] Last Admin: 02/08/18 20:53 Dose: 1 mg Saccharomyces Boulardii (Florastor) 250 mg PO BID [facility] Last Admin: 02/09/18 08:27 Dose: 250 mg Senna/Docusate Sodium (Senna Plus) 1 tab PO BID PRN PRN Reason: Constipation Sertraline HCl (Zoloft) 50 mg PO BEDTIME [facility] Last Admin: 02/08/18 20:53 Dose: 50 mg Simvastatin (Zocor) 20 mg PO BEDTIME [facility] Last Admin: 02/08/18 20:53 Dose: 20 mg Sodium Chloride (Saline Flush) 10 ml FLUSH ASDIRECTED PRN PRN Reason: Keep Vein Open Last Admin: 01/20/18 12:04 Dose: 10 ml Thiamine HCl (Vitamin B-1) 100 mg PO BEDTIME [facility] Last Admin: 02/08/18 20:53 Dose: 100 mg Discontinued Medications Bisacodyl (Dulcolax) 10 mg RECTAL ONETIME ONE Stop: 01/21/18 20:01 Last Admin: 01/21/18 19:58 Dose: Not Given Caffeine (Caffeine) 200 mg PO ONETIME ONE Stop: 01/22/18 07:01 Last Admin: 01/22/18 06:01 Dose: 200 mg Clindamycin HCl (Cleocin) 150 mg PO Q8H [facility] Stop: 02/01/18 11:01 Last Admin: 02/01/18 11:39 Dose: 150 mg Famotidine (Pepcid) 20 mg PO BID [facility] Last Admin: 01/22/18 10:02 Dose: 20 mg Famotidine (Pepcid) 20 mg IVPUSH Q24H [facility] Last Admin: 01/29/18 21:04 Dose: 20 mg Famotidine (Pepcid) 20 mg IVPUSH ONETIME ONE Stop: 01/22/18 11:44 Last Admin: 01/22/18 11:59 Dose: 20 mg Famotidine (Pepcid) 20 mg PO Q24H [facility] Last Admin: 02/03/18 23:16 Dose: 20 mg Hydralazine HCl (Apresoline) 20 mg IVPUSH Q4H PRN PRN Reason: Hypertension Last Admin: 01/26/18 03:30 Dose: 20 mg Sodium Chloride (Normal Saline) 1,000 mls @ 125 mls/hr IV ASDIRECTED [facility] Last Admin: 01/22/18 05:05 Dose: 125 mls/hr Azithromycin 500 mg/ Sodium (Chloride) 250 mls @ 250 mls/hr IV ONETIME ONE Stop: 01/22/18 00:56 Last Admin: 01/22/18 00:21 Dose: 250 mls/hr Piperacillin Sod/Tazobactam (Sod 4.5 gm/ Sodium Chloride) 100 mls @ 25 mls/hr IV Q8H [facility] Last Admin: 01/24/18 04:57 Dose: 25 mls/hr Piperacillin Sod/Tazobactam (Sod 4.5 gm/ Sodium Chloride) 100 mls @ 200 mls/hr IV ONETIME ONE Stop: 01/22/18 12:29 Last Admin: 01/22/18 12:00 Dose: 200 mls/hr Dextrose/Sodium Chloride (Dextrose 5%-Normal Saline) 1,000 mls @ 50 mls/hr IV ASDIRECTED [facility] Last Admin: 01/23/18 08:07 Dose: 50 mls/hr Insulin Aspart (Novolog) 0 unit SUBCUT Q6H PRN; Protocol PRN Reason: Hyperglycemia Insulin Aspart (Novolog) 0 unit SUBCUT Q6HR [facility]; Protocol Last Admin: 01/24/18 20:31 Dose: Not Given Lactulose (Cephulac) 20 gm PO ONETIME ONE Stop: 01/21/18 19:03 Last Admin: 01/21/18 19:58 Dose: Not Given Lorazepam (Ativan) 0.5 mg IVPUSH BEDTIME ONE Stop: 01/23/18 23:45 Last Admin: 01/24/18 00:03 Dose: 0.5 mg Magnesium Sulfate (Pharmacy To Dose - Magnesium Replacement) 1 dose .XX ASDIRECTED [facility] Metformin HCl (Glucophage) 500 mg PO BIDMEALS [facility] Last Admin: 01/22/18 06:02 Dose: 500 mg Metformin HCl (Glucophage) 500 mg PO BIDMEALS [facility] Modafinil (Provigil) 100 mg PO DAILY [facility] Modafinil (Provigil) 100 mg PO NOW STA Stop: 01/22/18 11:01 Last Admin: 01/22/18 11:34 Dose: 100 mg Modafinil (Provigil) 200 mg PO DAILY [facility] Stop: 01/23/18 09:01 Last Admin: 01/23/18 08:13 Dose: 200 mg Nicotine (Habitrol) 21 mg TRDERM DAILY [facility] Non-Formulary Medication (Petrolatum,White [Vaseline]) 453.6 gm TOP DAILY [facility] Oral Electrolytes (Thermotabs) 1 each PO BID [facility] Stop: 02/05/18 23:00 Last Admin: 02/05/18 22:39 Dose: Not Given Pantoprazole Sodium (Protonix Iv) 40 mg IVPUSH ONETIME ONE Stop: 01/20/18 12:06 Last Admin: 01/20/18 12:13 Dose: 40 mg Pantoprazole Sodium (Protonix Iv) 40 mg IV Q12HR [facility] Last Admin: 01/21/18 21:09 Dose: 40 mg Potassium Chloride (Pharmacy To Dose - Potassium Replacement) 1 dose .XX ASDIRECTED [facility] Potassium Chloride (Klor-Con M20) 40 meq PO ONETIME ONE Stop: 01/23/18 10:01 Last Admin: 01/23/18 09:43 Dose: 40 meq Risperidone (Risperidal) 0.5 mg PO DAILY [facility] Last Admin: 01/26/18 09:08 Dose: 0.5 mg Risperidone (Risperidal) 1 mg PO DAILY [facility] Risperidone (Risperidal) 1 mg PO BEDTIME [facility] Last Admin: 01/24/18 20:31 Dose: Not Given Sertraline HCl (Zoloft) 50 mg PO DAILY [facility] Last Admin: 01/26/18 09:08 Dose: 50 mg Temazepam (Restoril) 7.5 mg PO BEDTIME PRN PRN Reason: Sleep - Exam Quality Assessment: DVT Prophylaxis. No: Supplemental Oxygen General: Alert, Oriented, Cooperative, No Acute Distress HEENT: Pupils Equal, Pupils Reactive, EOMI, Mucous Membr. Moist/[place] Neck: Supple, Trachea Midline. No: Lymphadenopathy Lungs: Clear to Auscultation, Normal Respiratory Effort Cardiovascular: Regular Rate, Regular Rhythm, No Murmurs GI/Abdominal Exam: Normal Bowel Sounds, Soft, Non-Tender, No Distention (Male) Exam: Deferred Back Exam: Normal Inspection, Decreased Range of Motion Extremities: Normal Inspection, Non-Tender, No Pedal Edema, Limited Range of Motion (baseline ) Peripheral Pulses: 1+: Posterior Tibial (L), Posterior Tibial (R), Dorsalis Pedis (L), Dorsalis Pedis (R), 2+: Radial (L), Radial (R) Skin: Warm, Dry, Intact Neurological: No New Focal Deficit, Strength Equal Bilateral, Cranial Nerves Intact (grossly) Psy/Mental Status: Alert, Normal Affect, Normal Mood - Problem List Review Problem List Initiated/Reviewed/Updated: Yes - My Orders Last 24 Hours: My Active Orders 02/10/18 05:11 BASIC METABOLIC PANEL,BMP [CHEM] AM CBC WITH AUTO DIFF [HEME] AM 02/11/18 05:11 BASIC METABOLIC PANEL,BMP [CHEM] AM CBC WITH AUTO DIFF [HEME] AM 02/12/18 05:11 BASIC METABOLIC PANEL,BMP [CHEM] AM 02/13/18 05:11 BASIC METABOLIC PANEL,BMP [CHEM] AM 02/14/18 05:11 BASIC METABOLIC PANEL,BMP [CHEM] AM 02/15/18 05:11 BASIC METABOLIC PANEL,BMP [CHEM] AM 02/16/18 05:11 BASIC METABOLIC PANEL,BMP [CHEM] AM - Plan Plan:: I/P Chronic: Type 2 Diabetes, Stable - BS well controlled - Continue Metformin 500 mg BID - Accu-check QID, AC, and HS with Low level ISS Cachexia, Continues to Improve - Patient reported UBW 190# (although he is unable to report when he last weighed this amount); weight has ranged from 148-168# during admission with most weights between 155-160# - RD following - Receiving Glucerna 4oz TID with meals 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 Whiteside following, no new recommendations Resolved: S/p Healthcare Acquired Aspiration Pneumonia/Chemical Pneumonitis - Risk Factors: GERD and AMS - Suspect this is more of a chemical pneumonitis with aspiration, will cover for appropriate pathogens - Had wet cough; suctioned in ED with clear to yellow sputum - Initial CXR-no acute abnormal findings; Follow up CXR shows shows right basilar opacification (new) with last CXR read as nothing acute appreciated on front chest xray - Received one dose of IV 500 mg Azithromycin during admission - Received Zosyn IV 4.5 grams Q8H for pharmacy to dose plus Probiotic 1 tab po BID --> changed to clindamycin 150 mg po q 8 hr on 01/24/18 and received through 02/01/18 - He was on PPI but now on H2B for GERD - Mycoplasma pneumonia, viral panel, and strep pneumonia Ag negative - Decongestant/Expectorant PRN and IS as directed - Afebrile w/o leukocytosis - Aspiration Precautions - May have oropharyngeal dysfunction --> [facility] [employer] [facility] has signed off on patient S/p Probable Oropharyngeal Dysfunction - [facility] initial eval with recommendation of NDD4 diet (regular) and nectar thick liquids; diet was upgraded to thin liquids and no straws - [facility] [facility] has now signed off on patient S/p Hypokalemia - Was 3.4 01/23/18, improved to 3.9 on 01/24/18 - Likely 2/2 poor intake and hemodilution with IVF - Replete per protocol S/p Acute Hematemesis - Risk factors: History of alcohol abuse, GERD, Pill Esophagitis - Reported by [facility] to be coffee ground emesis - No further episodes with EMS, in ED, or during admit thus far - ED provider reports negative FOBT - Supportive care: monitor vitals, Hgb --> if indicated, will consult General Surgery for possible EGD - BP 160/98 in ED, improved at admit - Ordered Protonix 40 mg BID IV--> now on H2B S/p Hypotension - BP 86/68 yesterday morning - Will adjust hydralazine order to be given if BP >160/90 S/p Mild Hyponatremia - Na 135--> 138 - Has been on the lower end of normal - Likely 2/2 sertraline and varied intakes - Received Thermotabs 2 tab po daily x 3 days S/p Mental Status Changes - Has underlying Dementia - Likely 2/2 Medication Side effects (Increased Dose of Risperdal) --> Daughter reported to ED provider that psych medications were recently changed - Panfilo reported slurred speech and lethargy --> - Head CT in ED read as senescent changes with no acute abnormality - Dr. Whiteside recommended: Discontinuing Risperdal 0.5 mg; continuing 1 mg Risperdal q Hs; changing sertraline to HS Chronic: Hx Alcohol Use Disorder Schizophrenia MDD GERD S/p Cardiac pacemaker placement Weakness HTN HLD Hypothyroidism Plan: He remains clinically stable PRN AM Labs Continue current treatment Fall and Aspiration Precautions DVT/GI Prophylaxis: H2B/SCDs CM/SW still working on placement Encourage to ambulate as tolerated Other orders as indicated above Code Status: Full code Discharge pending placement: [facility] vs [facility].
--- NOTE | 2018-02-09 11:09 | PCM.DCSUM1 ---
<Hodan Palencia - Last Filed: 02/09/18 12:16> Discharge Summary - Hospital Course HPI Initial Comments: This is a 72 y/o male with PMHx significant for alcohol use disorder, schizophrenia, dementia, MDD, GERD, cachexia, presence of cardiac pacemaker, weakness, HTN, type 2 DM, HLD, and hypothyroisim who comes in with one episode of coffee ground hematemesis earlier this morning per staff at [facility] where he is a resident. Per EMS, patient did not have any emesis en route to ED but RN at [place] reported to EMS that he vomited approximately 4 cups this morning. Patient is a poor historian and is unable to provide much history. He is currently denying any pain. Denies abdominal pain or chest pain. He is unable to answer if he has experienced hematemesis prior to today. intermediate records also indicate that patient was having slurred speech and was more lethargic as well as chest pain and abdominal pain. Patient was noted to have a wet cough with sputum production in ED. ED work-up included CBC that was unremarkable with WBC 8.72 and Hgb 14.8. CMP remarkable for anion gap 15.3, glucose 157, BUN 43, AST 13. Ammonia was <10 and troponin was <0.017. UA was significant for specific gravity >= 1.030, 1+ protein, 1+ ketones, 1+ bilirubin. No evidence of UTI. Head CT was ordered and was read as senescent changes but no acute abnormality. EKG was read as NSR with no acute changes. Chest xray read is pending but initial impression is negative. He was placed on IVF of NS at 125 ml/hr in ED and he also received protonix 40 mg IV there. ED provider reported negative FOBT. ED provider spoke to daughter and she reported that patient's psych medications were adjusted recently. He is subsequently admitted to the med/surg floor for observation and supportive care. He has history of tobacco abuse and is currently on a nicotine patch. He is a full code. PCP is Dr. Ace Suazo. Diagnosis: Stroke: No Modified Wagoner Scale: No Symptoms at All Modified Wagoner Scale Score: 0 - Discharge Data Discharge Date: 02/09/18 Discharge Disposition: DC/Tfer to [facility] Condition: Good - Patient Summary/Data Operative Procedure(s) Performed: None Complications: None Consults: Consultations 01/20/18 17:30 Consult to Case Management [CONS] Routine Consult to Activity Aide [CONS] Routine OT Evaluation and Treatment [CONS] Routine PT Evaluation and Treatment [CONS] Routine 01/22/18 11:47 Consult to Dietary [Consult to Manager Behavioral] [CONS] Routine 01/23/18 09:29 Consult to Speech Language Pathology [GAME MANAGER Evaluation and Treatment] [CONS] Routine 01/24/18 17:15 Consult to Physician [CONS] Routine 01/26/18 10:53 Consult to Manager Behavioral [CONS] Routine Labs Pending at D/C: None Recommended Follow-up Testing/Procedures: PCP in 1-2 weeks Planned Operative Procedure(s) after DC: None Hospital Course: Plan: A/P: Chronic: Type 2 Diabetes, Stable - BS well controlled - Continue Metformin 500 mg BID - Accu-check QID (AC and HS) with Low level ISS Cachexia, Continues to Improve - Patient reported UBW 190# (although he is unable to report when he last weighed this amount); weight has ranged from 148-168# during admission with most weights between 155-160# - RD following - Receiving Glucerna 4oz TID with meals 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 Whiteside following, no new recommendations Resolved: S/p Healthcare Acquired Aspiration Pneumonia/Chemical Pneumonitis - Risk Factors: GERD and AMS - Suspect this is more of a chemical pneumonitis with aspiration, will cover for appropriate pathogens - Had wet cough; suctioned in ED with clear to yellow sputum - Initial CXR-no acute abnormal findings; Follow up CXR shows shows right basilar opacification (new) with last CXR read as nothing acute appreciated on front chest xray - Received one dose Azithromycin 500 mg IV during admission - Received Zosyn 4.5 gm IV Q8H for pharmacy to dose plus Probiotic 1 tab po BID --> changed to clindamycin 150 mg po q 8 hr on 01/24/18 and received through 02/01/18 - He was on PPI but now on H2B for GERD - Mycoplasma pneumonia, viral panel, and strep pneumonia Ag negative - Decongestant/Expectorant PRN and IS as directed - Afebrile w/o leukocytosis - Aspiration Precautions - May have oropharyngeal dysfunction --> GAME MANAGER has signed off on patient S/p Probable Oropharyngeal Dysfunction - GAME MANAGER initial eval with recommendation of NDD4 diet (regular) and nectar thick liquids; diet was upgraded to thin liquids and no straws - GAME MANAGER has now signed off on patient S/p Hypokalemia - Was 3.4 01/23/18, improved to 3.9 on 01/24/18 - Likely 2/2 poor intake and hemodilution with IVF - Replete per protocol S/p Acute Hematemesis - Risk factors: History of alcohol abuse, GERD, Pill Esophagitis - Reported by [facility] to be coffee ground emesis - No further episodes with EMS, in ED, or during admit thus far - ED provider reports negative FOBT - Supportive care: monitor vitals, Hgb --> if indicated, will consult General Surgery for possible EGD - BP 160/98 in ED, improved at admit - Ordered Protonix 40 mg BID IV--> now on H2B S/p Hypotension - BP 86/68 yesterday morning - Will adjust hydralazine order to be given if BP >160/90 S/p Mild Hyponatremia - Na 135--> 138 - Has been on the lower end of normal - Likely 2/2 sertraline and varied intakes - On Thermotabs 2 tab po daily x 3 days S/p Mental Status Changes - Has underlying Dementia - Likely 2/2 Medication Side effects (Increased Dose of Risperdal) --> Daughter reported to ED provider that psych medications were recently changed - [place] reported slurred speech and lethargy --> - Head CT in ED read as senescent changes with no acute abnormality - Dr. Whiteside recommended: Discontinuing Risperdal 0.5 mg; continuing 1 mg Risperdal q Hs; changing sertraline to HS Chronic: Hx Alcohol Use Disorder Schizophrenia MDD GERD S/p Cardiac pacemaker placement Weakness HTN HLD Hypothyroidism Plan: He remains clinically stable PRN AM Labs Continue current treatment Fall and Aspiration Precautions DVT/GI Prophylaxis: H2B/SCDs CM/SW still working on placement --> discharge to [facility] in [place], [place] today, 02/09/18 Encourage to ambulate as tolerated Other orders as indicated above Code Status: Full code Hospital Course: Dg was admitted for acute hematemesis and increased sedation/confusion. He was a resident of [facility]. He has a history of alcohol use disorder, GERD, dementia, schizophrenia, and type 2 diabetes. ED work-up included CBC that was unremarkable with WBC 8.72 and Hgb 14.8. CMP remarkable for anion gap 15.3, glucose 157, BUN 43, AST 13. Ammonia was <10 and troponin was <0.017. UA was significant for specific gravity >= 1.030, 1+ protein, 1+ ketones, 1+ bilirubin but no evidence of UTI. Head CT was ordered and was read as senescent changes but no acute abnormality. EKG was read as NSR with no acute changes. Chest xray in ED was read as no acute abnormal findings. He was placed on IVF of NS at 125 ml/hr in ED and he also received protonix 40 mg IV/ Protonix was changed to Pepcid during admission. ED provider reported negative FOBT. Patient had no further episodes of hematemesis with EMS, in ED, or during admit. Regarding sedation, ED provider spoke to daughter and she reported that patient's psych medications were adjusted recently. Patient was extremely sedated therefore antipsychotics were adjusted. Dr. Whiteside was consulted and recommended Risperdal 1 mg po QHS and Zoloft 50 mg po Q HS. Patient also had wet cough in ED that was concerning for chemical pneumonitis with aspiration. Follow up CXR showed showed new right basilar opacification. Patient received one dose of Azithromycin 500 mg IV, Zosyn 4.5 gm IV Q8H, and then changed to clindamycin 150 mg po q 8 hr on 01/24/18 and received through 02/01/18. Given patient's probable oropharyngeal dysfunction, GAME MANAGER was consulted. GAME MANAGER initial eval was with recommendation of NDD4 diet (regular) and nectar thick liquids. Diet was upgraded to thin liquids, no straws, and recommendation was made to crush meds and give with pudding/puree. Diet is also diabetic. During admission , patient's blood glucose was well controlled. He received home dose Metformin 500 mg BID as well as Accu-check QID (AC and HS) with Low level ISS. Patient appeared cachectic upon admission. Patient reported UBW 190# (although he was unable to report when he last weighed this amount). His weight has ranged from 148-168# during admission with most weights between 155-160#. Dietitian was consulted. Patient is receiving Glucerna 4 oz TID with meals. Labs during admission were significant for mild hyponatremia and mild hypokalemia. Hypokalemia resolved with repletion. Sodium has been mildly low or low end of normal. He received Thermotabs 2 tab po daily x 3 days. On day of discharge, sodium was 136. Hyponatremia likely related to sertraline and varied intakes. New/updated medications include risperdal 1 mg po q HS, Zoloft 50 mg po q HS, and Pepcid 20 mg po BID. Recommend patient see PCP in 1-2 weeks. Patient is stable and ready for discharge to [facility] in [place], [place] today. Patient and daughter are agreeable to this plan. - Patient Instructions Diet: Usual Diet as Tolerated, Diabetic Diet Activity: As Tolerated Driving: Do Not Drive Showering/Bathing: May Shower Notify Provider of: Fever, Increased Pain, Nausea and/or Vomiting Other/Special Instructions: - Please take new medication as directed. - Resume all home medications and routine activities as tolerated. - You are a high risk for aspiration. - Call your family doctor for any questions or concerns after discharge from the hospital. - Follow up with PCP in 1-2 week. - Come back or seek immediate care should your symptoms persist or get worse - Discharge Plan Home Medications: Home Meds Folic Acid 1 mg PO BEDTIME #30 tablet 03/11/17 [Rx] Levothyroxine 88 mcg PO DAILY 04/26/17 [History] Acetaminophen [Tylenol] 650 mg PO Q4H PRN tablet 05/09/17 [Rx] Aspirin 81 mg PO DAILY #30 tab.chew 05/09/17 [Rx] Multivitamins [Tab-A-Emily] 1 tab PO BEDTIME tablet 05/09/17 [Rx] Nicotine [Habitrol] 21 mg TRDERM DAILY #30 patch 05/09/17 [Rx] atorvaSTATin [Lipitor] 20 mg PO BEDTIME #30 tablet 05/09/17 [Rx] metFORMIN [Glucophage] 500 mg PO BIDMEALS #60 tablet 05/09/17 [Rx] Calcium Carbonate [Tums] 500 mg PO BID 01/20/18 [History] Lisinopril [Prinivil] 10 mg PO DAILY 01/20/18 [History] Petrolatum,White [Vaseline] 453.6 gm TOP DAILY 01/20/18 [History] Famotidine [Pepcid] 20 mg PO BID #60 tablet 02/09/18 [Rx] Sertraline [Zoloft] 50 mg PO BEDTIME #30 02/09/18 [Rx] risperiDONE [RisperiDAL] 1 mg PO BEDTIME tablet 02/09/18 [Rx] Patient Handouts: Gastrointestinal Bleeding, [id number] Referrals: Ace Suazo MD [Primary Care Provider] - (Please follow-up with primary care doctor, Dr. Suazo, in 1 to 2 weeks. Please ask about having a TDaP vaccine at this appointment.) - Discharge Summary/Plan Comment DC Time >30 min.: Yes (45) - General Info Date of Service: 02/09/18 Admission Dx/Problem (Free Text: Admission Diagnosis/Problem Admission Diagnosis/Problem Coffee ground emesis Subjective Update: In to see Dg. He is resting comfortably in bed with his eyes closed. He would not open his eyes but did answer some questions. He denies any pain. He has no complaints. Functional Status: Reports: Pain Controlled, Tolerating Diet, Ambulating (with assistance ), Urinating - Review of Systems General: Reports: No Symptoms. Denies: Fever, Malaise HEENT: Reports: No Symptoms. Denies: Sinus Congestion, Sore Throat Pulmonary: Reports: No Symptoms. Denies: Shortness of Breath, Cough Cardiovascular: Reports: No Symptoms. Denies: Chest Pain, Palpitations, Edema Gastrointestinal: Reports: No Symptoms. Denies: Abdominal Pain, Constipation, Diarrhea, Nausea, Vomiting Genitourinary: Reports: No Symptoms. Denies: Dysuria, Frequency, Burning Musculoskeletal: Reports: No Symptoms. Denies: Joint Pain Skin: Reports: No Symptoms, Pallor Neurological: Reports: No Symptoms. Denies: Dizziness, Headache, Numbness Psychiatric: Reports: No Symptoms. Denies: Depression, Anxiety - Patient Data Vitals - Most Recent: Last Vital Signs Temp 97.9 F 02/09/18 07:32 Pulse 61 02/09/18 07:32 Resp 18 02/09/18 07:32 BP 146/80 H 02/09/18 08:27 Pulse Ox 97 02/09/18 07:32 Weight - Most Recent: 71.804 kg I&O - Last 24 hours: Intake & Output 02/08/18 02/09/18 02/09/18 22:59 06:59 14:59 Intake Total 580 200 Balance 580 200 Lab Results - Last 24 hrs: Laboratory Results - last 24 hr 02/08/18 02/08/18 02/08/18 Range/Units 11:05 17:07 20:47 WBC (4.23-9.07) K/mm3 RBC (4.63-6.08) M/mm3 Hgb (13.7-17.5) gm/L Hct (40.1-51.0) % MCV (79.0-92.2) fl MCH (25.7-32.2) pg MCHC (32.2-35.5) g/dl RDW Std Deviation (35.1-43.9) fL Plt Count (163-337) K/mm3 MPV (9.4-12.3) fl Neut % (Auto) (34.0-67.9) % Lymph % (Auto) (21.8-53.1) % Emmet % (Auto) (5.3-12.2) % Eos % (Auto) (0.8-7.0) Baso % (Auto) (0.1-1.2) % Neut # (Auto) (1.78-5.38) K/mm3 Lymph # (Auto) (1.32-3.57) K/mm3 Emmet # (Auto) (0.30-0.82) K/mm3 Eos # (Auto) (0.04-0.54) K/mm3 Baso # (Auto) (0.01-0.08) K/mm3 Sodium (136-145) mEq/L Potassium (3.5-5.1) mEq/L Chloride (98-107) mEq/L Carbon Dioxide (21-32) mEq/L Anion Gap (5-15) BUN (7-18) mg/dL Creatinine (0.7-1.3) mg/dL Est Cr Clr Drug Dosing mL/min Estimated GFR (MDRD) (>60) mL/min BUN/Creatinine Ratio (14-18) Glucose (83-115) mg/dL POC Glucose 127 H 127 H 212 H (83-110) mg/dL Calcium (8.5-10.1) mg/dL 02/09/18 02/09/18 02/09/18 Range/Units 06:17 06:18 06:18 WBC 4.46 (4.23-9.07) K/mm3 RBC 4.07 L (4.63-6.08) M/mm3 Hgb 11.1 L (13.7-17.5) gm/L Hct 34.3 L (40.1-51.0) % MCV 84.3 (79.0-92.2) fl MCH 27.3 (25.7-32.2) pg MCHC 32.4 (32.2-35.5) g/dl RDW Std Deviation 40.9 (35.1-43.9) fL Plt Count 254 (163-337) K/mm3 MPV 9.3 L (9.4-12.3) fl Neut % (Auto) 55.1 (34.0-67.9) % Lymph % (Auto) 34.5 (21.8-53.1) % Emmet % (Auto) 6.3 (5.3-12.2) % Eos % (Auto) 3.4 (0.8-7.0) Baso % (Auto) 0.7 (0.1-1.2) % Neut # (Auto) 2.46 (1.78-5.38) K/mm3 Lymph # (Auto) 1.54 (1.32-3.57) K/mm3 Emmet # (Auto) 0.28 L (0.30-0.82) K/mm3 Eos # (Auto) 0.15 (0.04-0.54) K/mm3 Baso # (Auto) 0.03 (0.01-0.08) K/mm3 Sodium 136 (136-145) mEq/L Potassium 4.2 (3.5-5.1) mEq/L Chloride 103 (98-107) mEq/L Carbon Dioxide 25 (21-32) mEq/L Anion Gap 12.2 (5-15) BUN 32 H (7-18) mg/dL Creatinine 1.1 (0.7-1.3) mg/dL Est Cr Clr Drug Dosing 62.56 mL/min Estimated GFR (MDRD) > 60 (>60) mL/min BUN/Creatinine Ratio 29.1 H (14-18) Glucose 101 (83-115) mg/dL POC Glucose 95 (83-110) mg/dL Calcium 9.5 (8.5-10.1) mg/dL 02/09/18 Range/Units 10:49 WBC (4.23-9.07) K/mm3 RBC (4.63-6.08) M/mm3 Hgb (13.7-17.5) gm/L Hct (40.1-51.0) % MCV (79.0-92.2) fl MCH (25.7-32.2) pg MCHC (32.2-35.5) g/dl RDW Std Deviation (35.1-43.9) fL Plt Count (163-337) K/mm3 MPV (9.4-12.3) fl Neut % (Auto) (34.0-67.9) % Lymph % (Auto) (21.8-53.1) % Emmet % (Auto) (5.3-12.2) % Eos % (Auto) (0.8-7.0) Baso % (Auto) (0.1-1.2) % Neut # (Auto) (1.78-5.38) K/mm3 Lymph # (Auto) (1.32-3.57) K/mm3 Emmet # (Auto) (0.30-0.82) K/mm3 Eos # (Auto) (0.04-0.54) K/mm3 Baso # (Auto) (0.01-0.08) K/mm3 Sodium (136-145) mEq/L Potassium (3.5-5.1) mEq/L Chloride (98-107) mEq/L Carbon Dioxide (21-32) mEq/L Anion Gap (5-15) BUN (7-18) mg/dL Creatinine (0.7-1.3) mg/dL Est Cr Clr Drug Dosing mL/min Estimated GFR (MDRD) (>60) mL/min BUN/Creatinine Ratio (14-18) Glucose (83-115) mg/dL POC Glucose 134 H (83-110) mg/dL Calcium (8.5-10.1) mg/dL Med Orders - Current: Current Medications Acetaminophen (Tylenol) 650 mg PO Q4H PRN PRN Reason: Pain (Mild 1-3)/fever Hydrocodone Bitart/Acetaminophen ([place] 325-5 Mg) 1 tab PO Q4H PRN PRN Reason: Pain (moderate 4-6) Aspirin (Aspirin) 81 mg PO DAILY [facility] Last Admin: 02/09/18 08:27 Dose: 81 mg Bisacodyl (Dulcolax) 5 mg PO DAILY PRN PRN Reason: Constipation Last Admin: 01/25/18 02:30 Dose: 5 mg Calcium Carbonate/Glycine (Tums) 500 mg PO BID [facility] Last Admin: 02/09/18 08:27 Dose: 500 mg Dextrose/Water (Dextrose 50% In Water) 50 ml IVPUSH ASDIRECTED PRN PRN Reason: Hypoglycemia Docusate Sodium (Colace) 100 mg PO BID PRN PRN Reason: Constipation Famotidine (Pepcid) 20 mg PO BID [facility] Last Admin: 02/09/18 08:27 Dose: 20 mg Folic Acid (Folic Acid) 1 mg PO BEDTIME [facility] Last Admin: 02/08/18 20:53 Dose: 1 mg Guaifenesin/Phenylephrine HCl (Robitussin Dm) 5 ml PO Q4H PRN PRN Reason: Cough Haloperidol Lactate (Haldol) 2.5 mg IM Q8H PRN PRN Reason: Agitation/Restlessness Last Admin: 01/24/18 08:25 Dose: 2.5 mg Hydralazine HCl (Apresoline) 20 mg IVPUSH Q4H PRN PRN Reason: hypertension Last Admin: 02/05/18 20:08 Dose: 20 mg Hydromorphone HCl (Dilaudid) 0.25 mg IVPUSH Q2H PRN PRN Reason: Pain (severe 7-10) Promethazine HCl 6.25 mg/ (Sodium Chloride) 50.25 mls @ 100 mls/hr IV Q6H PRN PRN Reason: Nausea/Vomiting Insulin Aspart (Novolog) 0 unit SUBCUT QIDACANDBED [facility]; Protocol Last Admin: 02/09/18 10:49 Dose: Not Given Levothyroxine Sodium (Synthroid) 88 mcg PO ACBREAKFAST [facility] Last Admin: 02/09/18 06:30 Dose: 88 mcg Lisinopril (Prinivil) 20 mg PO DAILY [facility] Last Admin: 02/09/18 08:27 Dose: 20 mg Lorazepam (Ativan) 2 mg IVPUSH Q4H PRN PRN Reason: Seizures Lorazepam (Ativan) 0.25 mg IVPUSH Q4H PRN PRN Reason: Anxiety Last Admin: 01/24/18 15:57 Dose: 0.25 mg Magnesium Hydroxide (Milk Of Magnesia) 30 ml PO Q12H PRN PRN Reason: Constipation Metformin HCl (Glucophage) 500 mg PO BIDMEALS [facility] Last Admin: 02/09/18 06:30 Dose: 500 mg Metoprolol Tartrate (Lopressor) 5 mg IVPUSH Q4H PRN PRN Reason: Tachycardia Miscellaneous Information (Remove Patch) 1 ea TRDERM DAILY [facility] Last Admin: 02/09/18 08:28 Dose: 1 ea Multivitamins (Thera) 1 each PO BEDTIME [facility] Last Admin: 02/08/18 20:53 Dose: 1 each Nicotine (Habitrol) 21 mg TRDERM DAILY [facility] Last Admin: 02/09/18 08:27 Dose: 21 mg Polyethylene Glycol (Miralax) 17 gm PO DAILY PRN PRN Reason: Constipation Last Admin: 02/08/18 17:56 Dose: 17 gm Promethazine HCl (Phenergan) 25 mg PO Q6H PRN PRN Reason: Nausea/Vomiting Risperidone (Risperidal) 1 mg PO BEDTIME [facility] Last Admin: 02/08/18 20:53 Dose: 1 mg Saccharomyces Boulardii (Florastor) 250 mg PO BID [facility] Last Admin: 02/09/18 08:27 Dose: 250 mg Senna/Docusate Sodium (Senna Plus) 1 tab PO BID PRN PRN Reason: Constipation Sertraline HCl (Zoloft) 50 mg PO BEDTIME [facility] Last Admin: 02/08/18 20:53 Dose: 50 mg Simvastatin (Zocor) 20 mg PO BEDTIME [facility] Last Admin: 02/08/18 20:53 Dose: 20 mg Sodium Chloride (Saline Flush) 10 ml FLUSH ASDIRECTED PRN PRN Reason: Keep Vein Open Last Admin: 01/20/18 12:04 Dose: 10 ml Thiamine HCl (Vitamin B-1) 100 mg PO BEDTIME [facility] Last Admin: 02/08/18 20:53 Dose: 100 mg Discontinued Medications Bisacodyl (Dulcolax) 10 mg RECTAL ONETIME ONE Stop: 01/21/18 20:01 Last Admin: 01/21/18 19:58 Dose: Not Given Caffeine (Caffeine) 200 mg PO ONETIME ONE Stop: 01/22/18 07:01 Last Admin: 01/22/18 06:01 Dose: 200 mg Clindamycin HCl (Cleocin) 150 mg PO Q8H [facility] Stop: 02/01/18 11:01 Last Admin: 02/01/18 11:39 Dose: 150 mg Famotidine (Pepcid) 20 mg PO BID [facility] Last Admin: 01/22/18 10:02 Dose: 20 mg Famotidine (Pepcid) 20 mg IVPUSH Q24H [facility] Last Admin: 01/29/18 21:04 Dose: 20 mg Famotidine (Pepcid) 20 mg IVPUSH ONETIME ONE Stop: 01/22/18 11:44 Last Admin: 01/22/18 11:59 Dose: 20 mg Famotidine (Pepcid) 20 mg PO Q24H [facility] Last Admin: 02/03/18 23:16 Dose: 20 mg Hydralazine HCl (Apresoline) 20 mg IVPUSH Q4H PRN PRN Reason: Hypertension Last Admin: 01/26/18 03:30 Dose: 20 mg Sodium Chloride (Normal Saline) 1,000 mls @ 125 mls/hr IV ASDIRECTED [facility] Last Admin: 01/22/18 05:05 Dose: 125 mls/hr Azithromycin 500 mg/ Sodium (Chloride) 250 mls @ 250 mls/hr IV ONETIME ONE Stop: 01/22/18 00:56 Last Admin: 01/22/18 00:21 Dose: 250 mls/hr Piperacillin Sod/Tazobactam (Sod 4.5 gm/ Sodium Chloride) 100 mls @ 25 mls/hr IV Q8H [facility] Last Admin: 01/24/18 04:57 Dose: 25 mls/hr Piperacillin Sod/Tazobactam (Sod 4.5 gm/ Sodium Chloride) 100 mls @ 200 mls/hr IV ONETIME ONE Stop: 01/22/18 12:29 Last Admin: 01/22/18 12:00 Dose: 200 mls/hr Dextrose/Sodium Chloride (Dextrose 5%-Normal Saline) 1,000 mls @ 50 mls/hr IV ASDIRECTED [facility] Last Admin: 01/23/18 08:07 Dose: 50 mls/hr Insulin Aspart (Novolog) 0 unit SUBCUT Q6H PRN; Protocol PRN Reason: Hyperglycemia Insulin Aspart (Novolog) 0 unit SUBCUT Q6HR JAMES; Protocol Last Admin: 01/24/18 20:31 Dose: Not Given Lactulose (Cephulac) 20 gm PO ONETIME ONE Stop: 01/21/18 19:03 Last Admin: 01/21/18 19:58 Dose: Not Given Lorazepam (Ativan) 0.5 mg IVPUSH BEDTIME ONE Stop: 01/23/18 23:45 Last Admin: 01/24/18 00:03 Dose: 0.5 mg Magnesium Sulfate (Pharmacy To Dose - Magnesium Replacement) 1 dose .XX ASDIRECTED [facility] Metformin HCl (Glucophage) 500 mg PO BIDMEALS [facility] Last Admin: 01/22/18 06:02 Dose: 500 mg Metformin HCl (Glucophage) 500 mg PO BIDMEALS [facility] Modafinil (Provigil) 100 mg PO DAILY [facility] Modafinil (Provigil) 100 mg PO NOW STA Stop: 01/22/18 11:01 Last Admin: 01/22/18 11:34 Dose: 100 mg Modafinil (Provigil) 200 mg PO DAILY JAMES Stop: 01/23/18 09:01 Last Admin: 01/23/18 08:13 Dose: 200 mg Nicotine (Habitrol) 21 mg TRDERM DAILY [facility] Non-Formulary Medication (Petrolatum,White [Vaseline]) 453.6 gm TOP DAILY [facility] Oral Electrolytes (Thermotabs) 1 each PO BID JAMES Stop: 02/05/18 23:00 Last Admin: 02/05/18 22:39 Dose: Not Given Pantoprazole Sodium (Protonix Iv) 40 mg IVPUSH ONETIME ONE Stop: 01/20/18 12:06 Last Admin: 01/20/18 12:13 Dose: 40 mg Pantoprazole Sodium (Protonix Iv) 40 mg IV Q12HR [facility] Last Admin: 01/21/18 21:09 Dose: 40 mg Potassium Chloride (Pharmacy To Dose - Potassium Replacement) 1 dose .XX ASDIRECTED [facility] Potassium Chloride (Klor-Con M20) 40 meq PO ONETIME ONE Stop: 01/23/18 10:01 Last Admin: 01/23/18 09:43 Dose: 40 meq Risperidone (Risperidal) 0.5 mg PO DAILY [facility] Last Admin: 01/26/18 09:08 Dose: 0.5 mg Risperidone (Risperidal) 1 mg PO DAILY [facility] Risperidone (Risperidal) 1 mg PO BEDTIME [facility] Last Admin: 01/24/18 20:31 Dose: Not Given Sertraline HCl (Zoloft) 50 mg PO DAILY [facility] [facility] Last Admin: 01/26/18 09:08 Dose: 50 mg Temazepam (Restoril) 7.5 mg PO BEDTIME PRN PRN Reason: Sleep - Exam Quality Assessment: Reports: DVT Prophylaxis. Denies: Supplemental Oxygen General: Reports: Alert, Oriented, Cooperative (would not open his eyes but followed other commands and answered yes/no questions ), No Acute Distress HEENT: Reports: Pupils Equal, Pupils Reactive, EOMI, Mucous Membr. Moist/[place] Neck: Reports: Supple, Trachea Midline. Denies: Lymphadenopathy Lungs: Reports: Clear to Auscultation, Normal Respiratory Effort Cardiovascular: Reports: Regular Rate, Regular Rhythm, No Murmurs GI/Abdominal Exam: Normal Bowel Sounds, Soft, Non-Tender, No Distention (Male) Exam: Deferred Rectal (Males) Exam: Deferred Back Exam: Reports: Normal Inspection, Decreased Range of Motion Extremities: Normal Inspection, Non-Tender, No Pedal Edema, Limited Range of Motion Skin: Reports: Warm, Dry, Intact Neurological: Reports: No New Focal Deficit, Strength Equal Bilateral, Cranial Nerves Intact (grossly ) Psy/Mental Status: Reports: Alert, Normal Affect, Normal Mood <Shruthi Laws T - Last Filed: 02/09/18 15:34> Discharge Summary - Discharge Diagnosis/Problem(s) (1) Dementia associated with alcoholism with behavioral disturbance SNOMED Code(s): 881649, 9498086250757 ICD Code: F10.27 - ALCOHOL DEPENDENCE WITH ALCOHOL-INDUCED PERSISTING DEMENTIA Status: Chronic (2) Aspiration pneumonitis SNOMED Code(s): 348768846 ICD Code: J69.0 - PNEUMONITIS DUE TO INHALATION OF FOOD AND VOMIT Status: Resolved (3) Hypokalemia SNOMED Code(s): 47260221 ICD Code: E87.6 - HYPOKALEMIA Status: Resolved (4) Hypotension SNOMED Code(s): 33653732 ICD Code: I95.9 - HYPOTENSION, UNSPECIFIED Status: Resolved Qualifiers: Hypotension type: unspecified hypotension type Qualified Code(s): I95.9 - Hypotension, unspecified (5) Hyponatremia SNOMED Code(s): 63005784 ICD Code: E87.1 - HYPO-OSMOLALITY AND HYPONATREMIA Status: Resolved (6) Altered mental status SNOMED Code(s): 899911048 ICD Code: R41.82 - ALTERED MENTAL STATUS, UNSPECIFIED Status: Resolved Qualifiers: Altered mental status type: somnolence Qualified Code(s): R40.0 - Somnolence (7) Coffee ground emesis SNOMED Code(s): 912477619, 311251295 ICD Code: K92.0 - HEMATEMESIS Status: Resolved (8) DM type 2 (diabetes mellitus, type 2) SNOMED Code(s): 33407068 ICD Code: E11.9 - TYPE 2 DIABETES MELLITUS WITHOUT COMPLICATIONS Status: Chronic Qualifiers: Diabetes mellitus keno terminal operator insulin use: without keno terminal operator use Diabetes mellitus complication status: without complication Qualified Code(s): E11.9 - Type 2 diabetes mellitus without complications (9) Cachexia SNOMED Code(s): 420417389 ICD Code: R64 - [place] Status: Chronic Priority: High - Patient Summary/Data Consults: Consultations 01/20/18 17:30 Consult to Case Management [CONS] Routine Consult to Activity Aide [CONS] Routine OT Evaluation and Treatment [CONS] Routine PT Evaluation and Treatment [CONS] Routine 01/22/18 11:47 Consult to Dietary [Consult to Manager Behavioral] [CONS] Routine 01/23/18 09:29 Consult to Speech Language Pathology [GAME MANAGER Evaluation and Treatment] [CONS] Routine 01/24/18 17:15 Consult to Physician [CONS] Routine 01/26/18 10:53 Consult to Manager Behavioral [CONS] Routine Hospital Course: The patient was seen and examined at bedside in concert with the PA student. The discharge assessment and plans were discussed and agreed upon with me. - Discharge Summary/Plan Comment Discharge Summary/Plan Comment: Discharge to [facility] - Patient Data Vitals - Most Recent: Last Vital Signs Temp 36.6 C 02/09/18 07:32 Pulse 61 02/09/18 07:32 Resp 18 02/09/18 07:32 BP 146/80 H 02/09/18 08:27 Pulse Ox 97 06/28/18 07:32 I&O - Last 24 hours: Intake & Output 02/09/18 02/09/18 02/09/18 06:59 14:59 22:59 Intake Total 200 120 Balance 200 120 Lab Results - Last 24 hrs: Laboratory Results - last 24 hr 02/08/18 02/08/18 02/09/18 Range/Units 17:07 20:47 06:17 WBC (4.23-9.07) K/mm3 RBC (4.63-6.08) M/mm3 Hgb (13.7-17.5) gm/L Hct (40.1-51.0) % MCV (79.0-92.2) fl MCH (25.7-32.2) pg MCHC (32.2-35.5) g/dl RDW Std Deviation (35.1-43.9) fL Plt Count (163-337) K/mm3 MPV (9.4-12.3) fl Neut % (Auto) (34.0-67.9) % Lymph % (Auto) (21.8-53.1) % Emmet % (Auto) (5.3-12.2) % Eos % (Auto) (0.8-7.0) Baso % (Auto) (0.1-1.2) % Neut # (Auto) (1.78-5.38) K/mm3 Lymph # (Auto) (1.32-3.57) K/mm3 Emmet # (Auto) (0.30-0.82) K/mm3 Eos # (Auto) (0.04-0.54) K/mm3 Baso # (Auto) (0.01-0.08) K/mm3 Sodium (136-145) mEq/L Potassium (3.5-5.1) mEq/L Chloride (98-107) mEq/L Carbon Dioxide (21-32) mEq/L Anion Gap (5-15) BUN (7-18) mg/dL Creatinine (0.7-1.3) mg/dL Est Cr Clr Drug Dosing mL/min Estimated GFR (MDRD) (>60) mL/min BUN/Creatinine Ratio (14-18) Glucose (83-115) mg/dL POC Glucose 127 H 212 H 95 (83-110) mg/dL Calcium (8.5-10.1) mg/dL 02/09/18 02/09/18 02/09/18 Range/Units 06:18 06:18 10:49 WBC 4.46 (4.23-9.07) K/mm3 RBC 4.07 L (4.63-6.08) M/mm3 Hgb 11.1 L (13.7-17.5) gm/L Hct 34.3 L (40.1-51.0) % MCV 84.3 (79.0-92.2) fl MCH 27.3 (25.7-32.2) pg MCHC 32.4 (32.2-35.5) g/dl RDW Std Deviation 40.9 (35.1-43.9) fL Plt Count 254 (163-337) K/mm3 MPV 9.3 L (9.4-12.3) fl Neut % (Auto) 55.1 (34.0-67.9) % Lymph % (Auto) 34.5 (21.8-53.1) % Emmet % (Auto) 6.3 (5.3-12.2) % Eos % (Auto) 3.4 (0.8-7.0) Baso % (Auto) 0.7 (0.1-1.2) % Neut # (Auto) 2.46 (1.78-5.38) K/mm3 Lymph # (Auto) 1.54 (1.32-3.57) K/mm3 Emmet # (Auto) 0.28 L (0.30-0.82) K/mm3 Eos # (Auto) 0.15 (0.04-0.54) K/mm3 Baso # (Auto) 0.03 (0.01-0.08) K/mm3 Sodium 136 (136-145) mEq/L Potassium 4.2 (3.5-5.1) mEq/L Chloride 103 (98-107) mEq/L Carbon Dioxide 25 (21-32) mEq/L Anion Gap 12.2 (5-15) BUN 32 H (7-18) mg/dL Creatinine 1.1 (0.7-1.3) mg/dL Est Cr Clr Drug Dosing 62.56 mL/min Estimated GFR (MDRD) > 60 (>60) mL/min BUN/Creatinine Ratio 29.1 H (14-18) Glucose 101 (83-115) mg/dL POC Glucose 134 H (83-110) mg/dL Calcium 9.5 (8.5-10.1) mg/dL Med Orders - Current: Current Medications Discontinued Medications Acetaminophen (Tylenol) 650 mg PO Q4H PRN PRN Reason: Pain (Mild 1-3)/fever Hydrocodone Bitart/Acetaminophen ([place] 325-5 Mg) 1 tab PO Q4H PRN PRN Reason: Pain (moderate 4-6) Aspirin (Aspirin) 81 mg PO DAILY [facility] Last Admin: 02/09/18 08:27 Dose: 81 mg Bisacodyl (Dulcolax) 5 mg PO DAILY PRN PRN Reason: Constipation Last Admin: 01/25/18 02:30 Dose: 5 mg Bisacodyl (Dulcolax) 10 mg RECTAL ONETIME ONE Stop: 01/21/18 20:01 Last Admin: 01/21/18 19:58 Dose: Not Given Caffeine (Caffeine) 200 mg PO ONETIME ONE Stop: 01/22/18 07:01 Last Admin: 01/22/18 06:01 Dose: 200 mg Calcium Carbonate/Glycine (Tums) 500 mg PO BID [facility] Last Admin: 02/09/18 08:27 Dose: 500 mg Clindamycin HCl (Cleocin) 150 mg PO Q8H [facility] Stop: 02/01/18 11:01 Last Admin: 02/01/18 11:39 Dose: 150 mg Dextrose/Water (Dextrose 50% In Water) 50 ml IVPUSH ASDIRECTED PRN PRN Reason: Hypoglycemia Docusate Sodium (Colace) 100 mg PO BID PRN PRN Reason: Constipation Famotidine (Pepcid) 20 mg PO BID [facility] Last Admin: 01/22/18 10:02 Dose: 20 mg Famotidine (Pepcid) 20 mg IVPUSH Q24H [facility] Last Admin: 01/29/18 21:04 Dose: 20 mg Famotidine (Pepcid) 20 mg IVPUSH ONETIME ONE Stop: 01/22/18 11:44 Last Admin: 01/22/18 11:59 Dose: 20 mg Famotidine (Pepcid) 20 mg PO Q24H [facility] Last Admin: 02/03/18 23:16 Dose: 20 mg Famotidine (Pepcid) 20 mg PO BID [facility] Last Admin: 02/09/18 08:27 Dose: 20 mg Folic Acid (Folic Acid) 1 mg PO BEDTIME [facility] Last Admin: 02/08/18 20:53 Dose: 1 mg Guaifenesin/Phenylephrine HCl (Robitussin Dm) 5 ml PO Q4H PRN PRN Reason: Cough Haloperidol Lactate (Haldol) 2.5 mg IM Q8H PRN PRN Reason: Agitation/Restlessness Last Admin: 01/24/18 08:25 Dose: 2.5 mg Hydralazine HCl (Apresoline) 20 mg IVPUSH Q4H PRN PRN Reason: Hypertension Last Admin: 01/26/18 03:30 Dose: 20 mg Hydralazine HCl (Apresoline) 20 mg IVPUSH Q4H PRN PRN Reason: hypertension Last Admin: 02/05/18 20:08 Dose: 20 mg Hydromorphone HCl (Dilaudid) 0.25 mg IVPUSH Q2H PRN PRN Reason: Pain (severe 7-10) Sodium Chloride (Normal Saline) 1,000 mls @ 125 [facility]ls[facility] Last Admin: 01/22/18 05:05 Dose: 125 mls/hr Promethazine HCl 6.25 mg/ (Sodium Chloride) 50.25 mls @ 100 mls/hr IV Q6H PRN PRN Reason: Nausea/Vomiting Azithromycin 500 mg/ Sodium (Chloride) 250 mls @ 250 mls/hr IV ONETIME ONE Stop: 01/22/18 00:56 Last Admin: 01/22/18 00:21 Dose: 250 mls/hr Piperacillin Sod/Tazobactam (Sod 4.5 gm/ Sodium Chloride) 100 mls @ 25 mls/hr IV Q8H [facility] Last Admin: 01/24/18 04:57 Dose: 25 mls/hr Piperacillin Sod/Tazobactam (Sod 4.5 gm/ Sodium Chloride) 100 mls @ 200 mls/hr IV ONETIME ONE Stop: 01/22/18 12:29 Last Admin: 01/22/18 12:00 Dose: 200 mls/hr Dextrose/Sodium Chloride (Dextrose 5%-Normal Saline) 1,000 mls @ 50 mls[facility] Last Admin: 01/23/18 08:07 Dose: 50 mls/hr Insulin Aspart (Novolog) 0 unit SUBCUT Q6H PRN; Protocol PRN Reason: Hyperglycemia Insulin Aspart (Novolog) 0 unit SUBCUT Q6HR [facility]; Protocol Last Admin: 01/24/18 20:31 Dose: Not Given Insulin Aspart (Novolog) 0 unit SUBCUT QIDACANDBED [facility]; Protocol Last Admin: 02/09/18 10:49 Dose: Not Given Lactulose (Cephulac) 20 gm PO ONETIME ONE Stop: 01/21/18 19:03 Last Admin: 01/21/18 19:58 Dose: Not Given Levothyroxine Sodium (Synthroid) 88 mcg PO ACBREAKFAST [facility] Last Admin: 02/09/18 06:30 Dose: 88 mcg Lisinopril (Prinivil) 20 mg PO DAILY [facility] Last Admin: 02/09/18 08:27 Dose: 20 mg Lorazepam (Ativan) 2 mg IVPUSH Q4H PRN PRN Reason: Seizures Lorazepam (Ativan) 0.5 mg IVPUSH BEDTIME ONE Stop: 01/23/18 23:45 Last Admin: 01/24/18 00:03 Dose: 0.5 mg Lorazepam (Ativan) 0.25 mg IVPUSH Q4H PRN PRN Reason: Anxiety Last Admin: 01/24/18 15:57 Dose: 0.25 mg Magnesium Hydroxide (Milk Of Magnesia) 30 ml PO Q12H PRN PRN Reason: Constipation Magnesium Sulfate (Pharmacy To Dose - Magnesium Replacement) 1 dose .XX ASDIRECTED [facility] Metformin HCl (Glucophage) 500 mg PO BIDMEALS [facility] Last Admin: 01/22/18 06:02 Dose: 500 mg Metformin HCl (Glucophage) 500 mg PO BIDMEALS [facility] Metformin HCl (Glucophage) 500 mg PO BIDMEALS [facility] Last Admin: 02/09/18 06:30 Dose: 500 mg Metoprolol Tartrate (Lopressor) 5 mg IVPUSH Q4H PRN PRN Reason: Tachycardia Miscellaneous Information (Remove Patch) 1 ea TRDERM DAILY [facility] Last Admin: 02/09/18 08:28 Dose: 1 ea Modafinil (Provigil) 100 mg PO DAILY [facility] Modafinil (Provigil) 100 mg PO NOW STA Stop: 01/22/18 11:01 Last Admin: 01/22/18 11:34 Dose: 100 mg Modafinil (Provigil) 200 mg PO DAILY [facility] Stop: 01/23/18 09:01 Last Admin: 01/23/18 08:13 Dose: 200 mg Multivitamins (Thera) 1 each PO BEDTIME [facility] Last Admin: 02/08/18 20:53 Dose: 1 each Nicotine (Habitrol) 21 mg TRDERM DAILY [facility] Last Admin: 02/09/18 08:27 Dose: 21 mg Nicotine (Habitrol) 21 mg TRDERM DAILY [facility] Non-Formulary Medication (Petrolatum,White [Vaseline]) 453.6 gm TOP DAILY [facility] Oral Electrolytes (Thermotabs) 1 each PO BID [facility] Stop: 02/05/18 23:00 Last Admin: 02/05/18 22:39 Dose: Not Given Pantoprazole Sodium (Protonix Iv) 40 mg IVPUSH ONETIME ONE Stop: 01/20/18 12:06 Last Admin: 01/20/18 12:13 Dose: 40 mg Pantoprazole Sodium (Protonix Iv) 40 mg IV Q12HR [facility] Last Admin: 01/21/18 21:09 Dose: 40 mg Pneumococcal 13-Valent Conj Vacc (Prevnar 13) 0.5 ml IM .ONCE ONE Stop: 02/09/18 12:01 Last Admin: 02/09/18 11:27 Dose: 0.5 ml Polyethylene Glycol (Miralax) 17 gm PO DAILY PRN PRN Reason: Constipation Last Admin: 02/08/18 17:56 Dose: 17 gm Potassium Chloride (Pharmacy To Dose - Potassium Replacement) 1 dose .XX ASDIRECTED [facility] Potassium Chloride (Klor-Con M20) 40 meq PO ONETIME ONE Stop: 01/23/18 10:01 Last Admin: 01/23/18 09:43 Dose: 40 meq Promethazine HCl (Phenergan) 25 mg PO Q6H PRN PRN Reason: Nausea/Vomiting Risperidone (Risperidal) 0.5 mg PO DAILY [facility] Last Admin: 01/26/18 09:08 Dose: 0.5 mg Risperidone (Risperidal) 1 mg PO DAILY [facility] Risperidone (Risperidal) 1 mg PO BEDTIME [facility] Last Admin: 01/24/18 20:31 Dose: Not Given Risperidone (Risperidal) 1 mg PO BEDTIME JAMES Last Admin: 02/08/18 20:53 Dose: 1 mg Saccharomyces Boulardii (Florastor) 250 mg PO BID J[facility] Last Admin: 02/09/18 08:27 Dose: 250 mg Senna/Docusate Sodium (Senna Plus) 1 tab PO BID PRN PRN Reason: Constipation Sertraline HCl (Zoloft) 50 mg PO DAILY [facility] Last Admin: 01/26/18 09:08 Dose: 50 mg Sertraline HCl (Zoloft) 50 mg PO BEDTIME JAMES Last Admin: 02/08/18 20:53 Dose: 50 mg Simvastatin (Zocor) 20 mg PO BEDTIME JAMES Last Admin: 02/08/18 20:53 Dose: 20 mg Sodium Chloride (Saline Flush) 10 ml FLUSH ASDIRECTED PRN PRN Reason: Keep Vein Open Last Admin: 01/20/18 12:04 Dose: 10 ml Temazepam (Restoril) 7.5 mg PO BEDTIME PRN PRN Reason: Sleep Thiamine HCl (Vitamin B-1) 100 mg PO BEDTIME [facility] Last Admin: 02/08/18 20:53 Dose: 100 mg
[2018-02-09] MEDS ORDERED: Pneumococcal 13-Valent Conjugate Vaccine 0.5 ML Syringe IM ONE (12:00)
== END 2018-02-09 11:46 | DRG 206 ==
LOC: JD.ED 10:35 → JD.MS 13:22 → OBSVTOIN 01-22 13:22 → JD.MS 01-22 13:23
PROVIDERS: ADMIT Internal Medicine; ATTEND Internal Medicine
PROC: 3E0234Z Introduction of Serum, Toxoid and Vaccine into Muscle, Percutaneous Approach (ICD-10-PCS; principal; 2018-02-09)
DX: J68.0 Bronchitis and pneumonitis due to chemicals, gases, fumes and vapors (principal); R64 Cachexia; K21.9 Gastro-esophageal reflux disease without esophagitis; F10.97 Alcohol use, unspecified with alcohol-induced persisting dementia; F20.0 Paranoid schizophrenia; E87.1 Hypo-osmolality and hyponatremia; F10.27 Alcohol dependence with alcohol-induced persisting dementia; R05 Cough; K92.0 Hematemesis; J69.0 Pneumonitis due to inhalation of food and vomit; I10 Essential (primary) hypertension; F17.200 Nicotine dependence, unspecified, uncomplicated; R00.1 Bradycardia, unspecified; R07.9 Chest pain, unspecified; R53.83 Other fatigue; R10.9 Unspecified abdominal pain; E11.9 Type 2 diabetes mellitus without complications; E78.5 Hyperlipidemia, unspecified; R53.1 Weakness; E87.6 Hypokalemia; K21.0 Gastro-esophageal reflux disease with esophagitis; I95.9 Hypotension, unspecified; T43.595A Adverse effect of other antipsychotics and neuroleptics, initial encounter; R41.82 Altered mental status, unspecified; R13.12 Dysphagia, oropharyngeal phase; Z23 Encounter for immunization; Z95.0 Presence of cardiac pacemaker; Z79.84 Long term (current) use of oral hypoglycemic drugs; Z79.82 Long term (current) use of aspirin; Z79.899 Other long term (current) drug therapy
CPT/HCPCS: 36415 ×3; 70450; 71045 ×2; 80048 ×2; 80053; 81001; 82140; 82962 ×7; 83690; 83735; 84484; 85007; 85025 ×2; 85027; 85610; 85730; 86738; 87486; 87581; 87633; 87641; 87798; 93005; 96361; 96374; 99285; A9270 ×23; C9113 ×4; G0480; J0360; J0456; J2543; J7030; J7040 ×6; J7042; J7050 ×2; 82272; 86140; 87899; 90471; 90670; 92526-GN; 93010; 97110-GP; 97116-GP; 97161-GP; 97166-GO; 97530-GO; 97530-GP; 99284; J1630; J1815-GY; J2060